=== PATIENT | female | born 1980 | race Caucasian/White ===

== ENCOUNTER 2022-10-26 09:30 | Outpatient (OUT) | payer OTHER, SELFPAY ==
--- NOTE | 2022-10-26 09:34 | US_ITS ---
The [address] [address] Patient Name: KELSI JOHNSON MRN: [id number] date: 1980 Sex: F Assigned Patient Location: [place] Current Patient Location: [place] Accession/Order Number: [id number] Exam Date: 10/26/2022 09:35 Report Date: 10/26/2022 14:39 At the request of: MIRIAM WHITE Procedure: US renal doppler EXAM: US renal doppler HISTORY: Palpitations R00.2, Hypertension I10 COMPARISON: None. TECHNIQUE: Multiple sonographic images of the kidneys and urinary bladder were obtained, supplemented with Doppler. FINDINGS: The right kidney measures 10.5 x 5.1 x 4.7 cm. No cystic or solid mass is identified. Multiple echogenic foci are noted, the largest in the mid pole measuring 4 mm. The cortical thickness is 11 mm. There is no evidence of hydronephrosis. The left kidney measures 10.4 x 5.4 x 5.2 cm. No cystic or solid mass is identified. Multiple echogenic foci are noted, the largest in the superior aspect measuring 5 mm. The cortical thickness is 14 mm. There is no evidence of hydronephrosis. The urinary bladder is moderately distended and the bladder [place] are smooth. There is no bladder wall thickening. No nodule or abnormal calcification is identified. The volume is calculated to be 290 mL. US/US renal doppler IMPRESSION: There is no evidence of an intrarenal mass or hydronephrosis on either side. There are multiple echogenic foci seen in both kidneys, compatible with renal calculi. The urinary bladder appears unremarkable as visualized. Direct comparison with a previous study may be helpful in determining the chronicity of these findings. Electronically authenticated by: GISELE TURK Date: 10/26/2022 14:39
== END 2022-10-26 09:31 | disposition home or self-care (01) ==
LOC: US 09:30
PROVIDERS: PCP Family Medicine; Visit Provider Family Medicine
DX: R00.2 Palpitations (principal); I10 Essential (primary) hypertension
CPT/HCPCS: 76775; 93975

== ENCOUNTER 2022-10-27 10:17 | Outpatient (OUT) | payer OTHER, SELFPAY ==
[2022-10-27 10:35] LABS: Basophils Absolute Auto 0.1 10^3/uL (0.0-0.1); Basophils Percent Auto 0.9 % (0.2-2.0); Eosinophils Absolute Auto 0.1 10^3/uL (0.0-0.7); Eosinophils Percent Auto 1.6 % (0.9-7.0); Hematocrit 39.7 % (36.0-48.0); Hemoglobin 11.8 g/dL (12.0-16.0); Immature Granulocytes Abs Auto 0.01 10^3/uL (0.00-0.03); Immature Granulocytes Pct Auto 0.2 % (0.0-0.5); Lymphocytes Absolute Auto 2.7 10^3/uL (1.2-3.8); Lymphocytes Percent Auto 49.8 % (20.5-60.0); Mean Corpuscular HGB Conc 29.7 g/dL (29.9-35.2); Mean Corpuscular Hemoglobin 24.5 pg (26.7-34.0); Mean Corpuscular Volume 82.5 fL (81.0-99.0); Mean Platelet Volume 10.9 fL (9.5-13.5); Monocytes Absolute Auto 0.3 10^3/uL (0.3-0.8); Monocytes Percent Auto 6.2 % (1.7-12.0); Neutrophils Absolute Auto 2.3 10^3/uL (1.4-6.5); Neutrophils Percent Auto 41.3 % (43.0-75.0); Platelet Count 289 10^3/uL (150-450); Red Blood Count 4.81 10^6/uL (4.20-5.40); Red Cell Distribution Width 17.2 % (11.0-15.0); White Blood Count 5.5 10^3/uL (4.0-11.0)
[2022-10-27 15:35] LABS: Alanine Aminotransferase 34 U/L (14-59); Albumin Globulin Ratio 1.1; Albumin Level 4.1 g/dL (3.4-5.0); Alkaline Phosphatase 50 U/L (46-116); Anion Gap 17.2; Aspartate Amino Transferase 18 U/L (15-37); BUN Creatinine Ratio 7.5; Bilirubin Total 0.3 mg/dL (0.2-1.0); Calcium 9.5 mg/dL (8.5-10.1); Chloride 101 mmol/L (98-107); Estimated GFR (African America >60 (>=60); Estimated GFR (Non-African Ame >60 (>=60); Globulin 3.8 g/dL; Glucose 102 mg/dL (74-106); Potassium 4.2 mmol/L (3.5-5.1); Sodium 139 mmol/L (136-145); Thyroid Stimulating Hormone 3.736 uIU/mL (0.358-3.740); Total Protein 7.9 g/dL (6.4-8.2)
[2022-10-31 19:07] LABS: Aldosterone LCMS, Serum 6.4 ng/dL (0.0-30.0)
== END 2022-10-27 10:18 | disposition home or self-care (01) ==
LOC: LAB 10:19
PROVIDERS: PCP Family Medicine; Visit Provider Family Medicine
DX: R00.2 Palpitations (principal); I10 Essential (primary) hypertension
CPT/HCPCS: 36415; 80053; 82088; 82533; 84439; 84443; 85025

== ENCOUNTER 2022-11-04 14:04 | Outpatient (OUT) | payer OTHER, SELFPAY ==
[2022-11-10 13:30] LABS: Anion Gap 11.3; BUN Creatinine Ratio 6.4; Calcium 9.5 mg/dL (8.5-10.1); Carbon Dioxide 28.3 mmol/L (21.0-32.0); Chloride 102 mmol/L (98-107); Estimated GFR (African America >60 (>=60); Estimated GFR (Non-African Ame >60 (>=60); Glucose 100 mg/dL (74-106); Potassium 4.6 mmol/L (3.5-5.1); Sodium 137 mmol/L (136-145)
[2022-11-10 13:42] LABS: Creatinine Urine Random 87.69 mg/dL (20.00-300.00)
[2022-11-10 14:29] LABS: Total Volume 24 Hour Urine 1500 mL/24hr
[2022-11-12 18:11] LABS: Metanephrine, U,24hr 116 ug/24 hr (36-209); Metanephrine, Ur 77 ug/L (Undefined); Normetanephr.,U,24h 575 ug/24 hr (131-612); Normetanephrine, Ur 383 ug/L (Undefined)
== END 2022-11-04 14:05 | disposition home or self-care (01) ==
LOC: LAB 14:05
PROVIDERS: PCP Family Medicine; Visit Provider Internal Medicine Cardiovascular Disease
DX: I11.9 Hypertensive heart disease without heart failure (principal)
CPT/HCPCS: 36415; 80048; 82384; 82570; 83835

== ENCOUNTER 2022-11-11 14:00 | Outpatient (OUT) | payer OTHER, SELFPAY ==
--- NOTE | 2022-11-11 14:00 | CA_ITS ---
Patient: KELSI JOHNSON Exam Date: 11/11/2022 : 1980 Gender:F Ordering : JANES ROBERTS Admission #: [id number] Family : DR Robert Spence . Order #: [id number] CLICK HERE TO VIEW EXAM ECHOCARDIOGRAM REPORT PROCEDURE: CA ECHO DOPPLER COMPLETE INDICATIONS: Benign hypertensive heart disease without congestive heart failure COMPARISON: None. DESCRIPTION: COMPLETE ECHOCARDIOGRAM Real-time transthoracic echocardiography with 2D, M-mode, spectral and color flow Doppler performed. QUALITY: Technical quality was good. LEFT VENTRICLE: Normal chamber size. Mild to moderate concentric left ventricular hypertrophy. Normal systolic function. LV EF: Normal left ventricular ejection fraction, (>55%). DIASTOLIC: Normal diastolic function. ATRIAL SEPTUM: LEFT ATRIUM: Normal chamber size. RIGHT ATRIUM: Normal chamber size. RIGHT VENTRICLE: Normal chamber size. Normal right ventricular systolic function. TRICUSPID VALVE: Normal mobility and thickness. No stenosis with trivial regurgitation. Unable to assess right-sided pressures due to lack of measurable tricuspid regurgitation jet. MITRAL VALVE: Normal mobility and thickness. No evidence of mitral valve stenosis. There is no mitral annular calcification. Trivial mitral regurgitation. AORTIC VALVE: Normal trileaflet appearance. No visible sclerosis. Normal leaflet mobility. No evidence of aortic valve stenosis. No aortic regurgitation. AORTIC ROOT: Normal diameter and appearance. PULMONIC VALVE: Normal thickness and mobility. No stenosis. PERICARDIUM: No pericardial effusion. IVC: Collapses with inspirations. PLEURA: CONCLUSION: 1. The left ventricle exhibits mild to moderate concentric hypertrophy with normal systolic function. LVEF is 60%. 2. Normal right ventricular size and systolic function. 3. No significant valvular dysfunction. 4. Unable to assess right-sided pressures due to lack of measurable tricuspid regurgitation. 5. No pericardial effusion. Adult Echocardiography Procedure Report Left Ventricle LVEDD (3.7 - 5.6 cm): 4.46 cm LVESD (2.2 - 4.0 cm): 2.89 cm LVIVS thickness (0.6 - 1.2 cm): 1.40 cm LVPW thickness (0.5 - 1.0 cm): 1.26 cm e': 0.10 m/s E - e': 5.58 LVOT Max Gradient: 2.20 mm[Hg] LVOT Area (cm2): 0.74 m/s Peak Velocity (LVOT): 0.74 m/s LVOT Diameter 2.04 cm Left Atrium LA Volume Index (2D A2C): 33.38 ml/m2 Left Atrium Systolic Dimension: 3.08 cm Mitral Valve MV E to A Ratio: 0.93 Mitral Valve A-Wave Peak Velocity: 0.58 m/s Mitral Valve E-Wave Peak Velocity: 0.53 m/s Right Ventricle Aorta AO Root Diam: 3.19 cm Ascending Ao Diam: 3.17 cm Aortic Valve AoV Area (Peak Amado): 2.37 cm2, 2.37 cm2 Peak Velocity(Antegrade Flow): 1.02 m/s Peak Gradient(Antegrade Flow): 4.18 mm[Hg] Tricuspid Valve Pulmonic Valve Peak Velocity: 0.74 m/s Peak Gradient: 2.14 mm[Hg], 2.27 mm[Hg] Right Atrium Right Atrium Systolic Pressure: 25.38 ml, 25.38 ml Dictated by: Guilherme Pizano M.D. on 11/11/2022 at 17:42 Approved by: Guilherme Pizano M.D. on 11/11/2022 at 17:45
== END 2022-11-11 14:01 | disposition home or self-care (01) ==
LOC: CARD 14:00
PROVIDERS: PCP Family Medicine; Visit Provider Internal Medicine Cardiovascular Disease
DX: I11.9 Hypertensive heart disease without heart failure (principal)
CPT/HCPCS: 93306

== ENCOUNTER 2022-11-14 09:01 | Outpatient (OUT) | payer OTHER, SELFPAY ==
[2022-11-14 09:00] VITALS: BP 176/119; PULSE 68; RESP 18; TEMP 36.6; O2SAT 99
[2022-11-14] MEDS: COSYNTROPIN 0.25 MG VIAL IM (09:15)
--- NOTE | 2022-11-14 09:19 | PC.NURSE ---
Patient is here cortisol ACTH test, she denies any issues. Pt was drawn by lab then given injection at 0915, lab will return at 0945 and 1015 to draw her cortisol levels. She tolerated injection well and denies any issues at this time.
--- NOTE | 2022-11-14 10:17 | PC.NURSE ---
Patient tolerated injection well, her right arm did become bruised after phlebotomy, lab was notified and she was drawn at 945 and 1015 without any issues. She was discharged home.
== END 2022-11-14 09:02 | disposition home or self-care (01) ==
LOC: INF 09:02
PROVIDERS: PCP Family Medicine; Visit Provider Family Medicine
DX: R94.7 Abnormal results of other endocrine function studies (principal)
CPT/HCPCS: 36415; 82533; 96372

== ENCOUNTER 2022-12-24 12:03 | Outpatient (OUT) | payer OTHER, SELFPAY ==
[2022-12-24 12:44] LABS: Anion Gap 14.2; Calcium 8.8 mg/dL (8.5-10.1); Chloride 104 mmol/L (98-107); Estimated GFR (African America >60 (>=60); Estimated GFR (Non-African Ame >60 (>=60); Glucose 97 mg/dL (74-106); Potassium 4.2 mmol/L (3.5-5.1); Sodium 141 mmol/L (136-145)
== END 2022-12-24 12:04 | disposition home or self-care (01) ==
PROVIDERS: PCP Family Medicine; Visit Provider Internal Medicine Cardiovascular Disease
DX: I10 Essential (primary) hypertension (principal)
CPT/HCPCS: 36415; 80048

== ENCOUNTER 2023-02-01 12:08 | Outpatient (OUT) | payer OTHER, SELFPAY ==
[2023-02-01 13:08] LABS: Basophils Percent Auto 0.2 % (0.2-2.0); Hematocrit 41.4 % (36.0-48.0); Hemoglobin 13.2 g/dL (12.0-16.0); Immature Granulocytes Abs Auto 0.02 10^3/uL (0.00-0.03); Immature Granulocytes Pct Auto 0.2 % (0.0-0.5); Lymphocytes Absolute Auto 2.1 10^3/uL (1.2-3.8); Mean Corpuscular HGB Conc 31.9 g/dL (29.9-35.2); Mean Corpuscular Hemoglobin 28.3 pg (26.7-34.0); Mean Corpuscular Volume 88.7 fL (81.0-99.0); Mean Platelet Volume 10.8 fL (9.5-13.5); Monocytes Absolute Auto 0.4 10^3/uL (0.3-0.8); Monocytes Percent Auto 3.9 % (1.7-12.0); Neutrophils Absolute Auto 6.9 10^3/uL (1.4-6.5); Neutrophils Percent Auto 73.7 % (43.0-75.0); Platelet Count 349 10^3/uL (150-450); Red Blood Count 4.67 10^6/uL (4.20-5.40); Red Cell Distribution Width 14.6 % (11.0-15.0); White Blood Count 9.4 10^3/uL (4.0-11.0)
[2023-02-01 13:31] LABS: Alanine Aminotransferase 29 U/L (14-59); Albumin Globulin Ratio 0.9; Albumin Level 4.1 g/dL (3.4-5.0); Alkaline Phosphatase 58 U/L (46-116); Anion Gap 16.6; Aspartate Amino Transferase 16 U/L (15-37); BUN Creatinine Ratio 9.4; Bilirubin Total 0.4 mg/dL (0.2-1.0); Calcium 9.2 mg/dL (8.5-10.1); Chloride 97 mmol/L (98-107); Estimated GFR (African America >60 (>=60); Estimated GFR (Non-African Ame >60 (>=60); Globulin 4.6 g/dL; Glucose 106 mg/dL (74-106); Magnesium 1.7 mg/dL (1.8-2.4); Potassium 4.6 mmol/L (3.5-5.1); Sodium 135 mmol/L (136-145); Thyroid Stimulating Hormone 1.226 uIU/mL (0.358-3.740); Total Protein 8.7 g/dL (6.4-8.2)
[2023-02-01 13:58] LABS: Free T4 0.74 ng/dL (0.76-1.46)
== END 2023-02-01 12:09 | disposition home or self-care (01) ==
LOC: LAB 12:10
PROVIDERS: PCP Family Medicine; Visit Provider Internal Medicine Cardiovascular Disease
DX: I11.9 Hypertensive heart disease without heart failure (principal); R53.83 Other fatigue
CPT/HCPCS: 36415; 80053; 83735; 84439; 84443; 85025

== ENCOUNTER 2023-02-06 13:47 | Outpatient (OUT) | payer OTHER, SELFPAY ==
--- NOTE | 2023-02-06 13:53 | CT_ITS ---
The [address] [address] Patient Name: KELSI JOHNSON MRN: [id number] date: 1980 Sex: F Assigned Patient Location: CT Current Patient Location: Accession/Order Number: [id number] Exam Date: 02/06/2023 14:05 Report Date: 02/07/2023 07:39 At the request of: DANNIE LUTHER Procedure: CT abdomen wo/w con EXAMINATION: CT abdomen wo/w con HISTORY: Benign essential hypertension COMPARISON: No relevant comparison available. TECHNIQUE: Axial, Coronal, and Sagittal images were obtained without and/or with IV contrast as indicated by examination type. Dose reduction techniques were achieved by using automated exposure control and/or adjustment of mA and/or kV according to patient size and/or use of iterative reconstruction technique FINDINGS: LUNG BASES: No visible pulmonary or pleural disease. LIVER: No enlargement, atrophy, abnormal density, or significant focal lesion. BILIARY: No visible dilatation or calcification. PANCREAS: No lesion, fluid collection, ductal dilatation, or atrophy. SPLEEN: No enlargement or focal lesion. ADRENALS: No mass or enlargement. KIDNEYS: A few tiny nonobstructing stones bilaterally. BOWEL/MESENTERY: No visible mass, obstruction, or bowel wall thickening. AORTA/VASCULAR: No aneurysm or dissection. RETROPERITONEUM: No mass or adenopathy. ABDOMINAL WALL: No mass or hernia. BONES: No bony lesion or fracture. OTHER: Negative. CT/CT abdomen wo/w con IMPRESSION: 1. Normal appearance of the adrenal glands. 2. Bilateral nonobstructing nephrolithiasis. Electronically authenticated by: MAYTE ANNE Date: 02/07/2023 07:39
== END 2023-02-06 13:48 | disposition home or self-care (01) ==
LOC: CT 13:47
PROVIDERS: PCP Family Medicine; Visit Provider Internal Medicine
DX: I70.1 Atherosclerosis of renal artery (principal); I10 Essential (primary) hypertension
CPT/HCPCS: 74170; Q9967

== ENCOUNTER 2023-02-15 21:03 | Outpatient (OUT) | payer OTHER, SELFPAY | END 2023-02-15 21:04 | disposition home or self-care (01) | LOC: SLEEP 21:03 | PROVIDERS: PCP Internal Medicine Cardiovascular Disease; Visit Provider Internal Medicine Cardiovascular Disease | DX: G47.33 Obstructive sleep apnea (adult) (pediatric) (principal) | CPT/HCPCS: 95810 ==

== ENCOUNTER 2023-05-01 20:07 | Outpatient (OUT) | payer OTHER, SELFPAY ==
--- OUTSIDE RECORDS SUMMARY | 2023-05-01 20:10 | XMS_ITS | CCD ---
Author Name Unknown Address [address] [place] [address] Organization [facility] Care Team Providers Care Still Operator Batch Or Continuous Name Role Phone UNKNOWN, PROVIDER Admitting Unavailable UNKNOWN, PROVIDER Attending Unavailable MIRIAM SPENCE Referring Unavailable CINDY, MIRIAM Primary Care Unavailable LYNDA ., DR FREED Consulting Unavailable LYNDA ., DR FREED Admitting Unavailable HOY ., DR PINEDA Primary Care Unavailable LYNDA ., DR FREED Attending Unavailable ZIEBER, DR LUAN [place] Consulting Unavailable LYNDA ., DR FREED Consulting Unavailable LYNDA ., DR FREED Admitting Unavailable HOY ., DR PINEDA Primary Care Unavailable LYNDA ., DR FREED Attending Unavailable ZIEBER, DR LUAN [place] Consulting Unavailable LYNDA ., DR FREED Consulting Unavailable HOY ., DR PINEDA Primary Care Unavailable LYNDA ., DR FREED Admitting Unavailable LYNDA ., DR FREED Attending Unavailable LYNDA ., DR FREED Attending Unavailable HOY ., DR PINEDA Consulting Unavailable HOY ., DR PINEDA Primary Care Unavailable LYNDA ., DR FREED Admitting Unavailable LYNDA ., DR FREED Consulting Unavailable PRAMOD GRUBER Consulting Unavailable CHINEDU II LATISHA Consulting Unavailable LYNDA ., DR FREED Attending Unavailable LYNDA ., DR FREED Consulting Unavailable HOY ., DR PINEDA Primary Care Unavailable LYNDA ., DR FREED Admitting Unavailable HOY ., DR PINEDA Consulting Unavailable HOY ., DR PINEDA Primary Care Unavailable HOY ., DR PINEDA Admitting Unavailable HOY ., DR PINEDA Attending Unavailable PAY ., DR ROGERS Consulting Unavailable JAYY DE ANDA Consulting Unavailable Grant Herring Attending Unavailab Grant Manjarrez Admitting Unavailab Miriam Mulligan Primary Care Unavailable ABI ZARAGOZA Attending Unavailable ABI ZARAGOZA Attending Unavailable ABI ZARAGOZA Attending Unavailable ROCK PEARSON Attending Unavailable ROCK PEARSON Attending Unavailable ABI ZARAGOZA Attending Unavailable Allergies Allergy Classification Reported Allergen(s) Allergy Type Date of Onset Reaction(s) Facility (1 source) Iodine (And Iodine Containting Drugs) Drug allergy (disorder) 04-17-1991 [facility] Repository (1 source) Metoprolol Drug Allergy 04-17-2022 [facility] (1 source) Iodinated Contrast Media Drug allergy (disorder) 09-20-2017 [facility] Repository Problems Active Problems Problem Classification Problem Date Documented Da te Episodic/Chronic Contraceptive and procreative management (5 sources) Encounter for sterilization; Translations: [ENCOUNTER FOR STERILIZATION] Onset: 07-18-2022 Episodic Essential hypertension (2 sources) Essential (primary) hypertension; Translations: [ESSENTIAL PRIMARY HYPERTENSION] Onset: 07-20-2022 Chronic Headache; including migraine (4 sources) Headache; including migraine; Translations: [HEADACHE UNSPECIFIED] Onset: 07-15-2022 Hypertension with complications and secondary hypertension (2 sources) Hypertensive heart disease without heart failure; Translations: [Hypertensive heart disease without heart failure] Onset: 12-28-2022 Chronic Malaise and fatigue (2 sources) Other fatigue; Translations: [Other fatigue] Onset: 03-29-2023 Episodic Menstrual disorders (2 sources) Excessive and frequent menstruation with regular cycle; Translations: [Irregular menstruation, unspecified] Onset: 08-04-2022 Chronic Other aftercare (1 source) Other parts counterman (current) drug therapy; Translations: [OTH HALF-WAY CURRENT DRUG THERAPY] Onset: 07-20-2022 Episodic Other endocrine disorders (1 source) Polycystic ovarian syndrome; Translations: [POLYCYSTIC OVARIAN SYNDROME] Onset: 06-29-2022 Chronic Other female genital disorders (1 source) Abnormal uterine and vaginal bleeding, unspecified; Translations: [ABNORMAL UTERINE VAGINAL BLEED UNS] Onset: 08-04-2022 Chronic Other nutritional; endocrine; and metabolic disorders (1 source) Obesity, unspecified; Translations: [OBESITY UNSPECIFIED] Onset: 07-20-2022 Chronic Other nutritional; endocrine; and metabolic disorders (1 source) Body mass index (BMI) 30.0-30.9, adult; Translations: [BODY MASS INDEX BMI 30.0-30.9 ADULT] Onset: 07-20-2022 Chronic Other nutritional; endocrine; and metabolic disorders (2 sources) Abnormal weight gain; Translations: [Abnormal weight gain] Onset: 03-29-2023 Episodic Other screening for suspected conditions (not mental disorders or infectious disease) (8 sources) Encounter for screening mammogram for malignant neoplasm of breast; Translations: [Encounter for screening for malignant neoplasm of cervix] Onset: 06-28-2022 Episodic Ovarian cyst (1 source) Unspecified ovarian cyst, right side; Translations: [UNSPECIFIED OVARIAN CYST RIGHT SIDE] Onset: 08-04-2022 Episodic Residual codes; unclassified (2 sources) Edema, unspecified; Translations: [Edema, unspecified] Onset: 04-27-2023 Episodic Substance-related disorders (1 source) Cannabis use, unspecified, uncomplicated; Translations: [CANNABIS USE UNS UNCOMPLICATED] Onset: 07-20-2022 Episodic Unclassified (1 source) CONTACT W/AND (SUSP) EXPOS COVID-19; Translations: [CONTACT W/AND (SUSP) EXPOS COVID-19] Onset: 07-20-2022 Unclassified (1 source) Resistant hypertension; Translations: [Resistant hypertension] Onset: 11-03-2022 Past or Other Problems Problem Classification Problem Date Documented Da te Episodic/Chronic Cardiac dysrhythmias (2 sources) Palpitations; Translations: [Palpitations] Onset: 11-03-2022 Episodic Unclassified (1 source) Resistant hypertension; Translations: [Resistant hypertension] Onset: 04-27-2023 Results Test Name Value Interpretation Reference Range Facility Office Visiton 04-27-2023 Follow-up visit [id number] Kelsi Johnson 1980 F Date Provider Department Center 04/27/2023 Deya-ROCK PEARSON [facility] Family History Problem Relation Age of Onset Hypertension Mother Hypertension Father Family Status - Relation Status Age at Mother Father Level of Service:47725 PA OFFICE/OUTPATIENT ESTABLISHED MOD MDM 30 MIN Reason for Visit and Comments: Hypertension [234620] Fatigue [46] Normal [facility] Office Visiton 03-29-2023 Follow-up visit [id number] Kelsi Johnson 1980 F Date Provider Department Center 03/29/2023 [facility] Family History Problem Relation Age of Onset Hypertension Mother Hypertension Father Family Status - Relation Status Age at Mother Father Level of Service:68118 PA OFFICE/OUTPATIENT ESTABLISHED MOD MDM 30-39 MIN Reason for Visit and Comments: Hypertension [051297] Fatigue [46] Normal [facility] Office Visiton 01-31-2023 Follow-up visit [id number] Kelsi Johnson Naveen 1980 Date Provider Department Center 01/31/2023 384ABI VARGHESE Family History Problem Relation Age of Onset Hypertension Mother Hypertension Father Family Status - Relation Status Age at Mother Father Level of Service:94376 PA OFFICE/OUTPATIENT ESTABLISHED LOW MDM 20-29 MIN Normal [facility] Office Visiton 12-28-2022 Follow-up visit [id number] Maya Johnsonluann Hodge 1980 Date Provider [facility] Problem Relation Age of Onset Hypertension Mother Hypertension Father Family Status - Relation Status Age at Mother Father Level of Service:55693 PA OFFICE/OUTPATIENT ESTABLISHED MOD MDM 30-39 MIN Normal [facility] Office Visiton 11-28-2022 Follow-up visit [id number] Kelsi Johnson Naveen 1980 F Date Provider Department Center 11/28/2022 ABI REESE Family History Problem Relation Age of Onset Hypertension Mother Hypertension Father Family Status - Relation Status Age at Mother Father Level of Service:92695 PA OFFICE/OUTPATIENT ESTABLISHED MOD MDM 30-39 MIN Reason for Visit and Comments: Follow-up [640287] - 4 wk follow up/ medication change Normal [facility] Office Visiton 11-04-2022 Follow-up visit [id number] Maya Johnsonluann Hodge 1980 F Date Provider Department Center 11/04/2022 ABI REESE Family History Problem Relation Age of Onset Hypertension Mother Hypertension Father Family Status - Relation Status Age at Mother Father Level of Service:88100 PA OFFICE/OUTPATIENT NEW MODERATE MDM 45-59 MINUTES Normal [facility] CBC AUTO DIFFon 07-22-2022 BASO # 0.1 103/ul Normal 0.0-0.1 [facility] Comment on above: Performed By: #### C BC #### [facility] [address] [address] [address] Brittani Arevalo Basophils/100 WBC (Bld) 0.9 % Normal 0.2-2.0 [facility] Comment on above: Performed By: #### C BC #### [facility] [address] [address] [address] Brittani Arevalo EO # 0.1 103/ul Normal 0.0-0.7 [facility] Comment on above: Performed By: #### C BC #### [facility] [address] [address] [address] Brittani Arevalo Eosinophils/100 WBC (Bld) 1.5 % Normal 0.9-7.0 [facility] Comment on above: Performed By: #### C BC #### [facility] [address] [address] [address] Brittani Arevalo Erythrocyte distribution width (RBC) [Ratio] 16.6 % Critically high 11.0-15.0 [facility] Comment on above: Performed By: #### C BC #### [facility] [address] [address] [address] Brittani Arevalo Hematocrit (Bld) [Volume fraction] 32.1 % Critically low 36.0-48.0 [facility] Comment on above: Performed By: #### C BC #### [facility] [address] [address] [address] Brittani Arevalo Hemoglobin (Bld) [Mass/Vol] 9.5 g/dL Critically low 12.0-16.0 [facility] Comment on above: Performed By: #### C BC #### [facility] [address] [address] [address] Brittani Arevalo IG # 0.01 10e3/ul Normal 0.00-0.03 [facility] Comment on above: Performed By: #### C BC #### [facility] [address] [place] [address] Dr. Brittani Arevalo IG % 0.2 % Normal 0.0-0.5 [facility] Comment on above: Performed By: #### C BC #### [facility] [address] [place] [address] Dr. Brittani Arevalo LYMPH # 2.7 103/ul Normal 1.2-3.8 [facility] Comment on above: Performed By: #### C BC #### [facility] [address] [place] [address] Dr. Brittani Arevalo Lymphocytes/100 WBC (Bld) 41.4 % Normal 20.5-60.0 [facility] Comment on above: Performed By: #### C BC #### [facility] [address] [place] [address] Dr. Brittani Arevalo MANUAL DIFF REQ NO Normal [facility] Comment on above: Performed By: #### C BC #### [facility] [address] [place] [address] Dr. Brittani Arevalo MCH (RBC) [Entitic mass] 23.4 pg Critically low 26.7-34 .0 [facility] Comment on above: Performed By: #### C BC #### [facility] [address] [place] [address] Dr. Brittani Arevalo MCHC (RBC) [Mass/Vol] 29.6 g/dL Critically low 29.9-35.2 [facility] Comment on above: Performed By: #### C BC #### [facility] [address] [place] [address] Dr. Brittani Arevalo MCV (RBC) [Entitic vol] 79.1 fL Critically low 81.0-99. 0 [facility] Comment on above: Performed By: #### C BC #### [facility] [address] [place] [address] Dr. Brittani Arevalo MONO # 0.5 103/ul Normal 0.3-0.8 [facility] Comment on above: Performed By: #### C BC #### [facility] [address] [address] [address] Brittani Arevalo Monocytes/100 WBC (Bld) 7.2 % Normal 1.7-12.0 [facility] Comment on above: Performed By: #### C BC #### [facility] [address] [address] [address] Brittani Arevalo NEUT # 3.2 103/ul Normal 1.4-6.5 [facility] Comment on above: Performed By: #### C BC #### [facility] [address] [address] [address] Brittani Arevalo Neutrophils/100 WBC (Bld) 48.8 % Normal 43.0-75.0 [facility] Comment on above: Performed By: #### C BC #### [facility] [address] [place] [address] Dr. Brittani Arevalo Platelet mean volume (Bld) [Entitic vol] 10.7 fL Normal 9.5-13.5 [facility] Comment on above: Performed By: #### C BC #### [facility] [address] [address] [address] Brittani Arevalo PLT 385 103/ul Normal 150-450 [facility] Comment on above: Performed By: #### C BC #### [facility] [address] [place] [address] Dr. Brittani Arevalo RBC 4.06 106/ul Critically low 4.20-5.40 [facility] Comment on above: Performed By: #### C BC #### [facility] [address] [address] [address] Brittani Arevalo WBC 6.6 103/ul Normal 4.0-11.0 [facility] Comment on above: Performed By: #### C BC #### [facility] [address] [place] [address] Dr. Brittani Arevalo PREG QUANT HCGon 07-22-2022 HCG QUANT 1 mIU/mL Normal [facility] Comment on above: Performed By: #### C MP, BNP #### [facility] [address] [place] [address] Dr. Brittani Arevalo HCG RANGE SEE BELOW Normal [facility] Comment on above: Result Comment: 5-50 0.2-1 WEEK 50-500 1-2 WEEKS 100-5,000 2-3 WEEKS 500-10,000 3-4 WEEKS 1,000-50,000 4-5 WEEKS 10,000-100,000 5-6 WEEKS 15,000-200,000 6-8 WEEKS 10,000-100,000 2-3 MONTHS Performed By: #### C MP, BNP #### [facility] [address] [place] [address] Dr. Brittani rAevalo BNPon 07-16-2022 Natriuretic peptide B (Bld) [Mass/Vol] 74.0 pg/mL Normal <=450.0 [facility] Comment on above: Performed By: #### C MP, BNP #### [facility] [address] [place] [address] Dr. Brittani Arevalo CBC AUTO DIFFon 07-16-2022 BASO # 0.1 103/ul Normal 0.0-0.1 [facility] Comment on above: Performed By: #### C BC #### [facility] [address] [place] [address] Dr. Brittani Arevalo Basophils/100 WBC (Bld) 0.6 % Normal 0.2-2.0 [facility] Comment on above: Performed By: #### C BC #### [facility] [address] [place] [address] Dr. Brittani Arevalo EO # 0.1 103/ul Normal 0.0-0.7 [facility] Comment on above: Performed By: #### C BC #### [facility] [address] [place] [address] Dr. Brittani Arevalo Eosinophils/100 WBC (Bld) 0.8 % Critically low 0.9-7. 0 [facility] Comment on above: Performed By: #### C BC #### [facility] [address] [place] [address] Dr. Brittani Arevalo Erythrocyte distribution width (RBC) [Ratio] 16.4 % Critically high 11.0-15.0 [facility] Comment on above: Performed By: #### C BC #### [facility] [address] [place] [address] Dr. Brittani Arevalo Hematocrit (Bld) [Volume fraction] 32.0 % Critically low 36.0-48.0 [facility] Comment on above: Performed By: #### C BC #### [facility] [address] [place] [address] Dr. Brittani Arevalo Hemoglobin (Bld) [Mass/Vol] 9.7 g/dL Critically low 12.0-16.0 [facility] Comment on above: Performed By: #### C BC #### [facility] [address] [place] [address] Dr. Brittani Arevalo IG # 0.02 10e3/ul Normal 0.00-0.03 [facility] Comment on above: Performed By: #### C BC #### [facility] [address] [place] [address] Dr. Brittani Arevalo IG % 0.2 % Normal 0.0-0.5 [facility] Comment on above: Performed By: #### C BC #### [facility] [address] [place] [address] Dr. Brittani Arevalo LYMPH # 2.5 103/ul Normal 1.2-3.8 [facility] Comment on above: Performed By: #### C BC #### [facility] [address] [place] [address] Dr. Brittani Arevalo Lymphocytes/100 WBC (Bld) 28.0 % Normal 20.5-60.0 [facility] Comment on above: Performed By: #### C BC #### [facility] [address] [place] [address] Dr. Brittani Arevalo MANUAL DIFF REQ NO Normal [facility] Comment on above: Performed By: #### C BC #### [facility] [address] [place] [address] Dr. Brittani Arevalo MCH (RBC) [Entitic mass] 23.2 pg Critically low 26.7-34 .0 [facility] Comment on above: Performed By: #### C BC #### [facility] [address] [address] [address] Brittani Arevalo MCHC (RBC) [Mass/Vol] 30.3 g/dL Normal 29.9-35.2 [facility] Comment on above: Performed By: #### C BC #### [facility] [address] [address] [address] Brittani Arevalo MCV (RBC) [Entitic vol] 76.4 fL Critically low 81.0-99. 0 [facility] Comment on above: Performed By: #### C BC #### [facility] [address] [address] [address] Brittani Arevalo MONO # 0.5 103/ul Normal 0.3-0.8 [facility] Comment on above: Performed By: #### C BC #### [facility] [address] [address] [address] Brittani Arevalo Monocytes/100 WBC (Bld) 5.7 % Normal 1.7-12.0 [facility] Comment on above: Performed By: #### C BC #### [facility] [address] [place] [address] Dr. Brittani Arevalo NEUT # 5.8 103/ul Normal 1.4-6.5 [facility] Comment on above: Performed By: #### C BC #### [facility] [address] [address] [address] Brittani Arevalo Neutrophils/100 WBC (Bld) 64.7 % Normal 43.0-75.0 [facility] Comment on above: Performed By: #### C BC #### [facility] [address] [address] [address] Brittani Arevalo Platelet mean volume (Bld) [Entitic vol] 10.5 fL Normal 9.5-13.5 [facility] Comment on above: Performed By: #### C BC #### [facility] [address] [address] [address] Brittani Arevalo PLT 328 103/ul Normal 150-450 [facility] Comment on above: Performed By: #### C BC #### [facility] [address] [address] [address] Brittani Arevalo RBC 4.19 106/ul Critically low 4.20-5.40 [facility] Comment on above: Performed By: #### C BC #### [facility] [address] [address] [address] Brittani Arevalo WBC 9.0 103/ul Normal 4.0-11.0 [facility] Comment on above: Performed By: #### C BC #### [facility] [address] [address] [address] Brittani Arevalo PROF 14(COMP METB)on 023 Albumin [Mass/Vol] 3.5 g/dL Normal 3.4-5.0 [facility] Comment on above: Performed By: #### C MP, BNP #### [facility] [address] [place] [address] Dr. Brittani Arevalo Albumin/Globulin [Mass ratio] 0.9 {ratio} Normal [facility] Comment on above: Performed By: #### C MP, BNP #### [facility] [address] [place] [address] Dr. Brittani Arevalo ALP [Catalytic activity/Vol] 61 U/L Normal 46-116 [facility] Comment on above: Performed By: #### C MP, BNP #### [facility] [address] [place] [address] Dr. Brittani Arevalo ALT [Catalytic activity/Vol] 20 U/L Normal 14-59 [facility] Comment on above: Performed By: #### C MP, BNP #### [facility] [address] [place] [address] Dr. Brittani Arevalo Anion gap [Moles/Vol] 14.6 mmol/L Normal [facility] Comment on above: Performed By: #### C MP, BNP #### [facility] [address] [place] [address] Dr. Brittani Arevalo AST [Catalytic activity/Vol] 13 U/L Critically low 15-37 [facility] Comment on above: Performed By: #### C MP, BNP #### [facility] [address] [place] [address] Dr. Brittani Arevalo Bilirubin [Mass/Vol] 0.2 mg/dL Normal 0.2-1.0 [facility] Comment on above: Performed By: #### C MP, BNP #### [facility] [address] [place] [address] Dr. Brittani Arevalo Calcium [Mass/Vol] 9.1 mg/dL Normal 8.5-10.1 [facility] Comment on above: Performed By: #### C MP, BNP #### [facility] [address] [place] [address] Dr. Brittani Arevalo Chloride [Moles/Vol] 102 mmol/L Normal 98-107 [facility] Comment on above: Performed By: #### C MP, BNP #### [facility] [address] [place] [address] Dr. Brittani Arevalo CO2 [Moles/Vol] 24.2 mmol/L Normal 21.0-32.0 [facility] Comment on above: Performed By: #### C MP, BNP #### [facility] [address] [place] [address] Dr. Brittani Arevalo Creatinine [Mass/Vol] 0.91 mg/dL Normal 0.55-1.02 [facility] Comment on above: Performed By: #### C MP, BNP #### [facility] [address] [place] [address] Dr. Brittani Arevalo EGFR-AF MOSOTHO >60 Normal >=60 [facility] Comment on above: Performed By: #### C MP, BNP #### [facility] [address] [place] [address] Dr. Brittani Arevalo EGFR-NON AF [place] >60 Normal >=60 [facility] Comment on above: Performed By: #### C MP, BNP #### [facility] [address] [place] [address] Dr. Brittani Arevalo Globulin (S) [Mass/Vol] 3.8 g/dL Normal [facility] Comment on above: Performed By: #### C MP, BNP #### [facility] [address] [place] [address] Dr. Brittani Arevalo Glucose [Mass/Vol] 118 mg/dL Critically high 74-106 [facility] Comment on above: Performed By: #### C MP, BNP #### [facility] [address] [place] [address] Dr. Brittani Arevalo Potassium [Moles/Vol] 3.8 mmol/L Normal 3.5-5.1 [facility] Comment on above: Performed By: #### C MP, BNP #### [facility] [address] [place] [address] Dr. Brittani Arevalo Protein [Mass/Vol] 7.3 g/dL Normal 6.4-8.2 [facility] Comment on above: Performed By: #### C MP, BNP #### [facility] [address] [place] [address] Dr. Brittani Arevalo Sodium [Moles/Vol] 137 mmol/L Normal 136-145 [facility] Comment on above: Performed By: #### C MP, BNP #### [facility] [address] [place] [address] Dr. Brittani Arevalo Urea nitrogen [Mass/Vol] 9.0 mg/dL Normal 7.0-18.0 [facility] Comment on above: Performed By: #### C MP, BNP #### [facility] [address] [place] [address] Dr. Brittani Arevalo Urea nitrogen/Creatinine [Mass ratio] 9.9 mg/mg Normal [facility] Comment on above: Performed By: #### C MP, BNP #### [facility] [address] [place] [address] Dr. Brittani Arevalo BNPon 07-15-2022 Natriuretic peptide B (Bld) [Mass/Vol] 58.0 pg/mL Normal <=450.0 [facility] Comment on above: Performed By: #### C MP, BNP #### [facility] [address] [place] [address] Dr. Brittani Arevalo CBC AUTO DIFFon 03-31-2023 BASO # 0.1 103/ul Normal 0.0-0.1 [facility] Comment on above: Performed By: #### C MP, BNP #### [facility] [facility] [address] [place] [address] Dr. Brittani Arevalo Basophils/100 WBC (Bld) 0.6 % Normal 0.2-2.0 [facility] Comment on above: Performed By: #### C MP, BNP #### [facility] [address] [place] [address] Dr. Brittani Arevalo EO # 0.1 103/ul Normal 0.0-0.7 [facility] Comment on above: Performed By: #### C MP, BNP #### [facility] [address] [place] [address] Dr. Brittani Arevalo Eosinophils/100 WBC (Bld) 1.1 % Normal 0.9-7.0 [facility] Comment on above: Performed By: #### C MP, BNP #### [facility] [address] [place] [address] Dr. Brittani Arevalo Erythrocyte distribution width (RBC) [Ratio] 16.4 % Critically high 11.0-15.0 [facility] Comment on above: Performed By: #### C MP, BNP #### [facility] [address] [place] [address] Dr. Brittani Arevalo Hematocrit (Bld) [Volume fraction] 37.4 % Normal 36.0-48.0 [facility] Comment on above: Performed By: #### C MP, BNP #### [facility] [address] [place] [address] Dr. Brittani Arevalo Hemoglobin (Bld) [Mass/Vol] 11.3 g/dL Critically low 12.0-16.0 [facility] Comment on above: Performed By: #### C MP, BNP #### [facility] [address] [place] [address] Dr. Brittani Arevalo IG # 0.02 10e3/ul Normal 0.00-0.03 [facility] Comment on above: Performed By: #### C MP, BNP #### [facility] [address] [place] [address] Dr. Brittani Arevalo IG % 0.2 % Normal 0.0-0.5 [facility] Comment on above: Performed By: #### C MP, BNP #### [facility] [address] [place] [address] Dr. Brittani Arevalo LYMPH # 2.5 103/ul Normal 1.2-3.8 [facility] Comment on above: Performed By: #### C MP, BNP #### [facility] [address] [place] [address] Dr. Brittani Arevalo Lymphocytes/100 WBC (Bld) 29.0 % Normal 20.5-60.0 [facility] Comment on above: Performed By: #### C MP, BNP #### [facility] [address] [place] [address] Dr. Brittani Arevalo MANUAL DIFF REQ NO Normal [facility] Comment on above: Performed By: #### C MP, BNP #### [facility] [address] [place] [address] Dr. Brittani Arevalo MCH (RBC) [Entitic mass] 23.5 pg Critically low 26.7-34 .0 [facility] Comment on above: Performed By: #### C MP, BNP #### [facility] [address] [place] [address] Dr. Brittani Arevalo MCHC (RBC) [Mass/Vol] 30.2 g/dL Normal 29.9-35.2 [facility] Comment on above: Performed By: #### C MP, BNP #### [facility] [address] [place] [address] Dr. Brittani Arevalo MCV (RBC) [Entitic vol] 77.8 fL Critically low 81.0-99. 0 [facility] Comment on above: Performed By: #### C MP, BNP #### [facility] [address] [place] [address] Dr. Brittani Arevalo MONO # 0.4 103/ul Normal 0.3-0.8 [facility] Comment on above: Performed By: #### C MP, BNP #### [facility] [address] [place] [address] Dr. Brittani Arevlao Monocytes/100 WBC (Bld) 4.9 % Normal 1.7-12.0 [facility] Comment on above: Performed By: #### C MP, BNP #### [facility] [address] [place] [address] Dr. Brittani Arevalo NEUT # 5.6 103/ul Normal 1.4-6.5 [facility] Comment on above: Performed By: #### C MP, BNP #### [facility] [address] [place] [address] Dr. Brittani Arevalo Neutrophils/100 WBC (Bld) 64.2 % Normal 43.0-75.0 [facility] Comment on above: Performed By: #### C MP, BNP #### [facility] [address] [place] [address] Dr. Brittani Arevalo Platelet mean volume (Bld) [Entitic vol] 10.6 fL Normal 9.5-13.5 [facility] Comment on above: Performed By: #### C MP, BNP #### [facility] [address] [place] [address] Dr. Brittani Arevalo PLT 376 103/ul Normal 150-450 [facility] Comment on above: Performed By: #### C MP, BNP #### [facility] [address] [place] [address] Dr. Brittani Arevalo RBC 4.81 106/ul Normal 4.20-5.40 [facility] Comment on above: Performed By: #### C MP, BNP #### [facility] [address] [place] [address] Dr. Brittani Arevalo WBC 8.8 103/ul Normal 4.0-11.0 [facility] Comment on above: Performed By: #### C MP, BNP #### [facility] [address] [place] [address] Dr. Brittani Arevalo Covid-19 PCR (CVDTB)on 06-17 SARS-CoV-2 (COVID-19) RNA BISI+probe Ql (Unsp spec) Not detected Normal NOT DETECTED [facility] Comment on above: Result Comment: When diagnostic testing is negative, the possibility of a false negative should be considered in the context of a patient's recent exposures and the presence of clinical signs and symptoms consistent with SARS-CoV-2. This test is not yet approved or cleared by the [place] FDA. When there are no FDA-approved or cleared tests available, and other criteria are met, FDA can make tests available under an emergency access mechanism called an Emergency Use Authorization (EUA). The EUA for this test is supported by the [place] of Health and Human Service's declaration that circumstances exist to justify the emergency use of in vitro diagnostics for the detection and/or diagnosis of the virus that causes COVID-19. This EUA will remain in effect for the duration of the COVID-19 declaration justifying emergency of IVDs, unless it is terminated or revoked by the FDA (after which the test may no longer be used). Performed By: #### C MP, BNP #### [facility] [address] [place] [address] Dr. Brittani Arevalo DRUG SCREEN RAPID (URINE)on 07-15-2022 AMP Negative Normal NEGATIVE [facility] Comment on above: Performed By: #### C MP, BNP #### [facility] [address] [place] [address] Dr. Brittani Arevalo BAR Negative Normal NEGATIVE [facility] Comment on above: Performed By: #### C MP, BNP #### [facility] [address] [place] [address] Dr. Brittani Arevalo BUP Negative Normal NEGATIVE [facility] Comment on above: Performed By: #### C MP, BNP #### [facility] [address] [place] [address] Dr. Brittani Arevalo BZO Negative Normal NEGATIVE [facility] Comment on above: Performed By: #### C MP, BNP #### [facility] [address] [place] [address] Dr. Brittani Arevalo MARINO Negative Normal NEGATIVE [facility] Comment on above: Performed By: #### C MP, BNP #### [facility] [address] [place] [address] Dr. Brittani Arevalo CUT-OFFS SEE BELOW Normal [facility] Comment on above: Result Comment: AMP (Amphetamine): 500ng/mL, BAR (Barbituates): 200 ng/mL, BZO (Benzodiazepines): 150 ng/mL, BUP (Buprenorphine): 10 ng/mL, MARINO (Cocaine): 150 ng/mL, mAMP (Methamphetamine): 500 ng/mL, MTD (Methadone): 200 ng/mL, OPI (Opiates): 100 ng/mL, OXY (Oxycodone): 100 ng/mL, PCP (Phencyclidine): 25 ng/mL, PPX (Propoxyphene): 300 ng/mL, THC (Cannabinoids): 50 ng/mL, TCA (Trycyclic Antidepressants): 300 ng/mL Performed By: #### C MP, BNP #### [facility] [address] [place] [address] Dr. Brittani Arevalo DRUG CUT HEADER DRUG CLASS TEST SYSTEM CUT-OFF CONCENTRATIONS ARE FOLLOWS: Normal [facility] Comment on above: Performed By: #### C MP, BNP #### [facility] [address] [place] [address] Dr. Brittani Arevalo mAMP Negative Normal NEGATIVE [facility] Comment on above: Performed By: #### C MP, BNP #### [facility] [address] [place] [address] Dr. Brittani Arevalo MTD Negative Normal NEGATIVE [facility] Comment on above: Performed By: #### C MP, BNP #### [facility] [address] [place] [address] Dr. Brittani Arevalo OPI Negative Normal NEGATIVE [facility] Comment on above: Performed By: #### C MP, BNP #### [facility] [address] [place] [address] Dr. Brittani Arevalo OXY Negative Normal NEGATIVE [facility] Comment on above: Performed By: #### C MP, BNP #### [facility] [address] [place] [address] Dr. Brittani Arevalo PCP Negative Normal NEGATIVE [facility] Comment on above: Performed By: #### C MP, BNP #### [facility] [address] [place] [address] Dr. Brittani Arevalo PPX Negative Normal NEGATIVE [facility] Comment on above: Performed By: #### C MP, BNP #### [facility] [address] [place] [address] Dr. Brittani Arevalo TCA Negative Normal NEGATIVE [facility] Comment on above: Performed By: #### C MP, BNP #### [facility] [address] [place] [address] Dr. Brittani Arevalo THC Positive Abnormal NEGATIVE [facility] Comment on above: Performed By: #### C MP, BNP #### [facility] [address] [place] [address] Dr. Brittani Arevalo PROF CHEM 8 (BAS METB)on Anion gap [Moles/Vol] 14.3 mmol/L Normal [facility] Comment on above: Performed By: #### C MP, BNP #### [facility] [address] [place] [address] Dr. Brittani Arevalo Calcium [Mass/Vol] 9.5 mg/dL Normal 8.5-10.1 [facility] Comment on above: Performed By: #### C MP, BNP #### [facility] [address] [place] [address] Dr. Brittani Arevalo Chloride [Moles/Vol] 101 mmol/L Normal 98-107 [facility] Comment on above: Performed By: #### C MP, BNP #### [facility] [address] [place] [address] Dr. Brittani Arevalo CO2 [Moles/Vol] 26.7 mmol/L Normal 21.0-32.0 [facility] Comment on above: Performed By: #### C MP, BNP #### [facility] [address] [place] [address] Dr. Brittani Arevalo Creatinine [Mass/Vol] 0.78 mg/dL Normal 0.55-1.02 [facility] Comment on above: Performed By: #### C MP, BNP #### [facility] [address] [place] [address] Dr. Brittani Arevalo EGFR-AF MOSOTHO >60 Normal >=60 [facility] Comment on above: Performed By: #### C MP, BNP #### [facility] [address] [address] [address] Brittani Arevalo EGFR-NON AF [place] >60 Normal >=60 [facility] Comment on above: Performed By: #### C MP, BNP #### [facility] [address] [address] [address] Brittani Arevalo Glucose [Mass/Vol] 85 mg/dL Normal 74-106 [facility] Comment on above: Performed By: #### C MP, BNP #### [facility] [address] [address] [address] Brittani Arevalo Potassium [Moles/Vol] 4.0 mmol/L Normal 3.5-5.1 [facility] Comment on above: Performed By: #### C MP, BNP #### [facility] [address] [place] [address] Dr. Brittani Arevalo Sodium [Moles/Vol] 138 mmol/L Normal 136-145 [facility] Comment on above: Performed By: #### C MP, BNP #### [facility] [address] [address] [address] Brittani Arevalo Urea nitrogen [Mass/Vol] 7.0 mg/dL Normal 7.0-18.0 [facility] Comment on above: Performed By: #### C MP, BNP #### [facility] [address] [place] [address] Dr. Brittani Arevalo Urea nitrogen/Creatinine [Mass ratio] 9.0 mg/mg Normal [facility] Comment on above: Performed By: #### C MP, BNP #### [facility] [address] [address] [address] Brittani Arevalo TROPONIN, HIGH SENSITIVITYon 07-15-2022 HSTROP 4.5 pg/mL Normal 4.0-51.3 [facility] Comment on above: Result Comment: CUT- OFF POINTS HAVE BEEN ESTABLISHED BASED ON THE FOURTH UNIVERSAL DEFINITIONS OF MYOCARDIAL INFARCTION. THE UPPER REFERENCE LIMIT (URL) OF TROPONIN, DEFINED THE 99TH PERCENTILE OF cTnI DISTRIBUTION IN A REFERENCE POPULATION, HAS BEEN CONFIRMED THE DECISION THRESHOLD FOR MS DIAGNOSIS. Performed By: #### C MP, BNP #### [facility] [address] [place], [place] [address] Dr. Brittani Arevalo TSHon 07-15-2022 TSH 2.488 uIU/mL Normal 0.358-3.740 [facility] Comment on above: Performed By: #### C MP, BNP #### [facility] [address] [place], [place] [address] Dr. Brittani Arevalo XR CHEST 1 Von 07-15-2022 XR CHEST 1 V EXAM: XR CHEST 1 V HISTORY: COUGH COMPARISON: None. TECHNIQUE: Chest X-ray AP, 1 view FINDINGS: Support devices: None. Lungs/pleura: No consolidation, effusion, or pneumothorax. Heart and mediastinum: Normal contours. Bones: No acute abnormality identified. Impression: No radiographic evidence of acute cardiopulmonary process. Electronically authenticated by: JAYY DE ANDA Date: 2022-07-15 17:06 Normal [facility] MG MAMM SCREEN 3D SUSI CADon 07-06-2022 MG MAMM SCREEN 3D SUSI CAD Patient: KELSI THOMPSON Exam Date: 07/06/2022 : 1980 Gender:F Ordering : DR ABDIAZIZ POOLE . Admission #: [id number] Family : Order #: [id number] CLICK HERE TO VIEW EXAM RADIOLOGY REPORT PROCEDURE: MAMMOGRAM SCREENING 3D BILATERAL CAD COMPARISON: None. INDICATIONS: Screening mammography Calculator Name NCI Breast Cancer Risk Assessment Tool 5 Year Breast Cancer Risk 0.40% Lifetime Breast Cancer Risk 6.60% Personal Breast Cancer No Personal Ovarian Cancer No Treatments None Family Cancers None LOCATION: [facility] BREAST COMPOSITION: Scattered areas fibroglandular density. FINDINGS: DIAGNOSTIC CATEGORY 1--NEGATIVE. RIGHT BREAST: No significant suspicious finding. LEFT BREAST: No significant suspicious finding. RECOMMENDATIONS: ROUTINE MAMMOGRAM AND CLINICAL EVALUATION IN 12 MONTHS. PLEASE NOTE: A NORMAL MAMMOGRAM DOES NOT EXCLUDE THE POSSIBILITY OF BREAST CANCER. A CLINICALLY SUSPICIOUS PALPABLE LUMP SHOULD BE BIOPSIED. Dictated by: Luan Santana M.D. on 07/06/2022 at 14:02 Approved by: Luan Santana M.D. on 07/06/2022 at 14:04 Normal [facility] PAP ACOG PANEL 2: 30 to 65on 07-06-2022 . . Normal [facility] Comment on above: Result Comment: Perf ormed at: WB Performed By: #### C MP, BNP #### [facility] [address] [address] [address] Brittani Arevalo Age Gdln ACOG Testing 30-65 [facility] Comment on above: Performed By: #### C MP, BNP #### [facility] [address] [address] [address] Brittani Arevalo DIAGNOSIS: Comment Normal [facility] Comment on above: Result Comment: NEGA TIVE FOR INTRAEPITHELIAL LESION OR MALIGNANCY. Performed at: [facility] Performed By: #### C MP, BNP #### [facility] [address] [place] [address] Dr. Brittani Arevalo HPV Aptima Negative Normal Negative [facility] Comment on above: Result Comment: This nucleic acid amplification test detects fourteen high-risk HPV types (16,18,31,33,35,39,45,51,52,56,58,59,66,68) without differentiation. Performed at: =G Performed By: #### C MP, BNP #### [facility] [address] [address] [address] Brittani Arevalo HPV Genotype Reflex Comment Normal [facility] Comment on above: Result Comment: Crit eria not met, HPV Genotype not performed. Performed at: WB Performed By: #### C MP, BNP #### [facility] [address] [place] [address] Dr. Brittani Arevalo Methodology: Comment [facility] Comment on above: Result Comment: This liquid based ThinPrep(R) pap test was screened with the use of an image guided system. Performed at: WB Performed By: #### C MP, BNP #### [facility] [address] [place] [address] Dr. Brittani Arevalo Note: Comment Normal [facility] Comment on above: Result Comment: The Pap smear is a screening test designed to aid in the detection of premalignant and malignant conditions of the uterine cervix. It is not a diagnostic procedure and should not be used as the sole means of detecting cervical cancer. Both false-positive and false-negative reports do occur. . Performed at: WB Performed By: #### C MP, BNP #### [facility] [address] [place], [place] [address] Dr. Brittani Arevalo Performed by: Comment Normal [facility] Comment on above: Result Comment: Sona Valdez, Hide And Skin Classer (ASCP) Performed at: WB Performed By: #### C MP, BNP #### [facility] [address] [place], [place] [address] Dr. Brittani Arevalo Specimen adequacy: Comment Normal [facility] Comment on above: Result Comment: Sati sfactory for evaluation. Endocervical and/or squamous metaplastic cells (endocervical component) are present. Performed at: WB Performed By: #### C MP, BNP #### [facility] [address] [place], [place] [address] Dr. Brittani Arevalo 17-OH PROGESTERONE, LC/MSon 07-03-2022 17-OH Progesterone 45 ng/dL Normal [facility] Comment on above: Result Comment: Adul t Female Follicular 15 - 70 Luteal 35 - 290 Performed By: #### P ROGLCM #### [facility] [address] [place], [place] [address] Dr. Brittani Arevalo DHEA SERUMon 07-01-2022 Dehydroepiandrosterone (DHEA) 81 ng/dL Normal [facility] Comment on above: Result Comment: Age 1 - 5 years 0 - 67 6 - 7 years 0 - 110 8 - 10 years 0 - 185 11 - 12 years 0 - 201 13 - 14 years 0 - 318 15 - 16 years 39 - 481 17 - 19 years 40 - 491 >19 years 31 - 70 Effective July 04, 2022 DHEA additional age reference intervals will be added. No other age ranges will be affected: 20 - 50 years: 31 - 70 >50 years: 21 - 402 Performed By: #### D HEA. #### [facility] [address] [place], [place] [address] Dr. Brittani Arevalo DHEA-SULFATEon 06-29-2022 DHEA-Sulfate 19.4 ug/dL Critically low 57.3-279.2 [facility] Comment on above: Performed By: #### D DANIELLE #### [facility] [address] [place] [address] Dr. Brittani Arevalo FSHon 06-29-2022 FSH 17.5 mIU/mL Normal [facility] Comment on above: Result Comment: Adul t Female: Follicular phase 3.5 - 12.5 Ovulation phase 4.7 - 21.5 Luteal phase 1.7 - 7.7 Postmenopausal 25.8 - 134.8 Performed By: #### C MP, BNP #### [facility] [address] [place] [address] Dr. Brittani Arevalo LUTEINIZING HORMONE (LH)on 0 06-29-2022 LH 13.1 mIU/mL Normal [facility] Comment on above: Result Comment: Adul t Female: Follicular phase 2.4 - 12.6 Ovulation phase 14.0 - 95.6 Luteal phase 1.0 - 11.4 Postmenopausal 7.7 - 58.5 Performed By: #### L BCLH #### [facility] [address] [place] [address] Dr. Brittani Arevalo CBC AUTO DIFFon 06-28-2022 BASO # 0.1 103/ul Normal 0.0-0.1 [facility] Comment on above: Performed By: #### C BC #### [facility] [address] [place] [address] Dr. Brittani Arevalo Basophils/100 WBC (Bld) 1.0 % Normal 0.2-2.0 [facility] Comment on above: Performed By: #### C BC #### [facility] [address] [place] [address] Dr. Brittani Arevalo EO # 0.1 103/ul Normal 0.0-0.7 [facility] Comment on above: Performed By: #### C BC #### [facility] [address] [place] [address] Dr. Brittani Arevalo Eosinophils/100 WBC (Bld) 1.5 % Normal 0.9-7.0 [facility] Comment on above: Performed By: #### C BC #### [facility] [address] [place] [address] Dr. Brittani Arevalo Erythrocyte distribution width (RBC) [Ratio] 16.4 % Critically high 11.0-15.0 [facility] Comment on above: Performed By: #### C BC #### [facility] [address] [place] [address] Dr. Brittani Arevalo Hematocrit (Bld) [Volume fraction] 33.1 % Critically low 36.0-48.0 [facility] Comment on above: Performed By: #### C BC #### [facility] [address] [place] [address] Dr. Brittani Arevalo Hemoglobin (Bld) [Mass/Vol] 9.8 g/dL Critically low 12.0-16.0 [facility] Comment on above: Performed By: #### C BC #### [facility] [address] [place] [address] Dr. Brittani Arevalo IG # 0.01 10e3/ul Normal 0.00-0.03 [facility] Comment on above: Performed By: #### C BC #### [facility] [address] [place] [address] Dr. Brittani Arevalo IG % 0.2 % Normal 0.0-0.5 [facility] Comment on above: Performed By: #### C BC #### [facility] [address] [place] [address] Dr. Brittani Arevalo LYMPH # 2.7 103/ul Normal 1.2-3.8 [facility] Comment on above: Performed By: #### C BC #### [facility] [address] [place] [address] Dr. Brittani Arevalo Lymphocytes/100 WBC (Bld) 44.2 % Normal 20.5-60.0 [facility] Comment on above: Performed By: #### C BC #### [facility] [address] [place] [address] Dr. Brittani Arevalo MANUAL DIFF REQ NO Normal [facility] Comment on above: Performed By: #### C BC #### [facility] [address] [place] [address] Dr. Brittani Arevalo MCH (RBC) [Entitic mass] 23.0 pg Critically low 26.7-34 .0 [facility] Comment on above: Performed By: #### C BC #### [facility] [address] [place] [address] Dr. Brittani Arevalo MCHC (RBC) [Mass/Vol] 29.6 g/dL Critically low 29.9-35.2 [facility] Comment on above: Performed By: #### C BC #### [facility] [address] [place] [address] Dr. Brittani Arevalo MCV (RBC) [Entitic vol] 77.7 fL Critically low 81.0-99. 0 [facility] Comment on above: Performed By: #### C BC #### [facility] [address] [place] [address] Dr. Brittani Arevalo MONO # 0.4 103/ul Normal 0.3-0.8 [facility] Comment on above: Performed By: #### C BC #### [facility] [address] [place] [address] Dr. Brittani Arevalo Monocytes/100 WBC (Bld) 7.1 % Normal 1.7-12.0 [facility] Comment on above: Performed By: #### C BC #### [facility] [address] [place] [address] Dr. Brittani Arevalo NEUT # 2.8 103/ul Normal 1.4-6.5 [facility] Comment on above: Performed By: #### C BC #### [facility] [address] [place] [address] Dr. Brittani Arevalo Neutrophils/100 WBC (Bld) 46.0 % Normal 43.0-75.0 [facility] Comment on above: Performed By: #### C BC #### [facility] [facility] [address] [place] [address] Dr. Brittani Arevalo Platelet mean volume (Bld) [Entitic vol] 10.6 fL Normal 9.5-13.5 [facility] Comment on above: Performed By: #### C BC #### [facility] [address] [place] [address] Dr. Brittani Arevalo PLT 411 103/ul Normal 150-450 [facility] Comment on above: Performed By: #### C BC #### [facility] [address] [place] [address] Dr. Brittani Arevalo RBC 4.26 106/ul Normal 4.20-5.40 [facility] Comment on above: Performed By: #### C BC #### [facility] [address] [place] [address] Dr. Brittani Arevalo WBC 6.2 103/ul Normal 4.0-11.0 [facility] Comment on above: Performed By: #### C BC #### [facility] [address] [place] [address] Dr. Brittani Arevalo FREE T4on 06-28-2022 Free T4 [Mass/Vol] 0.81 ng/dL Normal 0.76-1.46 [facility] Comment on above: Performed By: #### C MP, BNP #### [facility] [address] [place] [address] Dr. Brittani Arevalo GLYCOHEMOGLOBIN A1Con 2022 ADA RECOMMENDATION SEE BELOW Normal [facility] Comment on above: Result Comment: ADA RECOMMENDED LIMIT 4.0 - 6.0 ADA THERAPEUTIC TARGET < 7.0 ACTION SUGGESTED > 7.0 Performed By: #### A 1C #### [facility] [address] [place] [address] Dr. Brittani Arevalo Glucose [Mass/Vol] 123 mg/dL Normal [facility] Comment on above: Performed By: #### A 1C #### [facility] [address] [place] [address] Dr. Brittani Arevalo HbA1c (Bld) [Mass fraction] 5.9 % Normal 4.5-6.2 [facility] Comment on above: Performed By: #### A 1C #### [facility] [address] [place] [address] Dr. Brittani Arevalo TSHon 06-28-2022 TSH 2.736 uIU/mL Normal 0.358-3.740 [facility] Comment on above: Performed By: #### C MP, BNP #### [facility] [address] [address] [address] Brittani Arevalo US PELVIS AND TRANSVAGon US PELVIS AND TRANSVAG EXAMINATION: US PELVIS AND TRANSVAG HISTORY: Polycystic ovary syndrome , heavy bleeding for one year COMPARISON: No relevant comparison available. TECHNIQUE: Transabdominal and transvaginal sonographic examination. FINDINGS: UTERUS: 1.5 cm rounded slightly heterogeneous hypoechoic area within the right fundal region of uterus, likely a leiomyoma. Uterus size: 9.4 x 6.0 x 5.1 cm ENDOMETRIUM: Normal homogeneous appearance. Endometrial thickness: 4 mm RIGHT OVARY: Contains a 1.3 cm dominant follicle versus cyst. Duplex Doppler demonstrates normal waveform and flow; resistive index 0.6. Ovary size: 3.4 x 2.8 x 2.5 cm LEFT OVARY: Normal size and appearance. Duplex Doppler demonstrates normal waveform and flow; resistive index 0.5. Ovary size: 4.2 x 2.7 x 2.9 cm CUL-DE-SAC: Unremarkable. No significant free fluid. BLADDER: Unremarkable. OTHER: None. IMPRESSION: 1. No acute or specific findings to account for patient's symptoms. 2. Small uterine fundal leiomyoma, likely incidental. 3. No findings to suggest polycystic ovarian syndrome. Electronically authenticated by: LUAN SANTANA Date: 2022-06-28 12:16 Normal [facility] Outside Colonoscopyon 2020 Outside Colonoscopy [id number] 2#[id number]:127 Normal [facility] Pathology Noteon 07-03-2020 Pathology Note [id number]:127 Normal [facility] Provider Letter FTMCon 06-25 Provider Letter [facility] Miriam Spence, [address] [place] [address] [place] [address] Re: KELSI JOHNSON Date of : 1980 Thank you for your referral of Kelsi Johnson who was seen on consultation on June 18, 2020, for a change in bowel habits with diarrhea, abdominal pain, and abnormal weight gain. An EGD and colonoscopy are planned for further evaluation. I have enclosed my consultation note for your review. I will be happy to follow Kelsi should her symptoms persist. Sincerely, Dedrick Baker MD General Surgery [facility] Consent for Procedure/Surger yon 06-19-2020 Consent for Procedure/Surgery [id number] FE#[id number]:127 [facility] Ambulatory Clinical Summaryo n 06-18-2020 Ambulatory Clinical Summary {[id number] 8 [facility] Physician Referralon 021 Physician Referral [id number]#[id number]:127 [facility] Cardiovascular Lab Reporton 12-12-2018 Cardiovascular Lab Report [facility] Patient Name: [facility] Kelsi Hodge MR #: [id number] Department of Physician: Guilherme Pizano M.D. Division of Service Date: 12/11/2018 Cardiology Birthdate: 1980 Adult Cardiovascular Room #: [id number] [address] Cardiovascular Laboratory Report INDICATION: The patient is a 38-year-old woman with history of hypertension, aggravated during . Her blood pressure is not controlled on multiple medications. Her renal ultrasound has suggested possible renal artery stenosis. Because of that, she was brought for renal angiogram. PROCEDURE: 1. Abdominal aortogram. 2. Bilateral selective renal angiography. 3. Limited right femoral angiography. METHOD: Procedure was explained to the patient with risks and benefits. She signed informed consent. She was brought to senior label specialist in a fasting state. The right groin area was prepped and draped in usual fashion. Using micropuncture technique, the right common femoral artery was accessed. The inner cannula was advanced. Limited right femoral angiography was performed followed by upsizing to a 5-Rwandan x 11 cm sheath. A straight 5-Rwandan pigtail catheter was advanced into the abdominal aorta. Abdominal aortography was performed using power injection of contrast and digital subtraction angiography. A C1 5-Rwandan cobra catheter was then advanced to the abdominal aorta and used to selectively engage the right and left renal arteries and angiography was performed. Catheter was removed. Procedure was concluded. The access sheath was removed and manual compression applied for hemostasis. She tolerated the procedure well. She will be admitted for overnight observation. TOTAL FLUORO TIME: 4.14 minutes. TOTAL AIR KERMA: 278 mGy. TOTAL CONTRAST VOLUME: 30 mL. HEMODYNAMICS: RFA 223/116, mean 159. AO 209/111, mean 151. FINDINGS AT ANGIOGRAPHY: Abdominal aortography: This showed evidence of patent abdominal aorta with no atherosclerotic disease with patent bilateral common iliac arteries. There was evidence of a single renal artery bilaterally. Left renal artery angiography: This showed a patent renal artery in the ostial, proximal, and distal segments without evidence of stenosis. The left kidney blush is normal and the left kidney size is normal. Right renal artery angiography: This showed evidence of patent right renal artery with normal right renal blush and normal right kidney size. There was no evidence of stenosis throughout the renal artery. Limited right femoral angiography: This showed access to be in the right common femoral artery with no obstructive lesions noted in the femoral artery or its proximal branches. SUMMARY OF FINDINGS: 1. Normal bilateral renal angiograms with no evidence of renal artery stenosis. 2. Patent abdominal aorta with no disease. RECOMMENDATIONS: 1. Medical therapy for hypertension. 2. Follow up in Cardiology Clinic. Electronically Signed by: Guilherme Pizano M.D. 12/17/2018 05:13 P Guilherme Pizano M.D. Date Dict: 12/11/2018/04:54 P/Guilherme Pizano M.D. Date Trans: 12/12/2018 05:13 Ren/dhara [id number] cc: Miriam Spence M.D. [address] [facility] [address] [facility] Encounters Encounter Date Encounter Type Care Provider Facility Start: 04-27-2023 End: 04-27-2023 ambulatory [facility] Start: 03-29-2023 End: 03-29-2023 ambulatory [facility] Start: 01-31-2023 End: 01-31-2023 ambulatory [facility] Start: 12-28-2022 End: 12-28-2022 ambulatory [facility] Start: 12-26-2022 ambulatory Grant Nixon acility:[facility] Start: 11-28-2022 End: 11-28-2022 ambulatory [facility] Start: 11-04-2022 End: 11-04-2022 ambulatory [facility] Start: 07-22-2022 End: 07-22-[address] ABDIAZIZ POOLE . Facility:[facility] Start: 07-20-2022 Encounter for preprocedural cardiovascular examination DR MIRIAM SPENCE . [facility] Start: 07-18-2022 Encounter for preprocedural cardiovascular examination DR ABDIAZIZ POOLE . [facility] Start: 07-15-2022 End: 07-16-[address] MIRIAM SPENCE . Facility[facility] Start: 07-15-2022 End: 07-16-[address] ABDIAZIZ POOLE . Facility[facility] Start: 07-15-2022 End: 07-16-2022 Encounter for preprocedural cardiovascular examination DR ABDIAZIZ POOLE . Facility:[facility] Start: 07-06-2022 End: 07-07-[address] ABDIAZIZ POOLE . Facility:[facility] Start: 06-28-2022 End: 06-29-[address] ABDIAZIZ POOLE . Facility:[facility] Start: 12-11-2018 End: 12-12-2018 Patient encounter procedure PROVIDER UNKNOWN Facility:[facility] Procedures Date Procedure Procedure Detail Performing Clinician Start: 11-28-2022 Follow-up visit Follow-up ABI ZARAGOZA Payers Date Payer Category Payer Self-pay 2018 Unknown [id number] 1980 Unknown [id number] 2.16.8 [id number] 1980 Unknown [id number] 2.16.84 [id number] 1980 Unknown [id number] 2.16.84 [id number] 1980 Unknown [id number] 2.16.84 [id number] 1980 Unknown [id number] 2.16.84 [id number] 1980 Unknown [id number] 2.16.84 [id number] 1980 Unknown [id number] 2.16.84 [id number] 1959 Unknown [id number] 1959 Unknown [id number] Unknown [id number] 2.16.8 [id number] Clinical Notes 06-18-2020 to 04-27-2023 Note Date & Type Note Facility 04-27-2023 Note Patient here for 1 m o follow up resistant hypertension, fatigue, and JULIANNE. Amlodipine was reduced to 5mg daily at last apt in Mar 2023. She has titration study scheduled in 2 weeks. She sees rheumatology soon also. Review of Systems Cardiovascular: Positive for dyspnea on exertion, leg swelling and palpitations. Neurological: Positive for headaches and light-headedness. All other systems reviewed and are negative. [facility] 04-27-2023 Note Cardiovascular Medic [facility] SUBJECTIVE Chief Complaint Patient presents with Hypertension Fatigue Kelsi Johnson is a 42 y.o. female here for follow-up. HPI PMHx: resistant hypertension, palpitations, hypokalemia 04/27/2023 At her visit last month she had c/o a syncopal episode along with frequent near syncopal episodes. Her BP had been normal at home. We reduced her amlodipine to 5mg daily. She reports her BP at home is typically running 130s/90s. She no longer feels like she's going to pass out. She has palpitations when her BP is high, feels like a pounding. She c/o crippling fatigue, lack of hair growth, unexplained weight gain, hand and pedal swelling. She will be seeing rheumatology next week. She was found to have JULIANNE and will undergo a titration study in a couple weeks. She notes a hx of PTSD. She hasn't been able to find a psychiatrist who treats traumatic events. Denies CP, dyspnea, orthopnea, PND. Patient Active Problem List Diagnosis Hypertensive disorder Palpitations Hyponatremia Hypokalemia Past Medical History: Diagnosis Date Hypertension Hypokalemia Hyponatremia Family History Problem Relation Name Age of Onset Hypertension Mother Hypertension Father Social History Tobacco Use Smoking status: Former Types: Cigarettes Smokeless tobacco: Never Substance Use Topics Alcohol use: Not Currently Drug use: Never No Known Allergies ROS Consitutional: fatigue Cardiovascular: Positive for dyspnea on exertion, leg swelling and palpitations. Neurological: Positive for headaches and light-headedness. All other systems reviewed and are negative. OBJECTIVE Visit Vitals BP (!) 132/100 (BP Location: Left arm, Patient Position: Sitting) Pulse 71 Ht 1.702 m (5' 7 ) Wt 82.6 kg (182 lb) SpO2 99% BMI 28.51 kg/m??? Smoking Status Former BSA 1.98 m??? Medications: Current Outpatient Medications: amLODIPine (Norvasc) 10 mg tablet, Take 1 tablet (10 mg) by mouth in the morning. (Patient taking differently: Take 5 mg by mouth in the morning.), Disp: 90 tablet, Rfl: 3 carvedilol (Coreg) 25 mg tablet, Take 1 tablet (25 mg) by mouth with breakfast and with evening meal., Disp: 180 tablet, Rfl: 3 lisinopril 10 mg tablet, Take 1 tablet (10 mg) by mouth once daily as directed., Disp: 90 tablet, Rfl: 3 tiZANidine (Zanaflex) 4 mg tablet, Take 8 mg by mouth at bedtime., Disp: , Rfl: spironolactone (Aldactone) 25 mg tablet, Take 1 tablet (25 mg) by mouth in the morning. Take 50mg + 25mg daily, Disp: 90 tablet, Rfl: 3 spironolactone (Aldactone) 50 mg tablet, Take 1 tablet (50 mg) by mouth in the morning. Take 50mg + 25mg daily, Disp: 90 tablet, Rfl: 3 Physical Exam Vitals reviewed. Constitutional: Appearance: Normal appearance. She is normal weight. HENT: Head: Normocephalic and atraumatic. Right Ear: External ear normal. Left Ear: External ear normal. Eyes: Extraocular Movements: Extraocular movements intact. Conjunctiva/sclera: Conjunctivae normal. Pupils: Pupils are equal, round, and reactive to light. Neck: Vascular: No carotid bruit. Cardiovascular: Rate and Rhythm: Normal rate and regular rhythm. Pulses: Normal pulses. Heart sounds: Normal heart sounds. Pulmonary: Effort: Pulmonary effort is normal. Breath sounds: Normal breath sounds. Abdominal: General: Bowel sounds are normal. Palpations: Abdomen is soft. Musculoskeletal: Cervical back: Neck supple. Right lower leg: No edema. Left lower leg: No edema. Skin: General: Skin is warm and dry. Neurological: General: No focal deficit present. Mental Status: She is alert and oriented to person, place, and time. Psychiatric: Mood and Affect: Mood normal. Behavior: Behavior normal. Thought Content: Thought content normal. Judgment: Judgment normal. Labs: 02/01/23 Hgb 13.2, plt 349 Cr 0.85, BUN 8, eGFR >60, K 4.6, Na 135, AST 16, ALT 29 TSH 1.226, FT4 0.74 Testing/Procedures: ECHO 11/11/2022 Mild to moderate concentric LVH, normal systolic function with EF 60% Normal RV size and function No significant valvular dysfunction Unable to assess right-sided pressures due to lack of measurable tricuspid regurg. No pericardial effusion. ASSESSMENT/PLAN: Diagnosis Plan 1. Resistant hypertension spironolactone (Aldactone) 25 mg tablet Basic metabolic panel 2. Edema, unspecified type spironolactone (Aldactone) 50 mg tablet 3. Hypokalemia 4. Other fatigue 5. Unexplained weight gain 6. JULIANNE (obstructive sleep apnea) 7. Syncope and collapse 8. Near syncope 9. Benign hypertensive heart disease without congestive heart failure 10. Palpitations 11. PTSD (post-traumatic stress disorder) Plan: -She is no longer having orthostatic sx's but diastolic BP still elevated. -Will try to increase her spironolactone to 75mg daily. (50mg +25mg). Follow-up BMP in 1 week. -Continue carvedilol 25 mg daily, amlodi (more content not included)... [facility] 03-29-2023 Note Patient here for 2 m o follow up hypertension, palpitations, and fatigue. Had labs in Jan. She says fatigue is still horrible. Says she's only awake 4-5 hours a day. C/o syncopal episode in the middle of the night a few weeks ago. She's had several episodes of near-syncope in the past she says. Denies chest pain and SOB. Review of Systems Cardiovascular: Positive for dyspnea on exertion, leg swelling and palpitations. Neurological: Positive for headaches and light-headedness. All other systems reviewed and are negative. [facility] 03-29-2023 Note Cardiovascular Medic [facility] SUBJECTIVE Chief Complaint Patient presents with Hypertension Fatigue Kelsi Johnson is a 42 y.o. female here for follow-up. Patient here for 2 mo follow up hypertension, palpitations, and fatigue. Had labs in Jan. She says fatigue is still horrible. Says she's only awake 4-5 hours a day. C/o syncopal episode in the middle of the night a few weeks ago. She's had several episodes of near-syncope in the past she says. Denies chest pain and SOB. HPI PMHx: resistant hypertension, palpitations, hypokalem She noted the syncopal episode last week and will often feel like she's going to pass out when she gets up. BP has been normal at home. She c/o crippling fatigue, lack of hair growth, unexplained weight gain, hand and pedal swelling. She notes a hx of PTSD. She hasn't been able to find a psychiatrist who treats traumatic events. Patient Active Problem List Diagnosis Hypertensive disorder Palpitations Hyponatremia Hypokalemia Past Medical History: Diagnosis Date Hypertension Hypokalemia Hyponatremia Family History Problem Relation Name Age of Onset Hypertension Mother Hypertension Father Social History Tobacco Use Smoking status: Former Types: Cigarettes Smokeless tobacco: Never Substance Use Topics Alcohol use: Not Currently Drug use: Never No Known Allergies ROS Cardiovascular: Positive for dyspnea on exertion, leg swelling and palpitations. Neurological: Positive for headaches and light-headedness. All other systems reviewed and are negative. OBJECTIVE Visit Vitals BP 117/86 (BP Location: Left arm, Patient Position: Standing) Pulse 77 Ht 1.702 m (5' 7 ) Wt 82.6 kg (182 lb) SpO2 97% BMI 28.51 kg/m??? Smoking Status Former BSA 1.98 m??? Medications: Current Outpatient Medications: amLODIPine (Norvasc) 10 mg tablet, Take 1 tablet (10 mg) by mouth in the morning., Disp: 90 tablet, Rfl: 3 carvedilol (Coreg) 25 mg tablet, Take 1 tablet (25 mg) by mouth with breakfast and with evening meal., Disp: 180 tablet, Rfl: 3 lisinopril 10 mg tablet, Take 1 tablet (10 mg) by mouth once daily as directed., Disp: 90 tablet, Rfl: 3 spironolactone (Aldactone) 50 mg tablet, Take 1 tablet (50 mg) by mouth in the morning., Disp: 90 tablet, Rfl: 3 tiZANidine (Zanaflex) 4 mg tablet, Take 8 mg by mouth at bedtime., Disp: , Rfl: Physical Exam Vitals reviewed. Constitutional: Appearance: Normal appearance. She is normal weight. HENT: Head: Normocephalic and atraumatic. Right Ear: External ear normal. Left Ear: External ear normal. Eyes: Extraocular Movements: Extraocular movements intact. Conjunctiva/sclera: Conjunctivae normal. Pupils: Pupils are equal, round, and reactive to light. Neck: Vascular: No carotid bruit. Cardiovascular: Rate and Rhythm: Normal rate and regular rhythm. Pulses: Normal pulses. Heart sounds: Normal heart sounds. Pulmonary: Effort: Pulmonary effort is normal. Breath sounds: Normal breath sounds. Abdominal: General: Bowel sounds are normal. Palpations: Abdomen is soft. Musculoskeletal: Cervical back: Neck supple. Right lower leg: No edema. Left lower leg: No edema. Skin: General: Skin is warm and dry. Neurological: General: No focal deficit present. Mental Status: She is alert and oriented to person, place, and time. Psychiatric: Mood and Affect: Mood normal. Behavior: Behavior normal. Thought Content: Thought content normal. Judgment: Judgment normal. Labs: 10/18/23 Hgb 13.2, plt 349 Cr 0.85, BUN 8, eGFR >60, K 4.6, Na 135, AST 16, ALT 29 TSH 1.226, FT4 0.74 Testing/Procedures: ECHO 11/11/2022 Mild to moderate concentric LVH, normal systolic function with EF 60% Normal RV size and function No significant valvular dysfunction Unable to assess right-sided pressures due to lack of measurable tricuspid regurg. No pericardial effusion. ASSESSMENT/PLAN: Diagnosis Plan 1. Resistant hypertension 2. Other fatigue Ambulatory referral to Rheumatology 3. JULIANNE (obstructive sleep apnea) 4. Unexplained weight gain Ambulatory referral to Rheumatology 5. Syncope and collapse 6. Near syncope Plan: -Concern for orthostatic hypotension with patients recent syncopal episode and near syncope sx's. -Will reduce amlodipine to 5mg daily -Continue carvedilol 25 mg daily, Spironolactone 50 mg daily, amlodipine to 10 mg daily, Lisinopril 10 mg daily -She has debilitating fatigue. She had confirmed JULIANNE on her recent sleep study. Ordered for titration study. -She has unexplained weight gain, fatigue, hand and pedal feet swelling, lack of hair growth within the past 6 months. Will refer her to rheumatology for work-up for any autoimmune disorders. -Will attempt to find a psychiatrist that can help with her traumatic PTSD. Follow up in about 1 month (around 04/29/2023). Rock Pearson NP [facility] Cardiovascular Medicine [facility] 01-31-2023 Note Cardiology Clinic No te Chief Complaint: follow up for hypetension HPI: Kelsi Johnson is a 42 y.o. female Past medical history including resistant hypertension, palpitations, hypokalemia. She presents to cardiology clinic for follow up. Blood pressure has been much better controlled. She says it has been close to normal, closer than it has ever been. She does complain of generalized fatigue. She states that she is having difficulty staying awake throughout the day. She denies any chest pain. She denies any shortness of breath. She denies any lower extreme edema, orthopnea, paroxysmal nocturnal dyspnea. Cardiology ROS: 10 point ROS is performed and is negative unless otherwise specified in HPI Past Medical History She has a past medical history of Hypertension, Hypokalemia, and Hyponatremia. Surgical History She has a past surgical history that includes IR angiogram renal bilateral and section, classic. Social History She reports that she has quit smoking. Her smoking use included cigarettes. She has never used smokeless tobacco. She reports that she does not currently use alcohol. She reports that she does not use drugs. Family History Family History Problem Relation Name Age of Onset Hypertension Mother Hypertension Father Medications Current Outpatient Medications on File Prior to Visit Medication Sig Dispense Refill amLODIPine (Norvasc) 10 mg tablet Take 1 tablet (10 mg) by mouth in the morning. 90 tablet 3 carvedilol (Coreg) 25 mg tablet Take 1 tablet (25 mg) by mouth with breakfast and with evening meal. 180 tablet 3 lisinopril 10 mg tablet Take 1 tablet (10 mg) by mouth once daily as directed. 90 tablet 3 spironolactone (Aldactone) 50 mg tablet Take 1 tablet (50 mg) by mouth in the morning. 90 tablet 3 tiZANidine (Zanaflex) 4 mg tablet Take 8 mg by mouth at bedtime. amLODIPine (Norvasc) 5 mg tablet Take 1 tablet (5 mg) by mouth in the morning. (Patient not taking: Reported on 01/31/2023) 90 tablet 3 spironolactone (Aldactone) 25 mg tablet Take 1 tablet (25 mg) by mouth once daily as directed. (Patient not taking: Reported on 01/31/2023) 90 tablet 3 No current facility-administered medications on file prior to visit. Allergies Patient has no known allergies. Physical Exam VITAL SIGNS: BP 136/89 (BP Location: Left arm, Patient Position: Sitting) Pulse 76 Ht 1.702 m (5' 7 ) Wt 86.2 kg (190 lb) SpO2 96% BMI 29.76 kg/m??? Constitutional: Well developed, Well nourished, No acute distress, Non-toxic appearance. HENT: Normocephalic, Atraumatic, Bilateral external ears have normal appearance, Nose appears normal, nares are patent. Eyes: PERRLA, EOMI, Conjunctiva normal, No discharge. Neck: Normal range of motion, No tenderness, Supple, No stridor. No cervical lymphadenopathy noted. Cardiovascular: Normal heart rate, Normal rhythm, No murmurs, No rubs, No gallops. Thorax & Lungs: Normal breath sounds, No respiratory distress, No wheezing, No chest tenderness to palpation. Abdomen: Bowel sounds normal, Soft, Nontender, No masses, No pulsatile masses. Skin: Warm, Dry, No erythema, No rash. Back: No tenderness, No CVA tenderness. Extremities: Intact distal pulses, No edema, No tenderness, No cyanosis, No clubbing. Musculoskeletal: Grossly normal strength in extremities Neurologic: Alert & oriented x 3, no gross focal neurological deficits Psychiatric: Affect normal, Judgment normal, Mood normal. Impression: -Resistant hypertension, blood pressure is much better controlled -Excessive fatigue Plan: -Continue carvedilol 25 mg daily -Continue Spironolactone 50 mg daily -Continue amlodipine to 10 mg daily -Continue Lisinopril 10 mg daily -Unclear etiology of excessive fatigue. It is possible that patient is adjusting to being normotensive blood pressure. We will order basic lab work including CBC, CMP, TSH, mag, etc. - Prudent to rule out sleep apnea as this can be causing her resistant hypertension and excessive daytime fatigue. Sleep study is necessary from a medical standpoint for patient -Patient will follow-up with her primary care physician for further evaluation/management of excessive fatigue -Optimize medical management -Aggressive risk factor modification -Plan of care discussed with patient. All questions were answered. Patient voices understanding and is agreeable with current plan. -Patient was educated on red flag symptoms. Strict return precautions were provided. Patient verbalizes understanding -Follow-up in cardiology clinic in 4 weeks, or sooner as needed Abi Zaragoza MD Interventional Cardiology [facility] 01-31-2023 Note Patient here for 1 m o follow up hypertension and palpitations. She did see endocrinology and CT adrenal glands was ordered. She is scheduled for this tomorrow at [facility]. Says she can barely stay awake throughout the day and is dangerously tired. [facility] 12-28-2022 Note Patient here for 1 m o follow up hypertension and medication changes. Spironolactone was increased to 50mg, and amlodipine was added at last apt. She has an upcoming apt with endocrinology. Says lightheadedness and SOB w/ exertion are improving. [facility] 12-28-2022 Note Cardiology Clinic No te Chief Complaint: follow up for hypetension HPI: Kelsi Johnson is a 42 y.o. female Past medical history including resistant hypertension, palpitations, hypokalemia. She presents to cardiology clinic for follow up. She continues to feel better overall. She states that blood pressure is much better controlled, albeit not optimal yet. She denies any chest pain or shortness of breath. No syncope or near syncope. No lower extremity edema, orthopnea, or PND. She is taking her medications as prescribed. Still has not seen Endo, but scheduled to do so. Cardiology ROS: 10 point ROS is performed and is negative unless otherwise specified in HPI Past Medical History She has a past medical history of Hypertension, Hypokalemia, and Hyponatremia. Surgical History She has a past surgical history that includes IR angiogram renal bilateral and section, classic. Social History She reports that she has quit smoking. Her smoking use included cigarettes. She has never used smokeless tobacco. She reports that she does not currently use alcohol. She reports that she does not use drugs. Family History Family History Problem Relation Name Age of Onset Hypertension Mother Hypertension Father Medications Current Outpatient Medications on File Prior to Visit Medication Sig Dispense Refill amLODIPine (Norvasc) 5 mg tablet Take 1 tablet (5 mg) by mouth in the morning. 90 tablet 3 carvedilol (Coreg) 25 mg tablet Take 1 tablet (25 mg) by mouth with breakfast and with evening meal. 180 tablet 3 spironolactone (Aldactone) 50 mg tablet Take 1 tablet (50 mg) by mouth in the morning. 90 tablet 3 tiZANidine (Zanaflex) 4 mg tablet Take 8 mg by mouth at bedtime. spironolactone (Aldactone) 25 mg tablet Take 1 tablet (25 mg) by mouth once daily as directed. 90 tablet 3 No current facility-administered medications on file prior to visit. Allergies Patient has no known allergies. Physical Exam VITAL SIGNS: BP (!) 158/118 (BP Location: Left arm, Patient Position: Sitting) Pulse 75 Ht 1.702 m (5' 7 ) Wt 85.3 kg (188 lb) SpO2 99% BMI 29.44 kg/m??? Constitutional: Well developed, Well nourished, No acute distress, Non-toxic appearance. HENT: Normocephalic, Atraumatic, Bilateral external ears have normal appearance, Nose appears normal, nares are patent. Eyes: PERRLA, EOMI, Conjunctiva normal, No discharge. Neck: Normal range of motion, No tenderness, Supple, No stridor. No cervical lymphadenopathy noted. Cardiovascular: Normal heart rate, Normal rhythm, No murmurs, No rubs, No gallops. Thorax & Lungs: Normal breath sounds, No respiratory distress, No wheezing, No chest tenderness to palpation. Abdomen: Bowel sounds normal, Soft, Nontender, No masses, No pulsatile masses. Skin: Warm, Dry, No erythema, No rash. Back: No tenderness, No CVA tenderness. Extremities: Intact distal pulses, No edema, No tenderness, No cyanosis, No clubbing. Musculoskeletal: Grossly normal strength in extremities Neurologic: Alert & oriented x 3, no gross focal neurological deficits Psychiatric: Affect normal, Judgment normal, Mood normal. Impression: -Resistant hypertension, blood pressure is better controlled -Palpitations -Hypokalemia, resolved Plan: -Continue carvedilol 25 mg daily -Continue Spironolactone 50 mg daily -Increase amlodipine to 10 mg daily -Add lisinopril 10 mg daily. Titrate as needed -Patient instructed to monitor daily blood pressures at home. She is instructed to maintain a blood pressure log. She is instructed to call cardiology with update on her blood pressure -Optimize medical management -Aggressive risk factor modification -Plan of care discussed with patient. All questions were answered. Patient voices understanding and is agreeable with current plan. -Patient was educated on red flag symptoms. Strict return precautions were provided. Patient verbalizes understanding -Follow-up in cardiology clinic in 4 weeks, or sooner as needed Abi Zaragoza MD Interventional Cardiology [facility] 11-28-2022 Note Cardiology Clinic No te Chief Complaint: follow up for hypetension HPI: Kelsi Johnson is a 42 y.o. female Past medical history including resistant hypertension, palpitations, hypokalemia. She presents to cardiology clinic for follow up. During her last visit, labetalol was discontinued and carvedilol was started. She was also started on spironolactone. Today, patient states that she has been doing better overall. She denies any cardiac complaints or concerns. She has not been checking her blood pressure at home as frequently as she was previously. Blood pressure is better controlled in clinic today. She reports taking her medications as prescribed. Echo demonstrates concentric LVH but is otherwise unremarkable. Cardiology ROS: 10 point ROS is performed and is negative unless otherwise specified in HPI Past Medical History She has a past medical history of Hypertension, Hypokalemia, and Hyponatremia. Surgical History She has a past surgical history that includes IR angiogram renal bilateral and section, classic. Social History She reports that she has quit smoking. Her smoking use included cigarettes. She has never used smokeless tobacco. She reports that she does not currently use alcohol. She reports that she does not use drugs. Family History Family History Problem Relation Name Age of Onset Hypertension Mother Hypertension Father Medications Current Outpatient Medications on File Prior to Visit Medication Sig Dispense Refill carvedilol (Coreg) 25 mg tablet Take 1 tablet (25 mg) by mouth with breakfast and with evening meal. 180 tablet 3 spironolactone (Aldactone) 25 mg tablet Take 1 tablet (25 mg) by mouth once daily as directed. 90 tablet 3 tiZANidine (Zanaflex) 4 mg tablet Take 8 mg by mouth at bedtime. [DISCONTINUED] cloNIDine (Catapres) 0.1 mg tablet Take 0.1 mg by mouth in the morning and at bedtime. [DISCONTINUED] labetalol (Normodyne) 200 mg tablet Take 1 tablet by mouth in the morning and at bedtime. No current facility-administered medications on file prior to visit. Allergies Patient has no known allergies. Physical Exam VITAL SIGNS: BP (!) 168/96 Pulse 71 Ht 1.702 m (5' 7 ) Wt 85.1 kg (187 lb 11.2 oz) SpO2 96% BMI 29.40 kg/m??? Constitutional: Well developed, Well nourished, No acute distress, Non-toxic appearance. HENT: Normocephalic, Atraumatic, Bilateral external ears have normal appearance, Nose appears normal, nares are patent. Eyes: PERRLA, EOMI, Conjunctiva normal, No discharge. Neck: Normal range of motion, No tenderness, Supple, No stridor. No cervical lymphadenopathy noted. Cardiovascular: Normal heart rate, Normal rhythm, No murmurs, No rubs, No gallops. Thorax & Lungs: Normal breath sounds, No respiratory distress, No wheezing, No chest tenderness to palpation. Abdomen: Bowel sounds normal, Soft, Nontender, No masses, No pulsatile masses. Skin: Warm, Dry, No erythema, No rash. Back: No tenderness, No CVA tenderness. Extremities: Intact distal pulses, No edema, No tenderness, No cyanosis, No clubbing. Musculoskeletal: Grossly normal strength in extremities Neurologic: Alert & oriented x 3, no gross focal neurological deficits Psychiatric: Affect normal, Judgment normal, Mood normal. Impression: -Resistant hypertension, blood pressure is better controlled -Palpitations -Hypokalemia Plan: -Continue carvedilol 25 mg daily -Increase Spironolactone 25 mg daily to 50 mg daily. Check BMP in 1 week -Will add amlodipine 5 mg daily -Patient instructed to monitor daily blood pressures at home. She is instructed to maintain a blood pressure log. She is instructed to call cardiology with update on her blood pressure -Optimize medical management -Aggressive risk factor modification -Plan of care discussed with patient. All questions were answered. Patient voices understanding and is agreeable with current plan. -Patient was educated on red flag symptoms. Strict return precautions were provided. Patient verbalizes understanding -Follow-up in cardiology clinic in 4 weeks, or sooner as needed Abi Zaragoza MD Interventional Cardiology [facility] 11-04-2022 Note Cardiology Clinic No te Chief Complaint: re-establishing care for hypetension HPI: Kelsi Johnson is a 42 y.o. female Past medical history including resistant hypertension, palpitations, hypokalemia. She presents to cardiology clinic for assistance in management of hypertension. Patient states that she has had problems with her blood pressure for many years. She has been on multiple blood pressure medications, but does not able to recall all of them. She states that she has not had any success with any of them. She has been frustrated, and as such, she does not take her medications as regularly as prescribed. She endorses occasional palpitations. She denies any additional cardiac complaints or concerns. Patient adamantly denies any cardiac complaints or concerns. Patient denies any chest pain or shortness of breath. Patient denies any lower extremity edema, orthopnea, or proximal nocturnal dyspnea. No near-syncope or syncope. No dizziness or lightheadedness. She denies any significant caffeine consumption. No alcohol consumption. No [id number] medication usage. She denies any history of obstructive sleep apnea. No recreational drug use. Cardiology ROS: 10 point ROS is performed and is negative unless otherwise specified in HPI Past Medical History She has a past medical history of Hypertension, Hypokalemia, and Hyponatremia. Surgical History She has a past surgical history that includes IR angiogram renal bilateral and section, classic. Social History She reports that she has quit smoking. Her smoking use included cigarettes. She has never used smokeless tobacco. She reports that she does not currently use alcohol. She reports that she does not use drugs. Family History Family History Problem Relation Name Age of Onset Hypertension Mother Hypertension Father Medications Current Outpatient Medications on File Prior to Visit Medication Sig Dispense Refill cloNIDine (Catapres) 0.1 mg tablet Take 0.1 mg by mouth in the morning and at bedtime. labetalol (Normodyne) 200 mg tablet Take 1 tablet by mouth in the morning and at bedtime. tiZANidine (Zanaflex) 4 mg tablet Take 8 mg by mouth at bedtime. [DISCONTINUED] amphetamine-dextroamphetamine XR (Adderall XR) 20 mg 24 hr capsule Take 20 mg by mouth in the morning. [DISCONTINUED] fluticasone (Flonase) 50 mcg/actuation nasal spray Administer 1 spray into affected nostril(s) in the morning. [DISCONTINUED] lisinopril 5 mg tablet Take 1 tablet by mouth in the morning. [DISCONTINUED] NIFEdipine XL (Procardia XL) 30 mg 24 hr tablet Take 1 tablet by mouth in the morning and at bedtime. No current facility-administered medications on file prior to visit. Allergies Patient has no known allergies. Physical Exam VITAL SIGNS: BP (!) 206/118 (BP Location: Left arm, Patient Position: Sitting) Pulse 80 Ht 1.702 m (5' 7 ) Wt 85.3 kg (188 lb) SpO2 99% BMI 29.44 kg/m??? Constitutional: Well developed, Well nourished, No acute distress, Non-toxic appearance. HENT: Normocephalic, Atraumatic, Bilateral external ears have normal appearance, Nose appears normal, nares are patent. Eyes: PERRLA, EOMI, Conjunctiva normal, No discharge. Neck: Normal range of motion, No tenderness, Supple, No stridor. No cervical lymphadenopathy noted. Cardiovascular: Normal heart rate, Normal rhythm, No murmurs, No rubs, No gallops. Thorax & Lungs: Normal breath sounds, No respiratory distress, No wheezing, No chest tenderness to palpation. Abdomen: Bowel sounds normal, Soft, Nontender, No masses, No pulsatile masses. Skin: Warm, Dry, No erythema, No rash. Back: No tenderness, No CVA tenderness. Extremities: Intact distal pulses, No edema, No tenderness, No cyanosis, No clubbing. Musculoskeletal: Grossly normal strength in extremities Neurologic: Alert & oriented x 3, no gross focal neurological deficits Psychiatric: Affect normal, Judgment normal, Mood normal. Impression: -Resistant hypertension -Palpitations -Hypokalemia Plan: -Patient has had renal angiogram which demonstrated no significant renal artery stenosis. Would recommend testing for obstructive sleep apnea -We will order 24-hour urine catecholamines and metanephrines -Will refer to endocrinology for further evaluation for possible pheochromocytoma -We will order echocardiogram to assess LVEF, wall motion, and valvular function -Patient has been on multiple medications in the past. Unfortunately, due to frequent changes, she has not adhere to a consistent regimen. -At this time, recommend discontinuing labetalol. We will start carvedilol 25 mg twice daily -Patient has been hypokalemic in the past. There may be component of hyperaldosteronism. We will start spironolactone 25 mg daily. Check BMP in 1 week -Patient instructed to monitor daily blood pressures at home. She is instructed to maintain a blood pressure log. She is instructed to c (more content not included)... [facility] 11-04-2022 Note New patient here to re-establish care. Ref from Dr. Spence for hypertension and palpitations. Says her BP lately has been 250's systolic. Had renal US and labs a few weeks ago. Review of Systems Cardiovascular: Positive for dyspnea on exertion and palpitations. Neurological: Positive for headaches and light-headedness. All other systems reviewed and are negative. [facility] 07-22-2022 Note OPERATIVE NOTE OPERATION DATE: 07/22/2022 PROCEDURE: Carrie endometrial ablation with hysteroscopy with robotic assisted bilateral laparoscopic salpingectomy, and right ovarian cystotomy performed with the Vessel Sealer. PREOPERATIVE DIAGNOSIS: Menorrhagia, dyspareunia, dysmenorrhea, desires permanent sterilization. POSTOPERATIVE DIAGNOSIS: Menorrhagia, dyspareunia, dysmenorrhea, desires permanent sterilization. ANESTHESIA: General. SURGEON: Abdiaziz Poole D.O. [employer] TECHNICIAN: ARMANDO Heredia URINE OUTPUT: Yellow and clear. BLOOD LOSS: 5 mL. FINDINGS: Normal appearing uterus and tubes. Right ovarian cyst. SPECIMEN: Bilateral tubes. PROCEDURE: The patient was taken back to the OR where she was prepped and draped in the normal sterile fashion after being placed in the dorsal lithotomy position, after being placed under general anesthesia without difficulty. A weighted speculum was placed into the vagina. The anterior lip was grasped with a single tooth tenaculum. The patient was then sounded to approximated 9 cm. The patient's cervix was gently dilated using Hegar dilators. The hysteroscope was passed through the cervix into the uterus where both ostia were seen. No gross evidence of polyps, fibroids or malignancy. The cervical length was noted to be 5 cm. The total cavity length is 4 cm. The Carrie ablation apparatus was set to approximately 4 cm in length. This was placed through the cervix and into the uterus. After the seal was tested, at that time the total ablation of 120 seconds was performed with the Carrie without difficulty. All instruments were removed from the vagina. Excellent hemostasis noted. Sponge and lap count correct times 2. Patient taken to recovery in stable condition. The patient was taken back to the OR where she was prepped and draped in the normal sterile fashion after being placed in the dorsal lithotomy position, after being placed under general anesthesia without difficulty. A wet sponge stick was placed into the patient's vagina. Attention was then turned to the patient's abdomen, where a scalpel was used to make a small infraumbilical incision. The S retractors were then used to dissect the underlying layers until the fascia could be seen. The fascia was then grasped with Miguel clamps and tented up. A knife was then used to make a small incision to the fascia. The muscle was identified, at that time two sutures of #0 Vicryl on a GI needle was then used and placed through the fascia. The peritoneum was then identified and entered bluntly. The 10-4 Trever was then placed into the patient's abdomen. This was confirmed with direct visualization of the bowel, using the laparoscope. The patient's abdomen was then insufflated using approximately 4 liters of CO2 gas. Survey of the patient's abdomen demonstrated normal appearing ovaries, uterus and tubes. A second and third lateral port, which was 7-8 in size and 5 mm in size, was then placed laterally after incision was made in the skin under direct visualization. The patient's tube on the patient's right side was identified. The tube was then tented up using a grasper. The LigaSure was used to transect and coagulate the mesosalpinx from the fimbriated end to the insertion at the uterus; the tube was amputated and removed in its entirety. Excellent hemostasis was noted. This was performed on the contralateral side as well. The lateral ports were then removed under direct visualization with excellent hemostasis. The abdomen was desufflated. All instruments were removed from the patient's abdomen. The fascia was closed using the #0 Vicryl on GI needle. The skin was closed using 4-0 Vicryl subcuticularly. All instruments were removed from the patient's vagina as well. The patient was taken out of the dorsal lithotomy position and placed in the supine position and taken to recovery in stable condition. Sponge, lap and needle counts were correct x2. [facility] 06-18-2020 Note HPI Staff 39 year old female on consultation from Dr. Spence with 2 month history of change in bowel habits. Complains of diarrhea, abdominal and abnorma weight gain. Denies rectal bleeding but possible blood in stool on occasion . Started on Xifaxan 550 mg on 06/05/[address] Spence but has not noticed a change since taking it. Denies family history of colon cancer and states she has never had a colonoscopy. History of Present Illness 39 yo female with h/o htn, reports 2 month h/o intermittent abdominal pain and bloating; describes burning epigastric pain, worse in am, some associated nausea, occasional emesis; diffuse abdominal soreness and cramping, worse at times after eating anything; no blood in stools, frequent loose stools; does have h/o lifelong constipation in past; only abdominal operation ; had trial of PPI for several weeks without improvement; recently started on Xifaxan for IBS, no real improvement yet; on baby asa daily, no NSAID use; no SBE prophylaxis; no previous endoscopy; no fmhx of GI malignancy or IBD. Review of Systems PHQ Score Initial Depression Screen Score: 0 ROS - Provider Constitutional: no fever, no sweats, no weight loss. Eyes: no glasses, no blurred vision, no visual loss. ENMT: no dentures, no hoarseness, no swallowing difficulties, no hearing loss, no ear infection(s), no nose bleeds. Cardiovascular: high blood pressure, no chest pain, regular heartbeat, no heart murmur. Respiratory: no shortness of breath, no cough, no asthma, no wheezing. Gastrointestinal: yes nausea, no vomiting, yes diarrhea, no constipation, no blood in stool, yes change in bowel habits, mild abdominal pain, no hepatitis. Genitourinary: no kidney stones, no urine infection, no dysuria. Musculoskeletal: no pain, no weakness. Skin: no changing moles, no rash, no skin lumps. Neurologic: no seizures, no epilepsy, no headache. Psychiatric: no emotional or psychiatric problem. Heme/Lymph: no bleeding problems, no anemia, no blood clots, no transfusions. Allergy/Immunologic: no swollen lymph nodes/glands, no IV drug abuse. Other: Additional ROS info: Except as noted in the above Review of Systems and in the History of Present Illness, all other systems have been reviewed and are negative or noncontributory. Physical Exam Vitals & Measurements T: 37 ?C (Tympanic) BP: 144/82 HT: 170.18 cm HT: 170.2 cm WT: 80 kg WT: 80.0 kg BMI: 27.62 HEENT: normal conjunctiva, sclera clear, no scleral icterus, EOM intact, PERRLA, oral mucosa moist without lesions. Neck: trachea midline, no mass, symmetric, no thyromegaly or nodules, no adenopathy Respiratory: lungs CTA, respirations non labored. Cardiovascular: regular rate and rhythm, no murmur, no pedal edema or varicosities. Gastrointestinal: soft, non distended, no tenderness, no masses, no palpable hernias, diastasis recti no, no hepatosplenomegaly; normal bs Lymphatic: no cervical adenopathy, no axillary adenopathy, Musculoskeletal: normal gait, digits and nails without infection, nodes, cyanosis, clubbing. Skin: no rashes, no lesions, no ulcers, no subcutaneous nodules, induration. Psychiatric/Neuro: oriented to time, place, person, judgement normal, affect appropriate for age, insight intact, no focal deficits. Tests: review of old records completed, Discussed surgical options, risks, and possible complications with patient. Assessment/Plan 1. Change in bowel habits (R19.4: Change in bowel habit) plan EGD and colonoscopy under anesthesia for further evaluation, informed consent obtained. patient understands the risks associated with COVID-19, and the need for preoperative testing with self-isolation until the procedure. 2. Abdominal bloating (R14.0: Abdominal distension (gaseous)) see # 1 3. Generalized abdominal pain (R10.84: Generalized abdominal pain) see # 1 4. Epigastric pain, (R10.13: Epigastric pain)Dyspepsia see # 1 6. Frequent loose stools (R19.7: Diarrhea, unspecified) see # 1 Follow-up No qualifying data available Patient Education Upper Endoscopy, Adult Colonoscopy, Adult Problem List/Past Medical History Ongoing Abdominal bloating Actinic keratosis adhd Alcohol abuse Change in bowel habits Diarrhea Dyspepsia Epigastric pain Frequent loose stools Generalized abdominal pain HTN - Hypertension Insomnia Lentigo Migraines Palpitations Renal artery stenosis Rh negative Seborrheic keratosis Smoker 17-OCT-2013 12:37:00<$> Tricuspid regurgitation Historical Procedure/Surgical History Angiogram, section, wisdome teethe removed. Medications Adderall 30 mg oral tablet, 30 mg= 1 tab(s), Oral, BID Aspirin 81 mg Tab-EC, Oral, Daily irbesartan 300 mg Tab, 300 mg= 1 tab(s), Oral, Daily Xifaxan 550 mg oral tablet, 550 mg= 1 tab(s), Oral, BID Allergies Contrast Dye (Hives) Social History Alcohol - Denies Alcohol Use, 10/15/2012 Current, Beer, 1-2 times pe (more content not included)... [facility] Comment on above: Result Comment: Elec tronically Signed By: KARRI NEUMANN, Dedrick Shaver\Date and Time Signed: 06/18/20 12:28 EST 06-18-2020 Note Upper Endoscopy, Yonas lt Upper endoscopy is a procedure to look inside the upper GI (gastrointestinal) tract. The upper GI tract is made up of: ? The part of the body that moves food from your mouth to your stomach (esophagus). ? The stomach. ? The first part of your small intestine (duodenum). This procedure is also called esophagogastroduodenoscopy (EGD) or gastroscopy. In this procedure, your health care provider passes a thin, flexible tube (endoscope) through your mouth and down your esophagus into your stomach. A small camera is attached to the end of the tube. Images from the camera appear on a monitor in the exam room. During this procedure, your health care provider may also remove a small piece of tissue to be sent to a lab and examined under a microscope (biopsy). Your health care provider may do an upper endoscopy to diagnose cancers of the upper GI tract. You may also have this procedure to find the cause of other conditions, such as: ? Stomach pain. ? Heartburn. ? Pain or problems when swallowing. ? Nausea and vomiting. ? Stomach bleeding. ? Stomach ulcers. Tell a health care provider about: ? Any allergies you have. ? All medicines you are taking, including vitamins, herbs, eye drops, creams, and vvnj-hye-jipuzqm medicines. ? Any problems you or family members have had with anesthetic medicines. ? Any blood disorders you have. ? Any surgeries you have had. ? Any medical conditions you have. ? Whether you are or may be . What are the risks? Generally, this is a safe procedure. However, problems may occur, including: ? Infection. ? Bleeding. ? Allergic reactions to medicines. ? A tear or hole (perforation) in the esophagus, stomach, or duodenum. What happens before the procedure? Staying hydrated Follow instructions from your health care provider about hydration, which may include: ? Up to 2 hours before the procedure ? you may continue to drink clear liquids, such as water, clear fruit juice, black coffee, and plain tea. Eating and drinking restrictions Follow instructions from your health care provider about eating and drinking, which may include: ? 8 hours before the procedure ? stop eating heavy meals or foods, such as meat, fried foods, or fatty foods. ? 6 hours before the procedure ? stop eating light meals or foods, such as toast or cereal. ? 6 hours before the procedure ? stop drinking milk or drinks that contain milk. ? 2 hours before the procedure ? stop drinking clear liquids. Medicines Ask your health care provider about: ? Changing or stopping your regular medicines. This is especially important if you are taking diabetes medicines or blood thinners. ? Taking medicines such as aspirin and ibuprofen. These medicines can thin your blood. Do not take these medicines unless your health care provider tells you to take them. ? Taking xagl-owp-bhptyuk medicines, vitamins, herbs, and supplements. General instructions ? Plan to have someone take you home from the hospital or clinic. ? If you will be going home right after the procedure, plan to have someone with you for 24 hours. ? Ask your health care provider what steps will be taken to help prevent infection. What happens during the procedure? ? An IV will be inserted into one of your veins. ? You may be given one or more of the following: ? A medicine to help you relax (sedative). ? A medicine to numb the throat (local anesthetic). ? You will lie on your left side on an exam table. ? Your health care provider will pass the endoscope through your mouth and down your esophagus. ? Your health care provider will use the scope to check the inside of your esophagus, stomach, and duodenum. Biopsies may be taken. ? The endoscope will be removed. The procedure may vary among health care providers and hospitals. What happens after the procedure? ? Your blood pressure, heart rate, breathing rate, and blood oxygen level will be monitored until you leave the hospital or clinic. ? Do not drive for 24 hours if you were given a sedative during your procedure. ? When your throat is no longer numb, you may be given some fluids to drink. ? It is up to you to get the results of your procedure. Ask your health care provider, or the department that is doing the procedure, when your results will be ready. Summary ? Upper endoscopy is a procedure to look inside the upper GI tract. ? During the procedure, an IV will be inserted into one of your veins. You may be given a medicine to help you relax. ? A medicine will be used to numb your throat. ? The endoscope will be passed through your mouth and down your esophagus. This information is not intended to replace advice given to you by your health care provider. Make sure you discuss any questions you have with your health care provider. Document Released: 03/31/2001 Document Revised: 09/27/19 (more content not included)... [facility] Summary Purpose Family History No Family History Records FoundNo Family History Records FoundNo Family History Records FoundNo Family History Records FoundNo Family History Records Found Advance Directives No Advanced Directives Records FoundNo Advanced Directives Records FoundNo Advanced Directives Records FoundNo Advanced Directives Records FoundNo Advanced Directives Records Found Additional Source Comments INFORMATION SOURCE (unrecogn ized section and content) DATE CREATED AUTHOR 12/20/2018 [facility] DATE CREATED AUTHOR AUTHOR'S ORGANIZ ATION 10/01/2020 [facility] DATE CREATED AUTHOR AUTHOR'S ORGANIZ ATION 08/05/[address] [facility] DATE CREATED AUTHOR AUTHOR'S ORGANIZ ATION 04/15/2023 [facility] DATE CREATED AUTHOR AUTHOR'S ORGANIZ ATION 04/28/2023 [facility] FOR RECORDS PERTAINING TO PATIENTS WHO ARE OR HAVE BEEN ENROLLED IN A CHEMICAL DEPENDENCY/SUBSTANCEABUSE PROGRAM, SOME INFORMATION MAY BE OMITTED. This clinical summary was aggregated from multiple sources. Caution should be exercised in using it in the provision of clinical care. This summary normalizes information from multiple sources, and as a consequence, information in this document may materially change the coding, format and clinical context of patient data. In addition, data may be omitted in some cases. CLINICAL DECISIONS SHOULD BE BASED ON THE PRIMARY CLINICAL RECORDS. [facility] [facility]. provides no warranty or guarantee of the accuracy or completeness of information in this document.
== END 2023-05-01 20:08 | disposition home or self-care (01) ==
LOC: SLEEP 20:07
PROVIDERS: PCP Nurse Practitioner Family; Visit Provider Nurse Practitioner Family
DX: G47.33 Obstructive sleep apnea (adult) (pediatric) (principal)
CPT/HCPCS: 95811

== ENCOUNTER 2023-05-24 16:24 | Outpatient (OUT) | payer OTHER, SELFPAY ==
--- OUTSIDE RECORDS SUMMARY | 2023-05-24 16:31 | XMS_ITS | CCD ---
Author Name Unknown Address [address] [place] [address] Organization [facility] Care Team Providers Care Statue Carver Name Role Phone UNKNOWN, PROVIDER Admitting Unavailable UNKNOWN, PROVIDER Attending Unavailable MIRIAM SPENCE Referring Unavailable DILIAY, MIRIAM Primary Care Unavailable LYNDA ., DR [...] Consulting Unavailable JAYY DE ANDA Consulting Unavailable ROCK PEARSON Attending Unavailable ABI ZARAGOZA Attending Unavailable ABI ZARAGOZA Attending Unavailable ANNABEL HUFFMAN Attending Unavailable ABI ZARAGOZA Attending Unavailable ABI ZARAGOZA Attending Unavailable ROCK PEARSON Attending Unavailable Grant Herring Attending Unavailab Grant Manjarrez Admitting Unavailab Miriam Mulligan Primary Care Unavailable Allergies Allergy Classification Reported Allergen(s) Allergy Type Date of Onset Reaction(s) Facility (1 source) Iodine (And Iodine Containting Drugs) Drug allergy (disorder) 04-17-1991 [facility] Repository (1 source) Metoprolol Drug Allergy 04-17-2022 [facility] Rep[facility] (1 source) Iodinated Contrast Media Drug allergy (disorder) 09-20-2017 [facility] Repository Problems Active Problems Problem Classification Problem [...] [Hypertensive heart disease without heart failure] Onset: 01-31-2023 Chronic Malaise and fatigue (2 sources) Other fatigue; Translations: [Other fatigue] Onset: 03-29-2023 Episodic Menstrual disorders (2 sources) Excessive and frequent menstruation with regular cycle; Translations: [Irregular menstruation, unspecified] Onset: 08-04-2022 Chronic Other aftercare (1 source) Other mcc (current) drug therapy; Translations: [OTH JAIL CURRENT DRUG THERAPY] Onset: 07-20-2022 Episodic Other connective tissue disease (2 sources) Other specified soft tissue disorders; Translations: [Other specified soft tissue disorders] Onset: 05-11-2023 Episodic Other endocrine disorders (1 source) Polycystic ovarian syndrome; Translations: [POLYCYSTIC OVARIAN SYNDROME] Onset: 06-29-2022 Chronic Other female genital disorders (1 source) Abnormal uterine and vaginal bleeding, unspecified; Translations: [ABNORMAL UTERINE VAGINAL BLEED UNS] Onset: 08-04-2022 Chronic Other non-traumatic joint disorders (2 sources) Pain in unspecified joint; Translations: [Pain in unspecified joint] Onset: 05-11-2023 Episodic Other nutritional; endocrine; and metabolic disorders (1 [...] Test Name Value Interpretation Reference Range Facility 36on 05-12-2023 36 Lab called to state that there was not enough blood to draw four of the lab orders. Pt was contacted and requested those orders be sent to the [facility]. Lab orders sent with confirmation received Normal [facility] C-REACTIVE PROTEINon 024 C REACTIVE PROTEIN (MG/L) IN SER/PLAS 2.1 mg/L Normal 0.0-7.0 [facility] Comment on above: Performed By: #### L [id number] #### [facility] ([facility]) [address] [place] [address] CYCLIC CITRUL PEPTIDE ANTIBO DY, IGG AND IGAon 05-11-2023 CYCLIC CITRULLINATED PEPTIDE AB, IGG/A 4 Units Normal 0-19 [facility] Comment on above: Result Comment: INTE RPRETIVE INFORMATION: Cyclic Citrullinated Peptide Ab, IgG/A 19 Units or less ................... Negative 20-39 Units ........................ Weak Positive 40-59 Units ........................ Moderate Positive 60 Units or greater ................ Strong Positive A positive result for cyclic citrullinated peptide (CCP) antibodies in conjunction with consistent clinical features may be suggestive of rheumatoid arthritis (RA). Anti-CCP, IgG/IgA antibodies are present in about 66-74 percent of RA patients and have specificities of 96-99 percent. Detection of IgA antibodies in addition to the usual IgG antibodies enhances the sensitivity due to some RA patients having IgA antibodies to CCP in the absence of IgG. These autoantibodies may be present in the preclinical phase of disease, are associated with future RA development, and may predict radiographic joint destruction. Patients with weak positive results should be monitored and testing repeated. Performed By: [employer] [address] [place] [address] Pension Administrator: Williams Escobar MD, PhD CLIA Number: [id number] Performed By: #### L [id number] ####[facility] [place] [address] Office Visiton 05-11-2023 Follow-up visit [id number] Kelsi Johnson 1980 F Date Provider Department Center 05/11/2023 ANNABEL ZACARIAS [facility] Family History Problem Relation Age of Onset Hypertension Mother Hypertension Father Family Status - Relation Status Age at Mother Father Level of Service:05115 ME OFFICE/OUTPATIENT NEW MODERATE MDM 45 MINUTES (GC) Reason for Visit and Comments: New Patient [632] - crnp Other fatigue Unexplained weight gain Normal [facility] Orders Onlyon 05-11-2023 Orders Only [id number] Maya Johnsontobi Hodge 1980 Date Provider Department Center 05/11/2023 DEB JACOBO [facility] Family History Problem Relation Age of Onset Hypertension Mother Hypertension Father Family Status - Relation Status Age at Mother Father Normal [facility] RHEUMATOID FACTORon 05-11-19 24 Rheumatoid factor Qn [IU]/mL Normal 0-20 [facility] Comment on above: Performed By: #### L [id number] ####[facility] ([facility])[address] [place] [address] SEDIMENTATION RATEon 024 SEDIMENTATION RATE, ERYTHROCYTE 8 mm/hr Normal <=20 [facility] Comment on above: Performed By: #### L [id number] ####[facility] ([facility])[address] [place] [address] Office Visiton 04-27-2023 Follow-up visit [id number] Kelsi Johnson 1980 Date Provider Department Center 04/27/2023 ROCK CASTELLANOS Family History Problem Relation Age of Onset Hypertension Mother Hypertension Father Family Status - Relation Status Age at Mother Father Level of Service:69483 ME OFFICE/OUTPATIENT ESTABLISHED MOD MDM 30 MIN Reason for Visit and Comments: Hypertension [035481] Fatigue [46] Normal [facility] Office Visiton 03-29-2023 Follow-up visit [id number] Kelsi Johnosn 1980 Date Provider Department Center 03/29/2023 ROCK CASTELLANOS Family History Problem Relation Age of Onset Hypertension Mother Hypertension Father Family Status - Relation Status Age at Mother Father Level of Service:54133 ME OFFICE/OUTPATIENT ESTABLISHED MOD MDM 30-39 MIN Reason for Visit and Comments: Hypertension [430012] Fatigue [46] Normal [facility] Office Visiton 01-31-2023 Follow-up visit [id number] Simmons Naveen 1980 Date Provider Department Center 01/31/2023 ABI REESE Family History Problem Relation Age of Onset Hypertension Mother Hypertension Father Family Status - Relation Status Age at Mother Father Level of Service:32791 ME OFFICE/OUTPATIENT ESTABLISHED LOW MDM 20-29 MIN Normal [facility] Office Visiton 12-28-2022 Follow-up visit [id number] Simmons Naveen 1980 Date Provider Department Center 12/28/2022 ABI REESE Family History Problem Relation Age of Onset Hypertension Mother Hypertension Father Family Status - Relation Status Age at Mother Father Level of Service:43512 ME OFFICE/OUTPATIENT ESTABLISHED MOD MDM 30-39 MIN Normal [facility] Office Visiton 11-28-2022 Follow-up visit [id number] Simmons 1980 Date Provider Department Center 11/28/2022 ABI REESE Family History Problem Relation Age of Onset Hypertension Mother Hypertension Father Family Status - Relation Status Age at Mother Father Level of Service:91226 ME OFFICE/OUTPATIENT ESTABLISHED MOD MDM 30-39 MIN Reason for Visit and Comments: Follow-up [119546] - 4 wk follow up/ medication change Normal [facility] Office Visiton 11-04-2022 Follow-up visit [id number] Kelsi Johnson Naveen 1980 Date Provider Department Center 11/04/2022 ABI REESE Family History Problem Relation Age of Onset Hypertension Mother Hypertension Father Family Status - Relation Status Age at Mother Father Level of Service:39758 ME OFFICE/OUTPATIENT NEW MODERATE MDM 45-59 MINUTES Normal [facility] CBC AUTO DIFFon 07-22-2022 BASO # 0.1 103/ul Normal 0.0-0.1 [facility] Comment on above: Performed By: #### C BC #### [facility] [address] [place] [address] Dr. Brittani Arevalo Basophils/100 WBC (Bld) 0.9 % Normal 0.2-2.0 [facility] Comment on above: Performed By: #### C BC #### [facility] [address] [place] [address] Dr. Brittani Arevalo EO # 0.1 103/ul Normal 0.0-0.7 [facility] Comment on above: Performed By: #### C BC #### [facility] [address] [place] [address] Dr. Brittani Arevalo Eosinophils/100 WBC (Bld) 1.5 % Normal 0.9-7.0 [facility] Comment on above: Performed By: #### C BC #### [facility] [address] [place] [address] Dr. Brittani Arevalo Erythrocyte distribution width (RBC) [Ratio] 16.6 % Critically high 11.0-15.0 [facility] Comment on above: Performed By: #### C BC #### [facility] [address] [place] [address] Dr. Brittani Arevalo Hematocrit (Bld) [Volume fraction] 32.1 % Critically low 36.0-48.0 [facility] Comment on above: Performed By: #### C BC #### [facility] [address] [place] [address] Dr. Brittani Arevalo Hemoglobin (Bld) [Mass/Vol] 9.5 g/dL Critically low 12.0-16.0 [facility] Comment on above: Performed By: #### C BC #### [facility] [address] [place] [address] Dr. Brittani Arevalo IG # 0.01 10e3/ul Normal 0.00-0.03 [facility] Comment on above: Performed By: #### C BC #### [facility] [address] [place] [address] Dr. Brittani Arevalo IG % 0.2 % Normal 0.0-0.5 [facility] Comment on above: Performed By: #### C BC #### [facility] [address] [address] [address] Brittani Arevalo LYMPH # 2.7 103/ul Normal 1.2-3.8 [facility] Comment on above: Performed By: #### C BC #### [facility] [address] [address] [address] Brittani Arevalo Lymphocytes/100 WBC (Bld) 41.4 % Normal 20.5-60.0 [facility] Comment on above: Performed By: #### C BC #### [facility] [address] [address] [address] Brittani Arevalo MANUAL DIFF REQ NO Normal [facility] Comment on above: Performed By: #### C BC #### [facility] [address] [place] [address] Dr. Brittani Arevalo MCH (RBC) [Entitic mass] 23.4 pg Critically low 26.7-34 .0 [facility] Comment on above: Performed By: #### C BC #### [facility] [address] [place] [address] Dr. Brittani Arevalo MCHC (RBC) [Mass/Vol] 29.6 g/dL Critically low 29.9-35.2 [facility] Comment on above: Performed By: #### C BC #### [facility] [address] [place] [address] Dr. Brittani Arevalo MCV (RBC) [Entitic vol] 79.1 fL Critically low 81.0-99. 0 [facility] Comment on above: Performed By: #### C BC #### [facility] [address] [place] [address] Dr. Brittani Arevalo MONO # 0.5 103/ul Normal 0.3-0.8 [facility] Comment on above: Performed By: #### C BC #### [facility] [address] [place] [address] Dr. Brittani Arevalo Monocytes/100 WBC (Bld) 7.2 % Normal 1.7-12.0 [facility] Comment on above: Performed By: #### C BC #### [facility] [address] [place] [address] Dr. Brittani Arevalo NEUT # 3.2 103/ul Normal 1.4-6.5 [facility] Comment on above: Performed By: #### C BC #### [facility] [address] [place] [address] Dr. Brittani Arevalo Neutrophils/100 WBC (Bld) 48.8 % Normal 43.0-75.0 [facility] Comment on above: Performed By: #### C BC #### [facility] [address] [place] [address] Dr. Brittani Arevalo Platelet mean volume (Bld) [Entitic vol] 10.7 fL Normal 9.5-13.5 [facility] Comment on above: Performed By: #### C BC #### [facility] [address] [place] [address] Dr. Brittani Arevalo PLT 385 103/ul Normal 150-450 [facility] Comment on above: Performed By: #### C BC #### [facility] [address] [place] [address] Dr. Brittani Arevalo RBC 4.06 106/ul Critically low 4.20-5.40 [facility] Comment on above: Performed By: #### C BC #### [facility] [address] [place] [address] Dr. Brittani Arevalo WBC 6.6 103/ul Normal 4.0-11.0 [facility] Comment on above: Performed By: #### C BC #### [facility] [address] [place] [address] Dr. Brittani Arevalo PREG QUANT HCGon 07-22-2022 HCG QUANT 1 mIU/mL Normal [facility] Comment on above: Performed By: #### C MP, BNP #### [facility] [address] [place] [address] Dr. Brittani Arevalo HCG RANGE SEE BELOW Normal [facility] Comment on above: Result Comment: 5-50 0.2-1 WEEK 50-500 1-2 WEEKS 100-5,000 2-3 WEEKS 500-10,000 3-4 WEEKS 1,000-50,000 4-5 WEEKS 10,000-100,000 5-6 WEEKS 15,000-200,000 6-8 WEEKS 10,000-100,000 2-3 MONTHS Performed By: #### C MP, BNP #### [facility] [address] [place] [address] Dr. Brittani Arevalo BNPon 07-16-2022 Natriuretic peptide B (Bld) [Mass/Vol] 74.0 pg/mL Normal <=450.0 [facility] Comment on above: Performed By: #### C MP, BNP #### [facility] [address] [place] [address] Dr. Brittani Arevalo CBC AUTO DIFFon 07-16-2022 BASO # 0.1 103/ul Normal 0.0-0.1 [facility] Comment on above: Performed By: #### C BC #### [facility] [address] [place] [address] Dr. Brittani Arevalo Basophils/100 WBC (Bld) 0.6 % Normal 0.2-2.0 [facility] Comment on above: Performed By: #### C BC #### [facility] [address] [place] [address] Dr. Brittani Arevalo EO # 0.1 103/ul Normal 0.0-0.7 [facility] Comment on above: Performed By: #### C BC #### [facility] [address] [place] [address] Dr. Brittani Arevalo Eosinophils/100 WBC (Bld) 0.8 % Critically low 0.9-7. 0 [facility] Comment on above: Performed By: #### C BC #### [facility] [address] [place] [address] Dr. Brittani Arevalo Erythrocyte distribution width (RBC) [Ratio] 16.4 % Critically high 11.0-15.0 [facility] Comment on above: Performed By: #### C BC #### [facility] [address] [place] [address] Dr. Brittani Arevalo Hematocrit (Bld) [Volume fraction] 32.0 % Critically low 36.0-48.0 [facility] Comment on above: Performed By: #### C BC #### [facility] [address] [address] [address] Brittani Arevalo Hemoglobin (Bld) [Mass/Vol] 9.7 g/dL Critically low 12.0-16.0 [facility] Comment on above: Performed By: #### C BC #### [facility] [address] [address] [address] Brittani Arevalo IG # 0.02 10e3/ul Normal 0.00-0.03 [facility] Comment on above: Performed By: #### C BC #### [facility] [address] [place] [address] Dr. Brittani Arevalo IG % 0.2 % Normal 0.0-0.5 [facility] Comment on above: Performed By: #### C BC #### [facility] [address] [place] [address] Dr. Brittani Arevalo LYMPH # 2.5 103/ul Normal 1.2-3.8 [facility] Comment on above: Performed By: #### C BC #### [facility] [address] [place] [address] Dr. Brittani Arevalo Lymphocytes/100 WBC (Bld) 28.0 % Normal 20.5-60.0 [facility] Comment on above: Performed By: #### C BC #### [facility] [address] [place] [address] Dr. Brittani Arevalo MANUAL DIFF REQ NO Normal [facility] Comment on above: Performed By: #### C BC #### [facility] [address] [place] [address] Dr. Brittani Arevalo MCH (RBC) [Entitic mass] 23.2 pg Critically low 26.7-34 .0 [facility] Comment on above: Performed By: #### C BC #### [facility] [address] [place] [address] Dr. Brittani Arevalo MCHC (RBC) [Mass/Vol] 30.3 g/dL Normal 29.9-35.2 [facility] Comment on above: Performed By: #### C BC #### [facility] [address] [address] [address] Brittani Arevalo MCV (RBC) [Entitic vol] 76.4 fL Critically low 81.0-99. 0 [facility] Comment on above: Performed By: #### C BC #### [facility] [address] [address] [address] Brittani Arevalo MONO # 0.5 103/ul Normal 0.3-0.8 [facility] Comment on above: Performed By: #### C BC #### [facility] [address] [address] [address] Brittani Arevalo Monocytes/100 WBC (Bld) 5.7 % Normal 1.7-12.0 [facility] Comment on above: Performed By: #### C BC #### [facility] [address] [place] [address] Dr. Brittani Arevalo NEUT # 5.8 103/ul Normal 1.4-6.5 [facility] Comment on above: Performed By: #### C BC #### [facility] [address] [address] [address] Brittani Arevalo Neutrophils/100 WBC (Bld) 64.7 % Normal 43.0-75.0 [facility] Comment on above: Performed By: #### C BC #### [facility] [address] [place] [address] Dr. Brittani Arevalo Platelet mean volume (Bld) [Entitic vol] 10.5 fL Normal 9.5-13.5 [facility] Comment on above: Performed By: #### C BC #### [facility] [address] [address] [address] Brittani Arevalo PLT 328 103/ul Normal 150-450 [facility] Comment on above: Performed By: #### C BC #### [facility] [address] [address] [address] Brittani Arevalo RBC 4.19 106/ul Critically low 4.20-5.40 [facility] Comment on above: Performed By: #### C BC #### [facility] [address] [place] [address] Dr. Brittani Arevalo WBC 9.0 103/ul Normal 4.0-11.0 [facility] Comment on above: Performed By: #### C BC #### [facility] [address] [place] [address] Dr. Brittani Arevalo PROF 14(COMP METB)on 023 Albumin [Mass/Vol] 3.5 g/dL Normal 3.4-5.0 [facility] Comment on above: Performed By: #### C MP, BNP #### [facility] [address] [place] [address] Dr. Brittani Arevalo Albumin/Globulin [Mass ratio] 0.9 {ratio} Normal [facility] Comment on above: Performed By: #### C MP, BNP #### [facility] [address] [place] [address] Dr. Brittani Arevalo ALP [Catalytic activity/Vol] 61 U/L Normal 46-116 [facility] Comment on above: Performed By: #### C MP, BNP #### [facility] [address] [place] [address] Dr. Brittani Arevalo ALT [Catalytic activity/Vol] 20 U/L Normal 14-59 [facility] Comment on above: Performed By: #### C MP, BNP #### [facility] [address] [place] [address] Dr. Brittani Arevalo Anion gap [Moles/Vol] 14.6 mmol/L Normal [facility] Comment on above: Performed By: #### C MP, BNP #### [facility] [address] [place] [address] Dr. Brittani Arevalo AST [Catalytic activity/Vol] 13 U/L Critically low 15-37 [facility] Comment on above: Performed By: #### C MP, BNP #### [facility] [address] [place] [address] Dr. Brittani Arevalo Bilirubin [Mass/Vol] 0.2 mg/dL Normal 0.2-1.0 [facility] Comment on above: Performed By: #### C MP, BNP #### [facility] [address] [place] [address] Dr. Brittani Arevalo Calcium [Mass/Vol] 9.1 mg/dL Normal 8.5-10.1 [facility] Comment on above: Performed By: #### C MP, BNP #### [facility] [address] [address] [address] Brittani Arevalo Chloride [Moles/Vol] 102 mmol/L Normal 98-107 [facility] Comment on above: Performed By: #### C MP, BNP #### [facility] [address] [place] [address] Dr. Brittani Arevalo CO2 [Moles/Vol] 24.2 mmol/L Normal 21.0-32.0 [facility] Comment on above: Performed By: #### C MP, BNP #### [facility] [address] [place] [address] Dr. Brittani Arevalo Creatinine [Mass/Vol] 0.91 mg/dL Normal 0.55-1.02 [facility] Comment on above: Performed By: #### C MP, BNP #### [facility] [address] [place] [address] Dr. Brittani Arevalo EGFR-AF MACEDONIAN >60 Normal >=60 [facility] Comment on above: Performed By: #### C MP, BNP #### [facility] [address] [place] [address] Dr. Brittani Arevalo EGFR-NON AF MACEDONIAN >60 Normal >=60 [facility] Comment on above: Performed By: #### C MP, BNP #### [facility] [address] [place] [address] Dr. Brittani Arevalo Globulin (S) [Mass/Vol] 3.8 g/dL Normal [facility] Comment on above: Performed By: #### C MP, BNP #### [facility] [address] [place] [address] Dr. Brittani Arevalo Glucose [Mass/Vol] 118 mg/dL Critically high 74-106 [facility] Comment on above: Performed By: #### C MP, BNP #### [facility] [address] [place] [address] Dr. Brittani Arevalo Potassium [Moles/Vol] 3.8 mmol/L Normal 3.5-5.1 [facility] Comment on above: Performed By: #### C MP, BNP #### [facility] [address] [place] [address] Dr. Brittani Arevalo Protein [Mass/Vol] 7.3 g/dL Normal 6.4-8.2 [facility] Comment on above: Performed By: #### C MP, BNP #### [facility] [address] [place] [address] Dr. Brittani Arevalo Sodium [Moles/Vol] 137 mmol/L Normal 136-145 [facility] Comment on above: Performed By: #### C MP, BNP #### [facility] [address] [place] [address] Dr. Brittani Arevalo Urea nitrogen [Mass/Vol] 9.0 mg/dL Normal 7.0-18.0 [facility] Comment on above: Performed By: #### C MP, BNP #### [facility] [address] [place] [address] Dr. Brittani Arevalo Urea nitrogen/Creatinine [Mass ratio] 9.9 mg/mg Normal [facility] Comment on above: Performed By: #### C MP, BNP #### [facility] [address] [place] [address] Dr. Brittani Arevalo BNPon 07-15-2022 Natriuretic peptide B (Bld) [Mass/Vol] 58.0 pg/mL Normal <=450.0 [facility] Comment on above: Performed By: #### C MP, BNP #### [facility] [address] [place] [address] Dr. Brittani Arevalo CBC AUTO DIFFon 07-15-2022 BASO # 0.1 103/ul Normal 0.0-0.1 [facility] Comment on above: Performed By: #### C MP, BNP #### [facility] [address] [place] [address] Dr. Brittani Arevalo Basophils/100 WBC (Bld) 0.6 % Normal 0.2-2.0 [facility] Comment on above: Performed By: #### C MP, BNP #### [facility] [address] [place] [address] Dr. Brittani Arevalo EO # 0.1 103/ul Normal 0.0-0.7 [facility] Comment on above: Performed By: #### C MP, BNP #### [facility] [address] [place] [address] Dr. Brittani Arevalo Eosinophils/100 WBC (Bld) 1.1 % Normal 0.9-7.0 [facility] Comment on above: Performed By: #### C MP, BNP #### [facility] [address] [place] [address] Dr. Brittani Arevalo Erythrocyte distribution width (RBC) [Ratio] 16.4 % Critically high 11.0-15.0 [facility] Comment on above: Performed By: #### C MP, BNP #### [facility] [address] [place] [address] Dr. Brittani Arevalo Hematocrit (Bld) [Volume fraction] 37.4 % Normal 36.0-48.0 [facility] Comment on above: Performed By: #### C MP, BNP #### [facility] [address] [place] [address] Dr. Brittani Arevalo Hemoglobin (Bld) [Mass/Vol] 11.3 g/dL Critically low 12.0-16.0 [facility] Comment on above: Performed By: #### C MP, BNP #### [facility] [address] [place] [address] Dr. Brittani Arevalo IG # 0.02 10e3/ul Normal 0.00-0.03 [facility] Comment on above: Performed By: #### C MP, BNP #### [facility] [address] [place] [address] Dr. Brittani Arevalo IG % 0.2 % Normal 0.0-0.5 [facility] Comment on above: Performed By: #### C MP, BNP #### [facility] [address] [place] [address] Dr. Brittani Arevalo LYMPH # 2.5 103/ul Normal 1.2-3.8 [facility] Comment on above: Performed By: #### C MP, BNP #### [facility] [address] [place] [address] Dr. Brittani Arevalo Lymphocytes/100 WBC (Bld) 29.0 % Normal 20.5-60.0 [facility] Comment on above: Performed By: #### C MP, BNP #### [facility] [address] [place] [address] Dr. Brittani Arevalo MANUAL DIFF REQ NO Normal [facility] Comment on above: Performed By: #### C MP, BNP #### [facility] [address] [place] [address] Dr. Brittani Arevalo MCH (RBC) [Entitic mass] 23.5 pg Critically low 26.7-34 .0 [facility] Comment on above: Performed By: #### C MP, BNP #### [facility] [address] [place] [address] Dr. Brittani Arevalo MCHC (RBC) [Mass/Vol] 30.2 g/dL Normal 29.9-35.2 [facility] Comment on above: Performed By: #### C MP, BNP #### [facility] [address] [place] [address] Dr. Brittani Arevalo MCV (RBC) [Entitic vol] 77.8 fL Critically low 81.0-99. 0 [facility] Comment on above: Performed By: #### C MP, BNP #### [facility] [address] [place] [address] Dr. Brittani Arevalo MONO # 0.4 103/ul Normal 0.3-0.8 [facility] Comment on above: Performed By: #### C MP, BNP #### [facility] [address] [place] [address] Dr. Brittani Arevalo Monocytes/100 WBC (Bld) 4.9 % Normal 1.7-12.0 [facility] Comment on above: Performed By: #### C MP, BNP #### [facility] [address] [place] [address] Dr. Brittani Arevalo NEUT # 5.6 103/ul Normal 1.4-6.5 [facility] Comment on above: Performed By: #### C MP, BNP #### [facility] [address] [place] [address] Dr. Britatni Arevalo Neutrophils/100 WBC (Bld) 64.2 % Normal 43.0-75.0 [facility] Comment on above: Performed By: #### C MP, BNP #### [facility] [address] [place] [address] Dr. Brittani Arevalo Platelet mean volume (Bld) [Entitic vol] 10.6 fL Normal 9.5-13.5 [facility] Comment on above: Performed By: #### C MP, BNP #### [facility] [address] [place] [address] Dr. Brittani Arevalo PLT 376 103/ul Normal 150-450 [facility] Comment on above: Performed By: #### C MP, BNP #### [facility] [address] [place] [address] Dr. Brittani Arevalo RBC 4.81 106/ul Normal 4.20-5.40 [facility] Comment on above: Performed By: #### C MP, BNP #### [facility] [address] [place] [address] Dr. Brittani Arevalo WBC 8.8 103/ul Normal 4.0-11.0 [facility] Comment on above: Performed By: #### C MP, BNP #### [facility] [address] [place] [address] Dr. Brittani Arevalo Cov[facility]-19 [facility] 06[facility]17 SARS-CoV-2 (COVID-19) RNA BISI+probe Ql (Unsp spec) Not detected Normal NOT DETECTED [facility] Comment on above: Result Comment: When diagnostic [...] for this test is supported by the Services Mgr of Health and Human Service's declaration that [...] Performed By: #### C MP, BNP #### [facility] [address] [place] [address] Dr. Brittani Arevalo DRUG SCREEN RAPID (URINE)on 07-15-2022 AMP Negative Normal NEGATIVE [facility] Comment on above: Performed By: #### C MP, BNP #### [facility] [address] [place] [address] Dr. Brittani Arevalo BAR Negative Normal NEGATIVE [facility] Comment on above: Performed By: #### C MP, BNP #### [facility] [address] [place] [address] Dr. Brittani Arevalo BUP Negative Normal NEGATIVE [facility] Comment on above: Performed By: #### C MP, BNP #### [facility] [address] [place] [address] Dr. Brittani Arevalo BZO Negative Normal NEGATIVE [facility] Comment on above: Performed By: #### C MP, BNP #### [facility] [address] [place] [address] Dr. Brittani Arevalo MARINO Negative Normal NEGATIVE [facility] Comment on above: Performed By: #### C MP, BNP #### [facility] [address] [place] [address] Dr. Brittani Arevalo CUT-OFFS SEE BELOW Normal [facility] Comment on above: Result Comment: AMP (Amphetamine): [...] Performed By: #### C MP, BNP #### [facility] [address] [place] [address] Dr. Brittani Arevalo DRUG CUT HEADER DRUG CLASS TEST SYSTEM CUT-OFF CONCENTRATIONS ARE FOLLOWS: Normal [facility] Comment on above: Performed By: #### C MP, BNP #### [facility] [address] [place] [address] Dr. Brittani Arevalo mAMP Negative Normal NEGATIVE [facility] Comment on above: Performed By: #### C MP, BNP #### [facility] [address] [place] [address] Dr. Brittani Arevalo MTD Negative Normal NEGATIVE [facility] Comment on above: Performed By: #### C MP, BNP #### [facility] [address] [place] [address] Dr. Brittani Arevalo OPI Negative Normal NEGATIVE [facility] Comment on above: Performed By: #### C MP, BNP #### [facility] [address] [place] [address] Dr. Brittani Arevalo OXY Negative Normal NEGATIVE [facility] Comment on above: Performed By: #### C MP, BNP #### [facility] [address] [place] [address] Dr. Brittani Arevalo PCP Negative Normal NEGATIVE [facility] Comment on above: Performed By: #### C MP, BNP #### [facility] [address] [place] [address] Dr. Brittani Arevalo PPX Negative Normal NEGATIVE [facility] Comment on above: Performed By: #### C MP, BNP #### [facility] [address] [place] [address] Dr. Brittani Arevalo TCA Negative Normal NEGATIVE [facility] Comment on above: Performed By: #### C MP, BNP #### [facility] [address] [place] [address] Dr. Brittani Arevalo THC Positive Abnormal NEGATIVE [facility] Comment on above: Performed By: #### C MP, BNP #### [facility] [address] [address] [address] Brittani Arevalo PROF CHEM 8 (BAS METB)on Anion gap [Moles/Vol] 14.3 mmol/L Normal [facility] Comment on above: Performed By: #### C MP, BNP #### [facility] [address] [place] [address] Dr. Brittani Arevalo Calcium [Mass/Vol] 9.5 mg/dL Normal 8.5-10.1 [facility] Comment on above: Performed By: #### C MP, BNP #### [facility] [address] [place] [address] Dr. Brittani Arevalo Chloride [Moles/Vol] 101 mmol/L Normal 98-107 [facility] Comment on above: Performed By: #### C MP, BNP #### [facility] [address] [place] [address] Dr. Brittani Arevalo CO2 [Moles/Vol] 26.7 mmol/L Normal 21.0-32.0 [facility] Comment on above: Performed By: #### C MP, BNP #### [facility] [address] [place] [address] Dr. Brittani Arevalo Creatinine [Mass/Vol] 0.78 mg/dL Normal 0.55-1.02 [facility] Comment on above: Performed By: #### C MP, BNP #### [facility] [address] [place] [address] Dr. Brittani Arevalo EGFR-AF MACEDONIAN >60 Normal >=60 [facility] Comment on above: Performed By: #### C MP, BNP #### [facility] [address] [place] [address] Dr. Brittani Arevalo EGFR-NON AF MACEDONIAN >60 Normal >=60 [facility] Comment on above: Performed By: #### C MP, BNP #### [facility] [address] [address] [address] Brittani Arevalo Glucose [Mass/Vol] 85 mg/dL Normal 74-106 [facility] Comment on above: Performed By: #### C MP, BNP #### [facility] [address] [place] [address] Dr. Brittani Arevalo Potassium [Moles/Vol] 4.0 mmol/L Normal 3.5-5.1 [facility] Comment on above: Performed By: #### C MP, BNP #### [facility] [address] [place] [address] Dr. Brittani Aervalo Sodium [Moles/Vol] 138 mmol/L Normal 136-145 [facility] Comment on above: Performed By: #### C MP, BNP #### [facility] [address] [place] [address] Dr. Brittani Arevalo Urea nitrogen [Mass/Vol] 7.0 mg/dL Normal 7.0-18.0 [facility] Comment on above: Performed By: #### C MP, BNP #### [facility] [address] [place] [address] Dr. Brittani Arevalo Urea nitrogen/Creatinine [Mass ratio] 9.0 mg/mg Normal [facility] Comment on above: Performed By: #### C MP, BNP #### [facility] [address] [place] [address] Dr. Brittani Arevalo TROPONIN, HIGH SENSITIVITYon 07-15-2022 HSTROP 4.5 pg/mL Normal 4.0-51.3 [facility] Comment on above: Result Comment: CUT- OFF POINTS HAVE BEEN ESTABLISHED BASED ON THE FOURTH UNIVERSAL DEFINITIONS OF MYOCARDIAL INFARCTION. THE UPPER REFERENCE LIMIT (URL) OF TROPONIN, DEFINED THE 99TH PERCENTILE OF cTnI DISTRIBUTION IN A REFERENCE POPULATION, HAS BEEN CONFIRMED THE DECISION THRESHOLD FOR CO DIAGNOSIS. Performed By: #### C MP, BNP #### [facility] [address] [place] [address] Dr. Brittani Arevalo TSHon 07-15-2022 TSH 2.488 uIU/mL Normal 0.358-3.740 [facility] Comment on above: Performed By: #### C MP, BNP #### [facility] [address] [address] [address] Brittani Arevalo XR CHEST 1 Von [...] JAYY DE ANDA Date: 2022-07-15 17:06 Normal [facility] MG MAMM SCREEN 3D SUSI CADon 07-06-2022 MG MAMM SCREEN 3D SUSI CAD Patient: KELSI THOMPSON Exam Date: 07/06/2022 : 1980 Gender:F Ordering : DR ABDIAZIZ POOLE . Admission #: [id number] Family : Order #: [id number] CLICK HERE TO VIEW EXAM RADIOLOGY REPORT PROCEDURE: MAMMOGRAM SCREENING 3D BILATERAL CAD COMPARISON: None. INDICATIONS: Screening mammography Calculator Name NCI Breast Cancer Risk Assessment Tool 5 Year Breast Cancer Risk 0.40% Lifetime Breast Cancer Risk 6.60% Personal Breast Cancer No Personal Ovarian Cancer No Treatments None Family Cancers None LOCATION: [facility] BREAST COMPOSITION: Scattered areas fibroglandular density. FINDINGS: [...] Santana M.D. on 07/06/2022 at 14:04 Normal [facility] PAP ACOG PANEL 2: 30 to 65on 07-06-2022 . . Normal [facility] Comment on above: Result Comment: Perf ormed at: WB Performed By: #### C MP, BNP #### [facility] [address] [address] [address] Brittani Arevalo Age Gdln ACOG Testing 30-65 Normal [facility] Comment on above: Performed By: #### C MP, BNP #### [facility] [address] [address] [address] Brittani Arevalo DIAGNOSIS: Comment Normal [facility] Comment on above: Result Comment: NEGA TIVE FOR INTRAEPITHELIAL LESION OR MALIGNANCY. Performed at: WB Performed By: #### C MP, BNP #### [facility] [address] [address] [address] Brittani Arevalo HPV Aptima Negative Normal Negative [facility] Comment on above: Result Comment: This nucleic acid amplification test detects fourteen high-risk HPV types (16,18,31,33,35,39,45,51,52,56,58,59,66,68) without differentiation. Performed at: =G Performed By: #### C MP, BNP #### [facility] [address] [place] [address] Dr. Brittani Arevalo HPV Genotype Reflex Comment Normal [facility] Comment on above: Result Comment: Crit eria not met, HPV Genotype not performed. Performed at: WB Performed By: #### C MP, BNP #### [facility] [address] [place] [address] Dr. Brittani Arevalo Methodology: Comment Normal [facility] Comment on above: Result Comment: This liquid based ThinPrep(R) pap test was screened with the use of an image guided system. Performed at: WB Performed By: #### C MP, BNP #### [facility] [address] [place] [address] Dr. Brittani Arevalo Note: Comment Normal [facility] Comment on above: Result Comment: The Pap [...] Performed By: #### C MP, BNP #### [facility] [address] [address] [address] Brittani Arevalo Performed by: Comment Normal [facility] Comment on above: Result Comment: Brid get Valdez, Woven Blind Loom Tender (ASCP) Performed at: WB Performed By: #### C MP, BNP #### [facility] [address] [place], [place] [address] Dr. Brittani Arevalo Specimen adequacy: Comment Normal [facility] Comment on above: Result Comment: Sati sfactory for evaluation. Endocervical and/or squamous metaplastic cells (endocervical component) are present. Performed at: WB Performed By: #### C MP, BNP #### [facility] [address] [place], [place] [address] Dr. Brittani Arevalo 17-OH PROGESTERONE, LC/MSon 07-03-2022 17-OH Progesterone 45 ng/dL Normal [facility] Comment on above: Result Comment: Adul t Female Follicular 15 - 70 Luteal 35 - 290 Performed By: #### P ROGLCM #### [facility] [address] [place], [place] [address] Dr. Brittani Arevalo DHEA SERUMon 07-01-2022 Dehydroepiandrosterone (DHEA) 81 ng/dL Normal [facility] Comment on above: Result Comment: Age 1 - 5 years 0 - 67 6 - 7 years 0 - 110 8 - 10 years 0 - 185 11 - 12 years 0 - 201 13 - 14 years 0 - 318 15 - 16 years 39 - 481 17 - 19 years 40 - 491 >19 years 31 - 701 Effective July 04, 2022 DHEA additional age reference intervals will be added. No other age ranges will be affected: 20 - 50 years: 31 - 701 >50 years: 21 - 402 Performed By: #### Nikky ANDERSON. #### [facility] [address] [id number] Brittani Arevalo DHEA-SULFATEon 06-29-2022 DHEA-Sulfate 19.4 ug/dL Critically low 57.3-279.2 [facility] Comment on above: Performed By: #### Nikky SANTOS #### [facility] [address] [place], [place] [address] Dr. Brittani Arevalo FSHon 06-29-2022 FSH 17.5 mIU/mL Normal [facility] Comment on above: Result Comment: Adul t Female: Follicular phase 3.5 - 12.5 Ovulation phase 4.7 - 21.5 Luteal phase 1.7 - 7.7 Postmenopausal 25.8 - 134.8 Performed By: #### C MP, BNP #### [facility] [address] [place] [address] Dr. Brittani Arevalo LUTEINIZING HORMONE (LH)on 0 06-29-2022 LH 13.1 mIU/mL Normal [facility] Comment on above: Result Comment: Adul t Female: Follicular phase 2.4 - 12.6 Ovulation phase 14.0 - 95.6 Luteal phase 1.0 - 11.4 Postmenopausal 7.7 - 58.5 Performed By: #### L BCLH #### [facility] [address] [place] [address] Dr. Brittani Arevalo CBC AUTO DIFFon 06-28-2022 BASO # 0.1 103/ul Normal 0.0-0.1 [facility] Comment on above: Performed By: #### C BC #### [facility] [address] [place] [address] Dr. Brittani Arevalo Basophils/100 WBC (Bld) 1.0 % Normal 0.2-2.0 [facility] Comment on above: Performed By: #### C BC #### [facility] [address] [place] [address] Dr. Brittani Arevalo EO # 0.1 103/ul Normal 0.0-0.7 [facility] Comment on above: Performed By: #### C BC #### [facility] [address] [place] [address] Dr. Brittani Arevalo Eosinophils/100 WBC (Bld) 1.5 % Normal 0.9-7.0 [facility] Comment on above: Performed By: #### C BC #### [facility] [address] [place] [address] Dr. Brittani Arevalo Erythrocyte distribution width (RBC) [Ratio] 16.4 % Critically high 11.0-15.0 [facility] Comment on above: Performed By: #### C BC #### [facility] [address] [place] [address] Dr. Brittani Arevalo Hematocrit (Bld) [Volume fraction] 33.1 % Critically low 36.0-48.0 [facility] Comment on above: Performed By: #### C BC #### [facility] [address] [place] [address] Dr. Brittani Arevalo Hemoglobin (Bld) [Mass/Vol] 9.8 g/dL Critically low 12.0-16.0 [facility] Comment on above: Performed By: #### C BC #### [facility] [address] [place] [address] Dr. Brittani Arevalo IG # 0.01 10e3/ul Normal 0.00-0.03 [facility] Comment on above: Performed By: #### C BC #### [facility] [address] [place] [address] Dr. Brittani Arevalo IG % 0.2 % Normal 0.0-0.5 [facility] Comment on above: Performed By: #### C BC #### [facility] [address] [place] [address] Dr. Brittani Arevalo LYMPH # 2.7 103/ul Normal 1.2-3.8 [facility] Comment on above: Performed By: #### C BC #### [facility] [address] [place] [address] Dr. Brittani Arevalo Lymphocytes/100 WBC (Bld) 44.2 % Normal 20.5-60.0 [facility] Comment on above: Performed By: #### C BC #### [facility] [address] [place] [address] Dr. Brittani Arevalo MANUAL DIFF REQ NO Normal [facility] Comment on above: Performed By: #### C BC #### [facility] [address] [place] [address] Dr. Brittani Arevalo MCH (RBC) [Entitic mass] 23.0 pg Critically low 26.7-34 .0 [facility] Comment on above: Performed By: #### C BC #### [facility] [address] [place] [address] Dr. Brittani Arevalo MCHC (RBC) [Mass/Vol] 29.6 g/dL Critically low 29.9-35.2 [facility] Comment on above: Performed By: #### C BC #### [facility] [address] [place] [address] Dr. Brittani Arevalo MCV (RBC) [Entitic vol] 77.7 fL Critically low 81.0-99. 0 [facility] Comment on above: Performed By: #### C BC #### [facility] [address] [place] [address] Dr. Brittani Arevalo MONO # 0.4 103/ul Normal 0.3-0.8 [facility] Comment on above: Performed By: #### C BC #### [facility] [address] [place] [address] Dr. Brittani Arevalo Monocytes/100 WBC (Bld) 7.1 % Normal 1.7-12.0 [facility] Comment on above: Performed By: #### C BC #### [facility] [address] [place] [address] Dr. Brittani Arevalo NEUT # 2.8 103/ul Normal 1.4-6.5 [facility] Comment on above: Performed By: #### C BC #### [facility] [address] [place] [address] Dr. Brittani Arevalo Neutrophils/100 WBC (Bld) 46.0 % Normal 43.0-75.0 [facility] Comment on above: Performed By: #### C BC #### [facility] [address] [place] [address] Dr. Brittani Arevalo Platelet mean volume (Bld) [Entitic vol] 10.6 fL Normal 9.5-13.5 [facility] Comment on above: Performed By: #### C BC #### [facility] [address] [place] [address] Dr. Brittani Arevalo PLT 411 103/ul Normal 150-450 [facility] Comment on above: Performed By: #### C BC #### [facility] [address] [place] [address] Dr. Brittani Arevalo RBC 4.26 106/ul Normal 4.20-5.40 [facility] Comment on above: Performed By: #### C BC #### [facility] [address] [address] [address] Brittani Arevalo WBC 6.2 103/ul Normal 4.0-11.0 [facility] Comment on above: Performed By: #### C BC #### [facility] [address] [place] [address] Dr. Brittani Arevalo FREE T4on 06-28-2022 Free T4 [Mass/Vol] 0.81 ng/dL Normal 0.76-1.46 [facility] Comment on above: Performed By: #### C MP, BNP #### [facility] [address] [place] [address] Dr. Brittani Arevalo GLYCOHEMOGLOBIN A1Con 2022 ADA RECOMMENDATION SEE BELOW Normal [facility] Comment on above: Result Comment: ADA RECOMMENDED LIMIT 4.0 - 6.0 ADA THERAPEUTIC TARGET < 7.0 ACTION SUGGESTED > 7.0 Performed By: #### A 1C #### [facility] [address] [place] [address] Dr. Brittani Arevalo Glucose [Mass/Vol] 123 mg/dL Normal [facility] Comment on above: Performed By: #### A 1C #### [facility] [address] [place] [address] Dr. Brittani Arevalo HbA1c (Bld) [Mass fraction] 5.9 % Normal 4.5-6.2 [facility] Comment on above: Performed By: #### A 1C #### [facility] [address] [place] [address] Dr. Brittani Arevalo TSHon 06-28-2022 TSH 2.736 uIU/mL Normal 0.358-3.740 [facility] Comment on above: Performed By: #### C MP, BNP #### [facility] [address] [place] [address] Dr. Brittani Arevalo US PELVIS AND TRANSVAGon [...] by: LUAN SANTANA Date: 2022-06-28 12:16 Normal [facility] Outside Colonoscopyon 2020 Outside Colonoscopy [id number] 2#1.00CD:127 Normal [facility] Pathology Noteon 07-03-2020 Pathology Note [id number] B3#1.00CD:127 Normal [facility] Provider Letter FTMCon 06-25 Provider Letter [facility] Miriam Spence, [address] [place] [address] Re: KELSI JOHNSON Date of : 1980 [...] persist. Sincerely, Dedrick Baker MD General Surgery Normal [facility] Consent for Procedure/Surger yon 06-19-2020 Consent for Procedure/Surgery [id number] FE#1.00CD:127 Normal [facility] Ambulatory Clinical Summaryo n 06-18-2020 Ambulatory Clinical Summary {[id number] Normal [facility] Physician Referralon 021 Physician Referral [id number] 94#1.00CD:127 Normal [facility] Cardiovascular Lab Reporton 12-12-2018 Cardiovascular Lab Report [facility] Kelsi Hodge MR #: [id number] Department of Physician: Guilherme Pizano M.D. Division of Service Date: 12/11/2018 Cardiology Birthdate: 1980 Adult Cardiovascular Room #: 3AB [id number] [place] [address] Cardiovascular Laboratory Report INDICATION: The patient is [...] signed informed consent. She was brought to laboratory apparatus glass blower in a fasting state. The right groin area was prepped and draped in usual fashion. Using micropuncture technique, the right common femoral artery was accessed. The inner cannula was advanced. Limited right femoral angiography was performed followed by upsizing to a 5-[place] Citizen x 11 cm sheath. A straight 5-[place] Citizen pigtail catheter was advanced into the abdominal aorta. Abdominal aortography was performed using power injection of contrast and digital subtraction angiography. A C1 5-[place] Citizen cobra catheter was then advanced to the [...] Pizano M.D. Date Trans: 12/12/2018 05:13 Ren/dhara [id number] cc: Miriam Spence M.D. [address] [facility] [id number] Normal [facility] Encounters Encounter Date Encounter Type Care Provider Facility Start: 05-11-2023 End: 05-11-2023 ambulatory ANNABEL HUFFMAN [facility] Start: 04-27-2023 End: 04-27-2023 ambulatory [facility] Start: 03-29-2023 End: 03-29-2023 [facility] Start[facility] 03-06-2023 ambulatory Grant Nixon acility:[facility] Start: 01-31-2023 End: 01-31-2023 ambulatory [facility] Start: 12-28-2022 End: 12-28-2022 ambulatory [facility] Start: 11-28-2022 End: 11-28-2022 ambulatory [facility] Start: 11-04-2022 End: 11-04-2022 ambulatory [facility] Start: 07-22-2022 End: 07-22-[address] ABDIAZIZ POOLE . Facility:[facility] Start: 07-20-2022 Encounter for preprocedural cardiovascular examination DR MIRIAM SPENCE . [facility] Start: 07-18-2022 Encounter for preprocedural cardiovascular examination DR ABDIAZIZ POOLE . [facility] Start: 07-15-2022 End: 07-16-[address] MIRIAM SPENCE . Facility:[facility] Start: 07-15-2022 End: 07-16-[address] ABDIAZIZ POOLE . Facility:[facility] Start: 07-15-2022 End: 07-16-2022 Encounter for preprocedural cardiovascular examination DR ABDIAZIZ POOLE . Facility:[facility] Start: 07-06-2022 End: 07-07-[address] ABDIAZIZ POOLE . Facility:[facility] Start: 06-28-2022 End: 06-29-[address] ABDIAZIZ POOLE . Facility:[facility] Start: 12-11-2018 End: 12-12-2018 Patient encounter procedure PROVIDER UNKNOWN Facility:[facility] Procedures Date Procedure Procedure Detail Performing Clinician Start: 11-28-2022 Follow-up visit Follow-up ABI ZARAGOZA Payers Date Payer Category Payer Self-pay 2018 Unknown [id number] 1980 Unknown [id number] 2.16.8 [id number] 1980 Unknown [id number] 2.16.84 [id number] 1980 Unknown [id number] 2.16.84 [id number] 1980 Unknown [id number] 2.16.84 [id number] 1980 Unknown [id number] 2.16.84 [id number] 1980 Unknown [id number] 2.16.84 [id number] 1980 Unknown [id number] 2.16.84 [id number] 1959 Unknown [id number] 1959 Unknown [id number] Unknown [id number] 2.16.8 [id number] Clinical Notes 06-18-2020 to 05-11-2023 Note Date & Type Note Facility 05-11-2023 Note Attestation signed by Pippa Srivastava MD at 05/12/2023 12:31 PM I personally saw and examined the patient on the same date of service as resident/fellow . I discussed the findings and therapeutic plan with the resident/fellow . I agree with the documentation, except for any edits/updates below. Teaching Physician's Revisions: [facility] New Patient Visit Subjective Chief Complaint: New Patient (crnp Other fatigue /Unexplained weight gain) Kelsi Johnson is an 42 y.o. female with HTN, JULIANNE (CPAP starting soon), PTSD and anxiety. Kelsi Johnson presents to the clinic as a new patient, referred by Cardiology for the evaluation of multiple joint pain/bilateral hand and feet swelling, fatigue. Patient presents as referral from Cardiology for significant fatigue, multiple joint pain with bilateral hand + feet swelling, weight gain, and hair thinning/lack of growth. Her symptoms started in 2021, prior to that she had trauma and multiple stressful events. In 2021, she became hypertensive (with extensive work-up largely negative except for JULIANNE), weight gain of 40 lbs, hair loss, poor dentition with teeth falling out, fatigue, unrefreshing sleep, joint pain with bilateral hands and feet swelling, dry scaly skin lesions scattered and dandruff, redness/warmth with numb/burning sensation in hands, and sicca symptoms. She plans to start CPAP soon for JULIANNE. Today, patient reports joint pain that is 2/10 in severity. Localized to hands, feet, R back of the head, occasionally neck and shoulders. Notices swelling of hands and feet. Hard to get rings on and off. AM stiffness lasts 2-3 hrs, on average daily. Denies current joint erythema, warmth. Interventions tried: Zanaflex (helps with pain), Tylenol and OTC Ibuprofen PRN (mostly at night). Never tried corticosteroids, Cymbalta, Effexor, Flexeril, Savella, Gabapentin, or Lyrica. No serology or imaging per available records. Family History: Maternal aunt has fibromyalgia. Maternal grandmother had thyroid condition, arthritis, maybe RA?. No other autoimmune diseases or arthritis known in the family. 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 No tobacco, alcohol, or drug use. Patient is , with history of 2 miscarriages. No history of blood clots. Comprehensive History: Patient Active Problem List Diagnosis Hypertensive disorder Palpitations Hyponatremia Hypokalemia Past Medical History: Diagnosis Date Hypertension Hypokalemia Hyponatremia Past Surgical History: Procedure Laterality Date SECTION, CLASSIC ENDOMETRIAL ABLATION IR ANGIOGRAM RENAL BILATERAL MENISCECTOMY 2020 TUBAL LIGATION No Known Allergies Social History Socioeconomic History Marital status: Single Spouse name: None Number of children: None Years of education: None Highest education level: None Occupational History None Tobacco Use Smoking status: Former Types: Cigarettes Smokeless tobacco: Never Substance and Sexual Activity Alcohol use: Not Currently Drug use: Never Sexual activity: Defer Other Topics Concern None Social History Narrative None Social Determinants of Health Financial Resource Strain: Not on file Food Insecurity: Not on file Transportation Needs: Not on file Physical Activity: Not on file Stress: Not on file Social Connections: Not on file Intimate Partner Violence: Not on file Housing Stability: Not on file Family History Problem Relation Name Age of Onset Hypertension Mother Hypertension Father Medication List: Current Outpatient Medications Medication Sig Dispense Refill amLODIPine (Norvasc) 10 mg tablet Take 1 tablet (10 mg) by mouth in the morning. (Patient taking differently: Take 5 mg by mouth in the morning.) 90 tablet 3 carvedilol (Coreg) 25 mg tablet Take 1 tablet (25 mg) by mouth with breakfast and with evening meal. 180 tablet 3 lisinopril 10 mg tablet Take 1 tablet (10 mg) by mouth once daily as directed. 90 tablet 3 spironolactone (Aldactone) 25 mg tablet Take 1 tablet (25 mg) by mouth in the morning. Take 50mg + 25mg daily 90 tablet 3 spironolactone (Aldactone) 50 mg tablet Take 1 tablet (50 mg) by mouth in the morning. Take 50mg + 25mg daily 90 tablet 3 tiZANidine (Zanaflex) 4 mg tablet Take 8 mg by mouth at bedtime. No current facility-administered medications for this visit. List of current healthcare providers: Patient Care Team: Miriam Spence MD as PCP - General Review of Systems: Review of Systems Constitutional: Positive for fatigue and unexpected weight change (wt gain). Negative for chills and fever. HENT: Negative for mouth sores and trouble swallowing. Dry mouth. Eyes: Negative for pain, redness and visual disturbance. (more content not included)... [facility] 04-27-2023 Note Cardiovascular Medic [facility] SUBJECTIVE Chief Complaint Patient presents with [...] mg daily, amlodi (more content not included)... [facility] 04-27-2023 Note Patient here for 1 m [...] All other systems reviewed and are negative. [facility] 03-29-2023 Note Cardiovascular Medic [facility] SUBJECTIVE Chief Complaint Patient presents with [...] 04/29/2023). Rock Pearson NP [facility] Cardiovascular Medicine [facility] 03-29-2023 Note Patient here for 2 [...] All other systems reviewed and are negative. [facility] 01-31-2023 Note Cardiology Clinic No te [...] as needed Abi Zaragoza MD Interventional Cardiology [facility] 01-31-2023 Note Patient here for 1 m o follow up hypertension and palpitations. She did see endocrinology and CT adrenal glands was ordered. She is scheduled for this tomorrow at [facility]. Says she can barely stay awake throughout the day and is dangerously tired. [facility] 12-28-2022 Note Patient here for 1 m o follow up hypertension and medication changes. Spironolactone was increased to 50mg, and amlodipine was added at last apt. She has an upcoming apt with endocrinology. Says lightheadedness and SOB w/ exertion are improving. [facility] 12-28-2022 Note Cardiology Clinic No te [...] as needed Abi Zaragoza MD Interventional Cardiology [facility] 11-28-2022 Note Cardiology Clinic No te Chief [...] as needed Abi Zaragoza MD Interventional Cardiology [facility] 11-04-2022 Note Cardiology Clinic No te Chief [...] significant caffeine consumption. No alcohol consumption. No ifqe-jek-jaqifcn medication usage. She denies any history of [...] instructed to c (more content not included)... [facility] 11-04-2022 Note New patient here to re-establish care. Ref from Dr. Spence for hypertension and palpitations. Says her BP lately has been 250's systolic. Had renal US and labs a few weeks ago. Review of Systems Cardiovascular: Positive for dyspnea on exertion and palpitations. Neurological: Positive for headaches and light-headedness. All other systems reviewed and are negative. [facility] 07-22-2022 Note OPERATIVE NOTE OPERATION DATE: 07/22/2022 PROCEDURE: Carrie endometrial ablation with hysteroscopy with robotic assisted bilateral laparoscopic salpingectomy, and right ovarian cystotomy performed with the Vessel Sealer. PREOPERATIVE DIAGNOSIS: Menorrhagia, dyspareunia, dysmenorrhea, desires permanent sterilization. POSTOPERATIVE DIAGNOSIS: Menorrhagia, dyspareunia, dysmenorrhea, desires permanent sterilization. ANESTHESIA: General. SURGEON: Abdiaziz Poole D.O. CAST IRON DRAIN PIPE LAYER: ARMANDO Heredia URINE OUTPUT: Yellow and clear. [...] and needle counts were correct x2. [facility] 06-18-2020 Note HPI Staff 39 year old [...] 1-2 times pe (more content not included)... [facility] Comment on above: Result Comment: Elec [...] including vitamins, herbs, eye drops, creams, and eyri-eqh-ksapprj medicines. ? Any problems you or family [...] tells you to take them. ? Taking odxj-fhl-zdqqxyg medicines, vitamins, herbs, and supplements. General instructions [...] Document Revised: 09/27/19 (more content not included)... [facility] Summary Purpose Family History No Family [...] and content) DATE CREATED AUTHOR 12/20/2018 [facility] DATE CREATED AUTHOR AUTHOR'S ORGANIZ ATION 10/01/2020 [facility] DATE CREATED AUTHOR AUTHOR'S ORGANIZ ATION 08/05/2022 [facility] DATE CREATED AUTHOR AUTHOR'S ORGANIZ ATION 05/15/2023 [facility] DATE CREATED AUTHOR AUTHOR'S ORGANIZ ATION 05/15/2023 [facility] FOR RECORDS PERTAINING TO PATIENTS WHO ARE [...] BE BASED ON THE PRIMARY CLINICAL RECORDS. [facility]. provides no warranty or guarantee of the accuracy or completeness of information in this document.
[2023-05-24 17:16] LABS: Anion Gap 12.5; BUN Creatinine Ratio 7.6; Carbon Dioxide 24.5 mmol/L (21.0-32.0); Chloride 106 mmol/L (98-107); Estimated GFR (African America >60 (>=60); Estimated GFR (Non-African Ame >60 (>=60); Glucose 92 mg/dL (74-106); Sodium 139 mmol/L (136-145)
== END 2023-05-24 16:25 | disposition home or self-care (01) ==
LOC: LAB 16:27
PROVIDERS: PCP Family Medicine; Visit Provider Nurse Practitioner Family
DX: M25.50 Pain in unspecified joint (principal); I1A.0 Resistant hypertension
CPT/HCPCS: 36415; 80048; 86225; 86235

== ENCOUNTER 2023-05-24 16:30 | Outpatient (OUT) | payer OTHER, SELFPAY ==
--- OUTSIDE RECORDS SUMMARY | 2023-05-24 16:36 | XMS_ITS | CCD ---
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 Role Phone UNKNOWN, PROVIDER Admitting Unavailable [...] Containting Drugs) Drug allergy (disorder) 04-17-1991 [facility] Repository (1 source) Metoprolol Drug Allergy 04-17-2022 [facility] Repository (1 source) Iodinated Contrast Media Drug allergy (disorder) 09-20-2017 [facility] Repository Problems Active Problems Problem Classification Problem [...] 08-04-2022 Chronic Other aftercare (1 source) Other intermediate (current) drug therapy; Translations: [OTH CUSTODIAL CURRENT DRUG THERAPY] Onset: 07-20-2022 Episodic Other [...] requested those orders be sent to the [facility]. Lab orders sent with confirmation received Normal [facility] C-REACTIVE PROTEINon 024 C REACTIVE PROTEIN (MG/L) IN SER/PLAS 2.1 mg/L Normal 0.0-7.0 [facility] Comment on above: Performed By: #### L [id number] #### [facility] ([facility]) [address] [place] [address] CYCLIC CITRUL PEPTIDE ANTIBO DY, IGG AND IGAon 05-11-2023 CYCLIC CITRULLINATED PEPTIDE AB, IGG/A 4 Units Normal 0-19 [facility] Comment on above: Result Comment: INTE RPRETIVE [...] be monitored and testing repeated. Performed By: [employer] [address] [place] [address] Weaver Dobby Loom: Williams Escobar MD, PhD CLIA Number: [id number] Performed By: #### L [id number] ####[facility] [place] [address] Office Visiton 05-11-2023 Follow-up visit [id number] Kelsi Johnson 1980 F Date Provider Department Center 05/11/2023 [facility] Family History Problem Relation Age of Onset Hypertension Mother Hypertension Father Family Status - Relation Status Age at Mother Father Level of Service:98642 ND OFFICE/OUTPATIENT NEW MODERATE MDM 45 MINUTES (GC) 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 Unexplained weight gain Normal [facility] Orders Onlyon 05-11-2023 Orders Only [id number] Maya Johnsontobi Hodge 1980 Date Provider Department Center 05/11/2023 [facility] Family History Problem Relation Age of Onset Hypertension Mother Hypertension Father Family Status - Relation Status Age at Mother Father Normal [facility] RHEUMATOID FACTORon 05-11-19 24 Rheumatoid factor Qn [IU]/mL Normal 0-20 [facility] Comment on above: Performed By: #### L [id number] ####[facility] ([facility])[address] [place] [address] SEDIMENTATION RATEon 024 SEDIMENTATION RATE, ERYTHROCYTE 8 mm/hr Normal <=20 [facility] Comment on above: Performed By: #### L [id number] ####[facility] ([facility])[address] [place] [address] Office Visiton 04-27-2023 Follow-up visit [id number] Kelsi Johnson 1980 Date Provider Department Center 04/27/2023 R[facility] CASTELLANOS Family History Problem Relation Age of Onset Hypertension Mother Hypertension Father Family Status - Relation Status Age at Mother Father Level of Service:64176 ND OFFICE/OUTPATIENT ESTABLISHED MOD MDM 30 MIN Reason for Visit and Comments: Hypertension [725372] Fatigue [46] Normal [facility] Office Visiton 03-29-2023 Follow-up visit [id number] Kelsi Johnson 1980 Date Provider Department Center 03/29/2023 ROCK CASTELLANOS Family History Problem Relation Age of Onset Hypertension Mother Hypertension Father Family Status - Relation Status Age at Mother Father Level of Service:27776 ND OFFICE/OUTPATIENT ESTABLISHED MOD MDM 30-39 MIN Reason for Visit and Comments: Hypertension [964523] Fatigue [46] Normal [facility] Office Visiton 01-31-2023 Follow-up visit [id number] Simmons Naveen 1980 Date Provider Department Center 01/31/2023 ABI REESE Family History Problem Relation Age of Onset Hypertension Mother Hypertension Father Family Status - Relation Status Age at Mother Father Level of Service:91395 ND OFFICE/OUTPATIENT ESTABLISHED LOW MDM 20-29 MIN Normal [facility] Office Visiton 12-28-2022 Follow-up visit [id number] Simmons Naveen 1980 Date Provider Department Center 12/28/2022 ABI REESE Family History Problem Relation Age of Onset Hypertension Mother Hypertension Father Family Status - Relation Status Age at Mother Father Level of Service:17588 ND OFFICE/OUTPATIENT ESTABLISHED MOD MDM 30-39 MIN Normal [facility] Office Visiton 11-28-2022 Follow-up visit [id number] Simmons 1980 Date Provider Department Center 11/28/2022 ABI REESE Family History Problem Relation Age of Onset Hypertension Mother Hypertension Father Family Status - Relation Status Age at Mother Father Level of Service:89320 ND OFFICE/OUTPATIENT ESTABLISHED MOD MDM 30-39 MIN Reason for Visit and Comments: Follow-up [700144] - 4 wk follow up/ medication change Normal [facility] Office Visiton 11-04-2022 Follow-up visit [id number] Kelsi Johnson Naveen 1980 Date Provider Department Center 11/04/2022 ABI REESE Family History Problem Relation Age of Onset Hypertension Mother Hypertension Father Family Status - Relation Status Age at Mother Father Level of Service:30710 ND OFFICE/OUTPATIENT NEW MODERATE MDM 45-59 MINUTES Normal [facility] CBC AUTO DIFFon 07-22-2022 BASO # 0.1 103/ul Normal 0.0-0.1 [facility] Comment on above: Performed By: #### C BC #### [facility] [address] [place] [address] Dr. Brittani Arevalo Basophils/100 WBC (Bld) 0.9 % Normal 0.2-2.0 [facility] Comment on above: Performed By: #### C BC #### [facility] [address] [place] [address] Dr. Brittani Arevalo EO # 0.1 103/ul Normal 0.0-0.7 [facility] Comment on above: Performed By: #### C BC #### [facility] [address] [place] [address] Dr. Brittani Arevalo Eosinophils/100 WBC (Bld) 1.5 % Normal 0.9-7.0 [facility] Comment on above: Performed By: #### C BC #### [facility] [address] [place] [address] Dr. Brittani Arevalo Erythrocyte distribution width (RBC) [Ratio] 16.6 % Critically high 11.0-15.0 [facility] Comment on above: Performed By: #### C BC #### [facility] [address] [place] [address] Dr. Brittani Arevalo Hematocrit (Bld) [Volume fraction] 32.1 % Critically low 36.0-48.0 [facility] Comment on above: Performed By: #### C BC #### [facility] [address] [place] [address] Dr. Brittani Arevalo Hemoglobin (Bld) [Mass/Vol] 9.5 g/dL Critically low 12.0-16.0 [facility] Comment on above: Performed By: #### C BC #### [facility] [address] [place] [address] Dr. Brittani Arevalo IG # 0.01 10e3/ul Normal 0.00-0.03 [facility] Comment on above: Performed By: #### C BC #### [facility] [address] [place] [address] Dr. Brittani Arevalo IG % 0.2 % Normal 0.0-0.5 [facility] Comment on above: Performed By: #### C BC #### [facility] [address] [address] [address] Brittani Arevalo LYMPH # 2.7 103/ul Normal 1.2-3.8 [facility] Comment on above: Performed By: #### C BC #### [facility] [address] [address] [address] Brittani Arevalo Lymphocytes/100 WBC (Bld) 41.4 % Normal 20.5-60.0 [facility] Comment on above: Performed By: #### C BC #### [facility] [address] [address] [address] Brittani Arevalo MANUAL DIFF REQ NO Normal [facility] Comment on above: Performed By: #### C BC #### [facility] [address] [place] [address] Dr. Brittani Arevalo MCH (RBC) [Entitic mass] 23.4 pg Critically low 26.7-34 .0 [facility] Comment on above: Performed By: #### C BC #### [facility] [address] [place] [address] Dr. Brittani Arevalo MCHC (RBC) [Mass/Vol] 29.6 g/dL Critically low 29.9-35.2 [facility] Comment on above: Performed By: #### C BC #### [facility] [address] [place] [address] Dr. Brittani Arevalo MCV (RBC) [Entitic vol] 79.1 fL Critically low 81.0-99. 0 [facility] Comment on above: Performed By: #### C BC #### [facility] [address] [place] [address] Dr. Brittain Arevalo MONO # 0.5 103/ul Normal 0.3-0.8 [facility] Comment on above: Performed By: #### C BC #### [facility] [address] [place] [address] Dr. Brittani Arevalo Monocytes/100 WBC (Bld) 7.2 % Normal 1.7-12.0 [facility] Comment on above: Performed By: #### C BC #### [facility] [address] [place] [address] Dr. Brittani Arevalo NEUT # 3.2 103/ul Normal 1.4-6.5 [facility] Comment on above: Performed By: #### C BC #### [facility] [address] [place] [address] Dr. Brittani Arevalo Neutrophils/100 WBC (Bld) 48.8 % Normal 43.0-75.0 [facility] Comment on above: Performed By: #### C BC #### [facility] [address] [place] [address] Dr. Brittani Arevalo Platelet mean volume (Bld) [Entitic vol] 10.7 fL Normal 9.5-13.5 [facility] Comment on above: Performed By: #### C BC #### [facility] [address] [place] [address] Dr. Brittani Arevalo PLT 385 103/ul Normal 150-450 [facility] Comment on above: Performed By: #### C BC #### [facility] [address] [place] [address] Dr. Brittani Arevalo RBC 4.06 106/ul Critically low 4.20-5.40 [facility] Comment on above: Performed By: #### C BC #### [facility] [address] [place] [address] Dr. Brittani Arevalo WBC 6.6 103/ul Normal 4.0-11.0 [facility] Comment on above: Performed By: #### C BC #### [facility] [address] [place] [address] Dr. Brittani Arevalo PREG QUANT HCGon 07-22-2022 HCG QUANT 1 mIU/mL Normal [facility] Comment on above: Performed By: #### C MP, BNP #### [facility] [address] [place] [address] Dr. Brittani Arevalo HCG RANGE SEE BELOW Normal [facility] Comment on above: Result Comment: 5-50 0.2-1 WEEK 50-500 1-2 WEEKS 100-5,000 2-3 WEEKS 500-10,000 3-4 WEEKS 1,000-50,000 4-5 WEEKS 10,000-100,000 5-6 WEEKS 15,000-200,000 6-8 WEEKS 10,000-100,000 2-3 MONTHS Performed By: #### C MP, BNP #### [facility] [address] [place] [address] Dr. Brittani Arevalo BNPon 07-16-2022 Natriuretic peptide B (Bld) [Mass/Vol] 74.0 pg/mL Normal <=450.0 [facility] Comment on above: Performed By: #### C MP, BNP #### [facility] [address] [place] [address] Dr. Brittani Arevalo CBC AUTO DIFFon 07-16-2022 BASO # 0.1 103/ul Normal 0.0-0.1 [facility] Comment on above: Performed By: #### C BC #### [facility] [address] [place] [address] Dr. Brittani Arevalo Basophils/100 WBC (Bld) 0.6 % Normal 0.2-2.0 [facility] Comment on above: Performed By: #### C BC #### [facility] [address] [place] [address] Dr. Brittani Arevalo EO # 0.1 103/ul Normal 0.0-0.7 [facility] Comment on above: Performed By: #### C BC #### [facility] [address] [place] [address] Dr. Brittani Arevalo Eosinophils/100 WBC (Bld) 0.8 % Critically low 0.9-7. 0 [facility] Comment on above: Performed By: #### C BC #### [facility] [address] [place] [address] Dr. Brittani Arevalo Erythrocyte distribution width (RBC) [Ratio] 16.4 % Critically high 11.0-15.0 [facility] Comment on above: Performed By: #### C BC #### [facility] [address] [place] [address] Dr. Brittani Arevalo Hematocrit (Bld) [Volume fraction] 32.0 % Critically low 36.0-48.0 [facility] Comment on above: Performed By: #### C BC #### [facility] [address] [address] [address] Brittani Arevalo Hemoglobin (Bld) [Mass/Vol] 9.7 g/dL Critically low 12.0-16.0 [facility] Comment on above: Performed By: #### C BC #### [facility] [address] [address] [address] Brittani Arevalo IG # 0.02 10e3/ul Normal 0.00-0.03 [facility] Comment on above: Performed By: #### C BC #### [facility] [address] [place] [address] Dr. Brittani Arevalo IG % 0.2 % Normal 0.0-0.5 [facility] Comment on above: Performed By: #### C BC #### [facility] [address] [place] [address] Dr. Brittani Arevalo LYMPH # 2.5 103/ul Normal 1.2-3.8 [facility] Comment on above: Performed By: #### C BC #### [facility] [address] [place] [address] Dr. Brittani Arevalo Lymphocytes/100 WBC (Bld) 28.0 % Normal 20.5-60.0 [facility] Comment on above: Performed By: #### C BC #### [facility] [address] [place] [address] Dr. Brittani Arevalo MANUAL DIFF REQ NO Normal [facility] Comment on above: Performed By: #### C BC #### [facility] [address] [place] [address] Dr. Brittani Arevalo MCH (RBC) [Entitic mass] 23.2 pg Critically low 26.7-34 .0 [facility] Comment on above: Performed By: #### C BC #### [facility] [address] [place] [address] Dr. Brittani Arevalo MCHC (RBC) [Mass/Vol] 30.3 g/dL Normal 29.9-35.2 [facility] Comment on above: Performed By: #### C BC #### [facility] [address] [address] [address] Brittani Arevalo MCV (RBC) [Entitic vol] 76.4 fL Critically low 81.0-99. 0 [facility] Comment on above: Performed By: #### C BC #### [facility] [address] [address] [address] Brittani Arevalo MONO # 0.5 103/ul Normal 0.3-0.8 [facility] Comment on above: Performed By: #### C BC #### [facility] [address] [address] [address] Brittani Arevalo Monocytes/100 WBC (Bld) 5.7 % Normal 1.7-12.0 [facility] Comment on above: Performed By: #### C BC #### [facility] [address] [place] [address] Dr. Brittani Arevalo NEUT # 5.8 103/ul Normal 1.4-6.5 [facility] Comment on above: Performed By: #### C BC #### [facility] [address] [address] [address] Brittani Arevalo Neutrophils/100 WBC (Bld) 64.7 % Normal 43.0-75.0 [facility] Comment on above: Performed By: #### C BC #### [facility] [address] [place] [address] Dr. Brittani Arevalo Platelet mean volume (Bld) [Entitic vol] 10.5 fL Normal 9.5-13.5 [facility] Comment on above: Performed By: #### C BC #### [facility] [address] [address] [address] Brittani Arevalo PLT 328 103/ul Normal 150-450 [facility] Comment on above: Performed By: #### C BC #### [facility] [address] [address] [address] Brittani Arevalo RBC 4.19 106/ul Critically low 4.20-5.40 [facility] Comment on above: Performed By: #### C BC #### [facility] [address] [place] [address] Dr. Brittani Arevalo WBC 9.0 103/ul Normal 4.0-11.0 [facility] Comment on above: Performed By: #### C BC #### [facility] [address] [place] [address] Dr. Brittani Arevalo PROF 14(COMP METB)on 023 Albumin [Mass/Vol] 3.5 g/dL Normal 3.4-5.0 [facility] Comment on above: Performed By: #### C MP, BNP #### [facility] [address] [place] [address] Dr. Brittani Arevalo Albumin/Globulin [Mass ratio] 0.9 {ratio} Normal [facility] Comment on above: Performed By: #### C MP, BNP #### [facility] [address] [place] [address] Dr. Brittani Arevalo ALP [Catalytic activity/Vol] 61 U/L Normal 46-116 [facility] Comment on above: Performed By: #### C MP, BNP #### [facility] [address] [place] [address] Dr. Brittani Arevalo ALT [Catalytic activity/Vol] 20 U/L Normal 14-59 [facility] Comment on above: Performed By: #### C MP, BNP #### [facility] [address] [place] [address] Dr. Brittani Arevalo Anion gap [Moles/Vol] 14.6 mmol/L Normal [facility] Comment on above: Performed By: #### C MP, BNP #### [facility] [address] [place] [address] Dr. Brittani Arevalo AST [Catalytic activity/Vol] 13 U/L Critically low 15-37 [facility] Comment on above: Performed By: #### C MP, BNP #### [facility] [address] [place] [address] Dr. Brittani Arevalo Bilirubin [Mass/Vol] 0.2 mg/dL Normal 0.2-1.0 [facility] Comment on above: Performed By: #### C MP, BNP #### [facility] [address] [place] [address] Dr. Brittani Arevalo Calcium [Mass/Vol] 9.1 mg/dL Normal 8.5-10.1 [facility] Comment on above: Performed By: #### C MP, BNP #### [facility] [address] [address] [address] Brittani Arevalo Chloride [Moles/Vol] 102 mmol/L Normal 98-107 [facility] Comment on above: Performed By: #### C MP, BNP #### [facility] [address] [place] [address] Dr. Brittani Arevalo CO2 [Moles/Vol] 24.2 mmol/L Normal 21.0-32.0 [facility] Comment on above: Performed By: #### C MP, BNP #### [facility] [address] [place] [address] Dr. Brittani Arevalo Creatinine [Mass/Vol] 0.91 mg/dL Normal 0.55-1.02 [facility] Comment on above: Performed By: #### C MP, BNP #### [facility] [address] [place] [address] Dr. Brittani Arevalo EGFR-AF IVORIAN >60 Normal >=60 [facility] Comment on above: Performed By: #### C MP, BNP #### [facility] [address] [place] [address] Dr. Brittani Arevalo EGFR-NON AF IVORIAN >60 Normal >=60 [facility] Comment on above: Performed By: #### C MP, BNP #### [facility] [address] [place] [address] Dr. Brittani Arevalo Globulin (S) [Mass/Vol] 3.8 g/dL Normal [facility] Comment on above: Performed By: #### C MP, BNP #### [facility] [address] [place] [address] Dr. Brittani Arevalo Glucose [Mass/Vol] 118 mg/dL Critically high 74-106 [facility] Comment on above: Performed By: #### C MP, BNP #### [facility] [address] [place] [address] Dr. Brittani Arevalo Potassium [Moles/Vol] 3.8 mmol/L Normal 3.5-5.1 [facility] Comment on above: Performed By: #### C MP, BNP #### [facility] [address] [place] [address] Dr. Brittani Arevalo Protein [Mass/Vol] 7.3 g/dL Normal 6.4-8.2 [facility] Comment on above: Performed By: #### C MP, BNP #### [facility] [address] [place] [address] Dr. Brittani Arevalo Sodium [Moles/Vol] 137 mmol/L Normal 136-145 [facility] Comment on above: Performed By: #### C MP, BNP #### [facility] [address] [place] [address] Dr. Brittani Arevalo Urea nitrogen [Mass/Vol] 9.0 mg/dL Normal 7.0-18.0 [facility] Comment on above: Performed By: #### C MP, BNP #### [facility] [address] [place] [address] Dr. Brittani Arevalo Urea nitrogen/Creatinine [Mass ratio] 9.9 mg/mg Normal [facility] Comment on above: Performed By: #### C MP, BNP #### [facility] [address] [place] [address] Dr. Brittani Arevalo BNPon 07-15-2022 Natriuretic peptide B (Bld) [Mass/Vol] 58.0 pg/mL Normal <=450.0 [facility] Comment on above: Performed By: #### C MP, BNP #### [facility] [address] [place] [address] Dr. Brittani Arevalo CBC AUTO DIFFon 07-15-2022 BASO # 0.1 103/ul Normal 0.0-0.1 [facility] Comment on above: Performed By: #### C MP, BNP #### [facility] [address] [place] [address] Dr. Brittani Arevalo Basophils/100 WBC (Bld) 0.6 % Normal 0.2-2.0 [facility] Comment on above: Performed By: #### C MP, BNP #### [facility] [address] [place] [address] Dr. Brittani Arevalo EO # 0.1 103/ul Normal 0.0-0.7 [facility] Comment on above: Performed By: #### C MP, BNP #### [facility] [address] [place] [address] Dr. Brittani Arevalo Eosinophils/100 WBC (Bld) 1.1 % Normal 0.9-7.0 [facility] Comment on above: Performed By: #### C MP, BNP #### [facility] [address] [place] [address] Dr. Brittani Arevalo Erythrocyte distribution width (RBC) [Ratio] 16.4 % Critically high 11.0-15.0 [facility] Comment on above: Performed By: #### C MP, BNP #### [facility] [address] [place] [address] Dr. Brittani Arevalo Hematocrit (Bld) [Volume fraction] 37.4 % Normal 36.0-48.0 [facility] Comment on above: Performed By: #### C MP, BNP #### [facility] [address] [place] [address] Dr. Brittani Arevalo Hemoglobin (Bld) [Mass/Vol] 11.3 g/dL Critically low 12.0-16.0 [facility] Comment on above: Performed By: #### C MP, BNP #### [facility] [address] [place] [address] Dr. Brittani Arevalo IG # 0.02 10e3/ul Normal 0.00-0.03 [facility] Comment on above: Performed By: #### C MP, BNP #### [facility] [address] [place] [address] Dr. Brittani Arevalo IG % 0.2 % Normal 0.0-0.5 [facility] Comment on above: Performed By: #### C MP, BNP #### [facility] [address] [place] [address] Dr. Brittani Arevalo LYMPH # 2.5 103/ul Normal 1.2-3.8 [facility] Comment on above: Performed By: #### C MP, BNP #### [facility] [address] [place] [address] Dr. Brittani Arevalo Lymphocytes/100 WBC (Bld) 29.0 % Normal 20.5-60.0 [facility] Comment on above: Performed By: #### C MP, BNP #### [facility] [address] [place] [address] Dr. Brittani Arevalo MANUAL DIFF REQ NO Normal [facility] Comment on above: Performed By: #### C MP, BNP #### [facility] [address] [place] [address] Dr. Brittani Arevalo MCH (RBC) [Entitic mass] 23.5 pg Critically low 26.7-34 .0 [facility] Comment on above: Performed By: #### C MP, BNP #### [facility] [address] [place] [address] Dr. Brittani Arevalo MCHC (RBC) [Mass/Vol] 30.2 g/dL Normal 29.9-35.2 [facility] Comment on above: Performed By: #### C MP, BNP #### [facility] [address] [place] [address] Dr. Brittani Arevalo MCV (RBC) [Entitic vol] 77.8 fL Critically low 81.0-99. 0 [facility] Comment on above: Performed By: #### C MP, BNP #### [facility] [address] [place] [address] Dr. Brittani Arevalo MONO # 0.4 103/ul Normal 0.3-0.8 [facility] Comment on above: Performed By: #### C MP, BNP #### [facility] [address] [place] [address] Dr. Brittani Arevalo Monocytes/100 WBC (Bld) 4.9 % Normal 1.7-12.0 [facility] Comment on above: Performed By: #### C MP, BNP #### [facility] [address] [place] [address] Dr. Brittani Arevalo NEUT # 5.6 103/ul Normal 1.4-6.5 [facility] Comment on above: Performed By: #### C MP, BNP #### [facility] [address] [place] [address] Dr. Brittani Arevalo Neutrophils/100 WBC (Bld) 64.2 % Normal 43.0-75.0 [facility] Comment on above: Performed By: #### C MP, BNP #### [facility] [address] [place] [address] Dr. Brittani Arevalo Platelet mean volume (Bld) [Entitic vol] 10.6 fL Normal 9.5-13.5 [facility] Comment on above: Performed By: #### C MP, BNP #### [facility] [address] [place] [address] Dr. Brittani Arevalo PLT 376 103/ul Normal 150-450 [facility] Comment on above: Performed By: #### C MP, BNP #### [facility] [address] [place] [address] Dr. Brittani Arevalo RBC 4.81 106/ul Normal 4.20-5.40 [facility] Comment on above: Performed By: #### C MP, BNP #### [facility] [address] [place] [address] Dr. Brittani Arevalo WBC 8.8 103/ul Normal 4.0-11.0 [facility] Comment on above: Performed By: #### C MP, BNP #### [facility] [address] [place] [address] Dr. Brittani Arevalo [facility] SARS-CoV-2 (COVID-19) RNA BISI+probe Ql (Unsp spec) Not detected Normal NOT DETECTED [facility] Comment on above: Result Comment: When [...] for this test is supported by the [place] of Health and Human Service's declaration that [...] Performed By: #### C MP, BNP #### [facility] [address] [place] [address] Dr. Brittani Arevalo DRUG SCREEN RAPID (URINE)on 07-15-2022 AMP Negative Normal NEGATIVE [facility] Comment on above: Performed By: #### C MP, BNP #### [facility] [address] [place] [address] Dr. Brittani Arevalo BAR Negative Normal NEGATIVE [facility] Comment on above: Performed By: #### C MP, BNP #### [facility] [address] [place] [address] Dr. Brittani Arevalo BUP Negative Normal NEGATIVE [facility] Comment on above: Performed By: #### C MP, BNP #### [facility] [address] [place] [address] Dr. Brittani Arevalo BZO Negative Normal NEGATIVE [facility] Comment on above: Performed By: #### C MP, BNP #### [facility] [address] [place] [address] Dr. Brittani Arevalo MARINO Negative Normal NEGATIVE [facility] Comment on above: Performed By: #### C MP, BNP #### [facility] [address] [place] [address] Dr. Brittani Arevalo CUT-OFFS SEE BELOW Normal [facility] Comment on above: Result Comment: AMP (Amphetamine): [...] Performed By: #### C MP, BNP #### [facility] [address] [place] [address] Dr. Brittani Arevalo DRUG CUT HEADER DRUG CLASS TEST SYSTEM CUT-OFF CONCENTRATIONS ARE FOLLOWS: Normal [facility] Comment on above: Performed By: #### C MP, BNP #### [facility] [address] [place] [address] Dr. Brittani Arevalo mAMP Negative Normal NEGATIVE [facility] Comment on above: Performed By: #### C MP, BNP #### [facility] [address] [place] [address] Dr. Brittani Arevalo MTD Negative Normal NEGATIVE [facility] Comment on above: Performed By: #### C MP, BNP #### [facility] [address] [place] [address] Dr. Brittani Arevalo OPI Negative Normal NEGATIVE [facility] Comment on above: Performed By: #### C MP, BNP #### [facility] [address] [place] [address] Dr. Brittani Arevalo OXY Negative Normal NEGATIVE [facility] Comment on above: Performed By: #### C MP, BNP #### [facility] [address] [place] [address] Dr. Brittani Arevalo PCP Negative Normal NEGATIVE [facility] Comment on above: Performed By: #### C MP, BNP #### [facility] [address] [place] [address] Dr. Brittani Arevalo PPX Negative Normal NEGATIVE [facility] Comment on above: Performed By: #### C MP, BNP #### [facility] [address] [place] [address] Dr. Brittani Arevalo TCA Negative Normal NEGATIVE [facility] Comment on above: Performed By: #### C MP, BNP #### [facility] [address] [place] [address] Dr. Brittani Arevalo THC Positive Abnormal NEGATIVE [facility] Comment on above: Performed By: #### C MP, BNP #### [facility] [address] [address] [address] Brittani Arevalo PROF CHEM 8 (BAS METB)on Anion gap [Moles/Vol] 14.3 mmol/L Normal [facility] Comment on above: Performed By: #### C MP, BNP #### [facility] [address] [place] [address] Dr. Brittani Arevalo Calcium [Mass/Vol] 9.5 mg/dL Normal 8.5-10.1 [facility] Comment on above: Performed By: #### C MP, BNP #### [facility] [address] [place] [address] Dr. Brittani Arevalo Chloride [Moles/Vol] 101 mmol/L Normal 98-107 [facility] Comment on above: Performed By: #### C MP, BNP #### [facility] [address] [place] [address] Dr. Brittani Arevalo CO2 [Moles/Vol] 26.7 mmol/L Normal 21.0-32.0 [facility] Comment on above: Performed By: #### C MP, BNP #### [facility] [address] [place] [address] Dr. Brittani Arevalo Creatinine [Mass/Vol] 0.78 mg/dL Normal 0.55-1.02 [facility] Comment on above: Performed By: #### C MP, BNP #### [facility] [address] [place] [address] Dr. Brittani Arevalo EGFR-AF IVORIAN >60 Normal >=60 [facility] Comment on above: Performed By: #### C MP, BNP #### [facility] [address] [place] [address] Dr. Brittani Arevalo EGFR-NON AF IVORIAN >60 Normal >=60 [facility] Comment on above: Performed By: #### C MP, BNP #### [facility] [address] [address] [address] Brittani Arevalo Glucose [Mass/Vol] 85 mg/dL Normal 74-106 [facility] Comment on above: Performed By: #### C MP, BNP #### [facility] [address] [place] [address] Dr. Brittani Arevalo Potassium [Moles/Vol] 4.0 mmol/L Normal 3.5-5.1 [facility] Comment on above: Performed By: #### C MP, BNP #### [facility] [address] [place] [address] Dr. Brittani Arevalo Sodium [Moles/Vol] 138 mmol/L Normal 136-145 [facility] Comment on above: Performed By: #### C MP, BNP #### [facility] [address] [place] [address] Dr. Brittani Arevalo Urea nitrogen [Mass/Vol] 7.0 mg/dL Normal 7.0-18.0 [facility] Comment on above: Performed By: #### C MP, BNP #### [facility] [address] [place] [address] Dr. Brittani Arevalo Urea nitrogen/Creatinine [Mass ratio] 9.0 mg/mg Normal [facility] Comment on above: Performed By: #### C MP, BNP #### [facility] [address] [place] [address] Dr. Brittani Arevalo TROPONIN, HIGH SENSITIVITYon 07-15-2022 HSTROP 4.5 pg/mL Normal 4.0-51.3 [facility] Comment on above: Result Comment: CUT- OFF POINTS HAVE BEEN ESTABLISHED BASED ON THE FOURTH UNIVERSAL DEFINITIONS OF MYOCARDIAL INFARCTION. THE UPPER REFERENCE LIMIT (URL) OF TROPONIN, DEFINED THE 99TH PERCENTILE OF cTnI DISTRIBUTION IN A REFERENCE POPULATION, HAS BEEN CONFIRMED THE DECISION THRESHOLD FOR OR DIAGNOSIS. Performed By: #### C MP, BNP #### [facility] [address] [place] [address] Dr. Brittani Arevalo TSHon 07-15-2022 TSH 2.488 uIU/mL Normal 0.358-3.740 [facility] Comment on above: Performed By: #### C MP, BNP #### [facility] [address] [address] [address] Brittani Arevalo XR CHEST 1 Von [...] JAYY DE ANDA Date: 2022-07-15 17:06 Normal [facility] MG MAMM SCREEN 3D SUSI CADon 07-06-2022 MG MAMM SCREEN 3D SUSI CAD Patient: KELSI THOMPSON Exam Date: 07/06/2022 : 1980 Gender:F Ordering : DR ABDIAZIZ POOLE . Admission #: [id number] Family : Order #: [id number] CLICK HERE TO VIEW EXAM RADIOLOGY REPORT PROCEDURE: MAMMOGRAM SCREENING 3D BILATERAL CAD COMPARISON: None. INDICATIONS: Screening mammography Calculator Name NCI Breast Cancer Risk Assessment Tool 5 Year Breast Cancer Risk 0.40% Lifetime Breast Cancer Risk 6.60% Personal Breast Cancer No Personal Ovarian Cancer No Treatments None Family Cancers None LOCATION: [facility] BREAST COMPOSITION: Scattered areas fibroglandular density. FINDINGS: [...] Santana M.D. on 07/06/2022 at 14:04 Normal [facility] PAP ACOG PANEL 2: 30 to 65on 07-06-2022 . . Normal [facility] Comment on above: Result Comment: Perf ormed at: WB Performed By: #### C MP, BNP #### [facility] [address] [address] [address] Brittani Arevalo Age Gdln ACOG Testing 30-65 Normal [facility] Comment on above: Performed By: #### C MP, BNP #### [facility] [address] [address] [address] Birttani Arevalo DIAGNOSIS: Comment Normal [facility] Comment on above: Result Comment: NEGA TIVE FOR INTRAEPITHELIAL LESION OR MALIGNANCY. Performed at: WB Performed By: #### C MP, BNP #### [facility] [address] [address] [address] Brittani Arevalo HPV Aptima Negative Normal Negative [facility] Comment on above: Result Comment: This nucleic acid amplification test detects fourteen high-risk HPV types (16,18,31,33,35,39,45,51,52,56,58,59,66,68) without differentiation. Performed at: =G Performed By: #### C MP, BNP #### [facility] [address] [place] [address] Dr. Brittani Arevalo HPV Genotype Reflex Comment Normal [facility] Comment on above: Result Comment: Crit eria not met, HPV Genotype not performed. Performed at: WB Performed By: #### C MP, BNP #### [facility] [address] [place] [address] Dr. Brittani Arevalo Methodology: Comment Normal [facility] Comment on above: Result Comment: This liquid based ThinPrep(R) pap test was screened with the use of an image guided system. Performed at: WB Performed By: #### C MP, BNP #### [facility] [address] [place] [address] Dr. Brittani Arevalo Note: Comment Normal [facility] Comment on above: Result Comment: The Pap [...] Performed By: #### C MP, BNP #### [facility] [address] [address] [address] Brittani Arevalo Performed by: Comment Normal [facility] Comment on above: Result Comment: Brid get Valdez, Build And Deployment Engineer ([employer]CP) Performed at: WB Performed By: #### C MP, BNP #### [facility] [address] [place], [place] [address] Dr. Brittani Arevalo Specimen adequacy: Comment Normal [facility] Comment on above: Result Comment: Sati sfactory for evaluation. Endocervical and/or squamous metaplastic cells (endocervical component) are present. Performed at: WB Performed By: #### C MP, BNP #### [facility] [address] [place], [place] [address] Dr. Brittani Arevalo 17-OH PROGESTERONE, LC/MSon 07-03-2022 17-OH Progesterone 45 ng/dL Normal [facility] Comment on above: Result Comment: Adul t Female Follicular 15 - 70 Luteal 35 - 290 Performed By: #### P ROGLCM #### [facility] [address] [place], [place] [address] Dr. Brittani Arevalo DHEA SERUMon 07-01-2022 Dehydroepiandrosterone (DHEA) 81 ng/dL Normal [facility] Comment on above: Result Comment: Age 1 [...] 402 Performed By: #### Nikky ANDERSON. #### [facility] [address] [id number] Brittani Arevalo DHEA-SULFATEon 06-29-2022 DHEA-Sulfate 19.4 ug/dL Critically low 57.3-279.2 [facility] Comment on above: Performed By: #### Nikky SANTOS #### [facility] [address] [place], [place] [address] Dr. Brittani Arevalo FSHon 06-29-2022 FSH 17.5 mIU/mL Normal [facility] Comment on above: Result Comment: Adul t Female: Follicular phase 3.5 - 12.5 Ovulation phase 4.7 - 21.5 Luteal phase 1.7 - 7.7 Postmenopausal 25.8 - 134.8 Performed By: #### C MP, BNP #### [facility] [address] [place] [address] Dr. Brittani Arevalo LUTEINIZING HORMONE (LH)on 0 06-29-2022 LH 13.1 mIU/mL Normal [facility] Comment on above: Result Comment: Adul t Female: Follicular phase 2.4 - 12.6 Ovulation phase 14.0 - 95.6 Luteal phase 1.0 - 11.4 Postmenopausal 7.7 - 58.5 Performed By: #### L BCLH #### [facility] [address] [place] [address] Dr. Brittani Arevalo CBC AUTO DIFFon 06-28-2022 BASO # 0.1 103/ul Normal 0.0-0.1 [facility] Comment on above: Performed By: #### C BC #### [facility] [address] [place] [address] Dr. Brittani Arevalo Basophils/100 WBC (Bld) 1.0 % Normal 0.2-2.0 [facility] Comment on above: Performed By: #### C BC #### [facility] [address] [place] [address] Dr. Brittani Arevalo EO # 0.1 103/ul Normal 0.0-0.7 [facility] Comment on above: Performed By: #### C BC #### [facility] [address] [place] [address] Dr. Brittani Arevalo Eosinophils/100 WBC (Bld) 1.5 % Normal 0.9-7.0 [facility] Comment on above: Performed By: #### C BC #### [facility] [address] [place] [address] Dr. Brittani Arevalo Erythrocyte distribution width (RBC) [Ratio] 16.4 % Critically high 11.0-15.0 [facility] Comment on above: Performed By: #### C BC #### [facility] [address] [place] [address] Dr. Brittani Arevalo Hematocrit (Bld) [Volume fraction] 33.1 % Critically low 36.0-48.0 [facility] Comment on above: Performed By: #### C BC #### [facility] [address] [place] [address] Dr. Brittani Arevalo Hemoglobin (Bld) [Mass/Vol] 9.8 g/dL Critically low 12.0-16.0 [facility] Comment on above: Performed By: #### C BC #### [facility] [address] [place] [address] Dr. Brittani Arevalo IG # 0.01 10e3/ul Normal 0.00-0.03 [facility] Comment on above: Performed By: #### C BC #### [facility] [address] [place] [address] Dr. Brittani Arevalo IG % 0.2 % Normal 0.0-0.5 [facility] Comment on above: Performed By: #### C BC #### [facility] [address] [place] [address] Dr. Brittani Arevalo LYMPH # 2.7 103/ul Normal 1.2-3.8 [facility] Comment on above: Performed By: #### C BC #### [facility] [address] [place] [address] Dr. Brittani Arevalo Lymphocytes/100 WBC (Bld) 44.2 % Normal 20.5-60.0 [facility] Comment on above: Performed By: #### C BC #### [facility] [address] [place] [address] Dr. Brittani Arevalo MANUAL DIFF REQ NO Normal [facility] Comment on above: Performed By: #### C BC #### [facility] [address] [place] [address] Dr. Brittani Arevalo MCH (RBC) [Entitic mass] 23.0 pg Critically low 26.7-34 .0 [facility] Comment on above: Performed By: #### C BC #### [facility] [address] [place] [address] Dr. Brittani Arevalo MCHC (RBC) [Mass/Vol] 29.6 g/dL Critically low 29.9-35.2 [facility] Comment on above: Performed By: #### C BC #### [facility] [address] [place] [address] Dr. Brittani Arevalo MCV (RBC) [Entitic vol] 77.7 fL Critically low 81.0-99. 0 [facility] Comment on above: Performed By: #### C BC #### [facility] [address] [place] [address] Dr. Brittani Arevalo MONO # 0.4 103/ul Normal 0.3-0.8 [facility] Comment on above: Performed By: #### C BC #### [facility] [address] [place] [address] Dr. Brittani Arevalo Monocytes/100 WBC (Bld) 7.1 % Normal 1.7-12.0 [facility] Comment on above: Performed By: #### C BC #### [facility] [address] [place] [address] Dr. Brittani Arevalo NEUT # 2.8 103/ul Normal 1.4-6.5 [facility] Comment on above: Performed By: #### C BC #### [facility] [address] [place] [address] Dr. Brittani Arevalo Neutrophils/100 WBC (Bld) 46.0 % Normal 43.0-75.0 [facility] Comment on above: Performed By: #### C BC #### [facility] [address] [place] [address] Dr. Brittani Arevalo Platelet mean volume (Bld) [Entitic vol] 10.6 fL Normal 9.5-13.5 [facility] Comment on above: Performed By: #### C BC #### [facility] [address] [place] [address] Dr. Brittani Arevalo PLT 411 103/ul Normal 150-450 [facility] Comment on above: Performed By: #### C BC #### [facility] [address] [place] [address] Dr. Brittani Arevalo RBC 4.26 106/ul Normal 4.20-5.40 [facility] Comment on above: Performed By: #### C BC #### [facility] [address] [address] [address] Brittani Arevalo WBC 6.2 103/ul Normal 4.0-11.0 [facility] Comment on above: Performed By: #### C BC #### [facility] [address] [place] [address] Dr. Brittani Arevalo FREE T4on 06-28-2022 Free T4 [Mass/Vol] 0.81 ng/dL Normal 0.76-1.46 [facility] Comment on above: Performed By: #### C MP, BNP #### [facility] [address] [place] [address] Dr. Brittani Arevalo GLYCOHEMOGLOBIN A1Con 2022 ADA RECOMMENDATION SEE BELOW Normal [facility] Comment on above: Result Comment: ADA RECOMMENDED LIMIT 4.0 - 6.0 ADA THERAPEUTIC TARGET < 7.0 ACTION SUGGESTED > 7.0 Performed By: #### A 1C #### [facility] [address] [place] [address] Dr. Brittani Arevalo Glucose [Mass/Vol] 123 mg/dL Normal [facility] Comment on above: Performed By: #### A 1C #### [facility] [address] [place] [address] Dr. Brittani Arevalo HbA1c (Bld) [Mass fraction] 5.9 % Normal 4.5-6.2 [facility] Comment on above: Performed By: #### A 1C #### [facility] [address] [place] [address] Dr. Brittani Arevalo TSHon 06-28-2022 TSH 2.736 uIU/mL Normal 0.358-3.740 [facility] Comment on above: Performed By: #### C MP, BNP #### [facility] [address] [place] [address] Dr. Brittani Arevalo US PELVIS AND TRANSVAGon [...] by: LUAN SANTANA Date: 2022-06-28 12:16 Normal [facility] Outside Colonoscopyon 2020 Outside Colonoscopy [phone] [id number] 2#1.00CD:127 Normal [facility] Pathology Noteon 07-03-2020 Pathology Note [id number] B3#1.00CD:127 Normal [facility] Provider Letter FTMCon 06-25 Provider Letter [facility] Miriam Spence, [address] [place] [place] [address] Re: KELSI JOHNSON Date of : 1980 [...] Sincerely, Dedrick Baker MD General Surgery Normal [facility] Consent for Procedure/Surger yon 06-19-2020 Consent for Procedure/Surgery [id number] FE#1.00CD:127 Normal [facility] Ambulatory Clinical Summaryo n 06-18-2020 Ambulatory Clinical Summary {[id number] Normal [facility] Physician Referralon 021 Physician Referral [id number] 94#1.00CD:127 Normal [facility] Cardiovascular Lab Reporton 12-12-2018 Cardiovascular Lab Report [facility] Hodge MR #: [id number] Department of Physician: Guilherme Pizano M.D. Division of Service Date: 12/11/2018 Cardiology Birthdate: 1980 Adult Cardiovascular Room #: 3AB [id number] [place] [address] Cardiovascular Laboratory Report INDICATION: The patient is [...] signed informed consent. [facility] was brought [facility] in a fasting state. The right groin area was prepped and draped in usual fashion. Using micropuncture technique, the right common femoral artery was accessed. The inner cannula was advanced. Limited right femoral angiography was performed followed by upsizing to a 5-Peruvian x 11 cm sheath. A straight 5-Peruvian pigtail catheter was advanced into the abdominal aorta. Abdominal aortography was performed using power injection of contrast and digital subtraction angiography. A C1 5-Peruvian cobra catheter was then advanced to the [...] Pizano M.D. Date Trans: 12/12/2018 05:13 Ren/dhara [id number] cc: Miriam Spence M.D. [address] [facility] [id number] Normal [facility] Encounters Encounter Date Encounter Type Care Provider Facility Start: 05-11-2023 End: 05-11-2023 ambulatory ANNABEL HUFFMAN [facility] Start: 04-27-2023 End: 04-27-2023 ambulatory [facility] Start: 03-29-2023 End: 03-29-2023 [facility] Start: 03-06-2023 ambulatory Grant Nixon acility:[facility] Start: 01-31-2023 End: 01-31-2023 ambulatory [facility] Start: 12-28-2022 End: 12-28-2022 ambulatory [facility] Start: 11-28-2022 End: 11-28-2022 ambulatory [facility] Start: 11-04-2022 End: 11-04-2022 ambulatory [facility] Start: 07-22-2022 End: 07-22-[address] ABDIAZIZ POOLE . Facility:[facility] Start: 07-20-2022 Encounter for preprocedural cardiovascular examination DR MIRIAM SPENCE . [facility] Start: 07-18-2022 Encounter for preprocedural cardiovascular examination DR ABDIAZIZ POOLE . [facility] Start: 07-15-2022 End: 07-16-[address] MIRIAM SPENCE . Facility:[facility] Start: 07-15-2022 End: 07-16-[address] ABDIAZIZ POOLE . Facility:[facility] Start: 07-15-2022 End: 07-16-2022 Encounter for preprocedural cardiovascular examination DR ABDIAZIZ POOLE . Facility:[facility] Start: 07-06-2022 End: 07-07-[address] ABDIAZIZ POOLE . Facility:[facility] Start: 06-28-2022 End: 06-29-[address] ABDIAZIZ POOLE . Facility:[facility] Start: 12-11-2018 End: 12-12-2018 Patient encounter procedure PROVIDER UNKNOWN Facility:[facility] Procedures Date Procedure Procedure Detail Performing Clinician Start: 11-28-2022 Follow-up visit Follow-up ABI ZARAGOZA Payers Date Payer Category Payer Self-pay 2018 Unknown [id number] 1980 Unknown [id number] 2.16.8 [id number] 1980 Unknown [id number] 2.16.84 [id number] 1980 Unknown [id number] 2.16.84 [id number] 1980 Unknown [id number] 2.16.84 [id number] 1980 Unknown [id number] 2.16.84 [id number] 1980 Unknown [id number] 2.16.84 [id number] 1980 Unknown [id number] 2.16.84 [id number] 1959 Unknown [id number] 1959 Unknown [id number] Unknown [id number] 2.16.8 [id number] Clinical Notes 06-18-2020 to 05-11-2023 Note Date & Type Note Facility 05-11-2023 Note Attestation signed by Pippa Srivastava MD at 05/12/2023 12:31 PM I personally saw and examined the patient on the same date of service as resident/fellow . I discussed the findings and therapeutic plan with the resident/fellow . I agree with the documentation, except for any edits/updates below. 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 No tobacco, alcohol, or drug use. Patient [...] and visual disturbance. (more content not included)... [facility] 04-27-2023 Note Cardiovascular Medic [facility] SUBJECTIVE Chief Complaint Patient presents with [...] mg daily, amlodi (more content not included)... [facility] 04-27-2023 Note Patient here for 1 m [...] All other systems reviewed and are negative. [facility] 03-29-2023 Note Cardiovascular Medic [facility] SUBJECTIVE Chief Complaint Patient presents with [...] 04/29/2023). Rock Pearson NP [facility] Cardiovascular Medicine [facility] 03-29-2023 Note Patient here for 2 m [...] All other systems reviewed and are negative. [facility] 01-31-2023 Note Cardiology Clinic No te Chief [...] as needed Abi Zaragoza MD Interventional Cardiology [facility] 01-31-2023 Note Patient here for 1 m o follow up hypertension and palpitations. She did see endocrinology and CT adrenal glands was ordered. She is scheduled for this tomorrow at [facility]. Says she can barely stay awake throughout the day and is dangerously tired. [facility] 12-28-2022 Note Patient here for 1 m o follow up hypertension and medication changes. Spironolactone was increased to 50mg, and amlodipine was added at last apt. She has an upcoming apt with endocrinology. Says lightheadedness and SOB w/ exertion are improving. [facility] 12-28-2022 Note Cardiology Clinic No te Chief [...] as needed Abi Zaragoza MD Interventional Cardiology [facility] 11-28-2022 Note Cardiology Clinic No te [...] as needed Abi Zaragoza MD Interventional Cardiology [facility] 11-04-2022 Note Cardiology Clinic No te [...] significant caffeine consumption. No alcohol consumption. No nptw-iid-wdfjobg medication usage. She denies any history of [...] instructed to c (more content not included)... [facility] 11-04-2022 Note New patient here to re-establish care. Ref from Dr. Spence for hypertension and palpitations. Says her BP lately has been 250's systolic. Had renal US and labs a few weeks ago. Review of Systems Cardiovascular: Positive for dyspnea on exertion and palpitations. Neurological: Positive for headaches and light-headedness. All other systems reviewed and are negative. [facility] 07-22-2022 Note OPERATIVE NOTE OPERATION DATE: 07/22/2022 PROCEDURE: Carrie endometrial ablation with hysteroscopy with robotic assisted bilateral laparoscopic salpingectomy, and right ovarian cystotomy performed with the Vessel Sealer. PREOPERATIVE DIAGNOSIS: Menorrhagia, dyspareunia, dysmenorrhea, desires permanent sterilization. POSTOPERATIVE DIAGNOSIS: Menorrhagia, dyspareunia, dysmenorrhea, desires permanent sterilization. ANESTHESIA: General. SURGEON: Abdiaziz Poole D.O. COMMERCIAL ARTIST: ARMANDO Heredia URINE OUTPUT: Yellow and clear. [...] and needle counts were correct x2. [facility] 06-18-2020 Note HPI Staff 39 year old [...] 1-2 times pe (more content not included)... [facility] Comment on above: Result Comment: Elec tronically [...] including vitamins, herbs, eye drops, creams, and ozxc-tal-syilahq medicines. ? Any problems you or family [...] tells you to take them. ? Taking oawe-znl-kabvhmi medicines, vitamins, herbs, and supplements. General instructions [...] Document Revised: 09/27/19 (more content not included)... [facility] Summary Purpose Family History No Family History Records FoundNo Family History Records FoundNo Family History Records FoundNo Family History Records FoundNo Family History Records Found Advance Directives No Advanced Directives Records FoundNo Advanced Directives Records FoundNo Advanced Directives Records FoundNo Advanced Directives Records FoundNo Advanced Directives Records Found Additional Source Comments INFORMATION SOURCE (unrecogn ized section and content) DATE CREATED AUTHOR 12/20/[address] [facility] DATE CREATED AUTHOR AUTHOR'S ORGANIZ ATION 10/01/2020 [facility] DATE CREATED AUTHOR AUTHOR'S ORGANIZ ATION 08/05/2022 [facility] DATE CREATED AUTHOR AUTHOR'S ORGANIZ ATION 05/15/2023 [facility] DATE CREATED AUTHOR AUTHOR'S ORGANIZ ATION 05/15/2023 [facility] FOR RECORDS PERTAINING TO PATIENTS WHO [...] BE BASED ON THE PRIMARY CLINICAL RECORDS. [facility]. provides no warranty or guarantee of the accuracy or completeness of information in this document.
[2023-05-26 12:09] LABS: Anti-dsDNA Antibodies <1 IU/mL (0-9); Sjogren's Anti-SS-A <0.2 AI (0.0-0.9); Sjogren's Anti-SS-B <0.2 AI (0.0-0.9)
== END 2023-05-24 16:31 | disposition home or self-care (01) ==
PROVIDERS: PCP Family Medicine
DX: M25.50 Pain in unspecified joint (principal)
CPT/HCPCS: 36415; 86225; 86235

== ENCOUNTER 2023-06-08 13:43 | Outpatient (OUT) | payer OTHER, SELFPAY ==
--- NOTE | 2023-06-08 14:29 | XR_ITS ---
The [address] [address] Patient Name: KELSI JOHNSON MRN: [id number] date: 1980 Sex: F Assigned Patient Location: [facility] Current Patient Location: [facility] Accession/Order Number: [id number] Exam Date: 06/08/2023 14:35 Report Date: 06/08/2023 18:42 At the request of: NON-STAFF PHYSICIAN Procedure: XR hand SUSI min 3v EXAM: XR hand SUSI min 3v HISTORY: pain in joint M25.50, Bilateral hand swelling M79.89 COMPARISON: None. TECHNIQUE: AP, lateral and oblique views of the bilateral hands were obtained. FINDINGS/impression: Normal bony alignment and joint spaces are preserved without evidence of acute fracture, subluxation or significant degenerative changes. Electronically authenticated by: JAMES OJEDA Date: 06/08/2023 18:42
== END 2023-06-08 13:44 | disposition home or self-care (01) ==
LOC: RAD 13:45
PROVIDERS: PCP Family Medicine
DX: I70.1 Atherosclerosis of renal artery (principal); I10 Essential (primary) hypertension; M79.89 Other specified soft tissue disorders; M79.642 Pain in left hand; M79.641 Pain in right hand
CPT/HCPCS: 36415; 73130; 80048; 82533; 83835

== ENCOUNTER 2023-06-08 13:49 | Outpatient (OUT) | payer OTHER, SELFPAY ==
--- OUTSIDE RECORDS SUMMARY | 2023-06-08 14:05 | XMS_ITS | CCD ---
Author Name Unknown Address [address] [facility] [address] [facility] [address] [place] [address] Organization [facility] Care Team Providers Care Core Maker Name Role Phone UNKNOWN, PROVIDER Admitting Unavailable [...] Containting Drugs) Drug allergy (disorder) 04-17-1991 [facility] (1 source) Metoprolol Drug Allergy 04-17-2022 [facility] (1 source) Iodinated Contrast Media Drug allergy (disorder) 09-20-2017 [facility] Repository Problems Active Problems Problem [...] 08-04-2022 Chronic Other aftercare (1 source) Other [place] [facility] (current) drug therapy; Translations: [OTH USP CURRENT DRUG THERAPY] Onset: 07-20-2022 Episodic Other [...] requested those orders be sent to the [facility]. Lab orders sent with confirmation received Normal [facility] C-REACTIVE PROTEINon 024 C REACTIVE PROTEIN (MG/L) IN SER/PLAS 2.1 mg/L Normal 0.0-7.0 [facility] Comment on above: Performed By: #### L [id number] #### [facility] [address] [place] [address] CYCLIC CITRUL PEPTIDE ANTIBO DY, IGG AND IGAon 05-11-2023 CYCLIC CITRULLINATED PEPTIDE AB, IGG/A 4 Units Normal 0-19 [facility] Comment on above: Result Comment: INTE [...] be monitored and testing repeated. Performed By: [employer] [address] [place] [address] Tire Sorter: Williams Escobar MD, PhD CLIA Number: [id number] Performed By: #### L [id number] ####[facility] ([facility])[address] [place] [address] Office Visiton 05-11-2023 Follow-up visit [id number] Kelsi Johnson 1980 F Date Provider Department Center 05/11/2023 [facility] Family History Problem Relation Age of Onset Hypertension Mother Hypertension Father Family Status - Relation Status Age at Mother Father Level of Service:83778 AR OFFICE/OUTPATIENT NEW MODERATE MDM 45 MINUTES (GC) 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 Unexplained weight gain Normal [facility] Orders Onlyon 05-11-2023 Orders Only [id number] Maya Johnsontobi Hodge 1980 Date Provider Department Center 05/11/2023 [facility] Family History Problem Relation Age of Onset Hypertension Mother Hypertension Father Family Status - Relation Status Age at Mother Father Normal [facility] RHEUMATOID FACTORon 05-11-19 24 Rheumatoid factor Qn [IU]/mL Normal 0-20 [facility] Comment on above: Performed By: #### L [id number] ####[facility] ([facility])[address] [place] [address] SEDIMENTATION RATEon 024 SEDIMENTATION RATE, ERYTHROCYTE 8 mm/hr Normal <=20 [facility] Comment on above: Performed By: #### L [id number] ####[facility] ([facility])[address] [place] [address] Office Visiton 04-27-2023 Follow-up visit [id number] Kelsi Johnson 1980 Date Provider Department Center 04/27/2023 ORCK CASTELLANOS Family History Problem Relation Age of Onset Hypertension Mother Hypertension Father Family Status - Relation Status Age at Mother Father Level of Service:82860 AR OFFICE/OUTPATIENT ESTABLISHED MOD MDM 30 MIN Reason for Visit and Comments: Hypertension [067330] Fatigue [46] Normal [facility] Office Visiton 03-29-2023 Follow-up visit [id number] Kelsi Johnson 1980 Date Provider Department Center 03/29/2023 ROCK CASTELLANOS Family History Problem Relation Age of Onset Hypertension Mother Hypertension Father Family Status - Relation Status Age at Mother Father Level of Service:42774 AR OFFICE/OUTPATIENT ESTABLISHED MOD MDM 30-39 MIN Reason for Visit and Comments: Hypertension [875363] Fatigue [46] Normal [facility] Office Visiton 01-31-2023 Follow-up visit [id number] Simmons Naveen 1980 Date Provider Department Center 01/31/2023 ABI REESE Family History Problem Relation Age of Onset Hypertension Mother Hypertension Father Family Status - Relation Status Age at Mother Father Level of Service:37531 AR OFFICE/OUTPATIENT ESTABLISHED LOW MDM 20-29 MIN Normal [facility] Office Visiton 12-28-2022 Follow-up visit [id number] Simmons Naveen 1980 Date Provider Department Center 12/28/2022 ABI REESE Family History Problem Relation Age of Onset Hypertension Mother Hypertension Father Family Status - Relation Status Age at Mother Father Level of Service:04699 AR OFFICE/OUTPATIENT ESTABLISHED MOD MDM 30-39 MIN Normal [facility] Office Visiton 11-28-2022 Follow-up visit [id number] Simmons 1980 Date Provider Department Center 11/28/2022 ABI REESE Family History Problem Relation Age of Onset Hypertension Mother Hypertension Father Family Status - Relation Status Age at Mother Father Level of Service:30072 AR OFFICE/OUTPATIENT ESTABLISHED MOD MDM 30-39 MIN Reason for Visit and Comments: Follow-up [752022] - 4 wk follow up/ medication change Normal [facility] Office Visiton 11-04-2022 Follow-up visit [id number] Kelsi Johnson Naveen 1980 Date Provider Department Center 11/04/2022 ABI REESE Family History Problem Relation Age of Onset Hypertension Mother Hypertension Father Family Status - Relation Status Age at Mother Father Level of Service:84253 AR OFFICE/OUTPATIENT NEW MODERATE MDM 45-59 MINUTES Normal [facility] CBC AUTO DIFFon 07-22-2022 BASO # 0.1 103/ul Normal 0.0-0.1 [facility] Comment on above: Performed By: #### C BC #### [facility] [address] [place] [address] Dr. Brittani Arevalo Basophils/100 WBC (Bld) 0.9 % Normal 0.2-2.0 [facility] Comment on above: Performed By: #### C BC #### [facility] [address] [place] [address] Dr. Brittani Arevalo EO # 0.1 103/ul Normal 0.0-0.7 [facility] Comment on above: Performed By: #### C BC #### [facility] [address] [place] [address] Dr. Brittani Arevalo Eosinophils/100 WBC (Bld) 1.5 % Normal 0.9-7.0 [facility] Comment on above: Performed By: #### C BC #### [facility] [address] [place] [address] Dr. Brittani Arevalo Erythrocyte distribution width (RBC) [Ratio] 16.6 % Critically high 11.0-15.0 [facility] Comment on above: Performed By: #### C BC #### [facility] [address] [place] [address] Dr. Brittani Arevalo Hematocrit (Bld) [Volume fraction] 32.1 % Critically low 36.0-48.0 [facility] Comment on above: Performed By: #### C BC #### [facility] [address] [place] [address] Dr. Brittani Arevalo Hemoglobin (Bld) [Mass/Vol] 9.5 g/dL Critically low 12.0-16.0 [facility] Comment on above: Performed By: #### C BC #### [facility] [address] [place] [address] Dr. Brittani Arevalo IG # 0.01 10e3/ul Normal 0.00-0.03 [facility] Comment on above: Performed By: #### C BC #### [facility] [address] [place] [address] Dr. Brittani Arevalo IG % 0.2 % Normal 0.0-0.5 [facility] Comment on above: Performed By: #### C BC #### [facility] [address] [address] [address] Brittani Arevalo LYMPH # 2.7 103/ul Normal 1.2-3.8 [facility] Comment on above: Performed By: #### C BC #### [facility] [address] [address] [address] Brittani Arevalo Lymphocytes/100 WBC (Bld) 41.4 % Normal 20.5-60.0 [facility] Comment on above: Performed By: #### C BC #### [facility] [address] [address] [address] Brittani Arevalo MANUAL DIFF REQ NO Normal [facility] Comment on above: Performed By: #### C BC #### [facility] [address] [place] [address] Dr. Brittani Arevalo MCH (RBC) [Entitic mass] 23.4 pg Critically low 26.7-34 .0 [facility] Comment on above: Performed By: #### C BC #### [facility] [address] [place] [address] Dr. Brittani Arevalo MCHC (RBC) [Mass/Vol] 29.6 g/dL Critically low 29.9-35.2 [facility] Comment on above: Performed By: #### C BC #### [facility] [address] [place] [address] Dr. Brittani Arevalo MCV (RBC) [Entitic vol] 79.1 fL Critically low 81.0-99. 0 [facility] Comment on above: Performed By: #### C BC #### [facility] [address] [place] [address] Dr. Brittani Arevalo MONO # 0.5 103/ul Normal 0.3-0.8 [facility] Comment on above: Performed By: #### C BC #### [facility] [address] [place] [address] Dr. Brittani Arevalo Monocytes/100 WBC (Bld) 7.2 % Normal 1.7-12.0 [facility] Comment on above: Performed By: #### C BC #### [facility] [address] [place] [address] Dr. Brittani Arevalo NEUT # 3.2 103/ul Normal 1.4-6.5 [facility] Comment on above: Performed By: #### C BC #### [facility] [address] [place] [address] Dr. Brittani Arevalo Neutrophils/100 WBC (Bld) 48.8 % Normal 43.0-75.0 [facility] Comment on above: Performed By: #### C BC #### [facility] [address] [place] [address] Dr. Brittani Arevalo Platelet mean volume (Bld) [Entitic vol] 10.7 fL Normal 9.5-13.5 [facility] Comment on above: Performed By: #### C BC #### [facility] [address] [place] [address] Dr. Brittani Arevalo PLT 385 103/ul Normal 150-450 [facility] Comment on above: Performed By: #### C BC #### [facility] [address] [place] [address] Dr. Brittani Arevalo RBC 4.06 106/ul Critically low 4.20-5.40 [facility] Comment on above: Performed By: #### C BC #### [facility] [address] [place] [address] Dr. Brittani Arevalo WBC 6.6 103/ul Normal 4.0-11.0 [facility] Comment on above: Performed By: #### C BC #### [facility] [address] [place] [address] Dr. Brittani Arevalo PREG QUANT HCGon 07-22-2022 HCG QUANT 1 mIU/mL Normal [facility] Comment on above: Performed By: #### C MP, BNP #### [facility] [address] [place] [address] Dr. Brittani Arevalo HCG RANGE SEE BELOW Normal [facility] Comment on above: Result Comment: 5-50 0.2-1 WEEK 50-500 1-2 WEEKS 100-5,000 2-3 WEEKS 500-10,000 3-4 WEEKS 1,000-50,000 4-5 WEEKS 10,000-100,000 5-6 WEEKS 15,000-200,000 6-8 WEEKS 10,000-100,000 2-3 MONTHS Performed By: #### C MP, BNP #### [facility] [address] [place] [address] Dr. Brittani Arevalo BNPon 07-16-2022 Natriuretic peptide B (Bld) [Mass/Vol] 74.0 pg/mL Normal <=450.0 [facility] Comment on above: Performed By: #### C MP, BNP #### [facility] [address] [place] [address] Dr. Brittani Arevalo CBC AUTO DIFFon 07-16-2022 BASO # 0.1 103/ul Normal 0.0-0.1 [facility] Comment on above: Performed By: #### C BC #### [facility] [address] [place] [address] Dr. Brittani Arevalo Basophils/100 WBC (Bld) 0.6 % Normal 0.2-2.0 [facility] Comment on above: Performed By: #### C BC #### [facility] [address] [place] [address] Dr. Brittani Arevalo EO # 0.1 103/ul Normal 0.0-0.7 [facility] Comment on above: Performed By: #### C BC #### [facility] [address] [place] [address] Dr. Brittani Arevalo Eosinophils/100 WBC (Bld) 0.8 % Critically low 0.9-7. 0 [facility] Comment on above: Performed By: #### C BC #### [facility] [address] [place] [address] Dr. Brittani Arevalo Erythrocyte distribution width (RBC) [Ratio] 16.4 % Critically high 11.0-15.0 [facility] Comment on above: Performed By: #### C BC #### [facility] [address] [place] [address] Dr. Brittani Arevalo Hematocrit (Bld) [Volume fraction] 32.0 % Critically low 36.0-48.0 [facility] Comment on above: Performed By: #### C BC #### [facility] [address] [address] [address] Brittani Arevalo Hemoglobin (Bld) [Mass/Vol] 9.7 g/dL Critically low 12.0-16.0 [facility] Comment on above: Performed By: #### C BC #### [facility] [address] [address] [address] Brittani Arevalo IG # 0.02 10e3/ul Normal 0.00-0.03 [facility] Comment on above: Performed By: #### C BC #### [facility] [address] [place] [address] Dr. Brittani Arevalo IG % 0.2 % Normal 0.0-0.5 [facility] Comment on above: Performed By: #### C BC #### [facility] [address] [place] [address] Dr. Brittani Arevalo LYMPH # 2.5 103/ul Normal 1.2-3.8 [facility] Comment on above: Performed By: #### C BC #### [facility] [address] [place] [address] Dr. Brittani Arevalo Lymphocytes/100 WBC (Bld) 28.0 % Normal 20.5-60.0 [facility] Comment on above: Performed By: #### C BC #### [facility] [address] [place] [address] Dr. Brittani Arevalo MANUAL DIFF REQ NO Normal [facility] Comment on above: Performed By: #### C BC #### [facility] [address] [place] [address] Dr. Brittani Arevalo MCH (RBC) [Entitic mass] 23.2 pg Critically low 26.7-34 .0 [facility] Comment on above: Performed By: #### C BC #### [facility] [address] [place] [address] Dr. Brittani Arevalo MCHC (RBC) [Mass/Vol] 30.3 g/dL Normal 29.9-35.2 [facility] Comment on above: Performed By: #### C BC #### [facility] [address] [address] [address] Brittani Arevalo MCV (RBC) [Entitic vol] 76.4 fL Critically low 81.0-99. 0 [facility] Comment on above: Performed By: #### C BC #### [facility] [address] [address] [address] Brittani Arevalo MONO # 0.5 103/ul Normal 0.3-0.8 [facility] Comment on above: Performed By: #### C BC #### [facility] [address] [address] [address] Brittani Arevalo Monocytes/100 WBC (Bld) 5.7 % Normal 1.7-12.0 [facility] Comment on above: Performed By: #### C BC #### [facility] [address] [place] [address] Dr. Brittani Arevalo NEUT # 5.8 103/ul Normal 1.4-6.5 [facility] Comment on above: Performed By: #### C BC #### [facility] [address] [address] [address] Brittani Arevalo Neutrophils/100 WBC (Bld) 64.7 % Normal 43.0-75.0 [facility] Comment on above: Performed By: #### C BC #### [facility] [address] [place] [address] Dr. Brittani Arevalo Platelet mean volume (Bld) [Entitic vol] 10.5 fL Normal 9.5-13.5 [facility] Comment on above: Performed By: #### C BC #### [facility] [address] [address] [address] Brittani Arevalo PLT 328 103/ul Normal 150-450 [facility] Comment on above: Performed By: #### C BC #### [facility] [address] [address] [address] Brittani Arevalo RBC 4.19 106/ul Critically low 4.20-5.40 [facility] Comment on above: Performed By: #### C BC #### [facility] [address] [place] [address] Dr. Brittani Arevalo WBC 9.0 103/ul Normal 4.0-11.0 [facility] Comment on above: Performed By: #### C BC #### [facility] [address] [place] [address] Dr. Brittani Arevalo PROF 14(COMP METB)on 023 Albumin [Mass/Vol] 3.5 g/dL Normal 3.4-5.0 [facility] Comment on above: Performed By: #### C MP, BNP #### [facility] [address] [place] [address] Dr. Brittani Arevalo Albumin/Globulin [Mass ratio] 0.9 {ratio} Normal [facility] Comment on above: Performed By: #### C MP, BNP #### [facility] [address] [place] [address] Dr. Brittani Arevalo ALP [Catalytic activity/Vol] 61 U/L Normal 46-116 [facility] Comment on above: Performed By: #### C MP, BNP #### [facility] [address] [place] [address] Dr. Brittani Arevalo ALT [Catalytic activity/Vol] 20 U/L Normal 14-59 [facility] Comment on above: Performed By: #### C MP, BNP #### [facility] [address] [place] [address] Dr. Brittani Arevalo Anion gap [Moles/Vol] 14.6 mmol/L Normal [facility] Comment on above: Performed By: #### C MP, BNP #### [facility] [address] [place] [address] Dr. Brittani Arevalo AST [Catalytic activity/Vol] 13 U/L Critically low 15-37 [facility] Comment on above: Performed By: #### C MP, BNP #### [facility] [address] [place] [address] Dr. Brittani Arevalo Bilirubin [Mass/Vol] 0.2 mg/dL Normal 0.2-1.0 [facility] Comment on above: Performed By: #### C MP, BNP #### [facility] [address] [place] [address] Dr. Brittani Arevalo Calcium [Mass/Vol] 9.1 mg/dL Normal 8.5-10.1 [facility] Comment on above: Performed By: #### C MP, BNP #### [facility] [address] [address] [address] Brittani Arevalo Chloride [Moles/Vol] 102 mmol/L Normal 98-107 [facility] Comment on above: Performed By: #### C MP, BNP #### [facility] [address] [place] [address] Dr. Brittani Arevalo CO2 [Moles/Vol] 24.2 mmol/L Normal 21.0-32.0 [facility] Comment on above: Performed By: #### C MP, BNP #### [facility] [address] [place] [address] Dr. Brittani Arevalo Creatinine [Mass/Vol] 0.91 mg/dL Normal 0.55-1.02 [facility] Comment on above: Performed By: #### C MP, BNP #### [facility] [address] [place] [address] Dr. Brittani Arevalo EGFR-AF EQUATORIAL GUINEAN >60 Normal >=60 [facility] Comment on above: Performed By: #### C MP, BNP #### [facility] [address] [place] [address] Dr. Brittani Arevalo EGFR-NON AF EQUATORIAL GUINEAN >60 Normal >=60 [facility] Comment on above: Performed By: #### C MP, BNP #### [facility] [address] [place] [address] Dr. Brittani Arevalo Globulin (S) [Mass/Vol] 3.8 g/dL Normal [facility] Comment on above: Performed By: #### C MP, BNP #### [facility] [address] [place] [address] Dr. Brittani Arevalo Glucose [Mass/Vol] 118 mg/dL Critically high 74-106 [facility] Comment on above: Performed By: #### C MP, BNP #### [facility] [address] [place] [address] Dr. Brittani Arevalo Potassium [Moles/Vol] 3.8 mmol/L Normal 3.5-5.1 [facility] Comment on above: Performed By: #### C MP, BNP #### [facility] [address] [place] [address] Dr. Brittani Arevalo Protein [Mass/Vol] 7.3 g/dL Normal 6.4-8.2 [facility] Comment on above: Performed By: #### C MP, BNP #### [facility] [address] [place] [address] Dr. Brittani Arevalo Sodium [Moles/Vol] 137 mmol/L Normal 136-145 [facility] Comment on above: Performed By: #### C MP, BNP #### [facility] [address] [place] [address] Dr. Brittani Arevalo Urea nitrogen [Mass/Vol] 9.0 mg/dL Normal 7.0-18.0 [facility] Comment on above: Performed By: #### C MP, BNP #### [facility] [address] [place] [address] Dr. Brittani Arevalo Urea nitrogen/Creatinine [Mass ratio] 9.9 mg/mg Normal [facility] Comment on above: Performed By: #### C MP, BNP #### [facility] [address] [place] [address] Dr. Brittani Arevalo BNPon 07-15-2022 Natriuretic peptide B (Bld) [Mass/Vol] 58.0 pg/mL Normal <=450.0 [facility] Comment on above: Performed By: #### C MP, BNP #### [facility] [address] [place] [address] Dr. Brittani Arevalo CBC AUTO DIFFon 07-15-2022 BASO # 0.1 103/ul Normal 0.0-0.1 [facility] Comment on above: Performed By: #### C MP, BNP #### [facility] [address] [place] [address] Dr. Brittani Arevalo Basophils/100 WBC (Bld) 0.6 % Normal 0.2-2.0 [facility] Comment on above: Performed By: #### C MP, BNP #### [facility] [address] [place] [address] Dr. Brittani Arevalo EO # 0.1 103/ul Normal 0.0-0.7 [facility] Comment on above: Performed By: #### C MP, BNP #### [facility] [address] [place] [address] Dr. Brittani Arevalo Eosinophils/100 WBC (Bld) 1.1 % Normal 0.9-7.0 [facility] Comment on above: Performed By: #### C MP, BNP #### [facility] [address] [place] [address] Dr. Brittani Arevalo Erythrocyte distribution width (RBC) [Ratio] 16.4 % Critically high 11.0-15.0 [facility] Comment on above: Performed By: #### C MP, BNP #### [facility] [address] [place] [address] Dr. Brittani Arevalo Hematocrit (Bld) [Volume fraction] 37.4 % Normal 36.0-48.0 [facility] Comment on above: Performed By: #### C MP, BNP #### [facility] [address] [place] [address] Dr. Brittani Arevalo Hemoglobin (Bld) [Mass/Vol] 11.3 g/dL Critically low 12.0-16.0 [facility] Comment on above: Performed By: #### C MP, BNP #### [facility] [address] [place] [address] Dr. Brittani Arevalo IG # 0.02 10e3/ul Normal 0.00-0.03 [facility] Comment on above: Performed By: #### C MP, BNP #### [facility] [address] [place] [address] Dr. Brittani Arevalo IG % 0.2 % Normal 0.0-0.5 [facility] Comment on above: Performed By: #### C MP, BNP #### [facility] [address] [place] [address] Dr. Brittani Arevalo LYMPH # 2.5 103/ul Normal 1.2-3.8 [facility] Comment on above: Performed By: #### C MP, BNP #### [facility] [address] [place] [address] Dr. Brittani Arevalo Lymphocytes/100 WBC (Bld) 29.0 % Normal 20.5-60.0 [facility] Comment on above: Performed By: #### C MP, BNP #### [facility] [address] [place] [address] Dr. Brittani Arevalo MANUAL DIFF REQ NO Normal [facility] Comment on above: Performed By: #### C MP, BNP #### [facility] [address] [place] [address] Dr. Brittani Arevalo MCH (RBC) [Entitic mass] 23.5 pg Critically low 26.7-34 .0 [facility] Comment on above: Performed By: #### C MP, BNP #### [facility] [address] [place] [address] Dr. Brittani Arevalo MCHC (RBC) [Mass/Vol] 30.2 g/dL Normal 29.9-35.2 [facility] Comment on above: Performed By: #### C MP, BNP #### [facility] [address] [place] [address] Dr. Brittani Arevalo MCV (RBC) [Entitic vol] 77.8 fL Critically low 81.0-99. 0 [facility] Comment on above: Performed By: #### C MP, BNP #### [facility] [address] [place] [address] Dr. Brittani Arevalo MONO # 0.4 103/ul Normal 0.3-0.8 [facility] Comment on above: Performed By: #### C MP, BNP #### [facility] [address] [place] [address] Dr. Brittani Arevalo Monocytes/100 WBC (Bld) 4.9 % Normal 1.7-12.0 [facility] Comment on above: Performed By: #### C MP, BNP #### [facility] [address] [place] [address] Dr. Brittani Arevalo NEUT # 5.6 103/ul Normal 1.4-6.5 [facility] Comment on above: Performed By: #### C MP, BNP #### [facility] [address] [place] [address] Dr. Brittani Arevalo Neutrophils/100 WBC (Bld) 64.2 % Normal 43.0-75.0 [facility] Comment on above: Performed By: #### C MP, BNP #### [facility] [address] [place] [address] Dr. Brittani Arevalo Platelet mean volume (Bld) [Entitic vol] 10.6 fL Normal 9.5-13.5 [facility] Comment on above: Performed By: #### C MP, BNP #### [facility] [address] [place] [address] Dr. Brittani Arevalo PLT 376 103/ul Normal 150-450 [facility] Comment on above: Performed By: #### C MP, BNP #### [facility] [address] [place] [address] Dr. Brittani Arevalo RBC 4.81 106/ul Normal 4.20-5.40 [facility] Comment on above: Performed By: #### C MP, BNP #### [facility] [address] [place] [address] Dr. Brittani Arevalo WBC 8.8 103/ul Normal 4.0-11.0 [facility] Comment on above: Performed By: #### C MP, BNP #### [facility] [address] [place] [address] Dr. Brittani Arevalo Cov[facility]-19 PCR [facility]on 06-17 SARS-CoV-2 (COVID-19) RNA BISI+probe Ql (Unsp spec) Not detected Normal NOT DETECTED [facility] Comment on above: Result Comment: When [...] for this test is supported by the Information Systems Manager of Health and Human Service's declaration that [...] Performed By: #### C MP, BNP #### [facility] [address] [place] [address] Dr. Brittani Arevalo DRUG SCREEN RAPID (URINE)on 07-15-2022 AMP Negative Normal NEGATIVE [facility] Comment on above: Performed By: #### C MP, BNP #### [facility] [address] [place] [address] Dr. Brittani Arevalo BAR Negative Normal NEGATIVE [facility] Comment on above: Performed By: #### C MP, BNP #### [facility] [address] [place] [address] Dr. Brittani Arevalo BUP Negative Normal NEGATIVE [facility] Comment on above: Performed By: #### C MP, BNP #### [facility] [address] [place] [address] Dr. Brittani Arevalo BZO Negative Normal NEGATIVE [facility] Comment on above: Performed By: #### C MP, BNP #### [facility] [address] [place] [address] Dr. Brittani Arevalo MARINO Negative Normal NEGATIVE [facility] Comment on above: Performed By: #### C MP, BNP #### [facility] [address] [place] [address] Dr. Brittani Arevalo CUT-OFFS SEE BELOW Normal [facility] Comment on above: Result Comment: AMP [...] Performed By: #### C MP, BNP #### [facility] [address] [place] [address] Dr. Brittani Arevalo DRUG CUT HEADER DRUG CLASS TEST SYSTEM CUT-OFF CONCENTRATIONS ARE FOLLOWS: Normal [facility] Comment on above: Performed By: #### C MP, BNP #### [facility] [address] [place] [address] Dr. Brittani Arevalo mAMP Negative Normal NEGATIVE [facility] Comment on above: Performed By: #### C MP, BNP #### [facility] [address] [place] [address] Dr. Brittani Arevalo MTD Negative Normal NEGATIVE [facility] Comment on above: Performed By: #### C MP, BNP #### [facility] [address] [place] [address] Dr. Brittani Arevalo OPI Negative Normal NEGATIVE [facility] Comment on above: Performed By: #### C MP, BNP #### [facility] [address] [place] [address] Dr. Brittani Arevalo OXY Negative Normal NEGATIVE [facility] Comment on above: Performed By: #### C MP, BNP #### [facility] [address] [place] [address] Dr. Brittani Arevalo PCP Negative Normal NEGATIVE [facility] Comment on above: Performed By: #### C MP, BNP #### [facility] [address] [place] [address] Dr. Brittani Arevalo PPX Negative Normal NEGATIVE [facility] Comment on above: Performed By: #### C MP, BNP #### [facility] [address] [place] [address] Dr. Brittani Arevalo TCA Negative Normal NEGATIVE [facility] Comment on above: Performed By: #### C MP, BNP #### [facility] [address] [place] [address] Dr. Brittani Arevalo THC Positive Abnormal NEGATIVE [facility] Comment on above: Performed By: #### C MP, BNP #### [facility] [address] [address] [address] Brittani Arevalo PROF CHEM 8 (BAS METB)on Anion gap [Moles/Vol] 14.3 mmol/L Normal [facility] Comment on above: Performed By: #### C MP, BNP #### [facility] [address] [place] [address] Dr. Brittani Arevalo Calcium [Mass/Vol] 9.5 mg/dL Normal 8.5-10.1 [facility] Comment on above: Performed By: #### C MP, BNP #### [facility] [address] [place] [address] Dr. Brittani Arevalo Chloride [Moles/Vol] 101 mmol/L Normal 98-107 [facility] Comment on above: Performed By: #### C MP, BNP #### [facility] [address] [place] [address] Dr. Brittani Arevalo CO2 [Moles/Vol] 26.7 mmol/L Normal 21.0-32.0 [facility] Comment on above: Performed By: #### C MP, BNP #### [facility] [address] [place] [address] Dr. Brittani Arevalo Creatinine [Mass/Vol] 0.78 mg/dL Normal 0.55-1.02 [facility] Comment on above: Performed By: #### C MP, BNP #### [facility] [address] [place] [address] Dr. Brittani Arevalo EGFR-AF EQUATORIAL GUINEAN >60 Normal >=60 [facility] Comment on above: Performed By: #### C MP, BNP #### [facility] [address] [place] [address] Dr. Brittani Arevalo EGFR-NON AF EQUATORIAL GUINEAN >60 Normal >=60 [facility] Comment on above: Performed By: #### C MP, BNP #### [facility] [address] [address] [address] Brittani Arevalo Glucose [Mass/Vol] 85 mg/dL Normal 74-106 [facility] Comment on above: Performed By: #### C MP, BNP #### [facility] [address] [place] [address] Dr. Brittani Arevalo Potassium [Moles/Vol] 4.0 mmol/L Normal 3.5-5.1 [facility] Comment on above: Performed By: #### C MP, BNP #### [facility] [address] [place] [address] Dr. Brittani Arevalo Sodium [Moles/Vol] 138 mmol/L Normal 136-145 [facility] Comment on above: Performed By: #### C MP, BNP #### [facility] [address] [place] [address] Dr. Brittani Arevalo Urea nitrogen [Mass/Vol] 7.0 mg/dL Normal 7.0-18.0 [facility] Comment on above: Performed By: #### C MP, BNP #### [facility] [address] [place] [address] Dr. Brittani Arevalo Urea nitrogen/Creatinine [Mass ratio] 9.0 mg/mg Normal [facility] Comment on above: Performed By: #### C MP, BNP #### [facility] [address] [place] [address] Dr. Brittani Arevalo TROPONIN, HIGH SENSITIVITYon 07-15-2022 HSTROP 4.5 pg/mL Normal 4.0-51.3 [facility] Comment on above: Result Comment: CUT- OFF POINTS HAVE BEEN ESTABLISHED BASED ON THE FOURTH UNIVERSAL DEFINITIONS OF MYOCARDIAL INFARCTION. THE UPPER REFERENCE LIMIT (URL) OF TROPONIN, DEFINED THE 99TH PERCENTILE OF cTnI DISTRIBUTION IN A REFERENCE POPULATION, HAS BEEN CONFIRMED THE DECISION THRESHOLD FOR CO DIAGNOSIS. Performed By: #### C MP, BNP #### [facility] [address] [place] [address] Dr. Brittani Arevalo TSHon 07-15-2022 TSH 2.488 uIU/mL Normal 0.358-3.740 [facility] Comment on above: Performed By: #### C MP, BNP #### [facility] [address] [address] [address] Brittani Arevalo XR CHEST 1 Von [...] JAYY DE ANDA Date: 2022-07-15 17:06 Normal [facility] MG MAMM SCREEN 3D SUSI CADon 07-06-2022 MG MAMM SCREEN 3D SUSI CAD Patient: KELSI THOMPSON Exam Date: 07/06/2022 : 1980 Gender:F Ordering : DR ABDIAZIZ POOLE . Admission #: [id number] Family : Order #: [id number] CLICK HERE TO VIEW EXAM RADIOLOGY REPORT PROCEDURE: MAMMOGRAM SCREENING 3D BILATERAL CAD COMPARISON: None. INDICATIONS: Screening mammography Calculator Name NCI Breast Cancer Risk Assessment Tool 5 Year Breast Cancer Risk 0.40% Lifetime Breast Cancer Risk 6.60% Personal Breast Cancer No Personal Ovarian Cancer No Treatments None Family Cancers None LOCATION: [facility] BREAST COMPOSITION: Scattered areas fibroglandular density. [...] Santana M.D. on 07/06/2022 at 14:04 Normal [facility] PAP ACOG PANEL 2: 30 to 65on 07-06-2022 . . Normal [facility] Comment on above: Result Comment: Perf ormed at: WB Performed By: #### C MP, BNP #### [facility] [address] [address] [address] Brittani Arevalo Age Gdln ACOG Testing 30-65 Normal [facility] Comment on above: Performed By: #### C MP, BNP #### [facility] [address] [address] [address] Brittani Arevalo DIAGNOSIS: Comment Normal [facility] Comment on above: Result Comment: NEGA TIVE FOR INTRAEPITHELIAL LESION OR MALIGNANCY. Performed at: WB Performed By: #### C MP, BNP #### [facility] [address] [address] [address] Brittani Arevalo HPV Aptima Negative Normal Negative [facility] Comment on above: Result Comment: This nucleic acid amplification test detects fourteen high-risk HPV types (16,18,31,33,35,39,45,51,52,56,58,59,66,68) without differentiation. Performed at: =G Performed By: #### C MP, BNP #### [facility] [address] [place] [address] Dr. Brittani Arevalo HPV Genotype Reflex Comment Normal [facility] Comment on above: Result Comment: Crit eria not met, HPV Genotype not performed. Performed at: WB Performed By: #### C MP, BNP #### [facility] [address] [place] [address] Dr. Brittani Arevalo Methodology: Comment Normal [facility] Comment on above: Result Comment: This liquid based ThinPrep(R) pap test was screened with the use of an image guided system. Performed at: WB Performed By: #### C MP, BNP #### [facility] [address] [place] [address] Dr. Brittani Arevalo Note: Comment Normal [facility] Comment on above: Result Comment: The [...] Performed By: #### C MP, BNP #### [facility] [address] [address] [address] Brittani Arevalo Performed by: Comment Normal [facility] Comment on above: Result Comment: Brid get Valdez, Vertical Boring Mill Operator (ASCP) Performed at: WB Performed By: #### C MP, BNP #### [facility] [address] [place], [place] [address] Dr. Brittani Arevalo Specimen adequacy: Comment Normal [facility] Comment on above: Result Comment: Sati sfactory for evaluation. Endocervical and/or squamous metaplastic cells (endocervical component) are present. Performed at: WB Performed By: #### C MP, BNP #### [facility] [address] [place], [place] [address] Dr. Brittani Arevalo 17-OH PROGESTERONE, LC/MSon 07-03-2022 17-OH Progesterone 45 ng/dL Normal [facility] Comment on above: Result Comment: Adul t Female Follicular 15 - 70 Luteal 35 - 290 Performed By: #### P ROGLCM #### [facility] [address] [place], [place] [address] Dr. Brittani Arevalo DHEA SERUMon 07-01-2022 Dehydroepiandrosterone (DHEA) 81 ng/dL Normal [facility] Comment on above: Result Comment: Age [...] 402 Performed By: #### Nikky ANDERSON. #### [facility] [id number] Brittani Arevalo DHEA-SULFATEon 06-29-2022 DHEA-Sulfate 19.4 ug/dL Critically low 57.3-279.2 [facility] Comment on above: Performed By: #### Nikky SANTOS #### [facility] [address] [place], [place] [address] Dr. Brittani Arevalo FSHon 06-29-2022 FSH 17.5 mIU/mL Normal [facility] Comment on above: Result Comment: Adul t Female: Follicular phase 3.5 - 12.5 Ovulation phase 4.7 - 21.5 Luteal phase 1.7 - 7.7 Postmenopausal 25.8 - 134.8 Performed By: #### C MP, BNP #### [facility] [address] [place] [address] Dr. Brittani Arevalo LUTEINIZING HORMONE (LH)on 0 06-29-2022 LH 13.1 mIU/mL Normal [facility] Comment on above: Result Comment: Adul t Female: Follicular phase 2.4 - 12.6 Ovulation phase 14.0 - 95.6 Luteal phase 1.0 - 11.4 Postmenopausal 7.7 - 58.5 Performed By: #### L BCLH #### [facility] [address] [place] [address] Dr. Brittani Arevalo CBC AUTO DIFFon 06-28-2022 BASO # 0.1 103/ul Normal 0.0-0.1 [facility] Comment on above: Performed By: #### C BC #### [facility] [address] [place] [address] Dr. Brittani Arevalo Basophils/100 WBC (Bld) 1.0 % Normal 0.2-2.0 [facility] Comment on above: Performed By: #### C BC #### [facility] [address] [place] [address] Dr. Brittani Arevalo EO # 0.1 103/ul Normal 0.0-0.7 [facility] Comment on above: Performed By: #### C BC #### [facility] [address] [place] [address] Dr. Brittani Arevalo Eosinophils/100 WBC (Bld) 1.5 % Normal 0.9-7.0 [facility] Comment on above: Performed By: #### C BC #### [facility] [address] [place] [address] Dr. Brittani Arevalo Erythrocyte distribution width (RBC) [Ratio] 16.4 % Critically high 11.0-15.0 [facility] Comment on above: Performed By: #### C BC #### [facility] [address] [place] [address] Dr. Brittani Arevalo Hematocrit (Bld) [Volume fraction] 33.1 % Critically low 36.0-48.0 [facility] Comment on above: Performed By: #### C BC #### [facility] [address] [place] [address] Dr. Brittani Arevalo Hemoglobin (Bld) [Mass/Vol] 9.8 g/dL Critically low 12.0-16.0 [facility] Comment on above: Performed By: #### C BC #### [facility] [address] [place] [address] Dr. Brittani Arevalo IG # 0.01 10e3/ul Normal 0.00-0.03 [facility] Comment on above: Performed By: #### C BC #### [facility] [address] [place] [address] Dr. Brittani Arevalo IG % 0.2 % Normal 0.0-0.5 [facility] Comment on above: Performed By: #### C BC #### [facility] [address] [place] [address] Dr. Brittani Arevalo LYMPH # 2.7 103/ul Normal 1.2-3.8 [facility] Comment on above: Performed By: #### C BC #### [facility] [address] [place] [address] Dr. Brittani Arevalo Lymphocytes/100 WBC (Bld) 44.2 % Normal 20.5-60.0 [facility] Comment on above: Performed By: #### C BC #### [facility] [address] [place] [address] Dr. Brittani Arevalo MANUAL DIFF REQ NO Normal [facility] Comment on above: Performed By: #### C BC #### [facility] [address] [place] [address] Dr. Brittani Arevalo MCH (RBC) [Entitic mass] 23.0 pg Critically low 26.7-34 .0 [facility] Comment on above: Performed By: #### C BC #### [facility] [address] [place] [address] Dr. Brittani Arevalo MCHC (RBC) [Mass/Vol] 29.6 g/dL Critically low 29.9-35.2 [facility] Comment on above: Performed By: #### C BC #### [facility] [address] [place] [address] Dr. Brittani Arevalo MCV (RBC) [Entitic vol] 77.7 fL Critically low 81.0-99. 0 [facility] Comment on above: Performed By: #### C BC #### [facility] [address] [place] [address] Dr. Brittani Arevalo MONO # 0.4 103/ul Normal 0.3-0.8 [facility] Comment on above: Performed By: #### C BC #### [facility] [address] [place] [address] Dr. Brittani Arevalo Monocytes/100 WBC (Bld) 7.1 % Normal 1.7-12.0 [facility] Comment on above: Performed By: #### C BC #### [facility] [address] [place] [address] Dr. Brittani Arevalo NEUT # 2.8 103/ul Normal 1.4-6.5 [facility] Comment on above: Performed By: #### C BC #### [facility] [address] [place] [address] Dr. Brittani Arevalo Neutrophils/100 WBC (Bld) 46.0 % Normal 43.0-75.0 [facility] Comment on above: Performed By: #### C BC #### [facility] [address] [place] [address] Dr. Brittani Arevalo Platelet mean volume (Bld) [Entitic vol] 10.6 fL Normal 9.5-13.5 [facility] Comment on above: Performed By: #### C BC #### [facility] [address] [place] [address] Dr. Brittani Arevalo PLT 411 103/ul Normal 150-450 [facility] Comment on above: Performed By: #### C BC #### [facility] [address] [place] [address] Dr. Brittani Arevalo RBC 4.26 106/ul Normal 4.20-5.40 [facility] Comment on above: Performed By: #### C BC #### [facility] [address] [address] [address] Brittani Arevalo WBC 6.2 103/ul Normal 4.0-11.0 [facility] Comment on above: Performed By: #### C BC #### [facility] [address] [place] [address] Dr. Brittani Aervalo FREE T4on 06-28-2022 Free T4 [Mass/Vol] 0.81 ng/dL Normal 0.76-1.46 [facility] Comment on above: Performed By: #### C MP, BNP #### [facility] [address] [place] [address] Dr. Brittani Arevalo GLYCOHEMOGLOBIN A1Con 2022 ADA RECOMMENDATION SEE BELOW Normal [facility] Comment on above: Result Comment: ADA RECOMMENDED LIMIT 4.0 - 6.0 ADA THERAPEUTIC TARGET < 7.0 ACTION SUGGESTED > 7.0 Performed By: #### A 1C #### [facility] [address] [place] [address] Dr. Brittani Arevalo Glucose [Mass/Vol] 123 mg/dL Normal [facility] Comment on above: Performed By: #### A 1C #### [facility] [address] [place] [address] Dr. Brittani Arevalo HbA1c (Bld) [Mass fraction] 5.9 % Normal 4.5-6.2 [facility] Comment on above: Performed By: #### A 1C #### [facility] [address] [place] [address] Dr. Brittani Arevalo TSHon 06-28-2022 TSH 2.736 uIU/mL Normal 0.358-3.740 [facility] Comment on above: Performed By: #### C MP, BNP #### [facility] [address] [place] [address] Dr. Brittani Arevalo US PELVIS AND TRANSVAGon [...] by: LUAN SANTANA Date: 2022-06-28 12:16 Normal [facility] Outside Colonoscopyon 2020 Outside Colonoscopy [id number] 2#1.00CD:127 Normal [facility] Pathology Noteon 07-03-2020 Pathology Note [id number] B3#1.00CD:127 Normal [facility] Provider Letter FTMCon 06-25 Provider Letter [facility] Miriam Spence, [address] [place] [address] Re: KELSI JOHNSON Date of : 1980 [...] Sincerely, Dedrick Baker MD General Surgery Normal [facility] Consent for Procedure/Surger yon 06-19-2020 Consent for Procedure/Surgery [id number] FE#1.00CD:127 Normal [facility] Ambulatory Clinical Summaryo n 06-18-2020 Ambulatory Clinical Summary {[id number] Normal [facility] Physician Referralon 021 Physician Referral [id number] 94#1.00CD:127 Normal [facility] Cardiovascular Lab Reporton 12-12-2018 Cardiovascular Lab Report [facility] MR #: [id number] Department of Physician: Guilherme Pizano M.D. Division of Service Date: 12/11/2018 Cardiology Birthdate: 1980 Adult Cardiovascular Room #: [id number] [address] Cardiovascular Laboratory Report INDICATION: The patient is [...] signed informed consent. She was brought to woods laborer in a fasting state. The right groin area was prepped and draped in usual fashion. Using micropuncture technique, the right common femoral artery was accessed. The inner cannula was advanced. Limited right femoral angiography was performed followed by upsizing to a 5-Citizen [place] x 11 cm sheath. A straight 5[place] pigtail catheter was advanced into the abdominal aorta. Abdominal aortography was performed using power injection of contrast and digital subtraction angiography. A C1 5[place] cobra catheter was then advanced to the [...] Pizano M.D. Date Trans: 12/12/2018 05:13 Ren/dhara [id number] cc: Miriam Spence M.D. [address] [facility] [id number] Normal [facility] Encounters Encounter Date Encounter Type Care Provider Facility Start: 05-11-2023 End: 05-11-2023 ambulatory ANNABEL HUFFMAN [facility] Start: 04-27-2023 End: 04-27-2023 ambulatory [facility] Start: 03-29-2023 End: 03-29-20[facility] 03-06-2023 ambulatory Grant Nixon acility:[facility] Start: 01-31-2023 End: 01-31-2023 ambulatory [facility] Start: 12-28-2022 End: 12-28-2022 ambulatory [facility] Start: 11-28-2022 End: 11-28-2022 ambulatory [facility] Start: 11-04-2022 End: 11-04-2022 ambulatory [facility] Start: 07-22-2022 End: 07-22-[address] ABDIAZIZ POOLE . Facility:[facility] Start: 07-20-2022 Encounter for preprocedural cardiovascular examination DR MIRIAM SPENCE . [facility] Start: 07-18-2022 Encounter for preprocedural cardiovascular examination DR ABDIAZIZ POOLE . [facility] Start: 07-15-2022 End: 07-16-[address] MIRIAM SPENEC . Facility:[facility] Start: 07-15-2022 End: 07-16-[address] ABDIAZIZ POOLE . Facility:[facility] Start: 07-15-2022 End: 07-16-2022 Encounter for preprocedural cardiovascular examination DR ABDIAZIZ POOLE . Facility:[facility] Start: 07-06-2022 End: 07-07-[address] ABDIAZIZ POOLE . Facility:[facility] Start: 06-28-2022 End: 06-29-[address] ABDIAZIZ POOLE . Facility:[facility] Start: 12-11-2018 End: 12-12-2018 Patient encounter procedure PROVIDER UNKNOWN Facility:[facility] Procedures Date Procedure Procedure Detail Performing Clinician Start: 11-28-2022 Follow-up visit Follow-up ABI ZARAGOZA Payers Date Payer Category Payer Self-pay 2018 Unknown [id number] 1980 Unknown [id number] 2.16.8 [id number] 1980 Unknown [id number] 2.16.84 [id number] 1980 Unknown [id number] 2.16.84 [id number] 1980 Unknown [id number] 2.16.84 [id number] 1980 Unknown [id number] 2.16.84 [id number] 1980 Unknown [id number] 2.16.84 [id number] 1980 Unknown [id number] 2.16.84 [id number] 1959 Unknown [id number] 1959 Unknown [id number] Unknown [id number] 2.16.8 [id number] Clinical Notes 06-18-2020 to 05-11-2023 Note Date & Type Note Facility 05-11-2023 Note Attestation signed by Pippa Srivastava MD at 05/12/2023 12:31 PM I personally saw and examined the patient on the same date of service as resident/fellow . I discussed the findings and therapeutic plan with the resident/fellow . I agree with the documentation, except for any edits/updates below. 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 No tobacco, alcohol, or drug use. Patient [...] and visual disturbance. (more content not included)... [facility] 04-27-2023 Note Cardiovascular Medic [facility] SUBJECTIVE Chief Complaint Patient presents with [...] mg daily, amlodi (more content not included)... [facility] 04-27-2023 Note Patient here for 1 [...] All other systems reviewed and are negative. [facility] 03-29-2023 Note Cardiovascular Medic [facility] SUBJECTIVE Chief Complaint Patient presents [...] 04/29/2023). Rock Pearson NP [facility] Cardiovascular Medicine [facility] 03-29-2023 Note Patient here for 2 [...] All other systems reviewed and are negative. [facility] 01-31-2023 Note Cardiology Clinic No te [...] in 4 weeks, or sooner as needed Aib Zaragoza MD Interventional Cardiology [facility] 01-31-2023 Note Patient here for 1 m o follow up hypertension and palpitations. She did see endocrinology and CT adrenal glands was ordered. She is scheduled for this tomorrow at [facility]. Says she can barely stay awake throughout the day and is dangerously tired. [facility] 12-28-2022 Note Patient here for 1 m o follow up hypertension and medication changes. Spironolactone was increased to 50mg, and amlodipine was added at last apt. She has an upcoming apt with endocrinology. Says lightheadedness and SOB w/ exertion are improving. [facility] 12-28-2022 Note Cardiology Clinic No te [...] as needed Abi Zaragoza MD Interventional Cardiology [facility] 11-28-2022 Note Cardiology Clinic No [...] as needed Abi Zaragoza MD Interventional Cardiology [facility] 11-04-2022 Note Cardiology Clinic No [...] significant caffeine consumption. No alcohol consumption. No esvr-hov-viygugg medication usage. She denies any history of [...] instructed to c (more content not included)... [facility] 11-04-2022 Note New patient here to re-establish care. Ref from Dr. Spence for hypertension and palpitations. Says her BP lately has been 250's systolic. Had renal US and labs a few weeks ago. Review of Systems Cardiovascular: Positive for dyspnea on exertion and palpitations. Neurological: Positive for headaches and light-headedness. All other systems reviewed and are negative. [facility] 07-22-2022 Note OPERATIVE NOTE OPERATION DATE: 07/22/2022 PROCEDURE: Carrie endometrial ablation with hysteroscopy with robotic assisted bilateral laparoscopic salpingectomy, and right ovarian cystotomy performed with the Vessel Sealer. PREOPERATIVE DIAGNOSIS: Menorrhagia, dyspareunia, dysmenorrhea, desires permanent sterilization. POSTOPERATIVE DIAGNOSIS: Menorrhagia, dyspareunia, dysmenorrhea, desires permanent sterilization. ANESTHESIA: General. SURGEON: Abdiaziz Poole D.O. LANDSCAPE LABORER: ARMANDO Heredia URINE OUTPUT: Yellow and clear. [...] and needle counts were correct x2. [facility] 06-18-2020 Note HPI Staff 39 year [...] 1-2 times pe (more content not included)... [facility] Comment on above: Result Comment: Elec [...] including vitamins, herbs, eye drops, creams, and amvi-snh-bywlruv medicines. ? Any problems you or family [...] tells you to take them. ? Taking gwvp-som-lhhhkfj medicines, vitamins, herbs, and supplements. General instructions [...] Document Revised: 09/27/19 (more content not included)... [facility] Summary Purpose Family History No Family [...] and content) DATE CREATED AUTHOR 12/20/2018 [facility] DATE CREATED AUTHOR AUTHOR'S ORGANIZ ATION 10/01/2020 [facility] DATE CREATED AUTHOR AUTHOR'S ORGANIZ ATION 08/05/2022 [facility] DATE CREATED AUTHOR AUTHOR'S ORGANIZ ATION 05/15/2023 [facility] DATE CREATED AUTHOR AUTHOR'S ORGANIZ ATION 05/15/2023 [facility] FOR RECORDS PERTAINING TO PATIENTS WHO [...] BE BASED ON THE PRIMARY CLINICAL RECORDS. [employer] [facility]. provides no warranty or guarantee of the accuracy or completeness of information in this document.
[2023-06-08 15:31] LABS: BUN Creatinine Ratio 10.2; Calcium 9.6 mg/dL (8.5-10.1); Carbon Dioxide 27.5 mmol/L (21.0-32.0); Chloride 100 mmol/L (98-107); Estimated GFR (African America >60 (>=60); Estimated GFR (Non-African Ame >60 (>=60); Glucose 107 mg/dL (74-106); Potassium 4.5 mmol/L (3.5-5.1); Sodium 137 mmol/L (136-145)
[2023-06-19 19:07] LABS: Metanephrine, Pl 25.7 pg/mL (0.0-88.0); Normetanephrine, Pl 101.1 pg/mL (0.0-218.9)
== END 2023-06-08 13:50 | disposition home or self-care (01) ==
LOC: LAB 13:51
PROVIDERS: PCP Family Medicine; Visit Provider Internal Medicine
DX: I70.1 Atherosclerosis of renal artery (principal); I10 Essential (primary) hypertension
CPT/HCPCS: 36415; 80048; 82533; 83835

== ENCOUNTER 2023-06-13 14:37 | Outpatient (OUT) | payer OTHER, SELFPAY ==
[2023-06-14 15:08] LABS: Lyme Total Antibody CIA Negative (Negative)
== END 2023-06-13 14:38 | disposition home or self-care (01) ==
LOC: LAB 14:38
PROVIDERS: PCP Family Medicine; Visit Provider Nurse Practitioner Family
DX: R63.5 Abnormal weight gain (principal); R53.83 Other fatigue; L65.9 Nonscarring hair loss, unspecified
CPT/HCPCS: 36415; 86618

== ENCOUNTER 2024-01-06 12:26 | Outpatient (OUT) | payer OTHER, SELFPAY ==
--- OUTSIDE RECORDS SUMMARY | 2024-01-06 12:28 | XMS_ITS | CCD ---
Author Organization [facility] CliniSyor Care Team Providers Care Senior Site Manager Name Role Phone UNKNOWN, PROVIDER Admitting Unavailable UNKNOWN, PROVIDER Attending Unavailable MIRIAM SPENCE Referring Unavailable MIRIAM SPENCE Primary Care Unavailable LYNDA ., DR FREED [...] Consulting Unavailable PRAMOD GRUBER Consulting Unavailable CHINEDU IILATISHA Consulting Unavailable LYNDA ., DR FREED Attending [...] Admitting Unavailab Miriam Mulligan Primary Care Unavailable ANNABEL HUFFMAN Attending Unavailable ANNABEL HUFFMAN Attending Unavailable ABI ZARAGOZA Attending Unavailable ILIANA MANCUSO Attending Unavailable ABI ZARAGOZA Attending Unavailable ROCK PEARSON Attending Unavailable ROCK PEARSON Attending Unavailable ROCK PEARSON Attending Unavailable Allergies Allergy Classification Reported Allergen(s) Allergy Type Date of Onset Reaction(s) Facility (1 source) Iodine (And Iodine Containting Drugs) Drug allergy (disorder) 04-17-1991 [facility] Repository (1 source) Metoprolol Drug Allergy 04-17-2022 [facility] Repository (1 source) Iodinated Contrast Media Drug allergy (disorder) 09-20-2017 [facility] Repository Problems Active Problems Problem Classification Problem Date Documented Da te Episodic/Chronic Cardiac dysrhythmias (2 sources) Palpitations; Translations: [Palpitations] Onset: 11-03-2022 Episodic Contraceptive and procreative management (5 sources) Encounter for sterilization; Translations: [ENCOUNTER FOR STERILIZATION] Onset: 07-18-2022 Episodic Essential hypertension (4 sources) Essential (primary) hypertension; Translations: [ESSENTIAL PRIMARY HYPERTENSION] Onset: 07-20-2022 Chronic Headache; including migraine (4 sources) Headache; including migraine; Translations: [HEADACHE UNSPECIFIED] Onset: 07-15-2022 Hypertension with complications and secondary hypertension (2 sources) Hypertensive heart disease without heart failure; Translations: [Hypertensive heart disease without heart failure] Onset: 01-31-2023 Chronic Menstrual disorders (2 sources) Excessive and frequent menstruation with regular cycle; Translations: [Irregular menstruation, unspecified] Onset: 08-04-2022 Chronic Other aftercare (1 source) Other long distance billing operator (current) drug therapy; Translations: [OTH [facility] CURRENT DRUG THERAPY] Onset: 07-20-2022 Episodic Other [...] BMI 30.0-30.9 ADULT] Onset: 07-20-2022 Chronic Other screening for suspected conditions (not mental disorders or infectious disease) (8 sources) Encounter for screening mammogram for malignant neoplasm of breast; Translations: [Encounter for screening for malignant neoplasm of cervix] Onset: 06-28-2022 Episodic Ovarian cyst (1 source) Unspecified ovarian cyst, right side; Translations: [UNSPECIFIED OVARIAN CYST RIGHT SIDE] Onset: 08-04-2022 Episodic Substance-related disorders (1 source) Cannabis use, unspecified, uncomplicated; Translations: [CANNABIS USE UNS UNCOMPLICATED] Onset: 07-20-2022 Episodic Unclassified (1 source) CONTACT W/AND (SUSP) EXPOS COVID-19; Translations: [CONTACT W/AND (SUSP) EXPOS COVID-19] Onset: 07-20-2022 Unclassified (1 source) Resistant hypertension; Translations: [Resistant hypertension] Onset: 11-03-2022 Past or Other Problems Problem Classification Problem Date Documented Da te Episodic/Chronic Malaise and fatigue (2 sources) Other fatigue; Translations: [Other fatigue] Onset: 05-11-2023 Episodic Other connective tissue disease (2 sources) Fibromyalgia; Translations: [Fibromyalgia] Onset: 07-06-2023 Episodic Other connective tissue disease (2 sources) Other specified soft tissue disorders; Translations: [Other specified soft tissue disorders] Onset: 05-11-2023 Episodic Other non-traumatic joint disorders (2 sources) Pain in unspecified joint; Translations: [Pain in unspecified joint] Onset: 05-11-2023 Episodic Other nutritional; endocrine; and metabolic disorders (2 sources) Abnormal weight gain; Translations: [Abnormal weight gain] Onset: 03-29-2023 Episodic Other skin disorders (2 sources) Nonscarring hair loss, unspecified; Translations: [Nonscarring hair loss, unspecified] Onset: 06-13-2023 Episodic Residual codes; unclassified (2 sources) Edema, unspecified; Translations: [Edema, unspecified] Onset: 04-27-2023 Episodic Unclassified (1 source) Resistant hypertension; Translations: [Resistant hypertension] Onset: 04-27-2023 Results Test Name Value Interpretation Reference Range Facility 37 12-27-2023 37 Medication recommendations as follows: Start Clonidine 0.1 mg twice daily to help with PTSD symptoms. We discussed the risks, benefits, side effects, and alternatives to Clonidine including but not limited to, dizziness, low blood pressure, feeling tired or irritability, trouble sleeping, dry mouth, increased anxiety or nervousness, and possible risk of hallucinations, especially in children. Patient expressed understanding of these risks, benefits and alternatives to starting said medication, and expresses a clear desire to start this medication. Follow up appointment in 2-3 months or sooner if needed Risks, benefits and alternatives to treatment were discussed with the patient/guardian, who voiced understanding and agreement with the treatment plan. Updating all prescribers with current medication list is essential, including prescribed and over the counter medications as all medications may have interactions and side effects. Follow up regularly with primary care provider for well visits and any physical health concerns including issues with physical pain. Follow up as required with medical specialists for management of chronic health conditions. Abstinence from alcohol and drugs is important.These substances may significant negative effects on cognitive and emotional functioning, and there are interactions between these substances and prescribed medications. Any medications taken during can have adverse effects on , development, & of a child. Treatment with psychotropic medications requires regular monitoring and follow up to ensure safety and effectiveness.It is important to attend regularly scheduled appointments and to keep in contact with providers as needed between scheduled follow up appointments (patient portal or [phone]). There is a residential sales consultant scrap iron cutter outside of normal business hours through the [facility] hospital movie machine operator ([phone]). Use 911, Crisis Care Crisis CARE Services (288-625-VGAJ), your local [facility] crisis hotline, national suicide prevention lifeline 988 or the nearest emergency room in the event of a crisis. Clinic Rules -Clinic rules include the no show policy, that termination from the clinic can be the result of missing 2 appointments in a row or 3 appointments in any 12 month period through either no-shows or cancellations with less than 24 hours' notice. Patient expressed understanding. - My information given to the patient and informed my hours, from 8:30am to 4:30pm and should get back to the patient within 24 business hours. Patient expressed understanding. - Patient made aware that in case of emergency-thoughts of , of self or others or patient begins experiencing side effects or hallucinations, call 911 or go to the closest emergency room. Patient expressed understanding. - Patient was also made aware of 24 hour access to psychiatric care available through [facility] Psychiatry clinic - call [phone] to leave a message with the physician (regular office hours are Marky-Monday 8:30am-4:30pm), and for emergencies after hours or on weekends call the hospital movie machine operator at [phone] and ask to talk to on-call president [place] physician. Normal [facility] Office Visiton 12-27-2023 Follow-up visit [id number] Elizabeth,Kelsi M 1980 Date Provider Department Center 12/27/2023 4037-MOSHE TRIPP [facility] Family History Problem Relation Age of Onset Hypertension Mother Hypertension Father Family Status - Relation Status Age at Mother Father Level of Service:79854 [place] PSYCHIATRIC DIAGNOSTIC EVAL W/MEDICAL SERVICES (GC) Normal [facility] Office Visiton 11-17-2023 Follow-up visit [id number] Kelsi Johnson 1980 Provider Department Center 11/17/2023 120-ILIANA MANCUSO CARD [facility] Family History Problem Relation Age of Onset Hypertension Mother Hypertension Father Family Status - Relation Status Age at Mother Father Level of Service:09236 [place] OFFICE/OUTPATIENT ESTABLISHED LOW MDM 20 MIN Normal [facility] Office Visiton 08-16-2023 Follow-up visit [id number] Elizabeth,Kelsi M 1980 Provider Department Center 08/16/2023 3848-ABI ZARAGOZA [facility]ARD [facility] Family History Problem Relation Age of Onset Hypertension Mother Hypertension Father Family Status - Relation Status Age at Mother Father Level of Service:15888 [place] OFFICE/OUTPATIENT ESTABLISHED LOW MDM 20 MIN [facility] Follow-Upon 07-06-2023 Follow-Up [id number] Zechariah Johnsonssluann Hodge 1980 F Date Provider Department Center 07/06/2023 ANNABEL ZACARIAS [facility] RHEUM [facility] Family History Problem Relation Age of Onset Hypertension Mother Hypertension Father Family Status - Relation Status Age at Mother Father Level of Service:07991 [place] OFFICE/OUTPATIENT ESTABLISHED MOD MDM 30 MIN (GC) Reason for Visit and Comments: Follow-up [753665] - 2 week follow up [facility] 36on 06-16-2023 36 Regarding lab results from 06/03/2023: MARVIN Luke MA Please let her know her lyme disease lab test was negative. Thanks MARVIN Luke MA Please also let her know that I spoke with Dr. Zaragoza and he didn't have any further recommendations besides following up with endocrinology. Thanks LM on patient's VM. Normal [facility] Office Visiton 06-13-2023 Follow-up visit [id number] Kelsi Johnson 1980 F Date Provider Department Center 06/13/2023 166-ROCK PEARSON CARD [facility] Family History Problem Relation Age of Onset Hypertension Mother Hypertension Father Family Status - Relation Status Age at Mother Father Level of Service:78296 [place] OFFICE/OUTPATIENT ESTABLISHED MOD MDM 30 MIN Reason for Visit and Comments: Hypertension [869061] [facility] Orders Onlyon 06-12-2023 Orders Only [id number] Kelsi Johnson 1980 F Date Provider Department Center 06/12/2023 GALE SIMPSON [facility] R[facility]UM [facility] Family History Problem Relation Age of Onset Hypertension Mother Hypertension Father Family Status - Relation Status Age at Mother Father [facility] 36on 05-12-2023 36 Lab called to state that there was not enough blood to draw four of the lab orders. Pt was contacted and requested those orders be sent to the [facility]. Lab orders sent with confirmation received Normal [facility] C-REACTIVE PROTEINon 024 C REACTIVE PROTEIN (MG/L) IN SER/PLAS 2.1 mg/L Normal 0.0-7.0 [facility] Comment on above: Performed By: #### L [id number] #### [facility] (BEAKER) [address] [place] [address] CYCLIC CITRUL PEPTIDE ANTIBO DY, IGG AND IGAon 05-11-2023 CYCLIC CITRULLINATED PEPTIDE AB, IGG/A 4 Units Normal 0-19 [facility] Comment on above: Result Comment: INTE RPRETIVE [...] be monitored and testing repeated. Performed By: [employer] [address] [place] [address] Telecommunications Sales Representative: Williams Escobar MD, PhD CLIA Number: [id number] Performed By: #### L AB851 ####[employer] [facility] [place] [address] Office Visiton 05-11-2023 Follow-up visit [id number] Kelsi Johnson 1980 Date Provider Department Center 05/11/2023 Dane-ANNABEL HUFFMAN [facility] RHEUM [facility] Family History Problem Relation Age of Onset Hypertension Mother Hypertension Father Family Status - Relation Status Age at Mother Father Level of Service:64909 [place] OFFICE/OUTPATIENT NEW MODERATE MDM 45 MINUTES (GC) Reason for Visit and Comments: New Patient [632] - 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 Other fatigue Unexplained weight gain Normal [facility] Orders Onlyon 05-11-2023 Orders Only [id number] Kelsi Johnson 1980 Date Provider Department Center 05/11/2023 DEB JACOBO [facility] RHEUM [facility] Family History Problem Relation Age of Onset Hypertension Mother Hypertension Father Family Status - Relation Status Age at Mother Father Normal [facility] RHEUMATOID FACTORon 05-11-19 24 Rheumatoid factor Qn [IU]/mL Normal 0-20 [facility] Comment on above: Performed By: #### L [id number] ####[facility] ([facility])[address] [place] [address] SEDIMENTATION RATEon 024 SEDIMENTATION RATE, ERYTHROCYTE 8 mm/hr Normal <=20 [facility] Comment on above: Performed By: #### L AB322 ####[facility] ([facility])[address] [place] [address] Office Visiton 04-27-2023 Follow-up visit [id number] Kelsi Johnson 1980 Provider Department Center 04/27/2023 166ROCK SEARS Family History Problem Relation Age of Onset Hypertension Mother Hypertension Father Family Status - Relation Status Age at Mother Father Level of Service:06084 [place] OFFICE/OUTPATIENT ESTABLISHED MOD MDM 30 MIN Reason for Visit and Comments: Hypertension [750278] Fatigue [46] Normal [facility] Office Visiton 03-29-2023 Follow-up visit [id number] ElizabethKelsi 1980 Provider Department Center 03/29/2023 166ROCK SEARS Family History Problem Relation Age of Onset Hypertension Mother Hypertension Father Family Status - Relation Status Age at Mother Father Level of Service:68542 [place] OFFICE/OUTPATIENT ESTABLISHED MOD MDM 30-39 MIN Reason for Visit and Comments: Hypertension [703447] Fatigue [46] Normal [facility] Office Visiton 01-31-2023 Follow-up visit [id number] Kelsi Johnson 1980 Provider Department Center 01/31/2023 [facility] Family History Problem Relation Age of Onset Hypertension Mother Hypertension Father Family Status - Relation Status Age at Mother Father Level of Service:14242 [place] OFFICE/OUTPATIENT ESTABLISHED LOW MDM 20-29 MIN Normal [facility] CBC AUTO DIFFon 07-22-2022 BASO # 0.1 103/ul Normal 0.0-0.1 [facility] Comment on above: Performed By: #### C BC #### [facility] [address] [address] [address] Brittani Arevalo Basophils/100 WBC (Bld) 0.9 % Normal 0.2-2.0 [facility] Comment on above: Performed By: #### C BC #### [facility] [address] [address] [address] Brittani Arevalo EO # 0.1 103/ul Normal 0.0-0.7 [facility] Comment on above: Performed By: #### C BC #### [facility] [address] [place] [address] Dr. Brittani Arevalo Eosinophils/100 WBC (Bld) 1.5 % Normal 0.9-7.0 [facility] Comment on above: Performed By: #### C BC #### [facility] [address] [place] [address] Dr. Brittani Arevalo Erythrocyte distribution width (RBC) [Ratio] 16.6 % Critically high 11.0-15.0 [facility] Comment on above: Performed By: #### C BC #### [facility] [address] [place] [address] Dr. Brittani Arevalo Hematocrit (Bld) [Volume fraction] 32.1 % Critically low 36.0-48.0 [facility] Comment on above: Performed By: #### C BC #### [facility] [address] [place] [address] Dr. Brittani Arevalo Hemoglobin (Bld) [Mass/Vol] 9.5 g/dL Critically low 12.0-16.0 [facility] Comment on above: Performed By: #### C BC #### [facility] [address] [place] [address] Dr. Brittani Arevalo IG # 0.01 10e3/ul Normal 0.00-0.03 [facility] Comment on above: Performed By: #### C BC #### [facility] [address] [place] [address] Dr. Brittani Arevalo IG % 0.2 % Normal 0.0-0.5 [facility] Comment on above: Performed By: #### C BC #### [facility] [address] [place] [address] Dr. Brittani Arevalo LYMPH # 2.7 103/ul Normal 1.2-3.8 [facility] Comment on above: Performed By: #### C BC #### [facility] [address] [place] [address] Dr. Brittani Arevalo Lymphocytes/100 WBC (Bld) 41.4 % Normal 20.5-60.0 [facility] Comment on above: Performed By: #### C BC #### [facility] [address] [place] [address] Dr. Brittani Arevalo MANUAL DIFF REQ NO Normal [facility] Comment on above: Performed By: #### C BC #### [facility] [address] [place] [address] Dr. Brittani Arevalo MCH (RBC) [Entitic mass] 23.4 pg Critically low 26.7-34 .0 [facility] Comment on above: Performed By: #### C BC #### [facility] [address] [place] [address] Dr. Brittani Arevalo MCHC (RBC) [Mass/Vol] 29.6 g/dL Critically low 29.9-35.2 [facility] Comment on above: Performed By: #### C BC #### [facility] [address] [place] [address] Dr. Brittani Arevalo MCV (RBC) [Entitic vol] 79.1 fL Critically low 81.0-99. 0 [facility] Comment on above: Performed By: #### C BC #### [facility] [address] [place] [address] Dr. Brittani Arevalo MONO # 0.5 103/ul Normal 0.3-0.8 [facility] Comment on above: Performed By: #### C BC #### [facility] [address] [place] [address] Dr. Brittani Arevalo Monocytes/100 WBC (Bld) 7.2 % Normal 1.7-12.0 [facility] Comment on above: Performed By: #### C BC #### [facility] [address] [place] [address] Dr. Brittani Arevalo NEUT # 3.2 103/ul Normal 1.4-6.5 [facility] Comment on above: Performed By: #### C BC #### [facility] [address] [place] [address] Dr. Brittani Arevalo Neutrophils/100 WBC (Bld) 48.8 % Normal 43.0-75.0 [facility] Comment on above: Performed By: #### C BC #### [facility] [address] [place] [address] Dr. Brittani Arevalo Platelet mean volume (Bld) [Entitic vol] 10.7 fL Normal 9.5-13.5 [facility] Comment on above: Performed By: #### C BC #### [facility] [address] [place] [address] Dr. Brittani Arevalo PLT 385 103/ul Normal 150-450 [facility] Comment on above: Performed By: #### C BC #### [facility] [address] [place] [address] Dr. Brittani Arevalo RBC 4.06 106/ul Critically low 4.20-5.40 [facility] Comment on above: Performed By: #### C BC #### [facility] [address] [place] [address] Dr. Brittani Arevalo WBC 6.6 103/ul Normal 4.0-11.0 [facility] Comment on above: Performed By: #### C BC #### [facility] [address] [place] [address] Dr. Brittani Arevalo PREG QUANT HCGon 07-22-2022 HCG QUANT 1 mIU/mL Normal [facility] Comment on above: Performed By: #### C MP, BNP #### [facility] [address] [place] [address] Dr. Brittani Arevalo HCG RANGE SEE BELOW Normal [facility] Comment on above: Result Comment: 5-50 0.2-1 WEEK 50-500 1-2 WEEKS 100-5,000 2-3 WEEKS 500-10,000 3-4 WEEKS 1,000-50,000 4-5 WEEKS 10,000-100,000 5-6 WEEKS 15,000-200,000 6-8 WEEKS 10,000-100,000 2-3 MONTHS Performed By: #### C MP, BNP #### [facility] [address] [place] [address] Dr. Brittani Arevalo BNPon 07-16-2022 Natriuretic peptide B (Bld) [Mass/Vol] 74.0 pg/mL Normal <=450.0 [facility] Comment on above: Performed By: #### C MP, BNP #### [facility] [address] [place] [address] Dr. Brittani Arevalo CBC AUTO DIFFon 07-16-2022 BASO # 0.1 103/ul Normal 0.0-0.1 [facility] Comment on above: Performed By: #### C BC #### [facility] [address] [place] [address] Dr. Brittani Arevalo Basophils/100 WBC (Bld) 0.6 % Normal 0.2-2.0 [facility] Comment on above: Performed By: #### C BC #### [facility] [address] [place] [address] Dr. Brittani Arevalo EO # 0.1 103/ul Normal 0.0-0.7 [facility] Comment on above: Performed By: #### C BC #### [facility] [address] [place] [address] Dr. Brittani Arevalo Eosinophils/100 WBC (Bld) 0.8 % Critically low 0.9-7. 0 [facility] Comment on above: Performed By: #### C BC #### [facility] [address] [place] [address] Dr. Brittani Arevalo Erythrocyte distribution width (RBC) [Ratio] 16.4 % Critically high 11.0-15.0 [facility] Comment on above: Performed By: #### C BC #### [facility] [address] [address] [address] Brittani Arevalo Hematocrit (Bld) [Volume fraction] 32.0 % Critically low 36.0-48.0 [facility] Comment on above: Performed By: #### C BC #### [facility] [address] [address] [address] Brittani Arevalo Hemoglobin (Bld) [Mass/Vol] 9.7 g/dL Critically low 12.0-16.0 [facility] Comment on above: Performed By: #### C BC #### [facility] [address] [address] [address] Brittani Arevalo IG # 0.02 10e3/ul Normal 0.00-0.03 [facility] Comment on above: Performed By: #### C BC #### [facility] [address] [place] [address] Dr. Brittani Arevalo IG % 0.2 % Normal 0.0-0.5 [facility] Comment on above: Performed By: #### C BC #### [facility] [address] [place] [address] Dr. Brittani Arevalo LYMPH # 2.5 103/ul Normal 1.2-3.8 [facility] Comment on above: Performed By: #### C BC #### [facility] [address] [place] [address] Dr. Brittani Arevalo Lymphocytes/100 WBC (Bld) 28.0 % Normal 20.5-60.0 [facility] Comment on above: Performed By: #### C BC #### [facility] [address] [place] [address] Dr. Brittani Arevalo MANUAL DIFF REQ NO Normal [facility] Comment on above: Performed By: #### C BC #### [facility] [address] [place] [address] Dr. Brittani Arevalo MCH (RBC) [Entitic mass] 23.2 pg Critically low 26.7-34 .0 [facility] Comment on above: Performed By: #### C BC #### [facility] [address] [address] [address] Brittani Arevalo MCHC (RBC) [Mass/Vol] 30.3 g/dL Normal 29.9-35.2 [facility] Comment on above: Performed By: #### C BC #### [facility] [address] [address] [address] Brittani Arevalo MCV (RBC) [Entitic vol] 76.4 fL Critically low 81.0-99. 0 [facility] Comment on above: Performed By: #### C BC #### [facility] [facility] [address] [address] [address] Brittani Arevalo MONO # 0.5 103/ul Normal 0.3-0.8 [facility] Comment on above: Performed By: #### C BC #### [facility] [address] [place] [address] Dr. Brittani Arevalo Monocytes/100 WBC (Bld) 5.7 % Normal 1.7-12.0 [facility] Comment on above: Performed By: #### C BC #### [facility] [address] [place] [address] Dr. Brittani Arevalo NEUT # 5.8 103/ul Normal 1.4-6.5 [facility] Comment on above: Performed By: #### C BC #### [facility] [address] [place] [address] Dr. Brittani Arevalo Neutrophils/100 WBC (Bld) 64.7 % Normal 43.0-75.0 [facility] Comment on above: Performed By: #### C BC #### [facility] [address] [address] [address] Brittani Arevalo Platelet mean volume (Bld) [Entitic vol] 10.5 fL Normal 9.5-13.5 [facility] Comment on above: Performed By: #### C BC #### [facility] [address] [place] [address] Dr. Brittani Arevalo PLT 328 103/ul Normal 150-450 [facility] Comment on above: Performed By: #### C BC #### [facility] [address] [place] [address] Dr. Brittani Arevalo RBC 4.19 106/ul Critically low 4.20-5.40 [facility] Comment on above: Performed By: #### C BC #### [facility] [address] [place] [address] Dr. Brittani Arevalo WBC 9.0 103/ul Normal 4.0-11.0 [facility] Comment on above: Performed By: #### C BC #### [facility] [address] [place] [address] Dr. Brittani Arevalo PROF 14(COMP METB)on 023 Albumin [Mass/Vol] 3.5 g/dL Normal 3.4-5.0 [facility] Comment on above: Performed By: #### C MP, BNP #### [facility] [address] [place] [address] Dr. Brittani Arevalo Albumin/Globulin [Mass ratio] 0.9 {ratio} Normal [facility] Comment on above: Performed By: #### C MP, BNP #### [facility] [address] [place] [address] Dr. Brittani Arevalo ALP [Catalytic activity/Vol] 61 U/L Normal 46-116 [facility] Comment on above: Performed By: #### C MP, BNP #### [facility] [address] [place] [address] Dr. Brittani Arevalo ALT [Catalytic activity/Vol] 20 U/L Normal 14-59 [facility] Comment on above: Performed By: #### C MP, BNP #### [facility] [address] [place] [address] Dr. Brittani Arevalo Anion gap [Moles/Vol] 14.6 mmol/L Normal [facility] Comment on above: Performed By: #### C MP, BNP #### [facility] [address] [place] [address] Dr. Brittani Arevalo AST [Catalytic activity/Vol] 13 U/L Critically low 15-37 [facility] Comment on above: Performed By: #### C MP, BNP #### [facility] [address] [place] [address] Dr. Brittani Arevalo Bilirubin [Mass/Vol] 0.2 mg/dL Normal 0.2-1.0 [facility] Comment on above: Performed By: #### C MP, BNP #### [facility] [address] [place] [address] Dr. Brittani Arevalo Calcium [Mass/Vol] 9.1 mg/dL Normal 8.5-10.1 [facility] Comment on above: Performed By: #### C MP, BNP #### [facility] [address] [place] [address] Dr. Brittani Arevalo Chloride [Moles/Vol] 102 mmol/L Normal 98-107 [facility] Comment on above: Performed By: #### C MP, BNP #### [facility] [address] [place] [address] Dr. Brittani Arevalo CO2 [Moles/Vol] 24.2 mmol/L Normal 21.0-32.0 [facility] [place] [facility] Comment on above: Performed By: #### C MP, BNP #### [facility] [address] [place] [address] Dr. Brittani Arevalo Creatinine [Mass/Vol] 0.91 mg/dL Normal 0.55-1.02 [facility] Comment on above: Performed By: #### C MP, BNP #### [facility] [address] [place] [address] Dr. Brittani Arevalo EGFR-AF BURKINAN >60 Normal >=60 [facility] Comment on above: Performed By: #### C MP, BNP #### [facility] [address] [place] [address] Dr. Brittani Arevalo EGFR-NON AF BURKINAN >60 Normal >=60 [facility] Comment on above: Performed By: #### C MP, BNP #### [facility] [address] [place] [address] Dr. Brittani Arevalo Globulin (S) [Mass/Vol] 3.8 g/dL Normal T [facility] [place] Comment on above: Performed By: #### C MP, BNP #### [facility] [address] [place] [address] Dr. Brittani Arevalo Glucose [Mass/Vol] 118 mg/dL Critically high 74-106 T [facility] [place] Comment on above: Performed By: #### C MP, BNP #### [facility] [address] [place] [address] Dr. Brittani Arevalo Potassium [Moles/Vol] 3.8 mmol/L Normal 3.5-5.1 [facility] Comment on above: Performed By: #### C MP, BNP #### [facility] [address] [place] [address] Dr. Brittani Arevalo Protein [Mass/Vol] 7.3 g/dL Normal 6.4-8.2 [facility] Comment on above: Performed By: #### C MP, BNP #### [facility] [address] [place] [address] Dr. Brittani Arevalo Sodium [Moles/Vol] 137 mmol/L Normal 136-145 [facility] Comment on above: Performed By: #### C MP, BNP #### [facility] [address] [place] [address] Dr. Brittani Arevalo Urea nitrogen [Mass/Vol] 9.0 mg/dL Normal 7.0-18.0 [facility] Comment on above: Performed By: #### C MP, BNP #### [facility] [address] [place] [address] Dr. Brittani Arevalo Urea nitrogen/Creatinine [Mass ratio] 9.9 mg/mg Normal [facility] Comment on above: Performed By: #### C MP, BNP #### [facility] [address] [place] [address] Dr. Brittani Arevalo BNPon 07-15-2022 Natriuretic peptide B (Bld) [Mass/Vol] 58.0 pg/mL Normal <=450.0 [facility] Comment on above: Performed By: #### C MP, BNP #### [facility] [address] [place] [address] Dr. Brittani Arevalo CBC AUTO DIFFon 07-15-2022 BASO # 0.1 103/ul Normal 0.0-0.1 [facility] Comment on above: Performed By: #### C MP, BNP #### [facility] [address] [place] [address] Dr. Brittani Arevalo Basophils/100 WBC (Bld) 0.6 % Normal 0.2-2.0 [facility] Comment on above: Performed By: #### C MP, BNP #### [facility] [address] [place] [address] Dr. Brittani Arevalo EO # 0.1 103/ul Normal 0.0-0.7 [facility] Comment on above: Performed By: #### C MP, BNP #### [facility] [address] [place] [address] Dr. Brittani Arevalo Eosinophils/100 WBC (Bld) 1.1 % Normal 0.9-7.0 [facility] Comment on above: Performed By: #### C MP, BNP #### [facility] [address] [place] [address] Dr. Brittani Arevalo Erythrocyte distribution width (RBC) [Ratio] 16.4 % Critically high 11.0-15.0 [facility] Comment on above: Performed By: #### C MP, BNP #### [facility] [address] [place] [address] Dr. Brittani Arevalo Hematocrit (Bld) [Volume fraction] 37.4 % Normal 36.0-48.0 [facility] Comment on above: Performed By: #### C MP, BNP #### [facility] [address] [place] [address] Dr. Brittani Arevalo Hemoglobin (Bld) [Mass/Vol] 11.3 g/dL Critically low 12.0-16.0 [facility] Comment on above: Performed By: #### C MP, BNP #### [facility] [address] [place] [address] Dr. Brittani Arevalo IG # 0.02 10e3/ul Normal 0.00-0.03 [facility] Comment on above: Performed By: #### C MP, BNP #### [facility] [address] [place] [address] Dr. Brittani Arevalo IG % 0.2 % Normal 0.0-0.5 [facility] Comment on above: Performed By: #### C MP, BNP #### [facility] [address] [place] [address] Dr. Brittani Arevalo LYMPH # 2.5 103/ul Normal 1.2-3.8 [facility] Comment on above: Performed By: #### C MP, BNP #### [facility] [address] [place] [address] Dr. Brittani Arevalo Lymphocytes/100 WBC (Bld) 29.0 % Normal 20.5-60.0 [facility] Comment on above: Performed By: #### C MP, BNP #### [facility] [address] [place] [address] Dr. Brittani Arevalo MANUAL DIFF REQ NO Normal [facility] Comment on above: Performed By: #### C MP, BNP #### [facility] [address] [place] [address] Dr. Brittani Arevalo MCH (RBC) [Entitic mass] 23.5 pg Critically low 26.7-34 .0 [facility] Comment on above: Performed By: #### C MP, BNP #### [facility] [address] [place] [address] Dr. Brittani Arevalo MCHC (RBC) [Mass/Vol] 30.2 g/dL Normal 29.9-35.2 [facility] Comment on above: Performed By: #### C MP, BNP #### [facility] [address] [place] [address] Dr. Brittani Arevalo MCV (RBC) [Entitic vol] 77.8 fL Critically low 81.0-99. 0 [facility] Comment on above: Performed By: #### C MP, BNP #### [facility] [address] [place] [address] Dr. Brittani Arevalo MONO # 0.4 103/ul Normal 0.3-0.8 [facility] Comment on above: Performed By: #### C MP, BNP #### [facility] [address] [place] [address] Dr. Brittani Arevalo Monocytes/100 WBC (Bld) 4.9 % Normal 1.7-12.0 [facility] Comment on above: Performed By: #### C MP, BNP #### [facility] [address] [place] [address] Dr. Brittani Arevalo NEUT # 5.6 103/ul Normal 1.4-6.5 [facility] Comment on above: Performed By: #### C MP, BNP #### [facility] [address] [place] [address] Dr. Brittani Arevalo Neutrophils/100 WBC (Bld) 64.2 % Normal 43.0-75.0 [facility] Comment on above: Performed By: #### C MP, BNP #### [facility] [address] [place] [address] Dr. Brittani Arevalo Platelet mean volume (Bld) [Entitic vol] 10.6 fL Normal 9.5-13.5 [facility] Comment on above: Performed By: #### C MP, BNP #### [facility] [address] [place] [address] Dr. Brittani Arevalo PLT 376 103/ul Normal 150-450 [facility] Comment on above: Performed By: #### C MP, BNP #### [facility] [address] [place] [address] Dr. Brittani Arevalo RBC 4.81 106/ul Normal 4.20-5.40 [facility] Comment on above: Performed By: #### C MP, BNP #### [facility] [address] [place] [address] Dr. Brittani Arevalo WBC 8.8 103/ul Normal 4.0-11.0 [facility] Comment on above: Performed By: #### C MP, BNP #### [facility] [address] [place] [address] Dr. Brittani Areval[facility] SARS-CoV-2 (COVID-19) RNA BISI+probe Ql (Unsp spec) Not detected Normal NOT DETECTED [facility] Comment on above: Result Comment: [...] for this test is supported by the [place] Security Engineer of Health and Human Service's declaration that [...] Performed By: #### C MP, BNP #### [facility] [address] [place] [address] Dr. Brittani Arevalo DRUG SCREEN RAPID (URINE)on 07-15-2022 AMP Negative Normal NEGATIVE [facility] Comment on above: Performed By: #### C MP, BNP #### [facility] [address] [place] [address] Dr. Brittani Arevalo BAR Negative Normal NEGATIVE [facility] Comment on above: Performed By: #### C MP, BNP #### [facility] [address] [place] [address] Dr. Brittani Arevalo BUP Negative Normal NEGATIVE [facility] Comment on above: Performed By: #### C MP, BNP #### [facility] [address] [place] [address] Dr. Brittani Arevalo BZO Negative Normal NEGATIVE [facility] Comment on above: Performed By: #### C MP, BNP #### [facility] [address] [place] [address] Dr. Brittani Arevalo MARINO Negative Normal NEGATIVE [facility] Comment on above: Performed By: #### C MP, BNP #### [facility] [address] [place] [address] Dr. Brittani Arevalo CUT-OFFS SEE BELOW Normal [facility] Comment on above: Result Comment: [...] Performed By: #### C MP, BNP #### [facility] [address] [place] [address] Dr. Brittani Arevalo DRUG CUT HEADER DRUG CLASS TEST SYSTEM CUT-OFF CONCENTRATIONS ARE FOLLOWS: Normal [facility] Comment on above: Performed By: #### C MP, BNP #### [facility] [address] [place] [address] Dr. Brittani Arevalo mAMP Negative Normal NEGATIVE [facility] Comment on above: Performed By: #### C MP, BNP #### [facility] [address] [place] [address] Dr. Brittani Arevalo MTD Negative Normal NEGATIVE [facility] Comment on above: Performed By: #### C MP, BNP #### [facility] [address] [place] [address] Dr. Brittani Arevalo OPI Negative Normal NEGATIVE [facility] Comment on above: Performed By: #### C MP, BNP #### [facility] [address] [place] [address] Dr. Brittani Arevalo OXY Negative Normal NEGATIVE [facility] Comment on above: Performed By: #### C MP, BNP #### [facility] [address] [place] [address] Dr. Brittani Arevalo PCP Negative Normal NEGATIVE [facility] Comment on above: Performed By: #### C MP, BNP #### [facility] [address] [place] [address] Dr. Brittani Arevalo PPX Negative Normal NEGATIVE [facility] Comment on above: Performed By: #### C MP, BNP #### [facility] [address] [place] [address] Dr. Brittani Arevalo TCA Negative Normal NEGATIVE [facility] Comment on above: Performed By: #### C MP, BNP #### [facility] [address] [place] [address] Dr. Brittani Arevalo THC Positive Abnormal NEGATIVE [facility] Comment on above: Performed By: #### C MP, BNP #### [facility] [address] [place] [address] Dr. Brittani Arevalo PROF CHEM 8 (BAS METB)on Anion gap [Moles/Vol] 14.3 mmol/L Normal [facility] Comment on above: Performed By: #### C MP, BNP #### [facility] [address] [place] [address] Dr. Brittani Arevalo Calcium [Mass/Vol] 9.5 mg/dL Normal 8.5-10.1 [facility] Comment on above: Performed By: #### C MP, BNP #### [facility] [address] [place] [address] Dr. Brittani Arevalo Chloride [Moles/Vol] 101 mmol/L Normal 98-107 [facility] Comment on above: Performed By: #### C MP, BNP #### [facility] [address] [place] [address] Dr. Brittani Arevalo CO2 [Moles/Vol] 26.7 mmol/L Normal 21.0-32.0 [facility] [place] [facility] Comment on above: Performed By: #### C MP, BNP #### [facility] [address] [place] [address] Dr. Brittani Arevalo Creatinine [Mass/Vol] 0.78 mg/dL Normal 0.55-1.02 [facility] Comment on above: Performed By: #### C MP, BNP #### [facility] [address] [place] [address] Dr. Brittani Arevalo EGFR-AF BURKINAN >60 Normal >=60 [facility] [place] [facility] Comment on above: Performed By: #### C MP, BNP #### [facility] [address] [address] [address] Brittani Arevalo EGFR-NON AF BURKINAN >60 Normal >=60 [facility] Comment on above: Performed By: #### C MP, BNP #### [facility] [address] [address] [address] Brittani Arevalo Glucose [Mass/Vol] 85 mg/dL Normal 74-106 [facility] Comment on above: Performed By: #### C MP, BNP #### [facility] [address] [address] [address] Brittani Arevalo Potassium [Moles/Vol] 4.0 mmol/L Normal 3.5-5.1 [facility] Comment on above: Performed By: #### C MP, BNP #### [facility] [address] [address] [address] Brittani Arevalo Sodium [Moles/Vol] 138 mmol/L Normal 136-145 [facility] Comment on above: Performed By: #### C MP, BNP #### [facility] [address] [place] [address] Dr. Brittani Arevalo Urea nitrogen [Mass/Vol] 7.0 mg/dL Normal 7.0-18.0 [facility] Comment on above: Performed By: #### C MP, BNP #### [facility] [address] [place] [address] Dr. Brittani Arevalo Urea nitrogen/Creatinine [Mass ratio] 9.0 mg/mg Normal [facility] Comment on above: Performed By: #### C MP, BNP #### [facility] [address] [place] [address] Dr. Brittani Arevalo TROPONIN, HIGH SENSITIVITYon 07-15-2022 HSTROP 4.5 pg/mL Normal 4.0-51.3 [facility] Comment on above: Result Comment: CUT- OFF POINTS HAVE BEEN ESTABLISHED BASED ON THE FOURTH UNIVERSAL DEFINITIONS OF MYOCARDIAL INFARCTION. THE UPPER REFERENCE LIMIT (URL) OF TROPONIN, DEFINED THE 99TH PERCENTILE OF cTnI DISTRIBUTION IN A REFERENCE POPULATION, HAS BEEN CONFIRMED THE DECISION THRESHOLD FOR [place] DIAGNOSIS. Performed By: #### C MP, BNP #### [facility] [address] [place], [place] [address] Dr. Brittani Arevalo TSHon 07-15-2022 TSH 2.488 uIU/mL Normal 0.358-3.740 [facility] Comment on above: Performed By: #### C MP, BNP #### [facility] [address] [place], [place] [address] Dr. Brittani Arevalo XR CHEST 1 Von [...] JAYY DE ANDA Date: 2022-07-15 17:06 Normal [facility] MG MAMM SCREEN 3D SUSI CADon 07-06-2022 MG MAMM SCREEN 3D SUSI CAD Patient: KELSI THOMPSON Exam Date: 07/06/2022 : 1980 Gender:F Ordering : DR ABDIAZIZ POOLE . Admission #: [id number] Family : Order #: [id number] CLICK HERE TO VIEW EXAM RADIOLOGY REPORT PROCEDURE: MAMMOGRAM SCREENING 3D BILATERAL CAD COMPARISON: None. INDICATIONS: Screening mammography Calculator Name NCI Breast Cancer Risk Assessment Tool 5 Year Breast Cancer Risk 0.40% Lifetime Breast Cancer Risk 6.60% Personal Breast Cancer No Personal Ovarian Cancer No Treatments None Family Cancers None LOCATION: [facility] BREAST COMPOSITION: Scattered areas fibroglandular [...] Santana M.D. on 07/06/2022 at 14:04 Normal [facility] PAP ACOG PANEL 2: 30 to 65on 07-06-2022 . . Normal [facility] Comment on above: Result Comment: Perf ormed at: [facility] Performed By: #### C MP, BNP #### [facility] [address] [address] [address] Brittani Arevalo Age Gdln ACOG Testing 30-65 Normal [facility] Comment on above: Performed By: #### C MP, BNP #### [facility] [address] [address] [address] Brittani Arevalo DIAGNOSIS: Comment Normal [facility] Comment on above: Result Comment: NEGA TIVE FOR INTRAEPITHELIAL LESION OR MALIGNANCY. Performed at: [facility] Performed By: #### C MP, BNP #### [facility] [address] [address] [address] Brittani Arevalo HPV Aptima Negative Normal Negative [facility] Comment on above: Result Comment: This nucleic acid amplification test detects fourteen high-risk HPV types (16,18,31,33,35,39,45,51,52,56,58,59,66,68) without differentiation. Performed at: =G Performed By: #### C MP, BNP #### [facility] [address] [address] [address] Brittani Arevalo HPV Genotype Reflex Comment Normal [facility] Comment on above: Result Comment: Crit eria not met, HPV Genotype not performed. Performed at: [facility] Performed By: #### C MP, BNP #### [facility] [address] [address] [address] Brittani Arevalo Methodology: Comment Normal [facility] Comment on above: Result Comment: This liquid based ThinPrep(R) pap test was screened with the use of an image guided system. Performed at: [facility] Performed By: #### C MP, BNP #### [facility] [address] [address] [address] Brittani Arevalo Note: Comment Normal [facility] Comment on above: Result Comment: The [...] Performed By: #### C MP, BNP #### [facility] [address] [place], [place] [address] Dr. Brittani Arevalo Performed by: Comment Normal [facility] Comment on above: Result Comment: Sona Valdez, Padded Products Inspector Trimmer (ASCP) Performed at: [facility] Performed By: #### C MP, BNP #### [facility] [address] [place], [place] [address] Dr. Brittani Arevalo Specimen adequacy: Comment Normal [facility] Comment on above: Result Comment: Sati sfactory for evaluation. Endocervical and/or squamous metaplastic cells (endocervical component) are present. Performed at: [facility] Performed By: #### C MP, BNP #### [facility] [address] [address] [address] Brittani Arevalo 17-OH PROGESTERONE, LC/MSon 07-03-2022 17-OH Progesterone 45 ng/dL Normal [facility] Comment on above: Result Comment: Adul t Female Follicular 15 - 70 Luteal 35 - 290 Performed By: #### P ROGLCM #### [facility] [address] [address] [address] Brittani Arevalo DHEA SERUMon 07-01-2022 Dehydroepiandrosterone (DHEA) 81 ng/dL Normal [facility] Comment on above: Result Comment: Age [...] 21 - 402 Performed By: #### D MONICA. #### [facility] [address] [address] [address] Brittani Arevalo DHEA-SULFATEon 06-29-2022 DHEA-Sulfate 19.4 ug/dL Critically low 57.3-279.2 [facility] [place] [facility] Comment on above: Performed By: #### D HEASUL #### [facility] [address] [place] [address] Dr. Brittani Arevalo FSHon 06-29-2022 FSH 17.5 mIU/mL Normal [facility] Comment on above: Result Comment: Adul t Female: Follicular phase 3.5 - 12.5 Ovulation phase 4.7 - 21.5 Luteal phase 1.7 - 7.7 Postmenopausal 25.8 - 134.8 Performed By: #### C MP, BNP #### [facility] [address] [place] [address] Dr. Brittani Arevalo LUTEINIZING HORMONE (LH)on 0 06-29-2022 LH 13.1 mIU/mL Normal [facility] Comment on above: Result Comment: Adul t Female: Follicular phase 2.4 - 12.6 Ovulation phase 14.0 - 95.6 Luteal phase 1.0 - 11.4 Postmenopausal 7.7 - 58.5 Performed By: #### L BCLH #### [facility] [address] [place] [address] Dr. Brittani Arevalo CBC AUTO DIFFon 06-28-2022 BASO # 0.1 103/ul Normal 0.0-0.1 [facility] Comment on above: Performed By: #### C BC #### [facility] [address] [place] [address] Dr. Brittani Arevalo Basophils/100 WBC (Bld) 1.0 % Normal 0.2-2.0 [facility] Comment on above: Performed By: #### C BC #### [facility] [address] [place] [address] Dr. Brittani Arevalo EO # 0.1 103/ul Normal 0.0-0.7 [facility] Comment on above: Performed By: #### C BC #### [facility] [address] [place] [address] Dr. Brittani Arevalo Eosinophils/100 WBC (Bld) 1.5 % Normal 0.9-7.0 [facility] Comment on above: Performed By: #### C BC #### [facility] [address] [place] [address] Dr. Brittani Arevalo Erythrocyte distribution width (RBC) [Ratio] 16.4 % Critically high 11.0-15.0 [facility] Comment on above: Performed By: #### C BC #### [facility] [address] [place] [address] Dr. Brittani Arevalo Hematocrit (Bld) [Volume fraction] 33.1 % Critically low 36.0-48.0 [facility] Comment on above: Performed By: #### C BC #### [facility] [address] [place] [address] Dr. Brittani Arevalo Hemoglobin (Bld) [Mass/Vol] 9.8 g/dL Critically low 12.0-16.0 [facility] Comment on above: Performed By: #### C BC #### [facility] [address] [place] [address] Dr. Brittani Arevalo IG # 0.01 10e3/ul Normal 0.00-0.03 [facility] Comment on above: Performed By: #### C BC #### [facility] [address] [place] [address] Dr. Brittani Arevalo IG % 0.2 % Normal 0.0-0.5 [facility] Comment on above: Performed By: #### C BC #### [facility] [address] [place] [address] Dr. Brittani Arevalo LYMPH # 2.7 103/ul Normal 1.2-3.8 [facility] Comment on above: Performed By: #### C BC #### [facility] [address] [place] [address] Dr. Brittani Arevalo Lymphocytes/100 WBC (Bld) 44.2 % Normal 20.5-60.0 [facility] Comment on above: Performed By: #### C BC #### [facility] [address] [place] [address] Dr. Brittani Arevalo MANUAL DIFF REQ NO Normal [facility] Comment on above: Performed By: #### C BC #### [facility] [address] [place] [address] Dr. Brittani Arevalo MCH (RBC) [Entitic mass] 23.0 pg Critically low 26.7-34 .0 [facility] Comment on above: Performed By: #### C BC #### [facility] [address] [address] [address] Brittani Arevalo MCHC (RBC) [Mass/Vol] 29.6 g/dL Critically low 29.9-35.2 [facility] Comment on above: Performed By: #### C BC #### [facility] [address] [address] [address] Brittani Arevalo MCV (RBC) [Entitic vol] 77.7 fL Critically low 81.0-99. 0 [facility] Comment on above: Performed By: #### C BC #### [facility] [address] [place] [address] Dr. Brittani Arevalo MONO # 0.4 103/ul Normal 0.3-0.8 [facility] Comment on above: Performed By: #### C BC #### [facility] [address] [place] [address] Dr. Brittani Arevalo Monocytes/100 WBC (Bld) 7.1 % Normal 1.7-12.0 [facility] Comment on above: Performed By: #### C BC #### [facility] [address] [place] [address] Dr. Brittani Arevalo NEUT # 2.8 103/ul Normal 1.4-6.5 [facility] Comment on above: Performed By: #### C BC #### [facility] [address] [place] [address] Dr. Brittani Arevalo Neutrophils/100 WBC (Bld) 46.0 % Normal 43.0-75.0 [facility] Comment on above: Performed By: #### C BC #### [facility] [address] [address] [address] Brittani Arevalo Platelet mean volume (Bld) [Entitic vol] 10.6 fL Normal 9.5-13.5 [facility] Comment on above: Performed By: #### C BC #### [facility] [address] [place] [address] Dr. Brittani Arevalo PLT 411 103/ul Normal 150-450 [facility] Comment on above: Performed By: #### C BC #### [facility] [address] [place] [address] Dr. Brittani Arevalo RBC 4.26 106/ul Normal 4.20-5.40 [facility] Comment on above: Performed By: #### C BC #### [facility] [address] [place] [address] Dr. Brittani Arevalo WBC 6.2 103/ul Normal 4.0-11.0 [facility] Comment on above: Performed By: #### C BC #### [facility] [address] [place] [address] Dr. Brittani Arevalo FREE T4on 06-28-2022 Free T4 [Mass/Vol] 0.81 ng/dL Normal 0.76-1.46 [facility] Comment on above: Performed By: #### C MP, BNP #### [facility] [address] [place] [address] Dr. Brittani Arevalo GLYCOHEMOGLOBIN A1Con 2022 ADA RECOMMENDATION SEE BELOW Normal [facility] Comment on above: Result Comment: ADA RECOMMENDED LIMIT 4.0 - 6.0 ADA THERAPEUTIC TARGET < 7.0 ACTION SUGGESTED > 7.0 Performed By: #### A 1C #### [facility] [address] [place] [address] Dr. Brittani Arevalo Glucose [Mass/Vol] 123 mg/dL Normal [facility] Comment on above: Performed By: #### A 1C #### [facility] [address] [place] [address] Dr. Brittani Arevalo HbA1c (Bld) [Mass fraction] 5.9 % Normal 4.5-6.2 [facility] Comment on above: Performed By: #### A 1C #### [facility] [address] [place] [address] Dr. Brittani Arevalo TSHon 06-28-2022 TSH 2.736 uIU/mL Normal 0.358-3.740 [facility] Comment on above: Performed By: #### C MP, BNP #### [facility] [address] [place] [address] Dr. Brittani Arevalo US PELVIS AND TRANSVAGon [...] by: LUAN SANTANA Date: 2022-06-28 12:16 Normal [facility] Outside Colonoscopyon 2020 Outside Colonoscopy [id number] 2#1.00CD:127 Normal [facility] Pathology Noteon 07-03-2020 Pathology Note [id number] B3#1.00CD:127 Normal [facility] Provider Letter FTMCon 06-25 Provider Letter [facility] Miriam Spence, [address] [address] Re: KELSI JOHNSON Date of : 1980 [...] Sincerely, Dedrick Baker MD General Surgery Normal [facility] Consent for Procedure/Surger yon 06-19-2020 Consent for Procedure/Surgery [id number] FE#1.00CD:127 Normal [facility] Ambulatory Clinical Summaryo n 06-18-2020 Ambulatory Clinical Summary {[id number] Normal [facility] Physician Referralon 021 Physician Referral [id number] 94#1.00CD:127 [facility] Cardiovascular Lab Reporton 12-12-2018 Cardiovascular Lab Report [facility] Patient Name: [facility] Kelsi Hodge MR #: [id number] Department of Physician: [facility] [place] Pamela Pizano M.D. 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 The right groin area was prepped and draped in usual fashion. Using micropuncture technique, the right common femoral artery was accessed. The inner cannula was advanced. Limited right femoral angiography was performed followed by upsizing to a 5-Kinyarwanda x 11 cm sheath. A straight 5-Kinyarwanda pigtail catheter was advanced into the abdominal aorta. Abdominal aortography was performed using power injection of contrast and digital subtraction angiography. A C1 5-Kinyarwanda cobra catheter was then advanced to the [...] Pizano M.D. Date Trans: 12/12/2018 05:13 Ren/dhara [id number] cc: Miriam Spence M.D. [address] [place] [id number] Normal [facility] Encounters Encounter Date Encounter Type Care Provider Facility Start: 12-27-2023 End: 12-27-2023 [facility] Start: 11-17-2023 End: 11-17-2023 ambulatory ILIANA [facility] Start: 08-16-2023 End: 08-16-2023 ambulatory [facility] Start: 07-06-2023 End: 07-06-2023 ambulatory [facility] Start: 06-26-2023 ambulatory Grant Nixon acility:[facility] Start: 06-13-2023 End: 06-13-2023 ambulatory [facility] Start: 05-11-2023 End: 05-11-2023 ambulatory [facility] Start: 04-27-2023 End: 04-27-2023 ambulatory [facility] Start: 03-29-2023 End: 03-29-2023 ambulatory [facility] Start: 01-31-2023 End: 01-31-2023 ambulatory [facility] Start: 07-22-2022 End: 07-22-[address] ABDIAZIZ POOLE . Facility:[facility] Start: 07-20-2022 Encounter for preprocedural cardiovascular examination DR MIRIAM SPENCE . [facility] Start: 07-18-2022 Encounter for preprocedural cardiovascular examination DR ABDIAZIZ POOLE . [facility] Start: 07-15-2022 End: 07-16-2022 ambulatory [...] End: 12-12-2018 Patient encounter procedure PROVIDER UNKNOWN Facility:[facility] Payers Date Payer Category Payer Self-pay 2018 Unknown [id number] 1980 Unknown [id number] 2.16.8 [id number] 1980 Unknown [id number] 2.16.84 [id number] 1980 Unknown [id number] 2.16.84 [id number] 1980 Unknown [id number] 2.16.84 [id number] 1980 Unknown [id number] 2.16.84 [id number] 1980 Unknown [id number] 2.16.84 [id number] 1980 Unknown [id number] 2.16.84 [id number] 1959 Unknown [id number] 1959 Unknown [id number] Unknown [id number] 2.16.8 [id number] Clinical Notes 06-18-2020 to 12-27-2023 Note Date & Type Note Facility 12-27-2023 Note Attestation signed by Anaya Lam MD at 12/29/2023 2:30 PM By using the attestations below, the signing clinician agrees that I have read and verify that the documentation has been personally reviewed by me and ensure that the documentation accurately reflects the encounter. GC: I personally saw this patient on the day of the encounter, performed the linares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
[2024-01-06 12:45] LABS: Basophils Absolute Auto 0.1 10^3/uL (0.0-0.1); Basophils Percent Auto 0.6 % (0.2-2.0); Eosinophils Absolute Auto 0.1 10^3/uL (0.0-0.7); Eosinophils Percent Auto 0.7 % (0.9-7.0); Hematocrit 41.3 % (36.0-48.0); Hemoglobin 13.4 g/dL (12.0-16.0); Immature Granulocytes Abs Auto 0.01 10^3/uL (0.00-0.03); Immature Granulocytes Pct Auto 0.1 % (0.0-0.5); Lymphocytes Absolute Auto 2.3 10^3/uL (1.2-3.8); Lymphocytes Percent Auto 27.7 % (20.5-60.0); Mean Corpuscular HGB Conc 32.4 g/dL (29.9-35.2); Mean Corpuscular Hemoglobin 28.5 pg (26.7-34.0); Mean Corpuscular Volume 87.9 fL (81.0-99.0); Mean Platelet Volume 10.8 fL (9.5-13.5); Monocytes Absolute Auto 0.4 10^3/uL (0.3-0.8); Monocytes Percent Auto 4.7 % (1.7-12.0); Neutrophils Absolute Auto 5.4 10^3/uL (1.4-6.5); Neutrophils Percent Auto 66.2 % (43.0-75.0); Platelet Count 266 10^3/uL (150-450); White Blood Count 8.2 10^3/uL (4.0-11.0)
[2024-01-06 13:13] LABS: Alanine Aminotransferase 30 U/L (14-59); Albumin Globulin Ratio 0.9; Albumin Level 3.5 g/dL (3.4-5.0); Alkaline Phosphatase 67 U/L (46-116); Anion Gap 10.5; Aspartate Amino Transferase 17 U/L (15-37); Bilirubin Total 0.3 mg/dL (0.2-1.0); Calcium 8.8 mg/dL (8.5-10.1); Carbon Dioxide 30.5 mmol/L (21.0-32.0); Chloride 99 mmol/L (98-107); Chol HDL Ratio 4.5; Cholesterol 276 mg/dL (<=200); Estimated GFR (African America >60 (>=60); Estimated GFR (Non-African Ame >60 (>=60); Free T3 2.59 pg/mL (2.18-3.98); Globulin 3.9 g/dL; Glucose 101 mg/dL (74-106); HDL Cholesterol 62 mg/dL (40-60); Sodium 136 mmol/L (136-145); Thyroid Stimulating Hormone 2.325 uIU/mL (0.358-3.740); Total Protein 7.4 g/dL (6.4-8.2); Triglycerides 226 mg/dL (<=150); VLDL CHOLESTEROL 45.2 mg/dL
[2024-01-06 13:23] LABS: Estimated Average Glucose 111 mg/dL; Glycohemoglobin A1C 5.5 % (4.5-6.2)
== END 2024-01-06 12:27 | disposition home or self-care (01) ==
LOC: LAB 12:26
PROVIDERS: PCP Family Medicine; Visit Provider Family Medicine
DX: Z00.00 Encounter for general adult medical examination without abnormal findings (principal)
CPT/HCPCS: 36415; 80053; 80061; 83036; 84436; 84443; 84481; 85025

== ENCOUNTER 2024-12-09 11:12 | Outpatient (OUT) | payer OTHER, SELFPAY ==
--- OUTSIDE RECORDS SUMMARY | 2017-04-28 09:00 | XMS_ITS | Continuity of Care Document ---
Author Organization [facility] Address [address] [place] [address] Phone Care Team Providers Care Dance Critic Name Role Phone Giancarlo TYSON, Filemonindratorey Unavailab le Unavailable Allergies, Adverse Reactions, Alerts Substance Reaction Status Criticality No Known Allergies Active No Inform ation Medications Medication Instructions Dosage Effective Dates (start - stop) Status Comments carvedilol 12.5 mg tablet take 1 tablet by oral route 2 times every day with food 12.5 MG - Active Adderall 30 mg tablet take 1 tablet by oral route every day before breakfast 30 MG - Active Procedures Procedure Date No Charge Advance Directives Directive Yes / No Effective Date File Name No Information Encounters Encounter Description Practice Location Reason(s) For Visit Diagnoses Date Provider Providers Copied on Encounter [facility], [address] [place] [address], [id number] , [place] tel:[phone] Dental Clinic Encounter for screening for dental disorders [phone] Giancarlo DMD Filemonindratorey. [address] [place] [address], [id number], [place]. tel:[phone] Family History Family Member Type Diagnosis Age At Onset Mother Problem (finding) hypertension Father Problem (finding) Alive and well Payers Payer name Insurance type Covered alliance party ID Authoriza tion(s) No Information Social History Type Description Quantity Date Captured Comments Alcohol Use Details Unknown Caffeine Use Details Unknown Tobacco Use Status Light cigarette smok er (1-9 cigs/day) Smoking Status Light tobacco smoker Smoking Tobacco Use Details Cigarette: Years Used 5 Cigarette: 7 Cigarettes per day, Pack Year: 1.75 Sex Female Sexual Orientation Straight or heterosexual Gender Identity Female Vital Signs Date / Time: Height Weight BMI Pulse Rate Blood Pressure Temperature Respiratory Rate Body Surface Area Head Circumference Head Circ. Percentile Wt./Nitish. Percentile BMI percentile Pulse Ox Inhaled Ox 1:28 PM 108 /min 182/149 mm[Hg] 4:33 PM 180/140 mm[Hg] 4:33 PM 182/140 mm[Hg] Chief Complaint And Reason For Visit No Information Reason For Referral Reason For Referral No Information History Of Present Illness Encounter Date Complaint History Of Prese nt Illness No Information Functional Status Date Functional Assessmen t Pain Score 5/10 Instructions Date Instruction Additional Infor mation No Information Assessments Type Assessment Date assessment Encounter for screening for dent al disorders Patient Care Teams Name Effective Dates (start - stop) Status Members No Information
--- OUTSIDE RECORDS SUMMARY | 2024-12-09 11:15 | XMS_ITS | Clinical Summary ---
Author Organization [facility] Healthcare Address [address] [place] [address] Care Team Providers Care Parking Supervisor Name Role Phone Allison Pearson MD Primary Care Provider [phone] Medications carvedilol (Coreg) 25 MG tablet Take 25 mg by mouth in the morning and 25 mg in the evening. Take with meals. 11/21/2023 Active lisinopril 10 MG tablet Take 10 mg by mouth Daily as directed 11/09/2023 Active pregabalin (Lyrica) 75 MG capsule TAKE 1 CAPSULE (75 MG) BY MOUTH IN THE MORNING AND AT BEDTIME. 08/08/2023 Active spironolactone (Aldactone) 50 MG tablet 50 mg 01/05/2024 Active tiZANidine (Zanaflex) 4 MG tablet 4 mg 01/15/2024 Active amLODIPine (Norvasc) 10 MG tablet Take by mouth Daily Active Family History Medical History Relation Name Comments Hypertension Father Hypertension Mother Relation Name Status Comments Father Mother Social History Tobacco Use Types Packs/Day Years Used Date Smoking Tobacco: Never Tobacco Cessation:Counseling Given: Not Answered Alcohol Use Standard Drinks/Week Comments Not Currently 0 (1 standard drink = 0.6 oz pur e alcohol) Comments Unknown Sex and Gender Information Value Date Recorded Sex Assigned at Not on file Legal Sex Female 6:56 PM EDT Gender Identity Not on file Sexual Orientation Not on file Last Filed Vital Signs Vital Sign Reading Time Taken Comments Blood Pressure 110/82 09/27/2023 2:31 PM EDT Pulse 69 09/27/2023 2:31 PM EDT Temperature - - Respiratory Rate 16 09/27/2023 2:31 PM EDT Oxygen Saturation - - Inhaled Oxygen Concentration - - Weight 86.6 kg (191 lb 0.1 oz) 09/27/2023 2:31 P M EDT Height 170.2 cm (5' 7.01 ) 09/27/2023 2:31 PM ED T Body Mass Index 29.91 09/27/2023 2:31 PM EDT Plan of Treatment Health Maintenance Due Date Last Done Comments Pap Smear 2001 Cervical Cancer Screening 2010 HPV/Cotest 2010 Mammogram 07/07/2023 07/06/2022 Influenza Vaccine (#1) 2024 Procedures Procedure Name Priority Date/Time Associated Diagnosis Comments BI MAMMOGRAM SCREENING TOMOSYNTHESIS BILATERAL Routine 07/06/2022 Encounter for other preprocedural examination Encounter for other screening for malignant neoplasm of breast Excessive and frequent menstruation with regular cycle Encounter for gynecological examination (general) (routine) without abnormal findings Encounter for sterilization from Last 3 Months or Most Recently Relevant to Health Maintenance Results * Bilateral screening mammogram with tomosynthesis (07/06/2022) Anatomical Region Laterality Modality Breast Bilateral Mammography Narrative 07/06/2022 12:00 AM EDT PERFORMED AT [facility] LOCATION:[address] Patient: DONNA Wills Exam Date: 07/06/2022 : 1980 Gender:F Ordering : DR ABDIAZIZ POOLE . Admission #: [id number] Family : Order #: [id number] CLICK HERE TO VIEW EXAM RADIOLOGY REPORT PROCEDURE: MAMMOGRAM SCREENING 3D BILATERAL CAD COMPARISON: None. INDICATIONS: Screening mammography Calculator Name NCI Breast Cancer Risk Assessment Tool 5 Year Breast Cancer Risk 0.40% Lifetime Breast Cancer Risk 6.60% Personal Breast Cancer No Personal Ovarian Cancer No Treatments None Family Cancers None LOCATION: [facility] BREAST COMPOSITION: Scattered areas fibroglandular density. [...] Luan Santana M.D. on 07/06/2022 at 14:04 Procedure Note CONVERSION, GENERIC - 10/21/2022 PERFORMED AT [facility] LOCATION:[address] Patient: DONNA Wills Exam Date: 07/06/2022 : 1980 Gender:F Ordering : DR ABDIAZIZ POOLE . Admission #: [id number] Family : Order #: [id number] CLICK HERE TO VIEW EXAM RADIOLOGY REPORT PROCEDURE: MAMMOGRAM SCREENING 3D BILATERAL CAD COMPARISON: None. INDICATIONS: Screening mammography Calculator Name NCI Breast Cancer Risk Assessment Tool 5 Year Breast Cancer Risk 0.40% Lifetime Breast Cancer Risk 6.60% Personal Breast Cancer No Personal Ovarian Cancer No Treatments None Family Cancers None LOCATION: [facility] BREAST COMPOSITION: Scattered areas fibroglandular density. FINDINGS: DIAGNOSTIC CATEGORY 1--NEGATIVE. RIGHT BREAST: No significant suspicious finding. LEFT BREAST: No significant suspicious finding. RECOMMENDATIONS: ROUTINE MAMMOGRAM AND CLINICAL EVALUATION IN 12 MONTHS. PLEASE NOTE: A NORMAL MAMMOGRAM DOES NOT EXCLUDE THE POSSIBILITY OFBREAST CANCER. A CLINICALLY SUSPICIOUS PALPABLE LUMP SHOULD BE BIOPSIED. Dictated by: Luan Santana M.D. on 07/06/2022 at 14:02 Approved by: Luan Santana M.D. on 07/06/2022 at 14:04 Abdiaziz Poole DO IMG BI PROCEDURES Final Result from Last 3 Months or Most Recently Relevant to Health Maintenance Insurance [employer] Care Teams Parking Supervisor Relationship Specialty Start Date End Date Allison Pearson MD [address] [phone] PCP - General Cardiology 08/08/23
--- OUTSIDE RECORDS SUMMARY | 2024-12-09 11:31 | XMS_ITS | CCD ---
Author Organization [facility]ini[facility] Care Team Providers Care Cushion Spring Assembler Name Role Phone UNKNOWN, PROVIDER Admitting Unavailable [...] Admitting Unavailab Miriam Mulligan Primary Care Unavailable EARLINE VEGA Attending Unavailable EARLINE VEGA Attending Unavailable JOSEE, MOSHE Attending Unavailable FERN, EARLINE Attending Unavailable FERN, EARLINE Attending Unavailable FERN, EARLINE Attending Unavailable FERN, EARLINE Attending Unavailable FERN, EARLINE Attending Unavailable FERN, EARLINE Attending Unavailable FERN, EARLINE Attending Unavailable FERN, EARLINE Attending Unavailable JOSEE, MOSHE Attending Unavailable FERN, EARLINE Attending Unavailable FERN, EARLINE Attending Unavailable SERGIO DE LA FUENTE Attending Unavailable FERN, EARLINE Attending Unavailable ILIANA MANCUSO Attending Unavailable FERN, EARLINE Attending Unavailable JOSEE, MOSHE Attending Unavailable FERN, EARLINE Attending Unavailable Allergies Allergy Classification Reported Allergen(s) Allergy Type Date of Onset Reaction(s) Facility (1 source) Iodine (And Iodine Containting Drugs) Drug allergy (disorder) 04-17-1991 [facility] Repository (1 source) Metoprolol Drug Allergy 04-17-2022 [facility] (1 source) Iodinated Contrast Media Drug allergy (disorder) 09-20-2017 [facility] Repository Problems Active Problems Problem Classification Problem Date Documented Date Episodic/Chronic Anxiety disorders (4 sources) Post-traumatic stress disorder, unspecified; Translations: [Social phobia, unspecified] Onset: 05-07-2024 Chronic Attention-deficit, conduct, and disruptive behavior disorders (2 sources) Attention-deficit hyperactivity disorder, predominantly inattentive type; Translations: [Attention-deficit hyperactivity disorder, predominantly inattentive type] Onset: 05-07-2024 Chronic Contraceptive and procreative management (5 sources) Encounter for sterilization; Translations: [ENCOUNTER FOR STERILIZATION] Onset: 07-18-2022 Episodic Essential hypertension (4 sources) Essential (primary) hypertension; Translations: [ESSENTIAL PRIMARY HYPERTENSION] Onset: 07-20-2022 Chronic Headache; including migraine (4 sources) Headache; including migraine; Translations: [HEADACHE UNSPECIFIED] Onset: 07-15-2022 Menstrual disorders (2 sources) Excessive and frequent menstruation with regular cycle; Translations: [Irregular menstruation, unspecified] Onset: 08-04-2022 Chronic Other aftercare (1 source) 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 therapy; Translations: [OTH LONG-TERM CURRENT DRUG THERAPY] Onset: 07-20-2022 Episodic Other [...] [CONTACT W/AND (SUSP) EXPOS COVID-19] Onset: 07-20-2022 Past or Other Problems Problem Classification Problem Date Documented Da te Episodic/Chronic Cardiac dysrhythmias (2 sources) Palpitations; Translations: [Palpitations] Onset: 11-03-2022 Episodic Results Test Name Value Interpretation Reference Range Facility [facility] 11-05-2024 37 Medication Recommendations: Continue all medications as previously prescribed Additional orders (labs, referrals, etc): N/a Your diligence in updating all prescribers with current medication list is essential, including prescribed and over the counter medications, as all medications may have interactions and side effects. Follow up annually with primary care provider for well visits and any physical health concerns including issues with physical pain. Follow up as required with medical specialists for management of chronic health conditions. Abstinence from/Limiting alcohol and drugs can have significant positive effects on your health. These substances may cause negative effects on cognitive and emotional functioning, and there are often interactions between these substances and prescribed medications. Please let me know if you are considering cessation. Any medications taken during can have adverse effects on , development, & of a child. Make appointments with your doctors when you DECIDE to become (ideally before you conceive) to discuss potential medication changes. Do not attempt to make medication changes on your own without talking to your prescriber. Clinic Rules: Clinic rules explained including the no show policy, that termination from the clinic can be the result of missing 2 appointments in a row or 3 appointments in any 12 month period through either no-shows or cancellations with less than 24 hours' notice. My information was given to the patient and informed my hours: Monday to Monday from 8:30am to 4:30pm and should get back to the patient within 1-2 business days. Patient was also made aware of 24 hour access to psychiatric available through [facility] Psychiatry clinic - call [phone] to leave a message with Dr. De La Fuente (regular office hours are Monday-Monday 8:30am-4:30pm), and for emergencies after hours or on weekends call the hospital box truck owner operator at [phone] and ask to talk to on-call vice president medical affairs physician. Reminders: If you have questions/concerns/ need refills call [phone] to speak with my MA or you can call the general psychiatry line at [phone]. You can also message me through [employer]. For a crisis or suicidal ideation you can call Crisis CARE Services (429-492-WRSH) or 050. You may also call 911 or the local emergency department with any thoughts of , suicidal ideations, homicidal ideations, concern that your mind is playing tricks on you (hallucinations, paranoia, etc), or with any life threatening emergency. You can contact the [facility] Psychiatry Department by calling hospital box truck owner operator at [phone] to talk with on-call physician for emergencies after hours or on weekends and holidays Normal [facility] Office Visiton 11-05-2024 Follow-up visit [id number] Kelsi Johnson 1980 F Date Provider Department Center 11/05/2024 [id number], [facility] [place] [facility] Family History Problem Relation Age of Onset Hypertension Mother Hypertension Father Family Status - Relation Status Age at Mother Father Level of Service:72454 MO OFFICE/OUTPATIENT ESTABLISHED MOD MDM 30 MIN (GC) Reason for Visit and Comments: Med Management [[id number]] Normal [facility] Clinical Supporton 5 Clinical Support [id number] Maya Johnsontobi Hodge 1980 Provider Department Center 08/30/2024 EARLINE TERRELL [facility] [place] [facility] Family History Problem Relation Age of Onset Hypertension Mother Hypertension Father Family Status - Relation Status Age at Mother Father [facility] Clinical Supporton 5 Clinical Support [id number] ElizabethKelsi M 1980 Provider Department Center 08/16/2024 EARLINE TERRELL [facility] [place] [facility] Family History Problem Relation Age of Onset Hypertension Mother Hypertension Father Family Status - Relation Status Age at Mother Father Reason for Visit and Comments: Therapy [849] [facility] Office Visiton 08-06-2024 Follow-up visit [id number] ElizabethKelsi M 1980 Provider Department [facility] 08/06/2024 MOSHE LAURA [facility] [place] [facility] Family History Problem Relation Age of Onset Hypertension Mother Hypertension Father Family Status - Relation Status Age at Mother Father Level of Service:73415 MO OFFICE/OUTPATIENT ESTABLISHED MOD MDM 30 MIN (GC) Reason for Visit and Comments: Med Management [[id number]] [facility] Clinical Supporton 5 Clinical Support [id number] ElizabethKelsi M 1980 Provider Department Center 08/02/2024 EARLINE TERRELL [facility] [place] [facility] Family History Problem Relation Age of Onset Hypertension Mother Hypertension Father Family Status - Relation Status Age at Mother Father Reason for Visit and Comments: Therapy [849] [facility] Clinical Supporton 5 Clinical Support [id number] ElizabethKelsi M 1980 Provider Department Center 07/19/2024 EARLINE TERRELL [facility] [place] [facility] Family History Problem Relation Age of Onset Hypertension Mother Hypertension Father Family Status - Relation Status Age at Mother Father Reason for Visit and Comments: Therapy [849] [facility] Clinical Supporton 5 Clinical Support [id number] Kelsi Johnson 1980 Provider Department Center 07/05/2024 EARLINE TERRELLC [place] [facility] Family History Problem Relation Age of Onset Hypertension Mother Hypertension Father Family Status - Relation Status Age at Mother Father Reason for Visit and Comments: Therapy [849] [facility] Clinical Supporton 5 Clinical Support [id number] Kelsi Johnson 1980 Provider Department Center 06/21/2024 EARLINE TERRELL [facility] [place] [facility] Family History Problem Relation Age of Onset Hypertension Mother Hypertension Father Family Status - Relation Status Age at Mother Father Reason for Visit and Comments: Therapy [849] [facility] Clinical Supporton 5 Clinical Support [id number] Kelsi Johnson 1980 Provider Department Center 06/07/2024 EARLINE TERRELL [facility] [place] [facility] Family History Problem Relation Age of Onset Hypertension Mother Hypertension Father Family Status - Relation Status Age at Mother Father Reason for Visit and Comments: Therapy [849] [facility] Clinical Supporton 5 Clinical Support [id number] Kelsi Johnson 1980 Provider Department Center 05/24/2024 EARLINE TERRELL Gloria [place] [facility] Family History Problem Relation Age of Onset Hypertension Mother Hypertension Father Family Status - Relation Status Age at Mother Father Reason for Visit and Comments: Therapy [849] [facility] Clinical Supporton 5 Clinical Support [id number] Kelsi Johnson 1980 Provider Department Center 05/10/2024 EARLINE TERRELL [facility] [place] [facility] Family History Problem Relation Age of Onset Hypertension Mother Hypertension Father Family Status - Relation Status Age at Mother Father Reason for Visit and Comments: Therapy [849] [facility] 37on 05-07-2024 37 Medication recommendations as follows: Increase Strattera 40 mg to 60 mg once daily for ADHD and anxiety symptoms. Continue Klonopin 0.25 mg nightly for anxiety wearing CPAP at night Follow up appointment in 3 months or sooner if needed Risks, benefits [...] scheduled follow up appointments (patient portal or [phone]). There is a [facility] [employer] home care liaison outside of normal business hours through the [facility] hospital box truck owner operator ([phone]). Use 911, Crisis Care Crisis CARE Services (685-836-GHZR), your local [facility] crisis hotline, national suicide prevention lifeline 988 [...] hour access to psychiatric care available through [facility] Psychiatry clinic - call [phone] to leave a message with the physician (regular office hours are Monday-Monday 8:30am-4:30pm), and for emergencies after hours or on weekends call the hospital box truck owner operator at [phone] and ask to talk to on-call vice president medical affairs physician. [facility] Clinical Supporton 5 Clinical Support [id number] ElizabethKelsi M 1980 Provider Department [facility] 04/26/2024 EARLINE TERRELL [place] [facility] Family History Problem Relation Age of Onset Hypertension Mother Hypertension Father Family Status - Relation Status Age at Mother Father Reason for Visit and Comments: Therapy [849] [facility] Clinical Supporton 4 Clinical Support [id number] Kelsi Johnson 1980 Provider Department [facility] 04/12/2024 EARLINE TERRELL [place] [facility] Family History Problem Relation Age of Onset Hypertension Mother Hypertension Father Family Status - Relation Status Age at Mother Father Reason for Visit and Comments: Therapy [849] [facility] Clinical Supporton 4 Clinical Support [id number] ElizabethKelsi M 1980 Provider Department [facility] 03/27/2024 EARLINE TERRELL [place] [facility] Family History Problem Relation Age of Onset Hypertension Mother Hypertension Father Family Status - Relation Status Age at Mother Father Reason for Visit and Comments: Therapy [849] [facility] Clinical Supporton 4 Clinical Support [id number] Kelsi Johnson 1980 Provider Department Center 03/13/2024 EARLINE TERRELL [place] [facility] Family History Problem Relation Age of Onset Hypertension Mother Hypertension Father Family Status - Relation Status Age at Mother Father Reason for Visit and Comments: Therapy [849] [facility] Clinical Supporton 4 Clinical Support [id number] Kelsi Johnson 1980 Provider Department [facility] 03/01/2024 EARLINE TERRELL [place] [facility] Family History Problem Relation Age of Onset Hypertension Mother Hypertension Father Family Status - Relation Status Age at Mother Father Reason for Visit and Comments: Therapy [849] Normal [facility] 37on 02-20-2024 37 Medication recommendations as follows: Start Strattera 40 mg once daily for ADHD and anxiety symptoms. We discussed the risks, benefits, side effects, and alternatives to Strattera including but not limited to, the risk of fatigue, worsening mood, irritability, suicidal thoughts, weight gain, dry mouth, sexual side effects, serotonin syndrome, elevated blood pressure, medication interactions, discontinuation symptoms, and potential for hepatotoxicity, teratogenicity, and to not take these medications with alcohol or illicit drugs; informed consent was obtained. Start 0.25 Klonopin nightly for anxiety wearing CPAP at night. We discussed the risks, benefits, side effects, and alternatives to Klonopin including but not limited to, the risk of fatigue, sedation, addiction, tolerance, withdrawal, worsening mood, dizziness, teratogenicity, potential for medication interactions, and to not drive or operate machinery until it's known how the body will react, and to not take these medications with alcohol or illicit drugs; informed consent was obtained. We also discussed safe handling of controlled substances, and office policies that are in place to prevent abuse or diversion of controlled substances, which may include toxicology testing. Follow up appointment in 3 months or sooner if needed Risks, benefits [...] scheduled follow up appointments (patient portal or [phone]). There is a [employer] home care liaison outside of normal business hours through the [facility] hospital box truck owner operator ([phone]). Use 911, Crisis Care Crisis CARE Services (718-278-ZWZB), your local [place] [facility] crisis hotline, national suicide prevention lifeline 988 [...] hour access to psychiatric care available through [facility] Psychiatry clinic - call [phone] to leave a message with the physician (regular office hours are Monday-Monday 8:30am-4:30pm), and for emergencies after hours or on weekends call the hospital box truck owner operator at [phone] and ask to talk to on-call vice president medical affairs physician. Normal [facility] Clinical Supporton Clinical Support [id number] Kelsi Johnson 1980 F Date Provider Department [facility] 02/15/2024 [id number] ROSS [facility] Relation Age of Onset Hypertension Mother Hypertension Father Family Status - Relation Status Age at Mother Father Reason for Visit and Comments: Therapy [849] [facility] 37on 12-27-2023 37 Medication recommendations as follows: Start [...] scheduled follow up appointments (patient portal or [phone]). There is a [employer] home care liaison outside of normal business hours through the [facility] hospital box truck owner operator ([phone]). Use 911, Crisis Care Crisis CARE Services (450-132-GAHE), your local [place] [facility] crisis hotline, national suicide prevention lifeline 985 or the nearest emergency room in the [...] hour access to psychiatric care available through [facility] Psychiatry clinic - call [phone] to leave a message with the physician (regular office hours are Monday-Monday 8:30am-4:30pm), and for emergencies after hours or on weekends call the hospital box truck owner operator at [phone] and ask to talk to on-call vice president medical affairs physician. Normal [facility] Office Visiton 12-27-2023 Follow-up visit [id number] Kelsi Johnson 1980 F Date Provider Department Center 12/27/2023 [facility] [place] [facility] Family History Problem Relation Age of Onset Hypertension Mother Hypertension Father Family Status - Relation Status Age at Mother Father Level of Service:22392 MO PSYCHIATRIC DIAGNOSTIC EVAL W/MEDICAL SERVICES (GC) Normal [facility] Office Visiton 11-17-2023 Follow-up visit [id number] Kelsi Johnson 1980 Provider Department Center 11/17/2023 Lenore-ILIANA MANCUSO [facility] Family History Problem Relation Age of Onset Hypertension Mother Hypertension Father Family Status - Relation Status Age at Mother Father Level of Service:86364 MO OFFICE/OUTPATIENT ESTABLISHED LOW MDM 20 MIN Normal [facility] CBC AUTO DIFFon 07-22-2022 BASO # 0.1 103/ul Normal 0.0-0.[address] [facility] Comment on above: Performed By: #### C BC #### [facility] [address] [place] [address] Dr. Brittani Arevalo Basophils/100 WBC (Bld) 0.9 % Normal 0.2-2.0 [facility] Comment on above: Performed By: #### C BC #### [facility] [address] [place] [address] Dr. Brittani Arevalo EO # 0.1 103/ul Normal 0.0-0.[address] [facility] Comment on above: Performed By: #### C BC #### [facility] [address] [place] [address] Dr. Brittani Arevalo Eosinophils/100 WBC (Bld) 1.5 % Normal 0.9-7.[address] [facility] Comment on above: Performed By: #### C BC #### [facility] [address] [place] [address] Dr. Brittani Arevalo Erythrocyte distribution width (RBC) [Ratio] 16.6 % Critically high 11.0-15.[address] [facility] Comment on above: Performed By: #### C BC #### [facility] [address] [place] [address] Dr. Brittani Arevalo Hematocrit (Bld) [Volume fraction] 32.1 % Critically low 36.0-48.[address] [facility] Comment on above: Performed By: #### C BC #### [facility] [address] [place] [address] Dr. Brittani Arevalo Hemoglobin (Bld) [Mass/Vol] 9.5 g/dL Critically low 12.0-16.[address] [facility] Comment on above: Performed By: #### C BC #### [facility] [address] [place] [address] Dr. Brittani Arevalo IG # 0.01 10e3/ul Normal 0.00-0.[address] [facility] Comment on above: Performed By: #### C BC #### [facility] [address] [place] [address] Dr. Brittani Arevalo IG % 0.2 % Normal 0.0-0.[address] [facility] Comment on above: Performed By: #### C BC #### [facility] [address] [place] [address] Dr. Brittani Arevalo LYMPH # 2.7 103/ul Normal 1.2-3.[address] [facility] Comment on above: Performed By: #### C BC #### [facility] [address] [place] [address] Dr. Brittani Arevalo Lymphocytes/100 WBC (Bld) 41.4 % Normal 20.5-60.[address] [facility] Comment on above: Performed By: #### C BC #### [facility] [address] [place] [address] Dr. Brittani Arevalo MANUAL DIFF REQ NO Normal [facility] Comment on above: Performed By: #### C BC #### [facility] [address] [place] [address] Dr. Brittani Arevalo MCH (RBC) [Entitic mass] 23.4 pg Critically low 26.7-[address] [facility] Comment on above: Performed By: #### C BC #### [facility] [address] [place] [address] Dr. Brittani Arevalo MCHC (RBC) [Mass/Vol] 29.6 g/dL Critically low 29.9-35.[address] [facility] Comment on above: Performed By: #### C BC #### [facility] [address] [place] [address] Dr. Brittani Arevalo MCV (RBC) [Entitic vol] 79.1 fL Critically low 81.0-99. [address] [facility] Comment on above: Performed By: #### C BC #### [facility] [address] [place] [address] Dr. Brittani Arevalo MONO # 0.5 103/ul Normal 0.3-0.[address] [facility] Comment on above: Performed By: #### C BC #### [facility] [address] [place] [address] Dr. Brittani Arevalo Monocytes/100 WBC (Bld) 7.2 % Normal 1.7-12.0 [facility] Comment on above: Performed By: #### C BC #### [facility] [address] [place] [address] Dr. Brittani Arevalo NEUT # 3.2 103/ul Normal 1.4-6.[address] [facility] Comment on above: Performed By: #### C BC #### [facility] [address] [place] [address] Dr. Brittani Arevalo Neutrophils/100 WBC (Bld) 48.8 % Normal 43.0-75.[address] [facility] Comment on above: Performed By: #### C BC #### [facility] [address] [place] [address] Dr. Brittani Arevalo Platelet mean volume (Bld) [Entitic vol] 10.7 fL Normal 9.5-13.[address] [facility] Comment on above: Performed By: #### C BC #### [facility] [address] [place] [address] Dr. Brittani Arevalo PLT 385 103/ul Normal 150-450 [facility] Comment on above: Performed By: #### C BC #### [facility] [address] [place] [address] Dr. Brittani Arevalo RBC 4.06 106/ul Critically low 4.20-5.40 [facility] Comment on above: Performed By: #### C BC #### [facility] [address] [place] [address] Dr. Brittani Arevalo WBC 6.6 103/ul Normal 4.0-11.[address] [facility] Comment on above: Performed By: #### C BC #### [facility] [address] [place] [address] Dr. Brittani Arevalo PREG QUANT HCGon 07-22-2022 HCG QUANT 1 mIU/mL Normal [facility] Comment on above: Performed By: #### C MP, BNP #### [facility] [address] [place] [address] Dr. Brittani Arevalo HCG RANGE SEE BELOW Normal [facility] Comment on above: Result Comment: 5-50 0.2-1 WEEK 50-500 1-2 WEEKS 100-5,000 2-3 WEEKS 500-10,000 3-4 WEEKS 1,000-50,000 4-5 WEEKS 10,000-100,000 5-6 WEEKS 15,000-200,000 6-8 WEEKS 10,000-100,000 2-3 MONTHS Performed By: #### C MP, BNP #### [facility] [address] [place] [address] Dr. Brittani Arevalo BNPon 07-16-2022 Natriuretic peptide B (Bld) [Mass/Vol] 74.0 pg/mL Normal <=450.[address] [facility] Comment on above: Performed By: #### C MP, BNP #### [facility] [address] [place] [address] Dr. Brittani Arevalo CBC AUTO DIFFon 07-16-2022 BASO # 0.1 103/ul Normal 0.0-0.[address] [facility] Comment on above: Performed By: #### C BC #### [facility] [address] [place] [address] Dr. Brittani Arevalo Basophils/100 WBC (Bld) 0.6 % Normal 0.2-2.0 [facility] Comment on above: Performed By: #### C BC #### [facility] [address] [place] [address] Dr. Brittani Arevalo EO # 0.1 103/ul Normal 0.0-0.[address] [facility] Comment on above: Performed By: #### C BC #### [facility] [address] [place] [address] Dr. Brittani Arevalo Eosinophils/100 WBC (Bld) 0.8 % Critically low 0.9-7. [address] [facility] Comment on above: Performed By: #### C BC #### [facility] [address] [place] [address] Dr. Brittani Arevalo Erythrocyte distribution width (RBC) [Ratio] 16.4 % Critically high 11.0-15.[address] [facility] Comment on above: Performed By: #### C BC #### [facility] [address] [place] [address] Dr. Brittani Arevalo Hematocrit (Bld) [Volume fraction] 32.0 % Critically low 36.0-48.[address] [facility] Comment on above: Performed By: #### C BC #### [facility] [address] [place] [address] Dr. Brittani Arevalo Hemoglobin (Bld) [Mass/Vol] 9.7 g/dL Critically low 12.0-16.[address] [facility] Comment on above: Performed By: #### C BC #### [facility] [address] [place] [address] Dr. Brittani Arevalo IG # 0.02 10e3/ul Normal 0.00-0.03 [facility] Comment on above: Performed By: #### C BC #### [facility] [address] [place] [address] Dr. Brittani Arevalo IG % 0.2 % Normal 0.0-0.5 [facility] Comment on above: Performed By: #### C BC #### [facility] [address] [place] [address] Dr. Brittani Arevalo LYMPH # 2.5 103/ul Normal 1.2-3.8 [facility] Comment on above: Performed By: #### C BC #### [facility] [address] [place] [address] Dr. Brittani Arevalo Lymphocytes/100 WBC (Bld) 28.0 % Normal 20.5-60.[address] [facility] Comment on above: Performed By: #### C BC #### [facility] [address] [place] [address] Dr. Brittani Arevalo MANUAL DIFF REQ NO Normal [facility] Comment on above: Performed By: #### C BC #### [facility] [address] [place] [address] Dr. Brittani Arevalo MCH (RBC) [Entitic mass] 23.2 pg Critically low 26.7-34 .[address] [facility] Comment on above: Performed By: #### C BC #### [facility] [address] [place] [address] Dr. Brittani Arevalo MCHC (RBC) [Mass/Vol] 30.3 g/dL Normal 29.9-35.[address] [facility] Comment on above: Performed By: #### C BC #### [facility] [address] [place] [address] Dr. Brittani Arevalo MCV (RBC) [Entitic vol] 76.4 fL Critically low 81.0-99. [address] [facility] Comment on above: Performed By: #### C BC #### [facility] [address] [place] [address] Dr. Brittani Arevalo MONO # 0.5 103/ul Normal 0.3-0.[address] [facility] Comment on above: Performed By: #### C BC #### [facility] [address] [place] [address] Dr. Brittani Arevalo Monocytes/100 WBC (Bld) 5.7 % Normal 1.7-12.0 [facility] Comment on above: Performed By: #### C BC #### [facility] [address] [place] [address] Dr. Brittani Arevalo NEUT # 5.8 103/ul Normal 1.4-6.[address] [facility] Comment on above: Performed By: #### C BC #### [facility] [address] [place] [address] Dr. Brittani Arevalo Neutrophils/100 WBC (Bld) 64.7 % Normal 43.0-75.[address] [facility] Comment on above: Performed By: #### C BC #### [facility] [address] [place] [address] Dr. Brittani Arevalo Platelet mean volume (Bld) [Entitic vol] 10.5 fL Normal 9.5-13.[address] [facility] Comment on above: Performed By: #### C BC #### [facility] [address] [place] [address] Dr. Brittani Arevalo PLT 328 103/ul Normal 150-[address] [facility] Comment on above: Performed By: #### C BC #### [facility] [address] [place] [address] Dr. Brittani Arevalo RBC 4.19 106/ul Critically low 4.20-5.40 [facility] Comment on above: Performed By: #### C BC #### [facility] [address] [place] [address] Dr. Brittani Arevalo WBC 9.0 103/ul Normal 4.0-11.[address] [facility] Comment on above: Performed By: #### C BC #### [facility] [address] [place] [address] Dr. Brittani Arevalo PROF 14(COMP METB)on 023 Albumin [Mass/Vol] 3.5 g/dL Normal 3.4-5.0 [facility] Comment on above: Performed By: #### C MP, BNP #### [facility] [address] [place] [address] Dr. Brittani Arevalo Albumin/Globulin [Mass ratio] 0.9 {ratio} Normal [facility] Comment on above: Performed By: #### C MP, BNP #### [facility] [address] [place] [address] Dr. Brittani Arevalo ALP [Catalytic activity/Vol] 61 U/L Normal 46-[address] [facility] Comment on above: Performed By: #### C MP, BNP #### [facility] [address] [place] [address] Dr. Brittani Arevalo ALT [Catalytic activity/Vol] 20 U/L Normal 14-[address] [facility] Comment on above: Performed By: #### C MP, BNP #### [facility] [address] [place] [address] Dr. Brittani Arevalo Anion gap [Moles/Vol] 14.6 mmol/L Normal [facility] Comment on above: Performed By: #### C MP, BNP #### [facility] [address] [place] [address] Dr. Brittani Arevalo AST [Catalytic activity/Vol] 13 U/L Critically low 15-[address] [facility] Comment on above: Performed By: #### C MP, BNP #### [facility] [address] [place] [address] Dr. Brittani Arevalo Bilirubin [Mass/Vol] 0.2 mg/dL Normal 0.2-1.[address] [facility] Comment on above: Performed By: #### C MP, BNP #### [facility] [address] [place] [address] Dr. Brittani Arevalo Calcium [Mass/Vol] 9.1 mg/dL Normal 8.5-10.1 [facility] Comment on above: Performed By: #### C MP, BNP #### [facility] [address] [place] [address] Dr. Brittani Arevalo Chloride [Moles/Vol] 102 mmol/L Normal 98-[address] [facility] Comment on above: Performed By: #### C MP, BNP #### [facility] [address] [place] [address] Dr. Brittani Arevalo CO2 [Moles/Vol] 24.2 mmol/L Normal 21.0-32.0 [facility] Comment on above: Performed By: #### C MP, BNP #### [facility] [address] [place] [address] Dr. Brittani Arevalo Creatinine [Mass/Vol] 0.91 mg/dL Normal 0.55-1.[address] [facility] Comment on above: Performed By: #### C MP, BNP #### [facility] [address] [place] [address] Dr. Brittani Arevalo EGFR-AF MALDIVIAN >60 Normal >=60 [facility] Comment on above: Performed By: #### C MP, BNP #### [facility] [address] [address] [address] Brittani Arevalo EGFR-NON AF MALDIVIAN >60 Normal >=[address] [facility] Comment on above: Performed By: #### C MP, BNP #### [facility] [address] [address] [address] Brittani Arevalo Globulin (S) [Mass/Vol] 3.8 g/dL Normal [facility] Comment on above: Performed By: #### C MP, BNP #### [facility] [address] [address] [address] Brittani Arevalo Glucose [Mass/Vol] 118 mg/dL Critically high 74-106 [facility] Comment on above: Performed By: #### C MP, BNP #### [facility] [address] [address] [address] Brittani Arevalo Potassium [Moles/Vol] 3.8 mmol/L Normal 3.5-5.[address] [facility] Comment on above: Performed By: #### C MP, BNP #### [facility] [address] [place] [address] Dr. Brittani Arevalo Protein [Mass/Vol] 7.3 g/dL Normal 6.4-8.2 [facility] Comment on above: Performed By: #### C MP, BNP #### [facility] [address] [place] [address] Dr. Brittani Arevalo Sodium [Moles/Vol] 137 mmol/L Normal 136-145 [facility] Comment on above: Performed By: #### C MP, BNP #### [facility] [address] [address] [address] Brittani Arevalo Urea nitrogen [Mass/Vol] 9.0 mg/dL Normal 7.0-18.[address] [facility] Comment on above: Performed By: #### C MP, BNP #### [facility] [address] [address] [address] Brittani Arevalo Urea nitrogen/Creatinine [Mass ratio] 9.9 mg/mg Normal [facility] Comment on above: Performed By: #### C MP, BNP #### [facility] [address] [place] [address] Dr. Brittani Arevalo BNPon 07-15-2022 Natriuretic peptide B (Bld) [Mass/Vol] 58.0 pg/mL Normal <=450.[address] [facility] Comment on above: Performed By: #### C MP, BNP #### [facility] [address] [place] [address] Dr. Brittani Arevalo CBC AUTO DIFFon 07-15-2022 BASO # 0.1 103/ul Normal 0.0-0.[address] [facility] Comment on above: Performed By: #### C MP, BNP #### [facility] [address] [place] [address] Dr. Brittani Arevalo Basophils/100 WBC (Bld) 0.6 % Normal 0.2-2.0 [facility] Comment on above: Performed By: #### C MP, BNP #### [facility] [address] [place] [address] Dr. Brittani Arevalo EO # 0.1 103/ul Normal 0.0-0.[address] [facility] Comment on above: Performed By: #### C MP, BNP #### [facility] [address] [place] [address] Dr. Brittani Arevalo Eosinophils/100 WBC (Bld) 1.1 % Normal 0.9-7.[address] [facility] Comment on above: Performed By: #### C MP, BNP #### [facility] [address] [place] [address] Dr. Brittani Arevalo Erythrocyte distribution width (RBC) [Ratio] 16.4 % Critically high 11.0-15.[address] [facility] Comment on above: Performed By: #### C MP, BNP #### [facility] [address] [place] [address] Dr. Brittani Arevalo Hematocrit (Bld) [Volume fraction] 37.4 % Normal 36.0-48.[address] [facility] Comment on above: Performed By: #### C MP, BNP #### [facility] [address] [place] [address] Dr. Brittani Arevalo Hemoglobin (Bld) [Mass/Vol] 11.3 g/dL Critically low 12.0-16.[address] [facility] Comment on above: Performed By: #### C MP, BNP #### [facility] [address] [place] [address] Dr. Brittani Arevalo IG # 0.02 10e3/ul Normal 0.00-0.[address] [facility] Comment on above: Performed By: #### C MP, BNP #### [facility] [address] [place] [address] Dr. Brittani Arevalo IG % 0.2 % Normal 0.0-0.[address] [facility] Comment on above: Performed By: #### C MP, BNP #### [facility] [address] [place] [address] Dr. Brittani Arevalo LYMPH # 2.5 103/ul Normal 1.2-3.8 [facility] Comment on above: Performed By: #### C MP, BNP #### [facility] [address] [place] [address] Dr. Brittani Arevalo Lymphocytes/100 WBC (Bld) 29.0 % Normal 20.5-60.[address] [facility] Comment on above: Performed By: #### C MP, BNP #### [facility] [address] [place] [address] Dr. Brittani Arevalo MANUAL DIFF REQ NO Normal [facility] Comment on above: Performed By: #### C MP, BNP #### [facility] [address] [place] [address] Dr. Brittani Arevalo MCH (RBC) [Entitic mass] 23.5 pg Critically low 26.7-34 .0 [facility] Comment on above: Performed By: #### C MP, BNP #### [facility] [address] [place] [address] Dr. Brittani Arevalo MCHC (RBC) [Mass/Vol] 30.2 g/dL Normal 29.9-35.2 [facility] Comment on above: Performed By: #### C MP, BNP #### [facility] [address] [place] [address] Dr. Brittani Arevalo MCV (RBC) [Entitic vol] 77.8 fL Critically low 81.0-99. [address] [facility] Comment on above: Performed By: #### C MP, BNP #### [facility] [address] [place] [address] Dr. Brittani Arevalo MONO # 0.4 103/ul Normal 0.3-0.[address] [facility] Comment on above: Performed By: #### C MP, BNP #### [facility] [address] [place] [address] Dr. Brittani Arevalo Monocytes/100 WBC (Bld) 4.9 % Normal 1.7-12.0 [facility] Comment on above: Performed By: #### C MP, BNP #### [facility] [address] [place] [address] Dr. Brittani Arevalo NEUT # 5.6 103/ul Normal 1.4-6.[address] [facility] Comment on above: Performed By: #### C MP, BNP #### [facility] [address] [place] [address] Dr. Brittani Arevalo Neutrophils/100 WBC (Bld) 64.2 % Normal 43.0-75.[address] [facility] Comment on above: Performed By: #### C MP, BNP #### [facility] [address] [place] [address] Dr. Brittani Arevalo Platelet mean volume (Bld) [Entitic vol] 10.6 fL Normal 9.5-13.[address] [facility] Comment on above: Performed By: #### C MP, BNP #### [facility] [address] [place] [address] Dr. Brittani Arevalo PLT 376 103/ul Normal 150-450 [facility] Comment on above: Performed By: #### C MP, BNP #### [facility] [address] [place] [address] Dr. Brittani Arevalo RBC 4.81 106/ul Normal 4.20-5.[address] [facility] Comment on above: Performed By: #### C MP, BNP #### [facility] [address] [address] [address] Brittani Arevalo WBC 8.8 103/ul Normal 4.0-11.[address] [facility] Comment on above: Performed By: #### C MP, BNP #### [facility] [address] [address] [address] Brittani Arevalo Covid-19 PCR ([facility])on 06-17 SARS-CoV-2 (COVID-19) RNA BISI+probe Ql (Unsp spec) Not detected Normal NOT DETECTED [facility] Comment on above: Result Comment: When [...] for this test is supported by the [place] of [employer] and Human Service's declaration that [...] Performed By: #### C MP, BNP #### [facility] [address] [place] [address] Dr. Brittani Arevalo DRUG SCREEN RAPID (URINE)on 07-15-2022 AMP Negative Normal NEGATIVE [facility] Comment on above: Performed By: #### C MP, BNP #### [facility] [address] [place] [address] Dr. Brittani Arevalo BAR Negative Normal NEGATIVE [facility] Comment on above: Performed By: #### C MP, BNP #### [facility] [address] [place] [address] Dr. Brittani Arevalo BUP Negative Normal NEGATIVE [facility] Comment on above: Performed By: #### C MP, BNP #### [facility] [address] [place] [address] Dr. Brittani Arevalo BZO Negative Normal NEGATIVE [facility] Comment on above: Performed By: #### C MP, BNP #### [facility] [address] [place] [address] Dr. Brittani Arevalo MARINO Negative Normal NEGATIVE [facility] Comment on above: Performed By: #### C MP, BNP #### [facility] [address] [place] [address] Dr. Brittani Arevalo CUT-OFFS SEE BELOW Normal [facility] Comment on above: Result Comment: AMP [...] Performed By: #### C MP, BNP #### [facility] [address] [place] [address] Dr. Brittani Arevlao DRUG CUT HEADER DRUG CLASS TEST SYSTEM CUT-OFF CONCENTRATIONS ARE FOLLOWS: Normal [facility] Comment on above: Performed By: #### C MP, BNP #### [facility] [address] [place] [address] Dr. Brittani Arevalo mAMP Negative Normal NEGATIVE [facility] Comment on above: Performed By: #### C MP, BNP #### [facility] [address] [place] [address] Dr. Brittani Arevalo MTD Negative Normal NEGATIVE [facility] Comment on above: Performed By: #### C MP, BNP #### [facility] [address] [place] [address] Dr. Brittani Arevalo OPI Negative Normal NEGATIVE [facility] Comment on above: Performed By: #### C MP, BNP #### [facility] [address] [place] [address] Dr. Brittani Arevalo OXY Negative Normal NEGATIVE [facility] Comment on above: Performed By: #### C MP, BNP #### [facility] [address] [place] [address] Dr. Brittani Arevalo PCP Negative Normal NEGATIVE [facility] Comment on above: Performed By: #### C MP, BNP #### [facility] [address] [place] [address] Dr. Brittani Arevalo PPX Negative Normal NEGATIVE [facility] Comment on above: Performed By: #### C MP, BNP #### [facility] [address] [place] [address] Dr. Brittani Arevalo TCA Negative Normal NEGATIVE [facility] Comment on above: Performed By: #### C MP, BNP #### [facility] [address] [place] [address] Dr. Brittani Arevalo THC Positive Abnormal NEGATIVE [facility] Comment on above: Performed By: #### C MP, BNP #### [facility] [address] [place] [address] Dr. Brittani Arevalo PROF CHEM 8 (BAS METB)on Anion gap [Moles/Vol] 14.3 mmol/L Normal [facility] Comment on above: Performed By: #### C MP, BNP #### [facility] [address] [place] [address] Dr. Brittani Arevalo Calcium [Mass/Vol] 9.5 mg/dL Normal 8.5-10.1 [facility] Comment on above: Performed By: #### C MP, BNP #### [facility] [address] [place] [address] Dr. Brittani Arevalo Chloride [Moles/Vol] 101 mmol/L Normal 98-[address] [facility] Comment on above: Performed By: #### C MP, BNP #### [facility] [address] [place] [address] Dr. Brittani Arevalo CO2 [Moles/Vol] 26.7 mmol/L Normal 21.0-32.0 [facility] Comment on above: Performed By: #### C MP, BNP #### [facility] [address] [place] [address] Dr. Brittani Arevalo Creatinine [Mass/Vol] 0.78 mg/dL Normal 0.55-1.[address] [facility] Comment on above: Performed By: #### C MP, BNP #### [facility] [address] [address] [address] Brittani Arevalo EGFR-AF MALDIVIAN >60 Normal >=60 [facility] Comment on above: Performed By: #### C MP, BNP #### [facility] [address] [place] [address] Dr. Brittani Arevalo EGFR-NON AF MALDIVIAN >60 Normal >=[address] [facility] Comment on above: Performed By: #### C MP, BNP #### [facility] [address] [place] [address] Dr. Brittani Arevalo Glucose [Mass/Vol] 85 mg/dL Normal 74-106 [facility] Comment on above: Performed By: #### C MP, BNP #### [facility] [address] [place] [address] Dr. Brittani Arevalo Potassium [Moles/Vol] 4.0 mmol/L Normal 3.5-5.[address] [facility] Comment on above: Performed By: #### C MP, BNP #### [facility] [address] [place] [address] Dr. Brittani Arevalo Sodium [Moles/Vol] 138 mmol/L Normal 136-145 [facility] Comment on above: Performed By: #### C MP, BNP #### [facility] [address] [address] [address] Brittani Arevalo Urea nitrogen [Mass/Vol] 7.0 mg/dL Normal 7.0-18.[address] [facility] Comment on above: Performed By: #### C MP, BNP #### [facility] [address] [place] [address] Dr. Brittani Arevalo Urea nitrogen/Creatinine [Mass ratio] 9.0 mg/mg Normal [facility] Comment on above: Performed By: #### C MP, BNP #### [facility] [address] [address] [address] Brittani Arevalo TROPONIN, HIGH SENSITIVITYon 07-15-2022 HSTROP 4.5 pg/mL Normal 4.0-51.[address] [facility] Comment on above: Result Comment: CUT- OFF POINTS HAVE BEEN ESTABLISHED BASED ON THE FOURTH UNIVERSAL DEFINITIONS OF MYOCARDIAL INFARCTION. THE UPPER REFERENCE LIMIT (URL) OF TROPONIN, DEFINED THE 99TH PERCENTILE OF cTnI DISTRIBUTION IN A REFERENCE POPULATION, HAS BEEN CONFIRMED THE DECISION THRESHOLD FOR DE DIAGNOSIS. Performed By: #### C MP, BNP #### [facility] [address] [address] [address] Brittani Arevalo TSHon 07-15-2022 TSH 2.488 uIU/mL Normal 0.358-3.740 [facility] Comment on above: Performed By: #### C MP, BNP #### [facility] [address] [place] [address] Dr. Brittani Arevalo XR CHEST 1 Von [...] JAYY DE ANDA Date: 2022-07-15 17:[address] [facility] MG MAMM SCREEN 3D SUSI CADon 07-06-2022 MG MAMM SCREEN 3D SUSI CAD Patient: KELSI THOMPSON Exam Date: 07/06/2022 : 1980 Gender:F Ordering : DR ABDIAZIZ POOLE . Admission #: [id number] Family : Order #: [id number] CLICK HERE TO VIEW EXAM RADIOLOGY REPORT PROCEDURE: MAMMOGRAM SCREENING 3D BILATERAL CAD COMPARISON: None. INDICATIONS: Screening mammography Calculator Name NCI Breast Cancer Risk Assessment Tool 5 Year Breast Cancer Risk 0.40% Lifetime Breast Cancer Risk 6.60% Personal Breast Cancer No Personal Ovarian Cancer No Treatments None Family Cancers None LOCATION: [facility] BREAST COMPOSITION: Scattered areas fibroglandular density. [...] Santana M.D. on 07/06/2022 at 14:[address] [facility] PAP ACOG PANEL 2: 30 to 65on 07-06-2022 . . Normal [facility] Comment on above: Result Comment: Perf ormed at: WB Performed By: #### C MP, BNP #### [facility] [address] [address] [address] Brittani Arevalo Age Gdln ACOG Testing 30-[address] [facility] Comment on above: Performed By: #### C MP, BNP #### [facility] [address] [address] [address] Brittani Arevalo DIAGNOSIS: Comment Normal [facility] Comment on above: Result Comment: NEGA TIVE FOR INTRAEPITHELIAL LESION OR MALIGNANCY. Performed at: WB Performed By: #### C MP, BNP #### [facility] [address] [address] [address] Brittani Arevalo HPV Aptima Negative Normal Negative [facility] Comment on above: Result Comment: This nucleic acid amplification test detects fourteen high-risk HPV types (16,18,31,33,35,39,45,51,52,56,58,59,66,68) without differentiation. Performed at: =G Performed By: #### C MP, BNP #### [facility] [address] [address] [address] Brittani Arevalo HPV Genotype Reflex Comment Normal [facility] Comment on above: Result Comment: Crit eria not met, HPV Genotype not performed. Performed at: WB Performed By: #### C MP, BNP #### [facility] [address] [address] [address] Brittani Arevalo Methodology: Comment Normal [facility] Comment on above: Result Comment: This liquid based ThinPrep(R) pap test was screened with the use of an image guided system. Performed at: WB Performed By: #### C MP, BNP #### [facility] [address] [address] [address] Brittani Arevalo Note: Comment Normal [facility] Comment on above: Result Comment: The [...] Performed By: #### C MP, BNP #### [facility] [address] [address] [address] Brittani Arevalo Performed by: Comment Normal [facility] Comment on above: Result Comment: Sona Valdez, Director Of Vital Statistics (ASCP) Performed at: WB Performed By: #### C MP, BNP #### [facility] [address] [address] [address] Brittani Arevalo Specimen adequacy: Comment Normal [facility] Comment on above: Result Comment: Sati sfactory for evaluation. Endocervical and/or squamous metaplastic cells (endocervical component) are present. Performed at: WB Performed By: #### C MP, BNP #### [facility] [address] [address] [address] Brittani Arevalo 17-OH PROGESTERONE, LC/MSon 07-03-2022 17-OH Progesterone 45 ng/dL Normal [facility] Comment on above: Result Comment: Adul t Female Follicular 15 - 70 Luteal 35 - 290 Performed By: #### P ROGLCM #### [facility] [address] [place], [place] [address] Dr. Brittani Arevalo DHEA SERUMon 07-01-2022 Dehydroepiandrosterone (DHEA) 81 ng/dL Normal 31-[address] [facility] Comment on above: Result Comment: Age [...] 89 Performed By: #### D MONICA. #### [facility] [address] [address] [address] Brittani Arevalo DHEA-SULFATEon 06-29-2022 DHEA-Sulfate 19.4 ug/dL Critically low 57.3-279.2 [facility] Comment on above: Performed By: #### D DANIELLE #### [facility] [address] [place] [address] Dr. Brittani Arevalo FSHon 06-29-2022 FSH 17.5 mIU/mL Normal [facility] Comment on above: Result Comment: Adul t Female: Follicular phase 3.5 - 12.5 Ovulation phase 4.7 - 21.5 Luteal phase 1.7 - 7.7 Postmenopausal 25.8 - 134.8 Performed By: #### C MP, BNP #### [facility] [address] [place] [address] Dr. Brittani Arevalo LUTEINIZING HORMONE (LH)on 0 06-29-2022 LH 13.1 mIU/mL Normal [facility] Comment on above: Result Comment: Adul t Female: Follicular phase 2.4 - 12.6 Ovulation phase 14.0 - 95.6 Luteal phase 1.0 - 11.4 Postmenopausal 7.7 - 58.5 Performed By: #### L BCLH #### [facility] [address] [place] [address] Dr. Brittani Arevalo CBC AUTO DIFFon 06-28-2022 BASO # 0.1 103/ul Normal 0.0-0.[address] [facility] Comment on above: Performed By: #### C BC #### [facility] [address] [place] [address] Dr. Brittani Arevalo Basophils/100 WBC (Bld) 1.0 % Normal 0.2-2.0 [facility] Comment on above: Performed By: #### C BC #### [facility] [address] [place] [address] Dr. Brittani Arevalo EO # 0.1 103/ul Normal 0.0-0.[address] [facility] Comment on above: Performed By: #### C BC #### [facility] [address] [place] [address] Dr. Brittani Arevalo Eosinophils/100 WBC (Bld) 1.5 % Normal 0.9-7.[address] [facility] Comment on above: Performed By: #### C BC #### [facility] [address] [place] [address] Dr. Brittani Arevaol Erythrocyte distribution width (RBC) [Ratio] 16.4 % Critically high 11.0-15.[address] [facility] Comment on above: Performed By: #### C BC #### [facility] [address] [place] [address] Dr. Brittani Arevalo Hematocrit (Bld) [Volume fraction] 33.1 % Critically low 36.0-48.[address] [facility] Comment on above: Performed By: #### C BC #### [facility] [address] [place] [address] Dr. Brittani Arevalo Hemoglobin (Bld) [Mass/Vol] 9.8 g/dL Critically low 12.0-16.[address] [facility] Comment on above: Performed By: #### C BC #### [facility] [address] [place] [address] Dr. Brittani Arevalo IG # 0.01 10e3/ul Normal 0.00-0.[address] [facility] Comment on above: Performed By: #### C BC #### [facility] [address] [place] [address] Dr. Brittani Arevalo IG % 0.2 % Normal 0.0-0.[address] [facility] Comment on above: Performed By: #### C BC #### [facility] [address] [place] [address] Dr. Brittani Arevalo LYMPH # 2.7 103/ul Normal 1.2-3.[address] [facility] Comment on above: Performed By: #### C BC #### [facility] [address] [address] [address] Brittani Arevalo Lymphocytes/100 WBC (Bld) 44.2 % Normal 20.5-60.[address] [facility] Comment on above: Performed By: #### C BC #### [facility] [address] [place] [address] Dr. Brittani Arevalo MANUAL DIFF REQ NO Normal [facility] Comment on above: Performed By: #### C BC #### [facility] [address] [place] [address] Dr. Brittani Arevalo MCH (RBC) [Entitic mass] 23.0 pg Critically low 26.7-34 .[address] [facility] Comment on above: Performed By: #### C BC #### [facility] [address] [place] [address] Dr. Brittani Arevalo MCHC (RBC) [Mass/Vol] 29.6 g/dL Critically low 29.9-35.[address] [facility] Comment on above: Performed By: #### C BC #### [facility] [address] [place] [address] Dr. Brittani Arevalo MCV (RBC) [Entitic vol] 77.7 fL Critically low 81.0-99. [address] [facility] Comment on above: Performed By: #### C BC #### [facility] [address] [place] [address] Dr. Brittani Arevalo MONO # 0.4 103/ul Normal 0.3-0.[address] [facility] Comment on above: Performed By: #### C BC #### [facility] [address] [place] [address] Dr. Brittani Arevalo Monocytes/100 WBC (Bld) 7.1 % Normal 1.7-12.0 [facility] Comment on above: Performed By: #### C BC #### [facility] [address] [place] [address] Dr. Brittani Arevalo NEUT # 2.8 103/ul Normal 1.4-6.[address] [facility] Comment on above: Performed By: #### C BC #### [facility] [address] [place] [address] Dr. Brittani Arevalo Neutrophils/100 WBC (Bld) 46.0 % Normal 43.0-75.[address] [facility] Comment on above: Performed By: #### C BC #### [facility] [address] [place] [address] Dr. Brittani Arevalo Platelet mean volume (Bld) [Entitic vol] 10.6 fL Normal 9.5-13.[address] [facility] Comment on above: Performed By: #### C BC #### [facility] [address] [place] [address] Dr. Brittani Arevalo PLT 411 103/ul Normal 150-450 [facility] Comment on above: Performed By: #### C BC #### [facility] [address] [place] [address] Dr. Brittani Arevalo RBC 4.26 106/ul Normal 4.20-5.[address] [facility] Comment on above: Performed By: #### C BC #### [facility] [address] [place] [address] Dr. Brittani Arevalo WBC 6.2 103/ul Normal 4.0-11.[address] [facility] Comment on above: Performed By: #### C BC #### [facility] [address] [place] [address] Dr. Brittani Arevalo FREE T4on 06-28-2022 Free T4 [Mass/Vol] 0.81 ng/dL Normal 0.76-1.46 [facility] Comment on above: Performed By: #### C MP, BNP #### [facility] [address] [place] [address] Dr. Brittani Arevalo GLYCOHEMOGLOBIN A1Con 2022 ADA RECOMMENDATION SEE BELOW Normal [facility] Comment on above: Result Comment: ADA RECOMMENDED LIMIT 4.0 - 6.0 ADA THERAPEUTIC TARGET < 7.0 ACTION SUGGESTED > 7.0 Performed By: #### A 1C #### [facility] [address] [place] [address] Dr. Brittani Arevalo Glucose [Mass/Vol] 123 mg/dL Normal [facility] Comment on above: Performed By: #### A 1C #### [facility] [address] [place], [place] [address] Dr. Brittani Arevalo HbA1c (Bld) [Mass fraction] 5.9 % Normal 4.5-6.[address] [facility] Comment on above: Performed By: #### A 1C #### [facility] [address] [place], [place] [address] Dr. Brittani Arevalo TSHon 06-28-2022 TSH 2.736 uIU/mL Normal 0.358-3.740 [facility] Comment on above: Performed By: #### C MP, BNP #### [facility] [address] [place], [place] [address] Dr. Brittani Arevalo US PELVIS AND TRANSVAGon [...] by: LUAN SANTANA Date: 2022-06-28 12:[address] [facility] Outside Colonoscopyon 2020 Outside Colonoscopy [id number] 2#1.00CD:127 Normal [facility] Pathology Noteon 07-03-2020 Pathology Note [id number] B3#1.00CD:127 Normal [facility] Provider Letter FTon 06-25 Provider Letter [facility] Miriam Jordy, [address] [place] [address] [place] [address] Re: KELSI JOHNSON Date of : 1980 [...] persist. Sincerely, Dedrick Baker MD General Surgery [facility] Consent for Procedure/Surger yon 06-19-2020 Consent for Procedure/Surgery [id number] FE#1.00CD:127 [facility]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
[2024-12-09 12:19] LABS: Anion Gap 9.9; Blood Urea Nitrogen 4.0 mg/dL (7.0-18.0); Calcium 8.3 mg/dL (8.5-10.1); Carbon Dioxide 29.0 mmol/L (21.0-32.0); Chloride 105 mmol/L (98-107); Cholesterol 223 mg/dL (<=200); Estimated GFR (African America >60 (>=60 mL/min/1.73m^2); Estimated GFR (Non-African Ame >60 (>=60 mL/min/1.73m^2); Glucose 95 mg/dL (74-106); HDL Cholesterol 75 mg/dL (40-60); Potassium 3.9 mmol/L (3.5-5.1); Sodium 140 mmol/L (136-145); Triglycerides 127 mg/dL (<=150); VLDL CHOLESTEROL 25.4 mg/dL
== END 2024-12-09 11:13 | disposition home or self-care (01) ==
LOC: LAB 11:14
PROVIDERS: PCP Family Medicine
DX: E78.5 Hyperlipidemia, unspecified (principal); I11.9 Hypertensive heart disease without heart failure
CPT/HCPCS: 36415; 80048; 80061

== ENCOUNTER 2025-02-17 11:15 | Outpatient (OUT) | payer OTHER, SELFPAY ==
--- OUTSIDE RECORDS SUMMARY | 2025-02-17 11:17 | XMS_ITS | Clinical Summary ---
Author Organization [facility] Address [address] [place] [address] Care Team Providers Care Lamp Cleaner Name Role Phone Allison Pearson MD Primary Care Provider [phone] Medications MedicationSigDispense QuantityRefillsLast FilledStart DateEnd DateStatus carvedilol (Coreg) 25 MG tablet Take 25 mg by mouth in the morning and 25 mg in the evening. Take with meals. 11/21/2023ctive lisinopril 10 MG tablet Take 10 mg by mouth Daily as aczdviph13/25/2024ctive pregabalin (Lyrica) 75 MG capsule TAKE 1 CAPSULE (75 MG) BY MOUTH IN THE MORNING AND AT BEDTIME.08/08/2023ctive spironolactone (Aldactone) 50 MG tablet 50 mg01/05/2024ctive tiZANidine (Zanaflex) 4 MG tablet 4 mg01/15/2024ctive amLODIPine (Norvasc) 10 MG tablet Take by mouth DailyActive Family History Medical HistoryRelationNameCommentsHypertensionFatherHypertensionMotherRelation NameStatusCommentsFatherMother Social History Tobacco UseTypesPacks/DayYears UsedDateSmoking Tobacco: Never Tobacco Cessation:Counseling Given: Not Answered Alcohol UseStandard Drinks/WeekCommentsNot Currently0 (1 standard drink = 0.6 oz pure alcohol)CommentsUnknownSex and Gender InformationValueDate Recorded Sex Assigned at BirthNot on fileLegal FviDywlwf12/15/2023 6:56 PM EDTGender IdentityNot on fileSexual OrientationNot on file Last Filed Vital Signs Vital SignReadingTime TakenCommentsBlood Cofasuct883/8206 2:31 PM EDT Clyrm473809/27/2023 2:31 PM EDTTemperature--Respiratory Prgp848409/27/2023 2:31 PM EDTOxygen Saturation--Inhaled Oxygen Concentration--Fibhsp67.6 kg (191 lb 0.1 oz)09/27/2023 2:31 PM BJNJirzaz945.2 cm (5' 7.01 )09/27/2023 2:31 PM EDTBody Mass Index29.9109/27/2023 2:31 PM EDT Plan of Treatment Not on file Insurance Care Teams Team MemberRelationshipSpecialtyStart DateEnd Date Allison Pearson MD [address] [phone] PCP - GeneralCardiology08/08/23
--- OUTSIDE RECORDS SUMMARY | 2025-02-17 11:17 | XMS_ITS | Patient Health Record ---
Author Organization [facility] [place] Address [address] [place] [address] Care Team Providers Care Hand Welt Butter Name Role Phone Ap Spence Primary Care Provider [phone] Allergies Allergen (clinical drug ingredient) Drug/Non Drug Allergy documented on EMR Reaction Allergy Type Onset Date Status Contrast Dye (uncoded)rashAllergyActive Results Component Value Reference Range Notes LIPID PROFILE Reviewed date:12/09/2024 06:52:17 PM Interpretation: Performing Lab: Notes/Report: [facility] , Triglycerides 127 <=150 mg/dL Rivsolupeop791<=200 mg/dLHDL Mgdbiamrois0553-90 mg/dL > or =60 mg/dl - LOW CARDIOVASCULAR RISK <40 mg/dl - HIGH CARDIOVASCULAR RISK LDL Cholesterol Egdfjfodeo523.0 <100 mg/dl OPTIMAL 100-129 mg/dl NEAR OR ABOVE OPTIMAL 130-159 mg/dl BORDERLINE HIGH 160-189 mg/dl HIGH >190 mg/dl VERY HIGH VLDL NFXTMTKRDKT84.4Chol HDL Ratio3.0 3.3 - 4.4 LOW RISK 4.4 - 7.1 AVERAGE RISK 7.1 - 11.0 MODERATE RISK >11.0 HIGH RISK Performing Lab:see noteML - [facility] LBPROF CHEM 8 (BAS METB) Reviewed date:12/09/2024 06:52:17 PM Interpretation: Performing Lab: Notes/Report: [facility] ,Glofvr737618-768 mmol/LPotassium3.93.5-5.1 mmol/GIkihgsrl23328-585 mmol/LCarbon Ycufimk81.021.0-32.0 mmol/LAnion Gap9.6Mngubtm6670-761 mg/dLBlood Urea Nitrogen 4.07.0-18.0 mg/dLCreatinine0.780.55-1.02 mg/dLEstimated GFR ( Olivia>60 >=60 mL/min/1.73m 2Estimated GFR (Non- Apple>60>=60 mL/min/1.73m 2BUN Creatinine Ratio5.2Sybystq0.38.5-10.1 mg/dLPerforming Lab:see noteML - [facility] Reason For Referral No Information Medications Medication SIG (Take, Route, Frequency, Duration) Notes Start Date End Date Status cloNIDine HCl 0.1 MG 1 tablet Orally Once a day ActiveAtomoxetine HCl 80 MG1 capsule in the morning Orally Once a day; Duration: 30 day(s)5ActiveCarvedilol 25 MG1 tablet with food Orally Twice a day ActivetiZANidine HCl 4 mgTAKE TWO TABLETS BY MOUTH DAILY IN THE EVENING 30 DAYS; Duration: 30ActiveclonazePAM 0.5 MG1/2 tablet Orally at bedtimeActiveamLODIPine Besylate 5 MG1 tablet Orally Once a dayNot-TakingSpironolactone 50 MG1 tablet Orally Once a day with the 25mgActive Social History Tobacco Use: Social History Observation Description Date Details (start date - stop date) Never Smoker NA - NA Tobacco Use/Smoking Question Answer Notes Patient is a nonsmoker Alcohol Screen (Audit-C) Question Answer Notes Did you have a drink containing alcohol in the p ast year? Yes How many drinks did you have on a typical day when you were drinking in the past year?1 or 2 drinks (0 point)How often did you have a drink containing alcohol in the past year?Less than monthly (1 point)Ubuwku7IwnfsshdrnkhafFxzxialwFGWET-C (Standard) Question Answer Notes Did you have a drink containing alcohol in the p ast year? No Gyucyq7WvopspmamjotgiBiwynzla Problems Problem Type SNOMED Code ICD Code Onset Dates Problem Status W/U Status Risk Notes Problem Hemangioma of skin a nd subcutaneous tissue (222189067) Hemangioma of skin and subcutaneous tissue (D18.01) ActiveconfirmedProblemAlcohol intoxication (82430815)Alcohol abuse with intoxication, uncomplicated (F10.120)ActiveconfirmedProblemCardiomegaly (3730609)Cardiomegaly (I51.7)ActiveconfirmedProblemActinic keratosis (225909) Actinic keratosis (L57.0)ActiveconfirmedProblemAcne vulgaris (37370017)Acne vulgaris (L70.0)ActiveconfirmedProblemPalpitations (57159322)Palpitations (R00.2)ActiveconfirmedProblemMigraine variant with headache (disorder) (134944691)Migraine headache (G43.909)ActiveconfirmedProblemHypertension (80296294)Hypertension (I10)ActiveconfirmedProblemAttention deficit disorder (22090657)ADD (attention deficit disorder) (F90.0)ActiveconfirmedProblemInsomnia (477606184)Insomnia (G47.00)ActiveconfirmedProblemAbdominal bloating (959976956) Abdominal bloating (R14.0)ActiveconfirmedProblemEpigastric pain (63229703) Epigastric pain (R10.13)ActiveconfirmedProblemTricuspid valve disorder (84695876)Mild tricuspid regurgitation (I07.1)ActiveconfirmedProblemAcute sinusitis (35676861)Acute sinusitis (J01.90)ActiveconfirmedProblemPharyngitis (775241948)Pharyngitis (J02.9)ActiveconfirmedProblemMenorrhagia (799849889) Menorrhagia (N92.0)ActiveconfirmedProblemWell adult (437839499)Well adult (Z00.00)ActiveconfirmedProblemFever (421820710)Fever (R50.9)Activeconfirmed ProblemIron deficiency anemia (50838380)Iron deficiency anemia (D50.9)Active confirmedProblemImpetigo (08192623)Impetigo (L01.00)ActiveconfirmedProblemRenal artery stenosis (298309934)Renal artery stenosis (I70.1)ActiveconfirmedProblem Change in bowel habit (00969304)Change in bowel habits (R19.4)Activeconfirmed ProblemLentigo (408327242)Lentigo (L81.4)ActiveconfirmedProblemGeneralized abdominal pain (014200645)Abdominal pain, generalized (R10.84)Activeconfirmed ProblemInternal derangement of right knee (52171292020346918)Internal derangement of right knee (M23.91)ActiveconfirmedProblemHypertension (45625908) Uncontrolled hypertension (I10)ActiveconfirmedProblemPain in limb (48164284)Pain of finger of right hand (M79.644)ActiveconfirmedProblemHigh blood pressure (92667555)High blood pressure (I10)ActiveconfirmedProblemAcute diarrhea (715553903)Acute diarrhea (R19.7)ActiveconfirmedProblemHypertensive urgency (368642765)Hypertensive urgency (I10)ActiveconfirmedProblemSeborrheic keratosis (23730462)Keratosis, seborrheic (L82.1)ActiveconfirmedProblemParesthesia of arm (49202234)Paresthesia of arm (R20.2)ActiveconfirmedProblemRecurrent major depression (38236927)Depression, major, recurrent, in remission (F33.40)Active confirmedProblemHypercholesterolemia (08382565)Hypercholesterolemia (E78.00) ActiveconfirmedProblemPrimary hypertension (02557257)Primary hypertension (I10) Activeconfirmed Vital Signs Blood pressure diastolic 64 mm Hg 01/06/2025 Otmtvf92 in01/06/2025lood pressure gqgsumws301 mm Hg01/06/20251792Oiihjb510.6 lbs 01/06/2025BMI23.9 kg/m201/06/2025 Encounters Encounter Location Date Provider Diagnosis [facility] [address] [place] [address] 01/01/2025 Ap [facility] [place] [address] 01/06/2025Ap Joshi adult Z00.00 Assessments Encounter Date Diagnosis (ICD Code) Assessment Notes Treatment Notes Treatment Clinical Notes Section Notes 01/06/2025 Well adult (ICD-10 - Z00.00) stoipping later this week - BP low today Plan Of Treatment Pending Test Test Name Order Date CMP (COMPLETE METABOLIC PANEL) 4 HEMOGLOBIN A1C (GLYCO) 01/06/2025 HEMOGLOBIN A1C (GLYCO) 12/28/2023 IRON, TOTAL 01/06/2025 LIPID PANEL (CHOL/TRIG/HDL/LDL) 12/28/19 24 LIPID PANEL (CHOL/TRIG/HDL/LDL) 01/07/20 25 CBC WITH DIFF 12/28/2023 ALDOSTERONE 10/17/2022 Renal Artery Duplex 10/17/2022 CA 19-9 01/06/2025 CBC AUTO DIFF 10/17/2022 CORTISOL 10/17/2022 PROF 14(COMP METB) 10/17/2022 THYROID PROFILE WITH TSH 10/17/2022 THYROID PANEL (T4/TSH/FREE T3) 4 THYROID PANEL (T4/TSH/FREE T3) 5 MM screening mammo BI 12/28/2023 MM screening mammo BI 01/06/2025 CMP (COMP MET SAUCEDA) w/eGFR CKD-EPI 2024 CBC WITH DIFF 01/06/2025 Insurance Providers Payer Name Payer Address Payer Phone Subscriber Number Group Number Insured Name Patient Relationship to Insured Coverage Start Date Coverage End Date MMO [employer] PPO [address] [address] [place] [address] [phone] [id number] Spouse - patient is the spouse of the insured 1 Medical (General) History Medical History History ICD Code Pharyngitis J02.9 Fever R50.9 Acute sinusitis J01.90 Impetigo L01.00 Hypercholesterolemia E78.00 Epigastric pain R10.13 Abdominal pain, generalized R10.84 Abdominal bloating R14.0 Change in bowel habits R19.4 Acute diarrhea R19.7 Internal derangement of right knee M23.9 1 Pain of finger of right hand M79.644 Renal artery stenosis I70.1 Hypertension I10 Mild tricuspid regurgitation I07.1 Palpitations R00.2 Insomnia G47.00 Alcohol abuse with intoxication, uncompl icated F10.120 Paresthesia of arm R20.2 Hemangioma of skin and subcutaneous tiss ue D18.01 Keratosis, seborrheic L82.1 Actinic keratosis L57.0 Lentigo L81.4 ADD (attention deficit disorder) F90.0 Acne vulgaris L70.0 Depression, major, recurrent, in remissi on F33.40 Migraine headache G43.909 Kidney stones N20.0 Surgical History Surgery Date(Month/Year) Tubal/Ablasion 07/2022 Meniscus Tear- right side- fixed DELIVERYHospitalization History Reason Date(Month/Year) BP
--- NOTE | 2025-02-17 11:37 | MM_ITS ---
Patient Name: KELSI JOHNSON MR#: [id number] : 1980 Exam Date: 02/17/2025 Ordering Doctor: DR MIRIAM WHITE . RADIOLOGY REPORT PROCEDURE: MM TOMOSYNTHESIS SCREENING BI COMPARISON: MG MAMM SCREEN 3D SUSI CAD, 07/06/2022. INDICATIONS: Screening Calculator Name NCI Breast Cancer Risk Assessment Tool 5 Year Breast Cancer Risk 0.50% Lifetime Breast Cancer Risk 6.50% Personal Breast Cancer No Personal Ovarian Cancer No Treatments None Family Cancers None LOCATION: [facility] BREAST COMPOSITION: There are scattered areas of fibroglandular density. FINDINGS: RIGHT BREAST: No significant suspicious finding. LEFT BREAST: No significant suspicious finding. There is a benign-appearing calcification. DIAGNOSTIC CATEGORY 2--BENIGN FINDING. NO CHANGE FROM COMPARISON. RECOMMENDATIONS: ROUTINE MAMMOGRAM AND CLINICAL EVALUATION IN 12 MONTHS. Dictated by: Josh Starr MD on 02/18/2025 at 10:36 Approved by: Josh Starr MD on 02/18/2025 at 10:40
[2025-02-17 11:50] LABS: Hematocrit 45.1 % (36.0-48.0); Hemoglobin 14.8 g/dL (12.0-16.0); Immature Granulocytes Abs Auto 0.00 10^3/uL (0.00-0.03); Immature Granulocytes Pct Auto 0.0 % (0.0-0.5); Lymphocytes Absolute Auto 2.6 10^3/uL (1.2-3.8); Mean Corpuscular HGB Conc 32.8 g/dL (29.9-35.2); Mean Corpuscular Hemoglobin 29.9 pg (26.7-34.0); Mean Corpuscular Volume 91.1 fL (81.0-99.0); Platelet Count 244 10^3/uL (150-450); Red Blood Count 4.95 10^6/uL (4.20-5.40); White Blood Count 5.7 10^3/uL (4.0-11.0)
[2025-02-17 12:24] LABS: Iron 66.0 ug/dL (50.0-170.0)
[2025-02-17 12:28] LABS: Alanine Aminotransferase 29 U/L (14-59); Albumin Globulin Ratio 1.1; Albumin Level 4.5 g/dL (3.4-5.0); Alkaline Phosphatase 48 U/L (46-116); Anion Gap 12.1; Aspartate Amino Transferase 20 U/L (15-37); Blood Urea Nitrogen 8.0 mg/dL (7.0-18.0); Calcium 9.8 mg/dL (8.5-10.1); Carbon Dioxide 30.1 mmol/L (21.0-32.0); Chloride 100 mmol/L (98-107); Cholesterol 315 mg/dL (<=200); Estimated GFR (African America >60 (>=60 mL/min/1.73m^2); Estimated GFR (Non-African Ame >60 (>=60 mL/min/1.73m^2); Free T3 2.66 pg/mL (2.18-3.98); Globulin 4.0 g/dL; Glucose 99 mg/dL (74-106); HDL Cholesterol 88 mg/dL (40-60); Potassium 4.2 mmol/L (3.5-5.1); Sodium 138 mmol/L (136-145); Thyroid Stimulating Hormone 4.023 uIU/mL (0.358-3.740); Total Protein 8.5 g/dL (6.4-8.2); Triglycerides 94 mg/dL (<=150); VLDL CHOLESTEROL 18.8 mg/dL
[2025-02-18 04:07] LABS: CA 19-9 17 U/mL (0-35)
== END 2025-02-17 11:16 | disposition home or self-care (01) ==
PROVIDERS: PCP Family Medicine; Visit Provider Family Medicine
DX: Z00.00 Encounter for general adult medical examination without abnormal findings (principal); Z12.31 Encounter for screening mammogram for malignant neoplasm of breast
CPT/HCPCS: 36415; 77063; 77067; 80053; 80061; 83036; 83540; 84436; 84443; 84481; 85025; 86301